=== PATIENT | female | born 1935 | race Caucasian/White ===

== ENCOUNTER 2024-03-18 11:34 | Inpatient (IN) | payer MEDICARE, BC, SELFPAY ==
[2024-03-18] VITALS (33 sets, daily range): BP systolic 125–196; BP diastolic 74–106; PULSE 95–124; TEMP 36.4–36.6; O2SAT 90–99; BMI 24.4; BMI 24.3
--- NOTE | 2024-03-18 11:52 | ECG_ITS ---
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
[2024-03-18] MEDS: IPRATROPIUM/ALBUTEROL SULFATE 3 ML AMPUL.NEB IH (12:12)
--- NOTE | 2024-03-18 12:12 | CT_ITS ---
[address] [address] Patient Name: DEEP MAYA MRN: [id number] date: 1935 Sex: F Assigned Patient Location: ER Current Patient Location: Accession/Order Number: [id number] Exam Date: 03/18/2024 12:42 Report Date: 03/18/2024 13:21 At the request of: JANET KIMBROUGH Procedure: CT angio chest EXAMINATION: CT angio chest HISTORY: Shortness of breath, recent flight COMPARISON: No relevant comparison available. TECHNIQUE: Multi-planar CT images were created with IV contrast. Axial, Coronal, and Sagittal images. Dose reduction techniques were achieved by using automated exposure control and/or adjustment of mA and/or kV according to patient size and/or use of iterative reconstruction technique. FINDINGS: LUNGS: Mild scattered groundglass attenuation throughout the lungs. Partial consolidation of the lower lobes right greater than left likely representing atelectasis PLEURA: Large right pleural effusion occupying approximately 80% of the right hemithorax. Small left pleural effusion measuring up to 2.7 cm VASCULATURE: Normal postcontrast opacification central pulmonary artery with no filling defect to suggest a pulmonary embolus AGUEDA: No mass or adenopathy. MEDIASTINUM: Soft tissue attenuation in the anterior mediastinum extending through the right-sided chest wall to a fungating right breast mass measuring 8.5 x 3.2 cm CARDIAC: No enlargement or pericardial effusion. Moderate coronary atherosclerosis AORTA: No aneurysm or dissection. CHEST WALL: Right breast mass. Additional areas of soft tissue attenuation in the right breast BONES: No bone lesion or fracture. LIMITED ABDOMEN: No suspicious findings. Limited images of the upper abdomen. OTHER: Findings discussed with Dr. Kimbrough by telephone at 1:[address]/CT angio chest IMPRESSION: No central pulmonary thromboembolic disease Large right and small left pleural effusions with associated atelectasis Groundglass attenuation of the lungs suggesting pulmonary edema Fungating 8.5 cm right breast mass extending through the chest wall into the anterior mediastinum Electronically authenticated by: TAMMY VALVERDE Date: 03/18/2024 13:21
[2024-03-18 12:14] LABS: ABG PCO2 48.5 mmHg (35.0-45.0); pH ABG 7.331 (7.350-7.450)
[2024-03-18 12:15] LABS: Allen Test POSITIVE (POSITIVE); Base Excess ABG -0.3 mmol/L (-2.0-2.0); HCO3 ABG 25.6 mmol/L (22.0-26.0); Liters per Minute 2; O2 Mode N/C; Oxygen Saturation ABG 94.1 %; PO2 ABG 72.8 mmHg (80.0-100.0); Puncture Site R RADIAL
[2024-03-18 12:16] LABS: Basophils Absolute Auto 0.1 10^3/uL (0.0-0.1); Basophils Percent Auto 0.4 % (0.2-2.0); Eosinophils Absolute Auto 0.1 10^3/uL (0.0-0.7); Hematocrit 35.2 % (36.0-48.0); Hemoglobin 11.6 g/dL (12.0-16.0); Immature Granulocytes Abs Auto 0.04 10^3/uL (0.00-0.03); Immature Granulocytes Pct Auto 0.3 % (0.0-0.5); Lymphocytes Absolute Auto 1.3 10^3/uL (1.2-3.8); Lymphocytes Percent Auto 10.5 % (20.5-60.0); Mean Platelet Volume 9.1 fL (9.5-13.5); Monocytes Absolute Auto 1.1 10^3/uL (0.3-0.8); Neutrophils Absolute Auto 9.9 10^3/uL (1.4-6.5); Neutrophils Percent Auto 78.8 % (43.0-75.0); Platelet Count 453 10^3/uL (150-450); Red Blood Count 3.52 10^6/uL (4.20-5.40); Red Cell Distribution Width 14.6 % (11.0-15.0); White Blood Count 12.6 10^3/uL (4.0-11.0)
[2024-03-18] MEDS: DEXAMETHASONE SOD PHOS 10 MG/ML VIAL IV (12:16)
[2024-03-18 12:20] LABS: Lactate/Lactic Acid 1.8 mmol/L (0.4-2.0)
[2024-03-18 12:21] LABS: Alanine Aminotransferase 16 U/L (14-59); Albumin Globulin Ratio 0.8; Albumin Level 3.2 g/dL (3.4-5.0); Alkaline Phosphatase 81 U/L (46-116); Anion Gap 14.4; Aspartate Amino Transferase 20 U/L (15-37); BUN Creatinine Ratio 22.7; Bilirubin Total 0.5 mg/dL (0.2-1.0); Calcium 9.7 mg/dL (8.5-10.1); Carbon Dioxide 25.1 mmol/L (21.0-32.0); Chloride 99 mmol/L (98-107); Estimated GFR (African America 57 (>=60); Estimated GFR (Non-African Ame 47 (>=60); Globulin 3.8 g/dL; Glucose 182 mg/dL (74-106); Potassium 3.5 mmol/L (3.5-5.1); Sodium 135 mmol/L (136-145); Troponin I High Sensitivity 11.2 pg/mL (4.0-51.3)
--- NOTE | 2024-03-18 12:46 | ED.SOB1 ---
HPI - SOB/Dyspnea General Chief Complaint: Shortness of Breath/Dyspnea Stated Complaint: SHORTNESS OF BREATH Time Seen by Provider: 03/18/24 12:02 Source: patient Mode of arrival: Wheelchair Limitations: no limitations History of Present Illness HPI Narrative: Patient presents ED complaint of shortness of breath. She just returned from [place] on Saturday. She has worsening shortness of breath that started last night. She is in severe respiratory distress. Speaking in very short sentences. Working hard to breathe and tachypneic. She was tachycardic on arrival had a heart rate of 100. She denies any chest pain. She does have lower extremity edema which is chronic for her when she has been sitting a lot. She denies any pain with breathing she just feels like she cannot catch her breath. She denies any history of COPD or emphysema or heart failure. Related Data Home Medications ?Medication ?Instructions ?Recorded ?Confirmed aspirin 81 mg tablet,delayed 81 mg PO DAILY 03/18/24 03/18/24 release (Adult Aspirin Regimen) letrozole 2.5 mg tablet 2.5 mg PO Q24H 03/18/24 03/18/24 losartan 100 1 tab PO DAILY 03/18/24 03/18/24 mg-hydrochlorothiazide 12.5 mg tablet metformin 1,000 mg tablet 1,000 mg PO BIDWM 03/18/24 03/18/24 omega 9-hld-uuz-fish oil 1,000 mg 1 cap PO DAILY 03/18/24 03/18/24 (120 mg-180 mg) capsule (Fish Oil) palbociclib 125 mg tablet (Ibrance) 125 mg PO DAILY 03/18/24 03/18/24 simvastatin 40 mg tablet 40 mg PO DAILY 03/18/24 03/18/24 Allergies Allergy/AdvReac Type Severity Reaction Status Date / Time No Known Drug Allergies Allergy Verified 03/18/24 11:49 Review of Systems ROS Status of ROS 10 or more systems reviewed and unremarkable except as noted in history and below Exam Narrative Exam Narrative: Time Seen: [] Vital Signs: [Per nurse's notes.] General: [Alert] Skin: [Warm, dry, no rash.] Head: [Normocephalic, atraumatic.] Neck: [Supple, trachea midline.] Eye: [Pupils are equal, round and reactive to light, extraocular movements are intact, normal conjunctiva.] Ears, nose, mouth and throat: oral mucosa moist. Cardiovascular: [Regular rate and rhythm, no murmur.] Respiratory: Severe respiratory distress, Inspiratory expiratory wheezing, moving very little air. Tachypneic. Chest wall: [No tenderness, Patient has a mass on the right chest wall Gastrointestinal: [Soft, nontender, non distended, normal bowel sounds.] MSK: 5 out of 5 muscle strength x 4 extremities no calf pain Mild bilateral lower extremity edema, 1+, patient reports this is typical for her Lymphatics: [No lymphadenopathy.] Psychiatric: [Cooperative, appropriate mood & affect.] Neurological: [Alert and oriented to person, place, time, and situation, no focal neurological deficit observed.] Constitutional Vital Signs, click to edit/add: Last Vital Signs Temp 97.6 F 03/18/24 11:45 Pulse 103 H 03/18/24 14:15 Resp 24 H 03/18/24 14:15 BP 156/76 H 03/18/24 14:00 Pulse Ox 93 L 03/18/24 14:15 O2 Del Method Nasal Cannula 03/18/24 13:03 O2 Flow Rate 3 03/18/24 13:03 FiO2 40 03/18/24 12:49 Course Vital Signs Vital signs: Vital Signs Temperature 97.6 F 03/18/24 11:45 Pulse Rate 98 H 03/18/24 11:45 Respiratory Rate 28 H 03/18/24 11:45 Pulse Oximetry 93 L 03/18/24 11:45 Oxygen Delivery Method Nasal Cannula 03/18/24 11:45 Oxygen Delivery Flow Rate 2 03/18/24 11:45 Temperature 97.6 F 03/18/24 11:45 Pulse Rate 103 H 03/18/24 14:15 Respiratory Rate 24 H 03/18/24 14:15 Blood Pressure 156/76 H 03/18/24 14:00 Pulse Oximetry 93 L 03/18/24 14:15 Oxygen Delivery Method Nasal Cannula 03/18/24 13:03 Oxygen Delivery Flow Rate 3 03/18/24 13:03 Fraction of Inspired Oxygen 40 03/18/24 12:49 MDM - SOB/Dyspnea MDM Narrative Medical decision making narrative: Patient came in with severe shortness of breath. CT chest shows fluid in the right lung and pulmonary edema. Patient is doing much better on high flow nasal cannula with supportive oxygen therapy. Labs are relatively nonacute. I ordered a CT angio chest due to the fact that she just flew back from [place] and she was having shortness of breath. She reported to me that if needed she would be intubated at this time However she improved greatly with high flow oxygen. CT scan was concerning for fluid in the right chest therefore I called Dr. Drummond and he reviewed the images with me. I talked to Dr. Christianson who will admit the patient to the hospital on high flow oxygen for further management. Dr. Drummond states that they will most likely do a thoracentesis at some point today to help with her breathing. Patient and family are comfortable care plan for admission. She is stable here in the ED. Dr. Christianson requested regular [facility] floor inpatient admit. Differential Diagnosis Differential diagnosis: Likely congestive heart failure, community acquired pneumonia, pulmonary embolism and other (Pleural effusion) Medical Records Attestation: I reviewed the patient's medical records. Lab Data Attestation: I reviewed the patient's lab results. Labs: Lab Results 03/18/24 03/18/24 Range/Units 10:25 11:55 WBC 12.6 H (4.0-11.0) 10^3/uL RBC 3.52 L (4.20-5.40) 10^6/uL Hgb 11.6 L (12.0-16.0) g/dL Hct 35.2 L (36.0-48.0) % MCV 100.0 H (81.0-99.0) fL MCH 33.0 (26.7-34.0) pg MCHC 33.0 (29.9-35.2) g/dL RDW 14.6 (11.0-15.0) % Plt Count 453 H (150-450) 10^3/uL MPV 9.1 L (9.5-13.5) fL Neut % (Auto) 78.8 H (43.0-75.0) % Lymph % (Auto) 10.5 L (20.5-60.0) % [place] % (Auto) 9.0 (1.7-12.0) % Eos % (Auto) 1.0 (0.9-7.0) % Baso % (Auto) 0.4 (0.2-2.0) % Neut # (Auto) 9.9 H (1.4-6.5) 10^3/uL Lymph # (Auto) 1.3 (1.2-3.8) 10^3/uL [place] # (Auto) 1.1 H (0.3-0.8) 10^3/uL Eos # (Auto) 0.1 (0.0-0.7) 10^3/uL Baso # (Auto) 0.1 (0.0-0.1) 10^3/uL Abs Immat Gran (auto) 0.04 H (0.00-0.03) 10^3/uL Imm/Tot Granulo (auto) 0.3 (0.0-0.5) % Puncture Site R radial ABG pH 7.331 L (7.350-7.450) ABG pCO2 48.5 H (35.0-45.0) mmHg ABG pO2 72.8 L (80.0-100.0) mmHg ABG HCO3 25.6 (22.0-26.0) mmol/L ABG O2 Saturation 94.1 % ABG Base Excess -0.3 (-2.0-2.0) mmol/L Vicente Test Positive (POSITIVE) O2 Liters/Min 2 Sodium 135 L (136-145) mmol/L Potassium 3.5 (3.5-5.1) mmol/L Chloride 99 (98-107) mmol/L Carbon Dioxide 25.1 (21.0-32.0) mmol/L Anion Gap 14.4 BUN 25.0 H (7.0-18.0) mg/dL Creatinine 1.10 H (0.55-1.02) mg/dL Est GFR ( Amer) 57 L (>=60) Est GFR (Non-Af Amer) 47 L (>=60) BUN/Creatinine Ratio 22.7 Glucose 182 H (74-106) mg/dL Lactate 1.8 (0.4-2.0) mmol/L Calcium 9.7 (8.5-10.1) mg/dL Total Bilirubin 0.5 (0.2-1.0) mg/dL AST 20 (15-37) U/L ALT 16 (14-59) U/L Alkaline Phosphatase 81 (46-116) U/L Lactate Dehydrogenase 192 (81-234) U/L Troponin I High Sens 11.2 (4.0-51.3) pg/mL NT-Pro-B Natriuret Pep 298.0 (<=1800.0) pg/mL Total Protein 7.0 (6.4-8.2) g/dL Albumin 3.2 L (3.4-5.0) g/dL Globulin 3.8 g/dL Albumin/Globulin Ratio 0.8 ABG Data Attestation: I have reviewed the pertinent ABG results. Imaging Data CT scan - chest: Radiologist's impression: ITS Impressions Chest CTA 03/18/24 12:12 IMPRESSION: No central pulmonary thromboembolic disease Large right and small left pleural effusions with associated atelectasis Groundglass attenuation of the lungs suggesting pulmonary edema Fungating 8.5 cm right breast mass extending through the chest wall into the anterior mediastinum Electronically authenticated by: TAMMY DRUMMOND Date: 03/18/2024 13:21 ECG Data Attestation: I personally reviewed and interpreted this ECG as follows: Interpretation: EKG INTERPRETATION Time: []1149 Rate: []100 Rhythm: _ []Sinus tachycardia ST segments: _ [] T waves: _ [] Ectopy: _ [] P wave/UT interval: _ [] QRS interval: _ [] QT interval: _ [] Comparison: _ [] Comparison EKG date: [] Performed by: [self] First-degree AV block No acute ST elevation or depression Discharge Plan Discharge Chief Complaint: Shortness of Breath/Dyspnea Time of Disposition Decision: 14:52 Prescriptions / Home Meds: No Action letrozole 2.5 mg tablet 2.5 mg PO Q24H losartan-hydrochlorothiazide 100-12.5 mg tablet 1 tab PO DAILY metformin 1,000 mg tablet 1,000 mg PO BIDWM Ibrance 125 mg tablet 125 mg PO DAILY simvastatin 40 mg tablet 40 mg PO DAILY aspirin [Adult Aspirin Regimen] 81 mg tablet,delayed release (DR/EC) 81 mg PO DAILY omega 8-nqa-fwv-fish oil [Fish Oil] 1,000 mg (120 mg-180 mg) capsule 1 cap PO DAILY Print Language: Uzbek
[2024-03-18] MEDS: FUROSEMIDE 40 MG/4 ML VIAL IVP (13:42)
--- NOTE | 2024-03-18 13:54 | US_ITS ---
[address] [address] Patient Name: DEEP MAYA MRN: [id number] date: 1935 Sex: F Assigned Patient Location: ICU Current Patient Location: ICU Accession/Order Number: [id number] Exam Date: 03/18/2024 13:56 Report Date: 03/19/2024 15:41 At the request of: SHAIKH ROSALES Procedure: US thoracentesis PROCEDURE: US thoracentesis COMPARISON: None. HISTORY: Pleural effusion , right greater than left DESCRIPTION: Informed consent was obtained. The patient was prepped and draped in the standard sterile fashion. An ultrasound-guided thoracentesis was performed in the usual sterile manner. FINDINGS: SITE: Right pleural space NEEDLE: Thoracentesis 8 Fr. catheter over an 18-gauge needle FLUID DESCRIPTION: Removed 1.4 L of thin, slightly dustin-colored fluid. MEDICATION: 1% buffered Xylocaine for local anesthesia COMPLICATIONS: None. LABORATORY: Pending OTHER: Negative. US/US thoracentesis IMPRESSION: 1. Successful right thoracentesis with removal of 1.4 L of fluid. 2. Pathology/cytology results are pending. Electronically authenticated by: SAIRA GUTIERREZ Date: 03/19/2024 15:41
[2024-03-18 14:33] LABS: Lactate Dehydrogenase 192 U/L (81-234)
--- NOTE | 2024-03-18 17:00 | P.HP_ITS ---
<Statement entered by Shaikh Camilla MD - 03/19/24 11:45> This documentation has been reviewed and approved.Case discussed with Erika. Appendectomy with treatment plan, patient. Patient presented with acute and worsening shortness of breath and was found to have acute respiratory failure with hypoxia likely secondary to large right pleural effusion that is associated with her breast cancer. Ordered therapeutic thoracentesis for patient for symptomatic relief. For now, IV Lasix forty twice a day to help improve/ respiratory status HPI H&P: HPI History of Present Illness Chief complaint: SHORTNESS OF BREATH Narrative: 03/18/24 1520 This is an 89-year-old female patient with a past medical history as outlined below including breast cancer status post right mastectomy with recurrent lesion on the right chest wall, DM2, HTN, and hyperlipidemia; who presented to the ED complaining of shortness of breath since yesterday afternoon. The patient reports mild shortness of breath in the evening but by nighttime was unable to lie flat and had difficulty sleeping. This morning she was severely short of breath and presented to the ED for further evaluation. Workup in the ED revealed mild leukocytosis (12.6), tachycardia (103), tachypnea (24), and hypoxia (89% on room air). An ABG revealed mild respiratory acidosis and hypoxia (pH 7.33, pCO2 48.5, pO2 72.8, HCO3 25.6, base excess -0.3). A CTA of the chest was negative for PE, but did note a large right and small left pleural effusions with associated atelectasis, groundglass attenuation of the lungs suggesting pulmonary edema, and a fungating 8.5 cm right breast mass extending through the chest wall into the anterior mediastinum. The patient is being admitted as an inpatient to the hospitalist service for acute respiratory failure, and pleural effusion requiring intervention. At the time of my exam the patient is just arrived to the medical floor. She was placed on high flow Vapotherm O2 delivery in the ED prior to transfer to the medical floor due to her persistent hypoxia. She is notably short of breath, able to speak in 3-4 word sentences only. She denies fevers/chills, chest pain, N/V/D. She reports following with oncology both in [place] and here in [place]. She was recently discontinued her Ibrance as it was not effective, and was placed on a new low-dose chemotherapy due to the mass recurrence on her right chest wall. Apparently this is not amenable to surgical intervention as both oncologists have stated they won't touch the mass. The patient has been against using chemotherapy and is hesitantly going to try her new medication that was just prescribed by her oncologist in [place]. She just returned from [place] 3 days ago. She has a large open mass on her right chest wall that is seeping serosanguineous fluid. Goals of care conversation was held with the patient and she confirms she wants to be a DNR CCA. Opioid HPI Opioid Management Most Recent Opioid Data: Last Pain Assessment 03/19/24 05:12 Last ORT Total Score 0 03/18/24 15:13 Last ORT Risk Category Low Risk 03/18/24 15:13 Review of Systems ROS Status of ROS 10 or more systems reviewed and unremark able except as noted in history and below [facility] Medical History (Updated 03/19/24 @ 06:42 by Erika Bedoya NP) DM2 (diabetes mellitus, type 2) ?E11.9 - Type 2 diabetes mellitus without complications (ICD-10) Breast cancer ?C50.919 - Malignant neoplasm of unspecified site of unspecified female breast (ICD-10) Surgical History (Updated 03/18/24 @ 15:07 by Yu Wetzel) History of mastectomy ?Z90.10 - Acquired absence of unspecified breast and nipple (ICD-10) Family History (Updated 03/18/24 @ 15:10 by Yu Wetzel) Mother Family history of cancer Social History (Updated 03/18/24 @ 15:13 by Yu Wetzel) Within the past year, how often did you have a drink containing alcohol: monthly or less Smoking status: Never smoker Non-prescribed substance use: denies use Highest level of school completed/degree received: 10th grade Are you now , , , , never or living with a partner: In a typical week, how many times do you talk on the telephone with family, friends, or neighbors: twice per week How often do you get together with friends or relatives: twice per week How often do you attend roman catholic or yazdanism services: never Do you belong to any clubs or organizations such as roman catholic groups unions, fraternal or athletic groups, or school groups: no Total score: 1 Score interpretation: A score of less than or equal to 1 indicates the most socially isolated. Little interest or pleasure in doing things: not at all Feeling down, depressed, or hopeless: not at all Feel stressed/tense/nervous/anxious/difficulty sleeping: not at all Meds Home Medications and Allergies Home Medications ?Medication ?Instructions ?Recorded ?Confirmed ?Type aspirin 81 mg tablet,delayed 81 mg PO DAILY 03/18/24 03/18/24 History release (Adult Aspirin Regimen) letrozole 2.5 mg tablet 2.5 mg PO Q24H 03/18/24 03/18/24 History losartan 100 1 tab PO DAILY 03/18/24 03/18/24 History mg-hydrochlorothiazide 12.5 mg tablet metformin 1,000 mg tablet 1,000 mg PO BIDWM 03/18/24 03/18/24 History omega 6-udz-zsd-fish oil 1,000 mg 1 cap PO DAILY 03/18/24 03/18/24 History (120 mg-180 mg) capsule (Fish Oil) palbociclib 125 mg tablet (Ibrance) 125 mg PO DAILY 03/18/24 03/18/24 History simvastatin 40 mg tablet 40 mg PO DAILY 03/18/24 03/18/24 History Allergies Allergy/AdvReac Type Severity Reaction Status Date / Time No Known Drug Allergies Allergy Verified 03/18/24 11:49 Exam Constitutional Vital Signs, click to edit/add: Last Vital Signs Temp 97.9 F 03/18/24 15:13 Pulse 124 H 03/18/24 16:10 Resp 18 03/18/24 15:13 BP 144/85 H 03/18/24 15:13 Pulse Ox 90 L 03/18/24 16:24 O2 Del Method Vapotherm 03/18/24 16:24 O2 Flow Rate 40 03/18/24 16:24 FiO2 40 03/18/24 16:24 Common normals: no apparent distress, oriented x3, alert and well nourished General appearance: cooperative Orientation/consciousness: Yes awake HENMA Common normals: normocephalic, head/scalp atraumatic, hearing grossly normal bilaterally, external nose normal and moist oral mucous membranes Eye Common normals: PERRL, EOMs intact bilaterally, conjunctivae normal and no scleral icterus Alignment: alignment normal Eyelid: eyelids normal Neck & C-Spine Common normals: full ROM, supple and no JVD Chest Common normals: inspection of chest normal Chest: symmetrical chest wall rise Respiratory Common normals: no retractions and no use of accessory muscles Effort & inspection: not able to speak in complete sentences (3-4 word sentences) Auscultation: diminished lung sounds (Very dim BLL, R much worse than L) Cardio Common normals: no JVD, regular rate, regular rhythm, S1 normal heart sound, S2 normal heart sound, no gallops, no clicks, no murmurs, no rub and peripheral pulses 2+ throughout GI Common normals: Normal to inspection, nondistended, normoactive bowel sounds present, soft to palpation, non-tender, no hepatosplenomegaly, no masses and no bruits Bladder/kidney exam: bladder normal to palpation Back & Pelvis Common normals: thoracic and lumbar spine normal to inspection Extremity Common normals: normal capillary refill General: normal exam except as noted and edema (Tr-1+ bilat insteps/ankles); no clubbing and no cyanosis Neuro Noel Coma Scale: GCS not evaluated Common normals: CN's II-XII intact bilaterally, moves all extremities, no focal motor deficits and no sensory deficits noted Speech: speech normal Motor exam: strength 5/5 throughout Psych Common normals: mental status grossly normal, thought process normal, affect normal and activity/motor behavior normal Results Labs Labs: Short CBC 03/18/24 Range/Units 11:55 WBC 12.6 H (4.0-11.0) 10^3/uL Hgb 11.6 L (12.0-16.0) g/dL Hct 35.2 L (36.0-48.0) % Plt Count 453 H (150-450) 10^3/uL BMP 03/18/24 11:55 Sodium 135 L Potassium 3.5 Chloride 99 Carbon Dioxide 25.1 BUN 25.0 H Creatinine 1.10 H Glucose 182 H Calcium 9.7 Liver Function 03/18/24 Range/Units 11:55 Total Bilirubin 0.5 (0.2-1.0) mg/dL AST 20 (15-37) U/L ALT 16 (14-59) U/L Alkaline Phosphatase 81 (46-116) U/L Albumin 3.2 L (3.4-5.0) g/dL ABG ABG results: 03/18/24 10:25 ABG pH 7.331 L ABG pCO2 48.5 H ABG pO2 72.8 L ABG HCO3 25.6 ABG O2 Saturation 94.1 ABG Base Excess -0.3 Pulse Oximetry Attestation: I have reviewed the pertinent pulse oximetry results. Imaging CTA chest: Attestation: I have reviewed the pertinent imaging results. Radiologist's impression: IMPRESSION: No central pulmonary thromboembolic disease Large right and small left pleural effusions with associated atelectasis Groundglass attenuation of the lungs suggesting pulmonary edema Fungating 8.5 cm right breast mass extending through the chest wall into the anterior mediastinum Assessment and Plan Assessment and Plan (1) Pleural effusion on right: Assessment and Plan: Acute * Adm inpatient * We expect greater than a 2 midnight stay for medically necessary hospital care including IV diuretics, diagnostic and therapeutic thoracentesis, and high flow O2 delivery * 2/2 adjacent large recurrent breast CA, almost certainly now invasive into the pleural cavity * Diagnostic and therapeutic thoracentesis in AM * High flow O2 delivery - see below (2) Acute respiratory failure: Assessment and Plan: Acute * Severe SOB/hypoxia in the ED * High flow Vapotherm O2 delivery required to maintain O2 sats and improve dyspnea - continue and titrate as needed to keep sats above 90% * Able to complete 3-4 word sentences only, even on high flow delivery * 2/2 large R pleural effusion (3) Breast cancer: Assessment and Plan: Chronic * s/p mastectomy ~ 10 yrs ago * Follows w/ oncology in both [place] and [place] * Has been on Ibrance therapy, but recently discontinued as ineffective * Prescribed new low dose chemotherapy just prior to departure from [place], but told to start taking after arrival in [place]. Not yet started. Pt is not sure of the name of the new chemotherapy. * Defer to outpatient oncology management (4) DM2 (diabetes mellitus, type 2): Assessment and Plan: Chronic * Hold home metformin during hospitalization * ACHS glucometer checks * SSI for glucose correction
[2024-03-18] MEDS: ENOXAPARIN SODIUM 40 MG/0.4 ML SYRINGE SUBQ (17:05)
--- NOTE | 2024-03-18 17:31 | PC.NURSE ---
Patient recieved per WC from Med Surg. O2 at 5 L NC for transport. Stands and pivots to bed without difficulty. Vapotherm reapplied at 40%.
[2024-03-18 20:52] LABS: Glucometer 387 mg/dL (74-106)
[2024-03-18] MEDS: ATORVASTATIN CALCIUM 20 MG TABLET PO (21:10)
[2024-03-18] MEDS: INSULIN ASPART 300 UNIT/3 ML PEN SUBQ (21:10)
[2024-03-19] VITALS (70 sets, daily range): BP systolic 55–168; BP diastolic 24–91; PULSE 82–115; TEMP 36.4–36.6; O2SAT 87–99
[2024-03-19] MEDS: FUROSEMIDE 40 MG/4 ML VIAL IVP ×2 (03:16→13:50)
[2024-03-19 05:41] LABS: Basophils Percent Auto 0.1 % (0.2-2.0); Hematocrit 35.1 % (36.0-48.0); Hemoglobin 11.7 g/dL (12.0-16.0); Immature Granulocytes Abs Auto 0.04 10^3/uL (0.00-0.03); Immature Granulocytes Pct Auto 0.4 % (0.0-0.5); Lymphocytes Percent Auto 9.1 % (20.5-60.0); Mean Corpuscular HGB Conc 33.3 g/dL (29.9-35.2); Mean Corpuscular Hemoglobin 32.5 pg (26.7-34.0); Mean Corpuscular Volume 97.5 fL (81.0-99.0); Mean Platelet Volume 9.4 fL (9.5-13.5); Monocytes Absolute Auto 0.7 10^3/uL (0.3-0.8); Monocytes Percent Auto 6.3 % (1.7-12.0); Neutrophils Absolute Auto 9.5 10^3/uL (1.4-6.5); Neutrophils Percent Auto 84.1 % (43.0-75.0); Platelet Count 501 10^3/uL (150-450); White Blood Count 11.2 10^3/uL (4.0-11.0)
[2024-03-19 06:07] LABS: Alanine Aminotransferase 18 U/L (14-59); Albumin Globulin Ratio 0.8; Albumin Level 3.1 g/dL (3.4-5.0); Alkaline Phosphatase 74 U/L (46-116); Anion Gap 13.5; Aspartate Amino Transferase 16 U/L (15-37); Bilirubin Total 0.4 mg/dL (0.2-1.0); Calcium 9.6 mg/dL (8.5-10.1); Carbon Dioxide 28.5 mmol/L (21.0-32.0); Chloride 97 mmol/L (98-107); Estimated GFR (African America >60 (>=60); Estimated GFR (Non-African Ame 52 (>=60); Globulin 3.8 g/dL; Glucose 188 mg/dL (74-106); Sodium 136 mmol/L (136-145); Total Protein 6.9 g/dL (6.4-8.2)
[2024-03-19 08:33] LABS: Glucometer 213 mg/dL (74-106)
[2024-03-19] MEDS: INSULIN ASPART 300 UNIT/3 ML PEN SUBQ ×4 (08:35→21:07)
[2024-03-19] MEDS: HYDROCHLOROTHIAZIDE 25 MG TABLET 12.5 MG PO (08:36)
[2024-03-19] MEDS: POTASSIUM CHLORIDE 10 MEQ ER TABLET 40 MEQ PO (08:37)
[2024-03-19] MEDS: LOSARTAN POTASSIUM 50 MG TABLET 100 MG PO (08:37)
--- NOTE | 2024-03-19 09:24 | SWNOTE1 ---
Case management met with pt yesterday. Pt lives in [place] for winter months and in an apt behind her daughter's home in summer. She is independent and does not use any devices. SW checked PT note and no needs identified at this time. SW to follow as needed.
--- NOTE | 2024-03-19 10:19 | SWNOTE1 ---
SW checked chart and IMM was completed yesterday, 03/18/24.
--- NOTE | 2024-03-19 11:54 | CM.NOTE ---
Rounds made with Dr. Sampson. Continues on Vapotherm. No plan for discharge today.
[2024-03-19] MEDS: LIDOCAINE HCL 10 ML, SODIUM BICARBONATE 1 MEQ INJ (12:10)
--- NOTE | 2024-03-19 12:32 | XR_ITS ---
[address] [address] Patient Name: DEEP MAYA MRN: [id number] date: 1935 Sex: F Assigned Patient Location: ICU Current Patient Location: ICU Accession/Order Number: [id number] Exam Date: 03/19/2024 12:42 Report Date: 03/19/2024 13:42 At the request of: SHAIKH ROSALES Procedure: XR chest 1V EXAMINATION: XR chest 1V HISTORY: s/p R thoracentesis, inspiration and expiration COMPARISON: CTA chest 03/30/2024 FINDINGS: LUNGS: Elevated left hemidiaphragm. Mild/moderate right basilar atelectasis and pleural effusion. VASCULATURE: No increased pulmonary vasculature. PLEURA: Bilateral pleural effusions. CARDIAC: Partially obscured. No convincing cardiomegaly. MEDIASTINUM: No visible mass or adenopathy. BONES: No fracture or visible bone lesion. OTHER: Negative. XR/XR chest 1V IMPRESSION: 1. No postprocedural pneumothorax. 2. Residual right pleural fluid, likely small-moderate amount, significantly improved. 3. Mild bibasilar atelectasis versus infiltrates; right greater than left. 4. Suspect persistent small left pleural effusion. Electronically authenticated by: SAIRA GUTIERREZ Date: 03/19/2024 13:42
--- NOTE | 2024-03-19 12:35 | PC.NURSE ---
radiology completed thoracentesis, 1.4L removed per nurse. pt awake, talkative. cxr ordered per request.
[2024-03-19 12:41] LABS: Glucometer 213 mg/dL (74-106)
--- NOTE | 2024-03-19 13:24 | SUR.PREOP ---
03/19/24 0745 Phoned Kimberly ROLDAN and made her aware will do thoracentesis around 1130 today and hold Lovenox until after the procedure. Dr Wang made aware that pt has 40mg of Lovenox at 1700 03/18 and pt has not had a dose of ASA since Friday 03/16.
[2024-03-19] MEDS: ACETAMINOPHEN 325 MG TABLET 650 MG PO (14:35)
--- NOTE | 2024-03-19 15:13 | PM.IMPN1 ---
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 Scheduled for thoracentesis. Ordered fluid studies. (2) Acute respiratory failure: Assessment and Plan: due to b/l pleural effusion. no resp distress. Wean off O2 as tolerated. Qualifiers: Respiratory failure complication: hypoxia Qualified Code(s): J96.01 - Acute respiratory failure with hypoxia (3) Breast cancer: Assessment and Plan: Established with oncology as outpatient. Defer Qualifiers: Breast location: unspecified site of breast Estrogen receptor status: unspecified Patient sex: female Laterality: right Qualified Code(s): C50.911 - Malignant neoplasm of unspecified site of right female breast (4) DM2 (diabetes mellitus, type 2): Assessment and Plan: c/w SSI Qualifiers: Diabetes mellitus fdc insulin use: without termite inspector use Diabetes mellitus complication status: without complication Qualified Code(s): E11.9 - Type 2 diabetes mellitus without complications (5) HLD (hyperlipidemia): Assessment and Plan: C/w statin Qualifiers: Hyperlipidemia type: unspecified Qualified Code(s): E78.5 - Hyperlipidemia, unspecified (6) HTN (hypertension): Assessment and Plan: BP borderline low. Hold for now. Qualifiers: Hypertension type: primary hypertension Qualified Code(s): I10 - Essential (primary) hypertension Internal Medicine - PN: Subj Subjective Interval history: Patient slightly confused in the morning. Esy to redirect. On High flow O2 but comfortable. Scheduled for thoracentesis later today in the afternoon Exam Constitutional Vital Signs, click to edit/add: Last Vital Signs Temp 98 F 03/19/24 03:00 Pulse 95 H 03/19/24 14:00 Resp 18 03/19/24 12:00 BP 104/70 03/19/24 12:40 Pulse Ox 97 03/19/24 12:51 O2 Del Method Nasal Cannula 03/19/24 14:00 O2 Flow Rate 3 03/19/24 14:00 FiO2 40 03/19/24 11:10 Documenting provider has reviewed patient's vital signs: yes Common normals: no apparent distress and oriented x3 General appearance: cooperative, comfortable and frail appearing Respiratory Common normals: normal respiratory effort Effort & inspection: able to speak in complete sentences Auscultation: diminished lung sounds Cardio Common normals: regular rate, regular rhythm, S1 normal heart sound and S2 normal heart sound Extremity Common normals: normal to inspection and full ROM Neuro Common normals: oriented x3, moves all extremities, no focal motor deficits and no sensory deficits noted Sensorium/orientation: fluctuating sensorium Psych Common normals: mental status grossly normal, denies hallucinations and denies homicidal ideation Internal Medicine - PN: Obj Da Labs Labs: Laboratory Results - last 24 hr 03/18/24 03/19/24 03/19/24 20:51 04:16 08:31 WBC 11.2 H RBC 3.60 L Hgb 11.7 L Hct 35.1 L MCV 97.5 MCH 32.5 MCHC 33.3 RDW 14.0 Plt Count 501 H MPV 9.4 L Neut % (Auto) 84.1 H Lymph % (Auto) 9.1 L [place] % (Auto) 6.3 Eos % (Auto) 0.0 L Baso % (Auto) 0.1 L Neut # (Auto) 9.5 H Lymph # (Auto) 1.0 L [place] # (Auto) 0.7 Eos # (Auto) 0.0 Baso # (Auto) 0.0 Abs Immat Gran (auto) 0.04 H Imm/Tot Granulo (auto) 0.4 Sodium 136 Potassium 3.0 L Chloride 97 L Carbon Dioxide 28.5 Anion Gap 13.5 BUN 24.0 H Creatinine 1.00 Est GFR ( Amer) >60 Est GFR (Non-Af Amer) 52 L BUN/Creatinine Ratio 24.0 Glucose 188 H Calcium 9.6 Total Bilirubin 0.4 AST 16 ALT 18 Alkaline Phosphatase 74 Total Protein 6.9 Albumin 3.1 L Globulin 3.8 Albumin/Globulin Ratio 0.8 POC Glucose 387 H 213 H 03/19/24 12:38 WBC RBC Hgb Hct MCV MCH MCHC RDW Plt Count MPV Neut % (Auto) Lymph % (Auto) [place] % (Auto) Eos % (Auto) Baso % (Auto) Neut # (Auto) Lymph # (Auto) [place] # (Auto) Eos # (Auto) Baso # (Auto) Abs Immat Gran (auto) Imm/Tot Granulo (auto) Sodium Potassium Chloride Carbon Dioxide Anion Gap BUN Creatinine Est GFR ( Amer) Est GFR (Non-Af Amer) BUN/Creatinine Ratio Glucose Calcium Total Bilirubin AST ALT Alkaline Phosphatase Total Protein Albumin Globulin Albumin/Globulin Ratio POC Glucose 213 H
[2024-03-19 15:34] LABS: Glucometer 268 mg/dL (74-106)
--- NOTE | 2024-03-19 15:59 | PC.NURSE ---
1220 Pt began coughing during procedure and having difficulty stopping. Pt started to c/o upper right chest pain and right neck pain. Removal of fluid stopped to allow pt to recover. 1224 Resumed removal of fluid until pt began coughing and c/o right chest pain again. Total of 1400 ml removed of clear dark dustin colored fluid. 1235 Pt states that pain is subsiding now that procedure is complete.
[2024-03-19] MEDS: MORPHINE SULFATE 2 MG/ML SYRINGE IV (16:05)
--- NOTE | 2024-03-19 16:44 | XR_ITS ---
The [address] [address] Patient Name: DEEP MAYA MRN: [id number] date: 1935 Sex: F Assigned Patient Location: ICU Current Patient Location: ICU Accession/Order Number: [id number] Exam Date: 03/19/2024 16:55 Report Date: 03/19/2024 18:20 At the request of: SHAIKH ROSALES Procedure: XR chest 1V EXAMINATION: XR chest 1V, , 03/19/2024 4:55 PM EDT INDICATION: SOB HISTORY: Ordering Provider Reason for Exam: SOB Technologist Note: Additional: COMPARISON: XR chest 1V Study Date: 03/19/2024 12:04:49 PM TECHNIQUE: Chest x-ray: One view. FINDINGS: Stable appearance mild prominent cardiomediastinal silhouette is seen. Moderate right, and small left pleural effusion is again seen. Airspace opacities are seen in the right lower lobe suggestive of infiltrate. No obvious pneumothorax is seen. Degenerative changes of the right glenohumeral joint is seen with joint space narrowing. Overall, no significant change is seen since prior examination. XR/XR chest 1V IMPRESSION: Moderate right, and small left pleural effusion is again seen. Airspace opacities are seen in the right lower lobe suggestive of infiltrate. Electronically authenticated by: VICENTA MONTANEZ Date: 03/19/2024 18:20
[2024-03-19] MEDS: 0.9 % SODIUM CHLORIDE 1,000 ML 1000 ML IV (16:50)
--- NOTE | 2024-03-19 16:54 | PC.NURSE ---
1640 pt lethargic, spo2 80's on 3lnc. applied vapotherm 40l 40%. spo2 maintains in 80's%, vapotherm increased to 40L 100%. pt laid flat, NS bolus initiated, RT called. Dr sosa notifed. pt opens eyes, is able to state name. 1650 pt alert, smiling and laughing. vaptherm weaned to 40L 80%. bp improved. pcxr completed.
--- NOTE | 2024-03-19 19:05 | PC.NURSE ---
report called to chris batista on [facility]. pt and daughter aware of transfer.
[2024-03-19] MEDS: OXYCODONE HCL 5 MG TABLET PO (19:59)
--- NOTE | 2024-03-19 20:55 | RESP.RT ---
Titrated to 2 lpm
[2024-03-19 21:00] LABS: Glucometer 215 mg/dL (74-106)
[2024-03-19] MEDS: ATORVASTATIN CALCIUM 20 MG TABLET PO (21:07)
[2024-03-20] VITALS (13 sets, daily range): BP systolic 158–172; BP diastolic 74–82; PULSE 90–108; TEMP 36.5–36.6; O2SAT 87–95
[2024-03-20 05:00] LABS: Hematocrit 33.4 % (36.0-48.0); Hemoglobin 11.2 g/dL (12.0-16.0); Mean Corpuscular HGB Conc 33.5 g/dL (29.9-35.2); Mean Corpuscular Hemoglobin 32.5 pg (26.7-34.0); Mean Corpuscular Volume 96.8 fL (81.0-99.0); Platelet Count 477 10^3/uL (150-450); Red Blood Count 3.45 10^6/uL (4.20-5.40); Red Cell Distribution Width 14.2 % (11.0-15.0); White Blood Count 22.5 10^3/uL (4.0-11.0)
[2024-03-20 05:30] LABS: Alanine Aminotransferase 19 U/L (14-59); Albumin Globulin Ratio 0.9; Alkaline Phosphatase 70 U/L (46-116); Anion Gap 12.3; Aspartate Amino Transferase 21 U/L (15-37); BUN Creatinine Ratio 22.7; Bilirubin Total 0.3 mg/dL (0.2-1.0); Calcium 9.3 mg/dL (8.5-10.1); Chloride 100 mmol/L (98-107); Estimated GFR (African America 48 (>=60); Estimated GFR (Non-African Ame 39 (>=60); Globulin 3.3 g/dL; Glucose 166 mg/dL (74-106); Potassium 3.3 mmol/L (3.5-5.1); Sodium 138 mmol/L (136-145); Total Protein 6.3 g/dL (6.4-8.2)
[2024-03-20 05:53] LABS: Hypersegmented Neutrophils 3+; Monocytes Absolute Manual 1.35 10^3/uL (0.30-0.80); Segmented Neut Absolute Manual 19.35 10^3/uL (1.4-6.5)
[2024-03-20 08:40] LABS: Glucometer 190 mg/dL (74-106)
[2024-03-20] MEDS: CEFTRIAXONE 1,000 MG in 0.9 % SODIUM CHLORIDE 50 ML 100 MG IV (08:42)
[2024-03-20 10:12] LABS: Glucose, Body Fluid 133 mg/dL (.); LD, Body Fluid 685 IU/L (.); Protein, Body Fluid 4.4 g/dL (.)
--- NOTE | 2024-03-20 12:08 | CM.NOTE ---
Rounds made with Dr. Sampson, discussed with pt about discharge to home today and need for home oxygen. Pt states I can breathe just fine. Explained to pt about oxygen levels and dropping in the 80's off oxygen and risk of going home without oxygen. Pt is in agreement to home oxygen if needed after walk test. Pt's daughter then came in to visit and Dr. Sampson updated her and pt on need to f/u with oncologist to establish plan of care. Daughter also verbalizes understanding of need for home oxygen. No preference on oxygen companies, pt's main concern is that oxygen is covered with her insurance. Explained to pt that we would set everything up from hospital to make sure oxygen would be covered.
--- NOTE | 2024-03-20 12:20 | P.DS_ITS ---
DS: Providers Provider Date of admission: 03/18/24 14:44 Primary care physician: Ethel Priest MD Admitting clinician: Shaikh Camilla Attending physician on admission: Shaikh Camilla Consults: 03/18/24 13:54 Occupational Therapy Eval and Treat Routine Reason for consultation: Ambulatory dysfunction/weakness Physical Therapy Eval and Treat Routine Reason for consultation: Ambulatory dysfunction/weakness Attending physician on discharge: Shaikh Camilla Discharging clinician: Shaikh Camilla Anticipated date of discharge: 03/20/24 DS: Diagnosis Discharge Diagnosis (1) Pleural effusion on right: Assessment and plan: Status post thoracentesis. Exudative pleural effusion according to lights criteria. Likely secondary to breast cancer. Outpatient follow-up (2) Acute respiratory failure: Assessment and plan: Hypoxia significantly improved but is still requiring oxygen. She is currently on 3 L of oxygen via nasal cannula. She will require oxygen as outpatient secondary to bilateral pleural effusion caused by breast cancer. Discussed with patient about home oxygen use. She will have a 6-minute walk test to determine her exact needs but anticipate her needing long-term oxygen as outpatient. Qualifiers: Respiratory failure complication: hypoxia Qualified Code(s): J96.01 - Acute respiratory failure with hypoxia (3) Breast cancer: Assessment and plan: Patient will call and make an appointment with oncology as outpatient. Qualifiers: Breast location: unspecified site of breast Estrogen receptor status: unspecified Patient sex: female Laterality: right Qualified Code(s): C50.911 - Malignant neoplasm of unspecified site of right female breast (4) DM2 (diabetes mellitus, type 2): Assessment and plan: Continue with home medications Qualifiers: Diabetes mellitus senior living insulin use: without supervisor intermediates use Diabetes mellitus complication status: without complication Qualified Code(s): E11.9 - Type 2 diabetes mellitus without complications (5) HLD (hyperlipidemia): Assessment and plan: Continue with home medication since Qualifiers: Hyperlipidemia type: unspecified Qualified Code(s): E78.5 - Hy perlipidemia, unspecified (6) HTN (hypertension): Assessment and plan: Continue with home medication Qualifiers: Hypertension type: primary hypertension Qualified Code(s): I10 - Essential (primary) hypertension DS: Summary Hospital Course Hospital Course: 89-year-old female presented with acute shortness of breath was found to have respiratory failure with hypoxia secondary to large left pleural effusion. Patient has breast cancer and was felt that her effusion was secondary to breast cancer. She was admitted for respiratory failure and underwent thoracentesis with about 1.5 L of fluid collected. Her pleural fluid is consistent with exudative effusion according to lights criteria. After thoracentesis, she was complaining of pain and was given IV morphine that caused acute respiratory distress with increased work of breathing and hypoxia but she recovered quickly and is now back to 3 L of oxygen via nasal cannula and comfortable on it. Repeat chest x-ray did not show evidence of pneumothorax. There are some infiltrates on chest x-ray but nothing was notable on a CTA. While I have low suspicion of pneumonia, I will empirically treat her for possible community-acquired pneumonia discharged on p.o. Levaquin [id number]. Status at Discharge Functional status at discharge: independent ambulation Overall status at discharge: patient is back to baseline Time Spent with Patient Time attestation: Total time spent providing and/or coordinating discharge services: Time spent: greater than 30 minutes Exam Constitutional Vital Signs, click to edit/add: Last Vital Signs Temp 97.9 F 03/20/24 08:30 Pulse 108 H 03/20/24 11:51 Resp 18 03/20/24 08:30 BP 158/74 H 03/20/24 08:30 Pulse Ox 92 L 03/20/24 11:44 O2 Del Method Nasal Cannula 03/20/24 11:44 O2 Flow Rate 2 03/20/24 11:44 FiO2 100 03/19/24 16:46 Documenting provider has reviewed patient's vital signs: yes Common normals: no apparent distress and oriented x3 General appearance: cooperative Respiratory Common normals: normal respiratory effort and clear to auscultation bilaterally Effort & inspection: able to speak in complete sentences Auscultation: clear to auscultation bilaterally Cardio Common normals: regular rate, S1 normal heart sound and S2 normal heart sound Rate: regular rate Heart sounds: S1 normal and S2 normal GI Common normals: Normal to inspection, nondistended, normoactive bowel sounds present, soft to palpation, non-tender and no hepatosplenomegaly Palpation: soft and no hepatosplenomegaly Extremity Common normals: no clubbing, cyanosis or edema Neuro Common normals: oriented x3, moves all extremities and no focal motor deficits Psych Common normals: mental status grossly normal, denies hallucinations, denies homicidal ideation and denies suicidal ideation DS: Data Data Completed and Pending Labs on day of discharge: Labs from last 24 hours 03/20/24 03/20/24 03/19/24 08:40 04:35 20:59 WBC 22.5 H RBC 3.45 L Hgb 11.2 L Hct 33.4 L MCV 96.8 MCH 32.5 MCHC 33.5 RDW 14.2 Plt Count 477 H MPV 9.0 L Seg Neuts % (Manual) 86.0 Lymphocytes % (Manual) 8.0 L Monocytes % (Manual) 6.0 Eosinophils % (Manual) 0.0 L Basophils % (Manual) 0.0 L Neutrophils # (Manual) 19.35 H Lymphocytes # (Manual) 1.80 Monocytes # (Manual) 1.35 H Eosinophils # (Manual) 0.00 Basophils # (Manual) 0.00 Hypersegmented Neuts 3+ Sodium 138 Potassium 3.3 L Chloride 100 Carbon Dioxide 29.0 Anion Gap 12.3 BUN 29.0 H Creatinine 1.28 H Est GFR ( Amer) 48 L Est GFR (Non-Af Amer) 39 L BUN/Creatinine Ratio 22.7 Glucose 166 H Calcium 9.3 Total Bilirubin 0.3 AST 21 ALT 19 Alkaline Phosphatase 70 Total Protein 6.3 L Albumin 3.0 L Globulin 3.3 Albumin/Globulin Ratio 0.9 Fluid Glucose Fluid Total Protein Fluid LDH POC Glucose 190 H 215 H 03/19/24 03/19/24 03/19/24 15:32 12:38 12:30 WBC RBC Hgb Hct MCV MCH MCHC RDW Plt Count MPV Seg Neuts % (Manual) Lymphocytes % (Manual) Monocytes % (Manual) Eosinophils % (Manual) Basophils % (Manual) Neutrophils # (Manual) Lymphocytes # (Manual) Monocytes # (Manual) Eosinophils # (Manual) Basophils # (Manual) Hypersegmented Neuts Sodium Potassium Chloride Carbon Dioxide Anion Gap BUN Creatinine Est GFR ( Amer) Est GFR (Non-Af Amer) BUN/Creatinine Ratio Glucose Calcium Total Bilirubin AST ALT Alkaline Phosphatase Total Protein Albumin Globulin Albumin/Globulin Ratio Fluid Glucose 133 Fluid Total Protein 4.4 Fluid LDH 685 POC Glucose 268 H 213 H Discharge Plan Discharge Disposition: Home, Self-Care Discharge Medications: New levofloxacin 750 mg tablet 750 mg PO DAILY 7 Days Qty: 7 0RF Continued letrozole 2.5 mg tablet 2.5 mg PO Q24H losartan-hydrochlorothiazide 100-12.5 mg tablet 1 tab PO DAILY metformin 1,000 mg tablet 1,000 mg PO BIDWM Ibrance 125 mg tablet 125 mg PO DAILY simvastatin 40 mg tablet 40 mg PO DAILY aspirin [Adult Aspirin Regimen] 81 mg tablet,delayed release (DR/EC) 81 mg PO DAILY omega 0-mhx-ptk-fish oil [Fish Oil] 1,000 mg (120 mg-180 mg) capsule 1 cap PO DAILY Activity: increase activity as tolerated Diet: advance to your usual diet Print Language: Chinese Forms: Portal Instructions Follow Up Appointments: March [address] Priest [phone] -Dr Smith - [facility]/Shaq
--- NOTE | 2024-03-20 12:49 | CM.NOTE ---
Faxed H&P, discharge summary, Physician order, face sheet to [facility] for new referral.
--- NOTE | 2024-03-20 13:22 | SWNOTE1 ---
Pt will need home oxygen. Case management spoke with pt and she does not have a preference. Referral sent to [facility], this included face sheet, script, face to face, and walk test.
[2024-03-20 15:08] LABS: Clarity, Serous Hazy (Clear); Color, Serous Straw (.); Eosinophils, Serous 0 % (Not Estab.); Lining Cells, Serous 67 % (Not Estab.); Lymphocytes, Serous 11 % (Not Estab.); Macrophages, Serous 16 % (Not Estab.); Neut, Serous 4 % (0-24); Nucleated Cells, Serous 7000 /mm3 (0-499); RBC, Serous 6000 /uL (Not Estab.)
--- NOTE | 2024-03-20 15:46 | SWNOTE1 ---
Pt's home oxygen is all set. LESLY notified nursing and took tank to room. LESLY advised pt to call number listed on dc paperwork to let them know they are on way home.
--- NOTE | 2024-03-23 12:11 | CM.NOTE ---
03/23/24 Received call from Patient's daughter, Jalyn Cespedes and she is requesting home health for her mother and would like [facility]. 12:10 Called [facility] & spoke to Vivian in intake and she said to fax over the referral and they would look at it. Faxed new referral with facesheet, provider notes, ER note, discharge summary, code status paperwork.
--- NOTE | 2024-03-23 13:07 | CM.NOTE ---
03/23/24 11:53 Spoke to daughter, Jalyn Li and explained that I had spoke to [facility] & they said they would review the referral. I explained to Jalyn that it could take 48-72 hrs before they would come out if they agree to accept her.
--- NOTE | 2024-03-24 10:16 | SWNOTE1 ---
Phone call was received on 03/23/24 from pt's daughter. Case management spoke with daughter, SW was not in. Daughter voiced she has had [facility] in past and pt is weaker at home and was wondering if we could set up. Referral was sent to [facility] to Vivian. SW called [facility] on 03/24/24 and they received referral and are able to accept. LESLY sent over dc med rec and CRF. CRf was sent down to HIM.
--- NOTE | 2024-03-24 13:39 | CM.DCFOLLOWU ---
Person spoke with: spoke with daughter Jalyn How are you feeling? well How is your pain? no pain Did you understand your discharge instructions? yes Do you have any questions about your discharge instructions? no Were you given any prescriptions at discharge? yes Were you able to get your prescriptions filled? yes Do you understand how to take your medications as ordered? yes Do you have any questions about your follow up appointment and do you plan to keep your follow up appointment? no questions, reviewed follow up Is there anything else that you would like to discuss? no Questions/Comments/Concerns/Other: N/A
== END 2024-03-20 16:16 | disposition home health service (06) | DRG 843 ==
LOC: ER 14:26 → MS 14:52 → ICU 17:21 → MS 03-19 19:23
PROVIDERS: Radiology Diagnostic Radiology; Admitting Provider Internal Medicine; Emergency Provider Emergency Medicine; PCP Family Medicine; Visit Provider Internal Medicine
DX: C79.89 Secondary malignant neoplasm of other specified sites (principal); J18.9 Pneumonia, unspecified organism; J96.01 Acute respiratory failure with hypoxia; J91.0 Malignant pleural effusion; Z66 Do not resuscitate; R60.0 Localized edema; R53.1 Weakness; E11.9 Type 2 diabetes mellitus without complications; I10 Essential (primary) hypertension; E78.5 Hyperlipidemia, unspecified; Z90.11 Acquired absence of right breast and nipple; Z85.3 Personal history of malignant neoplasm of breast; Z79.82 Long term (current) use of aspirin; Z79.84 Long term (current) use of oral hypoglycemic drugs; Z79.899 Other long term (current) drug therapy
CPT/HCPCS: 32555; 36415; 36600; 71045; 71275; 80053; 82805; 82945; 82948; 83605; 83615; 83880; 83986; 84157; 84484; 85007; 85025; 85027; 87040; 87070; 87205; 88112; 88305; 88313; 88341; 88342; 88360; 89050; 89051; 93005; 94640; 94761; 94799; 96365; 96372; 96375; 96376; 97161; 99285; J1100; Q9967

== ENCOUNTER 2024-03-25 11:15 | Outpatient (OUT) | payer MEDICARE, BC, SELFPAY ==
--- NOTE | 2024-03-25 11:21 | XR_ITS ---
The [address] [address] Patient Name: DEEP MAYA MRN: [id number] date: 1935 Sex: F Assigned Patient Location: RAD Current Patient Location: RAD Accession/Order Number: [id number] Exam Date: 03/25/2024 11:36 Report Date: 03/25/2024 12:49 At the request of: KIERSTEN WAKEFIELD Procedure: XR chest 2V EXAM: XR chest 2V HISTORY: Pleural Effusion On Right COMPARISON: 03/19/2024 TECHNIQUE: Upright PA and lateral chest x-ray FINDINGS: There is been some improvement of the infiltrate previously noted in the right lower lung, although a subtle infiltrate persist. This is accompanied by a small effusion. There is a small amount of atelectasis or infiltrate seen at the left lung base, also accompanied by small effusion. The heart is not grossly enlarged and the vasculature is not distended. Degenerative changes are seen in the spine. XR/XR chest 2V IMPRESSION: While there has been some improved aeration at the right lower lung, areas of atelectasis or infiltrate persist at the lung bases with small bilateral effusions. Electronically authenticated by: DANIEL BARRY Date: 03/25/2024 12:49
--- OUTSIDE RECORDS SUMMARY | 2024-03-25 11:29 | XMS_ITS | CCD ---
Author Organization [facility] Care Team Providers Care Installment Loan Collector Name Role Phone DR ETHEL WAKEFIELD Admitting Unavailable ASHU, DR ETHEL Quach Primary Care Unavailable ASHU, DR ETHEL Quach Consulting Unavailable ASHU, DR ETHEL Quach Attending Unavailable ASHU, DR ETHEL Quach Admitting Unavailable ASHU, DR ETHEL Quach Primary Care Unavailable ASHU, DR ETHEL Quach Consulting Unavailable ASHU, DR ETHEL Quach Attending Unavailable Ethel Wakefield Unavailable MD Brandi Lopez Attending Provider MD Ethel Wakefield Primary Care Provider MD Ethel Wakefield Referring Provider MD Ethel Wakefield Primary Care Provider MD Leonardo Herron II Attending Provider MD Brandi Lopez Other Provider MD Brandi Lopez Attending Provider MD Ethel Wakefield Referring Provider Leonardo Herron II Unavailable MD Brandi Lopez Attending Provider [phone] MD Ethel Wakefield Referring Provider MD Brandi Lopez Attending Provider MD Ethel Wakefield Referring Provider MD Brandi Lopez Attending Provider [phone] MD Ethel Wakefield Primary Care Provider MD Ethel Wakefield Referring Provider [phone] MD Ethel Wakefield Primary Care Provider MD Tab Wang Attending Provider [phone] Tab Wang Admitting Unavailable Tab Wang Attending Unavailable Ethel Wakefield Primary Care Unavailable Ethel Wakefield Primary Care Unavailable Leonardo Herron II Admitting UnavailLeonardo Raymond II Attending UnavailBrandi Garcia Consulting Unavailable Ethel Wakefield Primary Care Unavailable Ethel Wakefield Referring Unavailable Brandi Lopez Admitting Unavailable Brandi Lopez Attending Unavailable Allergies Allergy Classification Reported Allergen(s) Allergy Type Date of Onset Reaction(s) Facility (1 source) patient allergy list reviewed by nurse or physicia Propensity to adverse reactions 3 Comment:Done [facility] Other (1 source) Allergies Reconciled Propensity to adverse reactions Unknown [facility] Other Medications Current Medications Medication Drug Class(es) Dates Sig (Normalized) Sig (Original) aspirin 81 mg delayed release oral tablet (9 sources) Platelet Aggregation Inhibitor, Nonsteroidal Anti-inflammatory Drug Start: 04-11-2023 take 81 mg by mouth once daily Aspirin Active 81 MG PO Daily April 11, 2023 12:00am take 1 tablet by natacha th every twenty-four hours Aspirin 81 MG 1 tablet Orally Once a day Active calcium carbonate 1500 mg / cholecalciferol 800 unt chewable tablet (7 sources) Vitamin D Start: 04-11-2023 take 1 tablet by mouth twice daily Calcium Carbonate-Vitamin D3 (Caltrate 600 Plus D) 600 mg-20 mcg (800 unit) Tablet,Chewable Active 1 TAB PO Twice daily April 11, 2023 12:00am Caltrate 600+D 600-400 MG-UNIT (2 sources) take 1 tablet by mouth twice daily Caltrate 600+D 600-400 MG-UNIT 1 tablet Orally bid Active Cranberry (7 sources) Non-Standardized Food Allergenic Extract, Non-Standardized Plant Allergenic Extract Start: 04-11-2023 take 500 mg by mouth once daily Cranberry Active 500 MG PO Daily April 11, 2023 12:00am Fish Oils (2 sources) Fish Oil Active hydroCHLOROthiazide 12.5 mg / losartan potassium 100 mg oral tablet (10 sources) Thiazide Diuretic, Angiotensin 2 Receptor Jewell Start: 04-11-2023 take 1 tablet by mouth once daily Losartan-Hydrochlorot hiazide Active 1 TAB PO Daily April 11, 2023 12:00am ibuprofen 200 mg oral tablet (7 sources) Nonsteroidal Anti-inflammator y Drug Start: 04-11-2023 Ibuprofen (Advil) 200 mg Tablet Active 200 MG PO As Directed April 11, 2023 12:00am letrozole 2.5 mg oral tablet (16 sources) Aromatase Inhibitor Start: 05-15-2023 take 2.5 mg by mouth once daily Letrozole Active 2.5 MG PO Daily May 15, 2023 12:00am Start: 04-11-2023 End: 04-25-2023 take 2.5 mg by mouth once daily Letrozole Discontinued 2.5 MG PO Daily April 11, 2023 12:00am April 25, 2023 11:05am levoFLOXacin 750 mg oral tablet (1 source) Quinolone Antimicrobial Start: 03-23-2024 take 750 mg by mouth once daily Levofloxacin Active 750 MG PO Daily March 23, 2024 12:00am metFORMIN hydrochloride 1000 mg oral tablet (10 sources) Biguanide Start: 04-11-2023 take 1000 mg by mouth twice daily Metformin Active 1000 MG PO Twice daily April 11, 2023 12:00am take 1 tablet by natacha th every twenty-four hours metFORMIN HCl 1000 MG 1 tablet with a meal Orally Once a day Active Multivitamin preparation (2 sources) take 1 tablet by mouth once daily Multivitamin - 1 tablet Orally Once a day Active [place] 2-Kql-Aic-Fish Oil (Richmond 3 Fish Oil) 900-1,400 mg Capsule,Delayed Release(Dr/Ec) (7 sources) Start: [place] 4-Pik-Dev-Fish Oil (Richmond 3 Fish Oil) 900-1,400 mg Capsule,Delayed Release(Dr/Ec) Active 1 CAP PO Daily April 11, 2023 12:00am simvastatin 40 mg oral tablet (10 sources) HMG-CoA Reductase Inhibitor Start: take 40 mg by mouth once daily Simvastatin Active 40 MG PO Daily April 11, 2023 12:00am Vitamin D-3 (2 sources) Vitamin D-3 Acti ve Completed/Discontinued Medications Medication Drug Class(es) Dates Sig (Normalized) Sig (Original) anastrozole 1 mg oral tablet (7 sources) Aromatase Inhibitor Start: 04-25-2023 End: 05-15-2023 take 1 mg by mouth once daily Anastrozole Discontinued 1 MG PO Daily April 25, 2023 12:00am May 15, 2023 3:54pm cholecalciferol 0.025 mg chewable tablet (14 sources) Vitamin D Start: 04-25-2023 End: 04-25-2023 take 1 tablet by mouth once daily Cholecalciferol (Vitamin D3) (Vitamin D3) 25 mcg (1,000 unit) Tablet,Chewable Discontinued 25 MCG PO Daily April 25, 2023 12:00am April 25, 2023 11:08am Start: 04-11-2023 take 1 tablet by natacha th once daily Cholecalciferol (Vitamin D3) (Vitamin D3) 25 mcg (1,000 unit) Tablet Active 25 MCG PO Daily April 11, 2023 12:00am palbociclib 125 mg oral tablet (15 sources) Kinase Inhibitor Start: 04-25-2023 End: 03-23-2024 Palbociclib (Ibrance) 125 mg Tablet Discontinued 125 MG PO Daily October 01, 2023 10:48am December 27, 2023 12:47pm administer on days 1 through 21 of a 28-day treatment cycle Problems Active Problems Problem Classification Problem Date Documented Da te Episodic/Chronic Cancer of breast (20 sources) Malignant neoplasm of female breast; Translations: [Malignant neoplasm of unspecified site of right female breast] Onset: 09-05-2023 Chronic Diabetes mellitus without complication (4 sources) Type 2 diabetes mellitus without complications; Translations: [Type 2 diabetes mellitus without complication] Onset: 06-08-2022 Chronic Disorders of lipid metabolism (9 sources) Hyperlipidemia, unspecified; Translations: [Hyperlipidemia] Onset: 06-26-2021 Chronic Essential hypertension (5 sources) Essential (primary) hypertension; Translations: [Essential hypertension] Onset: 06-08-2022 Chronic Osteoarthritis (20 sources) Osteoarthritis of left knee joint; Translations: [Unilateral primary osteoarthritis, left knee] Onset: 05-16-2023 04-25-2023 Chronic Osteoporosis (10 sources) Primary osteoporosis; Translations: [Age-related osteoporosis without current pathological fracture] Onset: 05-16-2023 Chronic Other aftercare (6 sources) Drug therapy finding; Translations: [Encounter for therapeutic drug level monitoring] 04-25-2023 Episodic Other aftercare (6 sources) Patient encounter status; Translations: [Other intermediate card tender (current) drug therapy] 04-25-2023 Episodic Other aftercare (4 sources) Encounter for therapeutic drug level monitoring; Translations: [Encounter for therapeutic drug monitoring] 05-16-2023 Episodic Other bone disease and musculoskeletal deformities (3 sources) Osteopenia; Translations: [Other specified disorders of bone density and structure, unspecified site] Episodic Other bone disease and musculoskeletal deformities (1 source) Bone density finding; Translations: [Other specified disorders of bone density and structure, unspecified site] Episodic Other injuries and conditions due to external causes (1 source) Injury of ankle; Translations: [Unspecified injury of left ankle, initial encounter] Episodic Other non-traumatic joint disorders (1 source) Lower limb joint arthritis; Translations: [Osteoarthrosis, unspecified whether generalized or localized, lower leg] Onset: 08-27-2016 Chronic Other non-traumatic joint disorders (5 sources) Shoulder joint pain; Translations: [Pain in right shoulder] Onset: 06-06-2017 Episodic Other non-traumatic joint disorders (1 source) Pain in right knee Episodic Other non-traumatic joint disorders (1 source) Pain in left knee Episodic Other non-traumatic joint disorders (1 source) Arthralgia of the lower leg; Translations: [Pain in right knee] Episodic Other skin disorders (3 sources) Actinic keratosis; Translations: [Actinic keratosis] Episodic Other skin disorders (1 source) Actinic keratosis; Translations: [Actinic keratosis] Episodic Pleurisy; pneumothorax; pulmonary collapse (2 sources) Pleural effusion; Translations: [Pleural effusion, not elsewhere classified] 03-23-2024 Episodic Secondary malignancies (1 source) Secondary malignant neoplasm of breast; Translations: [Secondary malignant neoplasm of breast] Onset: 09-05-2023 Chronic Secondary malignancies (1 source) Secondary malignant neoplasm of other specified sites; Translations: [Secondary malignant neoplasm of other specified sites] Onset: 09-05-2023 Chronic Unclassified (1 source) Malignant neoplasm of central portion of right female breast; Translations: [Malignant neoplasm of central portion of right female breast] Onset: 09-05-2023 Unclassified (1 source) Pain in right knee; Translations: [Pain in right knee] Onset: 05-16-2023 Past or Other Problems Problem Classification Problem Date Documented Da te Episodic/Chronic Immunizations and screening for infectious disease (1 source) Vaccination given; Translations: [Encounter for immunization] Onset: 07-08-2017 Episodic Other aftercare (6 sources) Other skilled nursing (current) drug therapy; Translations: [Long-term (current) use of other medications] Onset: 05-16-2023 05-16-2023 Episodic Other skin disorders (1 source) Sebaceous cyst; Translations: [Sebaceous cyst] Onset: 08-24-2016 Episodic Results Test Name Value Interpretation Reference Range Facility Basophils/100 WBC Manual cnt (Bld)on 03-20-2024 Basophils/100 WBC (Bld) 0.0 % 0.2-2.[address] [facility] Eosinophils/100 WBC Manual c nt (Bld)on 03-20-2024 Eosinophils/100 WBC (Bld) 0.0 % 0.9-7.[address] [facility] Erythrocyte distribution wid th Auto (RBC) [Ratio]on 03-20-2024 Erythrocyte distribution width (RBC) [Ratio] 14.2 % 11.0-15.[address] [facility] Estimated glomerular filtrat ion rate (GFR) non- Americanon 03-20-2024 GFR/1.73 sq M.predicted among non-blacks MDRD (S/P/Bld) [Vol rate/Area] 39 mL/min/{1.73_m2} >=[address] [facility] Globulin Calc (S) [Mass/Vol] on 03-20-2024 Globulin (S) [Mass/Vol] 3.3 g/dL [facility] Hematocrit Auto (Bld) [Volum e fraction]on 03-20-2024 Hematocrit (Bld) [Volume fraction] 33.4 % 36.0-48.[address] [facility] Hemoglobin [Mass/volume] in Bloodon 03-20-2024 Hemoglobin (Bld) [Mass/Vol] 11.2 g/dL 12.0-16.[address] [facility] Laboratory - Chemistry and C hemistry - challengeon 03-20-2024 Albumin [Mass/Vol] 3.0 g/dL 3.4-5.0 [facility] ALP [Catalytic activity/Vol] 70 U/L 46-[address] [facility] ALT [Catalytic activity/Vol] 19 U/L 14-[address] [facility] AST [Catalytic activity/Vol] 21 U/L 15-[address] [facility] Bilirubin [Mass/Vol] 0.3 mg/dL 0.2-1.0 [facility] Calcium [Mass/Vol] 9.3 mg/dL 8.5-10.1 [facility] Chloride [Moles/Vol] 100 mmol/L 98-107 [facility] CO2 [Moles/Vol] 29.0 mmol/L 21.0-32.0 [facility] Creatinine [Mass/Vol] 1.28 mg/dL 0.55-1.02 [facility] GFR/1.73 sq M.predicted MDRD (S/P/Bld) [Vol rate/Area] 48 mL/min/{1.73_m2} >=[address] [facility] Glucose [Mass/Vol] 166 mg/dL 74-106 [facility] Potassium [Moles/Vol] 3.3 mmol/L 3.5-5.1 [facility] Protein [Mass/Vol] 6.3 g/dL 6.4-8.2 [facility] Sodium [Moles/Vol] 138 mmol/L 136-145 [facility] Urea nitrogen [Mass/Vol] 29.0 mg/dL 7.0-18.[address] [facility] Urea nitrogen/Creatinine [Mass ratio] 22.7 mg/mg [facility] Laboratory - Hematology and Cell countson 03-20-2024 Lymphocytes/100 WBC (Bld) 8.0 % 20.5-60.[address] [facility] Monocytes/100 WBC (Bld) 6.0 % 1.7-12.[address] [facility] Leukocytes [#/volume] correc medardo for nucleated erythrocytes in Blood by Automated counon 03-20-2024 WBC corrected for nucl RBC Auto (Bld) [#/Vol] 22.5 10 3/uL 4.0-11.[address] [facility] MCH Auto (RBC) [Entitic mass ]on 03-20-2024 MCH (RBC) [Entitic mass] 32.5 pg 26.7-34.[address] [facility] MCHC Auto (RBC) [Mass/Vol]on 03-20-2024 MCHC (RBC) [Mass/Vol] 33.5 g/dL 29.9-35.2 [facility] MCV Auto (RBC) [Entitic vol] on 03-20-2024 MCV (RBC) [Entitic vol] 96.8 fL 81.0-99.[address] [facility] No Panel Informationon 03-20 Absolute Basophils (Manual) 0.00 10 3/uL 0.00-0.[address] [facility] Eosinophils # (Manual) 0.00 10 3/uL 0.00-0.[address] [facility] Lymphocytes # (Manual) 1.80 10 3/uL 1.20-3.[address] [facility] Monocytes # (Manual) 1.35 10 3/uL 0.30-0.80 [facility] Segmented Neutrophils # (Manual) 19.35 10 3/uL 1.4-6.[address] [facility] Platelet mean volume Auto (B ld) [Entitic vol]on 03-20-2024 Platelet mean volume (Bld) [Entitic vol] 9.0 fL 9.5-13.[address] [facility] Platelets Auto (Bld) [#/Vol] on 03-20-2024 Platelets (Bld) [#/Vol] 477 10 3/uL 150-[address] [facility] RBC Auto (Bld) [#/Vol]on RBC (Bld) [#/Vol] 3.45 10 6/uL 4.20-5.40 [facility] Segmented neutrophils/100 WB C Manual cnt (Bld)on 03-20-2024 Segmented neutrophils/100 WBC (Bld) 86.0 % [facility] Serum or plasma albumin/glob ulin mass ratioon 03-20-2024 Albumin/Globulin [Mass ratio] 0.9 {ratio} [facility] Serum or plasma anion gap de terminationon 03-20-2024 Anion gap [Moles/Vol] 12.3 mmol/L [facility] Whole blood hypersegmented n eutrophils detection by light microscopyon 03-20-2024 Neutrophils.hypersegme nted LM Ql (Bld) 3+ [facility] Basophils Auto (Bld) [#/Vol] on 03-19-2024 Basophils (Bld) [#/Vol] 0.0 10 3/uL 0.0-0.[address] [facility] Basophils/100 WBC Auto (Bld) on 03-19-2024 Basophils/100 WBC (Bld) 0.1 % 0.2-2.[address] [facility] Determination of appearance of body fluidon 03-19-2024 Appearance (Body fld) Hazy Clear Fir [facility] Eosinophils/100 WBC Auto (Bl d)on 03-19-2024 Eosinophils/100 WBC (Bld) 0.0 % 0.9-7.[address] [facility] Erythrocyte distribution wid th Auto (RBC) [Ratio]on 03-19-2024 Erythrocyte distribution width (RBC) [Ratio] 14.0 % 11.0-15.[address] [facility] Estimated glomerular filtrat ion rate (GFR) non- Americanon 03-19-2024 GFR/1.73 sq M.predicted among non-blacks MDRD (S/P/Bld) [Vol rate/Area] 52 mL/min/{1.73_m2} >=[address] [facility] Evaluation of color of body fluidon 03-19-2024 Color (Body fld) Straw . [facility] Comment on above: Colorless to Pale Ye llow/StrawDifferential to be reviewed by pathologist; report tofollow. Globulin Calc (S) [Mass/Vol] on 03-19-2024 Globulin (S) [Mass/Vol] 3.8 g/dL [facility] Hematocrit Auto (Bld) [Volum e fraction]on 03-19-2024 Hematocrit (Bld) [Volume fraction] 35.1 % 36.0-48.[address] [facility] Hemoglobin [Mass/volume] in Bloodon 03-19-2024 Hemoglobin (Bld) [Mass/Vol] 11.7 g/dL 12.0-16.[address] [facility] Laboratory - Chemistry and C hemistry - challengeon 03-19-2024 Albumin [Mass/Vol] 3.1 g/dL 3.4-5.0 [facility] ALP [Catalytic activity/Vol] 74 U/L 46-[address] [facility] ALT [Catalytic activity/Vol] 18 U/L 14-[address] [facility] AST [Catalytic activity/Vol] 16 U/L 15-[address] [facility] Bilirubin [Mass/Vol] 0.4 mg/dL 0.2-1.0 [facility] Calcium [Mass/Vol] 9.6 mg/dL 8.5-10.1 [facility] Chloride [Moles/Vol] 97 mmol/L 98-107 [facility] CO2 [Moles/Vol] 28.5 mmol/L 21.0-32.0 [facility] Creatinine [Mass/Vol] 1.00 mg/dL 0.55-1.02 [facility] GFR/1.73 sq M.predicted MDRD (S/P/Bld) [Vol rate/Area] mL/min/{1.73_m2} >=[address] [facility] Glucose [Mass/Vol] 188 mg/dL 74-106 [facility] Potassium [Moles/Vol] 3.0 mmol/L 3.5-5.1 [facility] Protein [Mass/Vol] 6.9 g/dL 6.4-8.2 [facility] Sodium [Moles/Vol] 136 mmol/L 136-145 [facility] Urea nitrogen [Mass/Vol] 24.0 mg/dL 7.0-18.[address] [facility] Urea nitrogen/Creatinine [Mass ratio] 24.0 mg/mg [facility] Laboratory - Hematology and Cell countson 03-19-2024 Immature granulocytes/100 WBC (Bld) 0.4 % 0.0-0.[address] [facility] Laboratory - Microbiology an d Antimicrobial susceptibilityOrdered By: Shaikh Camilla on 03-19-2024 Microscopic observation Gram stain Nom (Unsp spec) [facility] Leukocytes [#/volume] correc medardo for nucleated erythrocytes in Blood by Automated counon 03-19-2024 WBC corrected for nucl RBC Auto (Bld) [#/Vol] 11.2 10 3/uL 4.0-11.[address] [facility] Lymphocytes Auto (Bld) [#/Vo l]on 03-19-2024 Lymphocytes (Bld) [#/Vol] 1.0 10 3/uL 1.2-3.[address] [facility] Lymphocytes/100 WBC Auto (Bl d)on 03-19-2024 Lymphocytes/100 WBC (Bld) 9.1 % 20.5-60.[address] [facility] MCH Auto (RBC) [Entitic mass ]on 03-19-2024 MCH (RBC) [Entitic mass] 32.5 pg 26.7-34.[address] [facility] MCHC Auto (RBC) [Mass/Vol]on 03-19-2024 MCHC (RBC) [Mass/Vol] 33.3 g/dL 29.9-35.2 [facility] MCV Auto (RBC) [Entitic vol] on 03-19-2024 MCV (RBC) [Entitic vol] 97.5 fL 81.0-99.[address] [facility] Manual body fluid eosinophil s/100 leukocyteson 03-19-2024 Eosinophils/100 WBC Manual cnt (Body fld) 0 % Not Estab. [facility] Manual body fluid lymphocyte s/100 leukocyteson 03-19-2024 Lymphocytes/100 WBC Manual cnt (Body fld) 11 % Not Estab. [facility] Monocytes Auto (Bld) [#/Vol] on 03-19-2024 Monocytes (Bld) [#/Vol] 0.7 10 3/uL 0.3-0.[address] [facility] Monocytes/100 WBC Auto (Bld) on 03-19-2024 Monocytes/100 WBC (Bld) 6.3 % 1.7-12.[address] [facility] Neutrophils Auto (Bld) [#/Vo l]on 03-19-2024 Neutrophils (Bld) [#/Vol] 9.5 10 3/uL 1.4-6.[address] [facility] Neutrophils/100 WBC Auto (Bl d)on 03-19-2024 Neutrophils/100 WBC (Bld) 84.1 % 43.0-75.[address] [facility] Neutrophils/100 WBC Manual c nt (Body fld)on 03-19-2024 Neutrophils/100 WBC (Body fld) 4 % 0-[address] [facility] No Panel Informationon 03-19 Body Fluid Comment TNP . [facility] Body Fluid Glucose 133 mg/dL . [facility] Comment on above: : BODY FLUID TYPE : GLUCOSE : : : : : Amniotic Fluid : 45 - 76 : : : : : Bile, Clear : < 5 : : : : : Bile, Yellow : < 8 : : : : : Lymph : 48 - 200 : : : : : Nasal Secretion : < 10 : : : : : Pleural Fluid : 65 - 99 : : : : : Saliva : < 2 : : (Mixed Glands) : : : : : : Sweat : < 7 : : : : : Synovial Fluid : 65 - 99 : : : : : Tears : 76 - 288 : : : : Apolinar Sifuentes V. Reference Intervals for Adults and Children 2007. Ninth edition (V9.1) [facility]; [place]: May 2009. Body Fluid Lactate Dehydrogenase 685 IU/L . [facility] Comment on above: : BODY FLUID TYPE : LDH : : : : : : Nonmalignant: < 60% : : : of the serum LDH : : Ascitic Fluid : Malignant: > 60% : : : of the serum LDH : : : : : Gastric Juice : < 35 : : : : : : Transudate: <200 : : Pleural Fluid : Exudate: >200 : : : : : Saliva : 113 - 609 : : (Mixed Glands) : : : : : : Synovial Fluid : <240 : : : : Apolinar Sifuentes V. Reference Intervals for Adults and Children 2007. Ninth Edition (V9.1) [employer], [facility]; [place]: May 2009.Performed at: CB - [facility] [address] [id number] Director: Oracio Ramirez PhD, Phone: [phone] Body Fluid Lining Cell 67 % Not Estab. [facility] Comment on above: Performed at: [facility] - [facility] [address] [id number] Director: Oracio Ramirez PhD, Phone: [phone] Body Fluid Macrophages (%) 16 % Not Estab. [facility] Body Fluid RBC 6000 /uL Not Estab. [facility] Body Fluid Total Nucleated Cells 7000 /mm3 0-[address] [facility] Comment on above: Pleural Fluid, with <1000 Nucleated cells/uL has beenassociated with transudates while >1000 uL may be seenin exudates. Body Fluid Total Protein 4.4 g/dL . [facility] Comment on above: : BODY FLUID TYPE : TOTAL PROTEIN : : : : : Amniotic Fluid : <0.4 : : : : : : Nonmalignant: <3.0 : : Ascitic Fluid : Malignant: >3.0 : : : : : Bile, Clear : <0.9 : : : : : Bile, Yellow : 0.2 - 0.6 : : : : : Lymph : 2.2 - 6.0 : : : : : Human Milk : 1.9 - 2.0 : : : : : Nasal Secretion : 0.1 - 3.5 : : : : : Pancreatic : 0.0 - 0.1 : : Juice : (post stimulation) : : : : : : Transudate: <0.3 : : Pleural Fluid : Exudate: >0.3 : : : : : Saliva : 0.1 - 0.2 : : (Mixed Glands) : : : : : : Synovial Fluid : <2.5 : : : : : Tears : 0.8 - 0.9 : : : : Apolinar Sifuentes V. Reference Intervals for Adults and Children 2008. Ninth Edition (V9.1) [employer], [facility]; [place]: May 2009. Eosinophils # (Auto) 0.0 10 3/uL 0.0-0.7 [facility] Immature Granulocyte # (Auto) 0.04 10 3/uL 0.00-0.[address] [facility] Platelet mean volume Auto (B ld) [Entitic vol]on 03-19-2024 Platelet mean volume (Bld) [Entitic vol] 9.4 fL 9.5-13.[address] [facility] Platelets Auto (Bld) [#/Vol] on 03-19-2024 Platelets (Bld) [#/Vol] 501 10 3/uL 150-[address] [facility] RBC Auto (Bld) [#/Vol]on RBC (Bld) [#/Vol] 3.60 10 6/uL 4.20-5.40 [facility] Serum or plasma albumin/glob ulin mass ratioon 03-19-2024 Albumin/Globulin [Mass ratio] 0.8 {ratio} [facility] Serum or plasma anion gap de terminationon 03-19-2024 Anion gap [Moles/Vol] 13.5 mmol/L [facility] Basophils Auto (Bld) [#/Vol] on 03-18-2024 Basophils (Bld) [#/Vol] 0.1 10 3/uL 0.0-0.[address] [facility] Basophils/100 WBC Auto (Bld) on 03-18-2024 Basophils/100 WBC (Bld) 0.4 % 0.2-2.[address] [facility] Eosinophils/100 WBC Auto (Bl d)on 03-18-2024 Eosinophils/100 WBC (Bld) 1.0 % 0.9-7.[address] [facility] Erythrocyte distribution wid th Auto (RBC) [Ratio]on 03-18-2024 Erythrocyte distribution width (RBC) [Ratio] 14.6 % 11.0-15.[address] [facility] Estimated glomerular filtrat ion rate (GFR) non- Americanon 03-18-2024 GFR/1.73 sq M.predicted among non-blacks MDRD (S/P/Bld) [Vol rate/Area] 47 mL/min/{1.73_m2} >=[address] [facility] Globulin Calc (S) [Mass/Vol] on 03-18-2024 Globulin (S) [Mass/Vol] 3.8 g/dL [facility] Hematocrit Auto (Bld) [Volum e fraction]on 03-18-2024 Hematocrit (Bld) [Volume fraction] 35.2 % 36.0-48.[address] [facility] Hemoglobin [Mass/volume] in Bloodon 03-18-2024 Hemoglobin (Bld) [Mass/Vol] 11.6 g/dL 12.0-16.[address] [facility] Laboratory - Chemistry and C hemistry - challengeon 03-18-2024 Albumin [Mass/Vol] 3.2 g/dL 3.4-5.0 [facility] ALP [Catalytic activity/Vol] 81 U/L 46-[address] [facility] ALT [Catalytic activity/Vol] 16 U/L 14-[address] [facility] AST [Catalytic activity/Vol] 20 U/L 15-[address] [facility] Bilirubin [Mass/Vol] 0.5 mg/dL 0.2-1.0 [facility] Calcium [Mass/Vol] 9.7 mg/dL 8.5-10.1 [facility] Chloride [Moles/Vol] 99 mmol/L 98-107 [facility] CO2 [Moles/Vol] 25.1 mmol/L 21.0-32.0 [facility] Creatinine [Mass/Vol] 1.10 mg/dL 0.55-1.02 [facility] GFR/1.73 sq M.predicted MDRD (S/P/Bld) [Vol rate/Area] 57 mL/min/{1.73_m2} >=[address] [facility] Glucose [Mass/Vol] 182 mg/dL 74-106 [facility] Lactate [Moles/Vol] 1.8 mmol/L 0.4-2.0 [facility] LDH [Catalytic activity/Vol] 192 U/L 81-[address] [facility] Natriuretic peptide B (Bld) [Mass/Vol] 298.0 pg/mL <=1800.[address] [facility] Potassium [Moles/Vol] 3.5 mmol/L 3.5-5.1 [facility] Protein [Mass/Vol] 7.0 g/dL 6.4-8.2 [facility] Sodium [Moles/Vol] 135 mmol/L 136-145 [facility] Urea nitrogen [Mass/Vol] 25.0 mg/dL 7.0-18.[address] [facility] Urea nitrogen/Creatinine [Mass ratio] 22.7 mg/mg [facility] HCO3 (Bld) [Moles/Vol] 25.6 mmol/L 22.0-26.0 [facility] Laboratory - Hematology and Cell countson 03-18-2024 Immature granulocytes/100 WBC (Bld) 0.3 % 0.0-0.[address] [facility] Leukocytes [#/volume] correc medardo for nucleated erythrocytes in Blood by Automated counon 03-18-2024 WBC corrected for nucl RBC Auto (Bld) [#/Vol] 12.6 10 3/uL 4.0-11.[address] [facility] Lymphocytes Auto (Bld) [#/Vo l]on 03-18-2024 Lymphocytes (Bld) [#/Vol] 1.3 10 3/uL 1.2-3.[address] [facility] Lymphocytes/100 WBC Auto (Bl d)on 03-18-2024 Lymphocytes/100 WBC (Bld) 10.5 % 20.5-60.[address] [facility] MCH Auto (RBC) [Entitic mass ]on 03-18-2024 MCH (RBC) [Entitic mass] 33.0 pg 26.7-34.[address] [facility] MCHC Auto (RBC) [Mass/Vol]on 03-18-2024 MCHC (RBC) [Mass/Vol] 33.0 g/dL 29.9-35.2 [facility] MCV Auto (RBC) [Entitic vol] on 03-18-2024 MCV (RBC) [Entitic vol] 100.0 fL 81.0-99.[address] [facility] Monocytes Auto (Bld) [#/Vol] on 03-18-2024 Monocytes (Bld) [#/Vol] 1.1 10 3/uL 0.3-0.[address] [facility] Monocytes/100 WBC Auto (Bld) on 03-18-2024 Monocytes/100 WBC (Bld) 9.0 % 1.7-12.[address] [facility] Neutrophils Auto (Bld) [#/Vo l]on 03-18-2024 Neutrophils (Bld) [#/Vol] 9.9 10 3/uL 1.4-6.[address] [facility] Neutrophils/100 WBC Auto (Bl d)on 03-18-2024 Neutrophils/100 WBC (Bld) 78.8 % 43.0-75.[address] [facility] No Panel Informationon 03-18 Eosinophils # (Auto) 0.1 10 3/uL 0.0-0.7 [facility] Immature Granulocyte # (Auto) 0.04 10 3/uL 0.00-0.[address] [facility] Troponin I High Sensitivity 11.2 pg/mL 4.0-51.[address] [facility] Comment on above: CUT-OFF POINTS HAVE BEEN ESTABLISHED BASED ON THE FOURTHUNIVERSAL DEFINITION OF MYOCARDIAL INFARCTION. THE UPPERREFERENCE LIMIT (URL) OF TROPONIN, DEFINED THE 99THPERCENTILE OF cTnI DISTRIBUTION IN A REFERENCE POPULATION,HAS BEEN CONFIRMED THE DECISION THRESHOLD FOR MIDIAGNOSIS.99TH PERCENTILE = 51.4 PG/MLNOTE: HIGH-SENSITIVITY TROPONIN ASSAY IS NOT INTENDED TO BEUSED IN ISOLATION BUT SHOULD BE INTERPRETED IN CONJUNCTIONWITH OTHER DIAGNOSTIC AND CLINICAL INFORMATION. Vicente Test Positive POSITIVE [facility] Arterial Blood Base Excess -0.3 mmol/L <2.0-2.[address] [facility] Arterial Blood Oxygen Saturation 94.1 % [facility] Arterial Blood Partial Pressure CO2 48.5 mm[Hg] 35.0-45.[address] [facility] Arterial Blood Partial Pressure O2 72.8 mm[Hg] 80.0-100.[address] [facility] Arterial Blood pH 7.331 7.350-7.[address] [facility] Blood Gas Liter Flow 2 [facility] Blood Gas Sample Site R RADIAL Fir [facility] Oxygen Delivery Device N/C [facility] Platelet mean volume Auto (B ld) [Entitic vol]on 03-18-2024 Platelet mean volume (Bld) [Entitic vol] 9.1 fL 9.5-13.[address] [facility] Platelets Auto (Bld) [#/Vol] on 03-18-2024 Platelets (Bld) [#/Vol] 453 10 3/uL 150-[address] [facility] RBC Auto (Bld) [#/Vol]on RBC (Bld) [#/Vol] 3.52 10 6/uL 4.20-5.40 [facility] Serum or plasma albumin/glob ulin mass ratioon 03-18-2024 Albumin/Globulin [Mass ratio] 0.8 {ratio} [facility] Serum or plasma anion gap de terminationon 03-18-2024 Anion gap [Moles/Vol] 14.4 mmol/L [facility] Alanine aminotransferase [En zymatic activity/volume] in Serum or PlasmaOrdered By: Brandi Lopez on 09-03-2023 ALT [Catalytic activity/Vol] 10 U/L 7-[address] [facility] Albumin [Mass/volume] in Ser um or Plasma by Bromocresol green (BCG) dye binding methoOrdered By: Brandi Lopez on 09-03-2023 Albumin BCG dye [Mass/Vol] 4.1 g/dL 3.5-5.[address] [facility] Alkaline phosphatase [Enzyma tic activity/volume] in Serum or PlasmaOrdered By: Brandi Lopez on 09-03-2023 ALP [Catalytic activity/Vol] 44 U/L 34-[address] [facility] Aspartate aminotransferase [ Enzymatic activity/volume] in Serum or PlasmaOrdered By: Brandi Lopez on 09-03-2023 AST [Catalytic activity/Vol] 10 U/L 13-[address] [facility] Basophils Auto (Bld) [#/Vol] Ordered By: Brandi Lopez on 09-03-2023 Basophils (Bld) [#/Vol] 0.0 10*3/uL 0.0-0.[address] [facility] Basophils/100 WBC Auto (Bld) Ordered By: Brandi Lopez on 09-03-2023 Basophils/100 WBC (Bld) 1.4 % . [facility] Bilirubin.total [Mass/volume ] in Serum or PlasmaOrdered By: Brandi Lopez on 09-03-2023 Bilirubin [Mass/Vol] 0.9 mg/dL 0.3-1.0 [facility] Calcium [Mass/volume] in Ser um or PlasmaOrdered By: Brandi Lopez on 09-03-2023 Calcium [Mass/Vol] 9.8 mg/dL 8.6-10.3 [facility] Carbon dioxide, total [Moles /volume] in Serum or PlasmaOrdered By: Brandi Lopez on 09-03-2023 CO2 [Moles/Vol] 32.2 mmol/L 21.0-31.0 [facility] Chloride [Moles/volume] in S rakan or PlasmaOrdered By: Brandi Lopez on 09-03-2023 Chloride [Moles/Vol] 103 mmol/L 98-107 [facility] Complete Blood Count Auto Di ffon 09-03-2023 Basophils (Bld) [#/Vol] 0.0 10*3/uL Normal 0.0-0.2 [facility] Comment on above: Result Comment: PERF ORMED BY: [place] [address] PATHOLOGIST CD TECHNICIAN JASEN DIAZ M.D. Performed By: #### C MP, CBC #### [facility] [address] [place] [address] [place] Basophils/100 WBC (Bld) 1.4 % Normal . [facility] Comment on above: Performed By: #### C MP, CBC #### [facility] [address] [place] [address] [place] Eosinophils (Bld) [#/Vol] 0.0 10*3/uL Normal 0.0-0.45 [facility] Comment on above: Performed By: #### C MP, CBC #### [address] Eosinophils/100 WBC (Bld) 0.6 % Normal . [facility] Comment on above: Performed By: #### C MP, CBC #### [address] Erythrocyte distribution width (RBC) [Ratio] 21.7 % High 11.9-15.3 [facility] Comment on above: Performed By: #### C MP, CBC #### [address] Hematocrit (Bld) [Volume fraction] 31.3 % Low 34.0-46.4 [facility] Comment on above: Performed By: #### C MP, CBC #### [address] Hemoglobin (Bld) [Mass/Vol] 10.8 g/dL Low 11.8-15.4 [facility] Comment on above: Performed By: #### C MP, CBC #### [address] Lymphocytes (Bld) [#/Vol] 1.3 10*3/uL Normal 1.00-4.8 [facility] Comment on above: Performed By: #### C MP, CBC #### [address] Lymphocytes/100 WBC (Bld) 46.5 % Normal . [facility] Comment on above: Performed By: #### C MP, CBC #### [address] MCH (RBC) [Entitic mass] 36.7 pg High 24.7-34.3 [facility] Comment on above: Performed By: #### C MP, CBC #### [address] MCV (RBC) [Entitic vol] 106.4 fL High 80-100 [facility] Comment on above: Performed By: #### C MP, CBC #### [address] Mean Corpuscular HGB Conc 34.5 g/dL Normal 32.0-35.0 [facility] Comment on above: Performed By: #### C MP, CBC #### [place] [address] [place] Monocytes (Bld) [#/Vol] 0.2 10*3/uL Normal 0.0-0.8 [facility] Comment on above: Performed By: #### C MP, CBC #### [place] [address] [place] Monocytes/100 WBC (Bld) 6.9 % Normal . [facility] Comment on above: Performed By: #### C MP, CBC #### [address] Neutrophils (Bld) [#/Vol] 1.2 10*3/uL Low 1.8-7.7 [facility] Comment on above: Performed By: #### C MP, CBC #### [place] [address] [place] Neutrophils/100 WBC (Bld) 44.6 % Normal . [facility] Comment on above: Performed By: #### C MP, CBC #### [address] NRBC% 0.1 /100{WBC} Normal 0-0.5 [facility] Comment on above: Performed By: #### C MP, CBC #### [place] [address] [place] Platelet mean volume (Bld) [Entitic vol] 7.4 fL Normal 6.3-10.7 [facility] Comment on above: Performed By: #### C MP, CBC #### [place] [address] [place] Platelets (Bld) [#/Vol] 155 10*3/uL Normal 150-450 [facility] Comment on above: Performed By: #### C MP, CBC #### [place] [id number] [place] RBC (Bld) [#/Vol] 2.94 10*6/uL Low 3.60-5.00 [facility] Comment on above: Performed By: #### C MP, CBC #### [address] WBC (Bld) [#/Vol] 2.8 10*3/uL Low 3.8-11.6 [facility] Comment on above: Performed By: #### C MP, CBC #### [address] Comprehensive Metabolic Pane camila 09-03-2023 Albumin [Mass/Vol] 4.1 g/dL Normal 3.5-5.7 [facility] Comment on above: Performed By: #### C MP, CBC #### [address] Albumin/Globulin [Mass ratio] 2.0 {ratio} Normal [facility] Comment on above: Performed By: #### C MP, CBC #### [address] ALP [Catalytic activity/Vol] 44 U/L Normal 34-104 [facility] Comment on above: Performed By: #### C MP, CBC #### [address] ALT [Catalytic activity/Vol] 10 U/L Normal 7-52 [facility] Comment on above: Performed By: #### C MP, CBC #### [address] Anion gap [Moles/Vol] 8.9 mmol/L Normal 6.0-15.0 [facility] Comment on above: Performed By: #### C MP, CBC #### [address] AST [Catalytic activity/Vol] 10 U/L Low 13-39 [facility] Comment on above: Performed By: #### C MP, CBC #### [address] Bilirubin [Mass/Vol] 0.9 mg/dL Normal 0.3-1.0 [facility] Comment on above: Performed By: #### C MP, CBC #### [address] Calcium [Mass/Vol] 9.8 mg/dL Normal 8.6-10.3 [facility] Comment on above: Performed By: #### C MP, CBC #### [address] Chloride [Moles/Vol] 103 mmol/L Normal 98-107 [facility] Comment on above: Performed By: #### C MP, CBC #### [address] CO2 [Moles/Vol] 32.2 mmol/L High 21.0-31.0 [facility] Comment on above: Performed By: #### C MP, CBC #### [address] Creatinine [Mass/Vol] 1.13 mg/dL Normal 0.60-1.20 [facility] Comment on above: Performed By: #### C MP, CBC #### [address] Creatinine Clr Calc Pharmacy 33.46 Normal [facility] Comment on above: Result Comment: PERF ORMED BY: [place] [address] PATHOLOGIST CD TECHNICIAN JASEN DIAZ M.D. Performed By: #### C MP, CBC #### [address] GFR/1.73 sq M.predicted MDRD (S/P/Bld) [Vol rate/Area] 47.381 mL/min/{1.73_m2} Normal [facility] Comment on above: Performed By: #### C MP, CBC #### [address] Globulin (S) [Mass/Vol] 2.1 g/dL Normal [facility] Comment on above: Performed By: #### C MP, CBC #### [facility] [address] [place] [address] [place] Glucose [Mass/Vol] 143 mg/dL High 70-100 [facility] Comment on above: Result Comment: [place] Glucose Reference Range is dependent on time and content of last meal. Glucose of more than 200 mg/dL in a nonstressed, ambulatory subject supports the diagnosis of Diabetes Mellitus. ADA recommended reference range Performed By: #### C MP, CBC #### [facility] [address] Potassium [Moles/Vol] 4.1 mmol/L Normal 3.5-5.1 [facility] Comment on above: Performed By: #### C MP, CBC #### [facility] [address] Protein [Mass/Vol] 6.2 g/dL Low 6.4-8.9 [facility] Comment on above: Performed By: #### C MP, CBC #### [facility] [address] Sodium [Moles/Vol] 140 mmol/L Normal 136-145 [facility] Comment on above: Performed By: #### C MP, CBC #### [address] Urea nitrogen [Mass/Vol] 19 mg/dL Normal 7-25 [facility] Comment on above: Performed By: #### C MP, CBC #### [place] [address] [place] Creatinine [Mass/volume] in Serum or PlasmaOrdered By: Brandi Lopez on 09-03-2023 Creatinine [Mass/Vol] 1.13 mg/dL 0.60-1.20 [facility] Eosinophils Auto (Bld) [#/Vo l]Ordered By: Brandi Lopez on 09-03-2023 Eosinophils (Bld) [#/Vol] 0.0 10*3/uL 0.0-0.[address] [facility] Eosinophils/100 WBC Auto (Bl d)Ordered By: Brandi Lopez on 09-03-2023 Eosinophils/100 WBC (Bld) 0.6 % . [facility] Erythrocyte distribution wid th Auto (RBC) [Ratio]Ordered By: Brandi Lopez on 09-03-2023 Erythrocyte distribution width (RBC) [Ratio] 21.7 % 11.9-15.[address] [facility] Globulin Calc (S) [Mass/Vol] Ordered By: Brandi Lopez on 09-03-2023 Globulin (S) [Mass/Vol] 2.1 g/dL [facility] Glucose [Mass/volume] in Ser um or PlasmaOrdered By: Brandi Lopez on 09-03-2023 Glucose [Mass/Vol] 143 mg/dL 70-100 [facility] Comment on above: ADA recommended refe rence rangeRandom Glucose Reference Range is dependent on time and content of last meal. Glucose of more than 200 mg/dL in a nonstressed, ambulatory subject supports the diagnosis of Diabetes Mellitus. Hematocrit Auto (Bld) [Volum e fraction]Ordered By: Brandi Lopez on 09-03-2023 Hematocrit (Bld) [Volume fraction] 31.3 % 34.0-46.[address] [facility] Hemoglobin [Mass/volume] in BloodOrdered By: Brandi Lopez on 09-03-2023 Hemoglobin (Bld) [Mass/Vol] 10.8 g/dL 11.8-15.[address] [facility] Leukocytes [#/volume] correc medardo for nucleated erythrocytes in Blood by Automated counOrdered By: Brandi Lopez on 09-03-2023 WBC corrected for nucl RBC Auto (Bld) [#/Vol] 2.8 10*3/uL 3.8-11.[address] [facility] Lymphocytes Auto (Bld) [#/Vo l]Ordered By: Brandi Lopez on 09-03-2023 Lymphocytes (Bld) [#/Vol] 1.3 10*3/uL 1.00-4.[address] [facility] Lymphocytes/100 WBC Auto (Bl d)Ordered By: Brandi Lopez on 09-03-2023 Lymphocytes/100 WBC (Bld) 46.5 % . [facility] MCH Auto (RBC) [Entitic mass ]Ordered By: Brandi Lopez on 09-03-2023 MCH (RBC) [Entitic mass] 36.7 pg 24.7-34.[address] [facility] MCHC Auto (RBC) [Mass/Vol]Or dered By: Brandi Lopez on 09-03-2023 MCHC (RBC) [Mass/Vol] 34.5 g/dL 32.0-35.0 [facility] MCV Auto (RBC) [Entitic vol] Ordered By: Brandi Lopez on 09-03-2023 MCV (RBC) [Entitic vol] 106.4 fL 80-[address] [facility] Monocytes Auto (Bld) [#/Vol] Ordered By: Brandi Lopez on 09-03-2023 Monocytes (Bld) [#/Vol] 0.2 10*3/uL 0.0-0.[address] [facility] Monocytes/100 WBC Auto (Bld) Ordered By: Brandi Lopez on 09-03-2023 Monocytes/100 WBC (Bld) 6.9 % . [facility] Neutrophils Auto (Bld) [#/Vo l]Ordered By: Brandi Lopez on 09-03-2023 Neutrophils (Bld) [#/Vol] 1.2 10*3/uL 1.8-7.[address] [facility] Neutrophils/100 WBC Auto (Bl d)Ordered By: Brandi Lopez on 09-03-2023 Neutrophils/100 WBC (Bld) 44.6 % . [facility] No Panel InformationOrdered By: Brandi Lopez on 09-03-2023 Estimated GFR (CKD-EPI) 47.381 mL/Min [facility] Creatinine Clearance (Chem 33.[address] [facility] Nucleated erythrocytes [Pres ence] in Blood by Automated countOrdered By: Brandi Lopez on 09-03-2023 Nucleated RBC Auto Ql (Bld) 0.1 /100{WBC} 0-0.[address] [facility] Platelet mean volume Auto (B ld) [Entitic vol]Ordered By: Brandi Lopez on 09-03-2023 Platelet mean volume (Bld) [Entitic vol] 7.4 fL 6.3-10.[address] [facility] Platelets Auto (Bld) [#/Vol] Ordered By: Brandi Lopez on 09-03-2023 Platelets (Bld) [#/Vol] 155 10*3/uL 150-[address] [facility] Potassium [Moles/volume] in Serum or PlasmaOrdered By: Brandi Lopez on 09-03-2023 Potassium [Moles/Vol] 4.1 mmol/L 3.5-5.1 [facility] Protein [Mass/volume] in Ser um or PlasmaOrdered By: Brandi Sawyerse on 09-03-2023 Protein [Mass/Vol] 6.2 g/dL 6.4-8.9 [facility] RBC Auto (Bld) [#/Vol]Ordere d By: Brandi Sawyerse on 09-03-2023 RBC (Bld) [#/Vol] 2.94 10*6/uL 3.60-5.00 [facility] Serum or plasma albumin/glob ulin mass ratioOrdered By: Brandi Lopez on 09-03-2023 Albumin/Globulin [Mass ratio] 2.0 {ratio} [facility] Serum or plasma anion gap de terminationOrdered By: Brandi Lopez on 09-03-2023 Anion gap [Moles/Vol] 8.9 mmol/L 6.0-15.0 [facility] Sodium [Moles/volume] in Ser um or PlasmaOrdered By: Brandi Lopez on 09-03-2023 Sodium [Moles/Vol] 140 mmol/L 136-145 [facility] Urea nitrogen [Mass/volume] in Serum or PlasmaOrdered By: Brandi Lopez on 09-03-2023 Urea nitrogen [Mass/Vol] 19 mg/dL 7-[address] [facility] WBC Auto (Bld) [#/Vol]Ordere d By: Brandi Sawyerse on 09-03-2023 WBC (Bld) [#/Vol] 2.8 10*3/uL 3.8-11.6 [facility] Alanine aminotransferase [En zymatic activity/volume] in Serum or PlasmaOrdered By: Brandi Lopez on 07-01-2023 ALT [Catalytic activity/Vol] 9 U/L 7-[address] [facility] Albumin [Mass/volume] in Ser um or Plasma by Bromocresol green (BCG) dye binding methoOrdered By: Brandi Lopez on 07-01-2023 Albumin BCG dye [Mass/Vol] 4.2 g/dL 3.5-5.[address] [facility] Alkaline phosphatase [Enzyma tic activity/volume] in Serum or PlasmaOrdered By: Brandi Lopez on 07-01-2023 ALP [Catalytic activity/Vol] 53 U/L 34-[address] [facility] Aspartate aminotransferase [ Enzymatic activity/volume] in Serum or PlasmaOrdered By: Brandi Lopez on 07-01-2023 AST [Catalytic activity/Vol] 11 U/L 13-[address] [facility] Basophils Auto (Bld) [#/Vol] Ordered By: Brandi Lopez on 07-01-2023 Basophils (Bld) [#/Vol] 0.1 10*3/uL 0.0-0.[address] [facility] Basophils/100 WBC Auto (Bld) Ordered By: Brandi Lopez on 07-01-2023 Basophils/100 WBC (Bld) 2.0 % . [facility] Bilirubin.total [Mass/volume ] in Serum or PlasmaOrdered By: Brandi Lopez on 07-01-2023 Bilirubin [Mass/Vol] 0.4 mg/dL 0.3-1.0 [facility] Calcium [Mass/volume] in Ser um or PlasmaOrdered By: Brandi Lopez on 07-01-2023 Calcium [Mass/Vol] 9.8 mg/dL 8.6-10.3 [facility] Carbon dioxide, total [Moles /volume] in Serum or PlasmaOrdered By: Brandi Lopez on 07-01-2023 CO2 [Moles/Vol] 29.1 mmol/L 21.0-31.0 [facility] Chloride [Moles/volume] in S rakan or PlasmaOrdered By: Brandi Lopez on 07-01-2023 Chloride [Moles/Vol] 101 mmol/L 98-107 [facility] Complete Blood Count Auto Di ffon 07-01-2023 Basophils (Bld) [#/Vol] 0.1 10*3/uL Normal 0.0-0.2 [facility] Comment on above: Result Comment: PERF ORMED BY: [facility] [address] [place] [address] PATHOLOGIST CD TECHNICIAN JASEN DIAZ M.D. Performed By: #### C MP, CBC #### [facility] [address] [place] [address] [place] Basophils/100 WBC (Bld) 2.0 % Normal . [facility] Comment on above: Performed By: #### C MP, CBC #### [facility] [address] Eosinophils (Bld) [#/Vol] 0.0 10*3/uL Normal 0.0-0.45 [facility] Comment on above: Performed By: #### C MP, CBC #### [address] Eosinophils/100 WBC (Bld) 0.9 % Normal . [facility] Comment on above: Performed By: #### C MP, CBC #### [address] Erythrocyte distribution width (RBC) [Ratio] 23.6 % High 11.9-15.3 [facility] Comment on above: Performed By: #### C MP, CBC #### [address] Hematocrit (Bld) [Volume fraction] 34.3 % Normal 34.0-46.4 [facility] Comment on above: Performed By: #### C MP, CBC #### [address] Hemoglobin (Bld) [Mass/Vol] 11.3 g/dL Low 11.8-15.4 [facility] Comment on above: Performed By: #### C MP, CBC #### [place] [address] [place] Lymphocytes (Bld) [#/Vol] 1.4 10*3/uL Normal 1.00-4.8 [facility] Comment on above: Performed By: #### C MP, CBC #### [place] [address] [place] Lymphocytes/100 WBC (Bld) 47.5 % Normal . [facility] Comment on above: Performed By: #### C MP, CBC #### [address] MCH (RBC) [Entitic mass] 30.2 pg Normal 24.7-34.3 [facility] Comment on above: Performed By: #### C MP, CBC #### [address] MCV (RBC) [Entitic vol] 91.4 fL Normal 80-100 [facility] Comment on above: Performed By: #### C MP, CBC #### [address] Mean Corpuscular HGB Conc 33.1 g/dL Normal 32.0-35.0 [facility] Comment on above: Performed By: #### C MP, CBC #### [address] Monocytes (Bld) [#/Vol] 0.2 10*3/uL Normal 0.0-0.8 [facility] Comment on above: Performed By: #### C MP, CBC #### [address] Monocytes/100 WBC (Bld) 6.4 % Normal . [facility] Comment on above: Performed By: #### C MP, CBC #### [address] Neutrophils (Bld) [#/Vol] 1.3 10*3/uL Low 1.8-7.7 [facility] Comment on above: Performed By: #### C MP, CBC #### [address] Neutrophils/100 WBC (Bld) 43.2 % Normal . [facility] Comment on above: Performed By: #### C MP, CBC #### [address] NRBC% 0.4 /100{WBC} Normal 0-0.5 [facility] Comment on above: Performed By: #### C MP, CBC #### [address] Platelet mean volume (Bld) [Entitic vol] 7.7 fL Normal 6.3-10.7 [facility] Comment on above: Performed By: #### C MP, CBC #### [address] Platelets (Bld) [#/Vol] 252 10*3/uL Normal 150-450 [facility] Comment on above: Performed By: #### C MP, CBC #### [address] RBC (Bld) [#/Vol] 3.75 10*6/uL Normal 3.60-5.00 [facility] [facility] Comment on above: Performed By: #### C MP, CBC #### [address] WBC (Bld) [#/Vol] 3.0 10*3/uL Low 3.8-11.6 [facility] Comment on above: Performed By: #### C MP, CBC #### [address] Comprehensive Metabolic Pane camila 07-01-2023 Albumin [Mass/Vol] 4.2 g/dL Normal 3.5-5.7 [facility] Comment on above: Performed By: #### C MP, CBC #### [address] Albumin/Globulin [Mass ratio] 1.9 {ratio} Normal [facility] Comment on above: Performed By: #### C MP, CBC #### [address] ALP [Catalytic activity/Vol] 53 U/L Normal 34-104 [facility] Comment on above: Performed By: #### C MP, CBC #### [address] ALT [Catalytic activity/Vol] 9 U/L Normal 7-52 [facility] Comment on above: Performed By: #### C MP, CBC #### [place] [address] Anion gap [Moles/Vol] 11.7 mmol/L Normal 6.0-15.0 [facility] Comment on above: Performed By: #### C MP, CBC #### [address] AST [Catalytic activity/Vol] 11 U/L Low 13-39 [facility] Comment on above: Performed By: #### C MP, CBC #### [address] Bilirubin [Mass/Vol] 0.4 mg/dL Normal 0.3-1.0 [facility] Comment on above: Performed By: #### C MP, CBC #### [address] Calcium [Mass/Vol] 9.8 mg/dL Normal 8.6-10.3 [facility] Comment on above: Performed By: #### C MP, CBC #### [address] Chloride [Moles/Vol] 101 mmol/L Normal 98-107 [facility] Comment on above: Performed By: #### C MP, CBC #### [address] CO2 [Moles/Vol] 29.1 mmol/L Normal 21.0-31.0 [facility] Comment on above: Performed By: #### C MP, CBC #### [address] Creatinine [Mass/Vol] 1.42 mg/dL High 0.60-1.20 [facility] Comment on above: Performed By: #### C MP, CBC #### [address] Creatinine Clr Calc Pharmacy 24.56 Normal [facility] Comment on above: Result Comment: PERF ORMED BY: [place] [address] PATHOLOGIST CD TECHNICIAN JASEN DIAZ M.D. Performed By: #### C MP, CBC #### [place] [address] [place] GFR/1.73 sq M.predicted MDRD (S/P/Bld) [Vol rate/Area] 36.021 mL/min/{1.73_m2} Normal [facility] Comment on above: Performed By: #### C MP, CBC #### [place] [address] [place] Globulin (S) [Mass/Vol] 2.2 g/dL Normal [facility] Comment on above: Performed By: #### C MP, CBC #### [address] Glucose [Mass/Vol] 144 mg/dL High 70-100 [facility] Comment on above: Result Comment: [facility] Glucose Reference Range is dependent on time and content of last meal. Glucose of more than 200 mg/dL in a nonstressed, ambulatory subject supports the diagnosis of Diabetes Mellitus. ADA recommended reference range Performed By: #### C MP, CBC #### [address] Potassium [Moles/Vol] 3.8 mmol/L Normal 3.5-5.1 [facility] Comment on above: Performed By: #### C MP, CBC #### [address] Protein [Mass/Vol] 6.4 g/dL Normal 6.4-8.9 [facility] Comment on above: Performed By: #### C MP, CBC #### [place] [address] [place] Sodium [Moles/Vol] 138 mmol/L Normal 136-145 [facility] Comment on above: Performed By: #### C MP, CBC #### [address] Urea nitrogen [Mass/Vol] 25 mg/dL Normal 7-25 [facility] Comment on above: Performed By: #### C MP, CBC #### [place] [address] [facility] Creatinine [Mass/volume] in Serum or PlasmaOrdered By: Brandi Lopez on 07-01-2023 Creatinine [Mass/Vol] 1.42 mg/dL 0.60-1.20 [facility] Eosinophils Auto (Bld) [#/Vo l]Ordered By: Brandi Lopez on 07-01-2023 Eosinophils (Bld) [#/Vol] 0.0 10*3/uL 0.0-0.[address] [facility] Eosinophils/100 WBC Auto (Bl d)Ordered By: Brandi Lpoez on 07-01-2023 Eosinophils/100 WBC (Bld) 0.9 % . [facility] Erythrocyte distribution wid th Auto (RBC) [Ratio]Ordered By: Brandi Lopez on 07-01-2023 Erythrocyte distribution width (RBC) [Ratio] 23.6 % 11.9-15.[address] [facility] Globulin Calc (S) [Mass/Vol] Ordered By: Brandi Lopez on 07-01-2023 Globulin (S) [Mass/Vol] 2.2 g/dL [facility] Glucose [Mass/volume] in Ser um or PlasmaOrdered By: Brandi Lopez on 07-01-2023 Glucose [Mass/Vol] 144 mg/dL 70-100 [facility] Comment on above: ADA recommended refe rence rangeRandom Glucose Reference Range is dependent on time and content of last meal. Glucose of more than 200 mg/dL in a nonstressed, ambulatory subject supports the diagnosis of Diabetes Mellitus. Hematocrit Auto (Bld) [Volum e fraction]Ordered By: Brandi Lopez on 07-01-2023 Hematocrit (Bld) [Volume fraction] 34.3 % 34.0-46.[address] [facility] Hemoglobin [Mass/volume] in BloodOrdered By: Brandi Lopez on 07-01-2023 Hemoglobin (Bld) [Mass/Vol] 11.3 g/dL 11.8-15.[address] [facility] Leukocytes [#/volume] correc medardo for nucleated erythrocytes in Blood by Automated counOrdered By: Brandi Lopez on 07-01-2023 WBC corrected for nucl RBC Auto (Bld) [#/Vol] 3.0 10*3/uL 3.8-11.[address] [facility] Lymphocytes Auto (Bld) [#/Vo l]Ordered By: Brandi Lopez on 07-01-2023 Lymphocytes (Bld) [#/Vol] 1.4 10*3/uL 1.00-4.[address] [facility] Lymphocytes/100 WBC Auto (Bl d)Ordered By: Brandi Lopez on 07-01-2023 Lymphocytes/100 WBC (Bld) 47.5 % . [facility] MCH Auto (RBC) [Entitic mass ]Ordered By: Brandi Lopez on 07-01-2023 MCH (RBC) [Entitic mass] 30.2 pg 24.7-34.[address] [facility] MCHC Auto (RBC) [Mass/Vol]Or dered By: Brandi Lopez on 07-01-2023 MCHC (RBC) [Mass/Vol] 33.1 g/dL 32.0-35.0 [facility] MCV Auto (RBC) [Entitic vol] Ordered By: Brandi Lopez on 07-01-2023 MCV (RBC) [Entitic vol] 91.4 fL 80-[address] [facility] Monocytes Auto (Bld) [#/Vol] Ordered By: Brandi Lopez on 07-01-2023 Monocytes (Bld) [#/Vol] 0.2 10*3/uL 0.0-0.[address] [facility] Monocytes/100 WBC Auto (Bld) Ordered By: Brandi Lpoez on 07-01-2023 Monocytes/100 WBC (Bld) 6.4 % . [facility] Neutrophils Auto (Bld) [#/Vo l]Ordered By: Brandi Lopez on 07-01-2023 Neutrophils (Bld) [#/Vol] 1.3 10*3/uL 1.8-7.[address] [facility] Neutrophils/100 WBC Auto (Bl d)Ordered By: Brandi Lopez on 07-01-2023 Neutrophils/100 WBC (Bld) 43.2 % . [facility] No Panel InformationOrdered By: Brandi Lopez on 07-01-2023 Estimated GFR (CKD-EPI) 36.021 mL/Min [facility] Creatinine Clearance (Chem 24.[address] [facility] Nucleated erythrocytes [Pres ence] in Blood by Automated countOrdered By: Brandi Lopez on 07-01-2023 Nucleated RBC Auto Ql (Bld) 0.4 /100{WBC} 0-0.[address] [facility] Platelet mean volume Auto (B ld) [Entitic vol]Ordered By: Brandi Lopez on 07-01-2023 Platelet mean volume (Bld) [Entitic vol] 7.7 fL 6.3-10.[address] [facility] Platelets Auto (Bld) [#/Vol] Ordered By: Brandi Lopez on 07-01-2023 Platelets (Bld) [#/Vol] 252 10*3/uL 150-[address] [facility] Potassium [Moles/volume] in Serum or PlasmaOrdered By: Brandi Lopez on 07-01-2023 Potassium [Moles/Vol] 3.8 mmol/L 3.5-5.1 [facility] Protein [Mass/volume] in Ser um or PlasmaOrdered By: Brandi Lopez on 07-01-2023 Protein [Mass/Vol] 6.4 g/dL 6.4-8.9 [facility] RBC Auto (Bld) [#/Vol]Ordere d By: Brandi Lopez on 07-01-2023 RBC (Bld) [#/Vol] 3.75 10*6/uL 3.60-5.00 [facility] Serum or plasma albumin/glob ulin mass ratioOrdered By: Brandi Lopez on 07-01-2023 Albumin/Globulin [Mass ratio] 1.9 {ratio} [facility] Serum or plasma anion gap de terminationOrdered By: Brandi Lopez on 07-01-2023 Anion gap [Moles/Vol] 11.7 mmol/L 6.0-15.0 [facility] Sodium [Moles/volume] in Ser um or PlasmaOrdered By: Brandi Lopez on 07-01-2023 Sodium [Moles/Vol] 138 mmol/L 136-145 [facility] Urea nitrogen [Mass/volume] in Serum or PlasmaOrdered By: Brandi Lopez on 07-01-2023 Urea nitrogen [Mass/Vol] 25 mg/dL 7-[address] [facility] WBC Auto (Bld) [#/Vol]Ordere d By: Brandi Lopez on 07-01-2023 WBC (Bld) [#/Vol] 3.0 10*3/uL 3.8-11.6 [facility] Alanine aminotransferase [En zymatic activity/volume] in Serum or PlasmaOrdered By: Brandi Lopez on 05-27-2023 ALT [Catalytic activity/Vol] 8 U/L 7-[address] [facility] Albumin [Mass/volume] in Ser um or Plasma by Bromocresol green (BCG) dye binding methoOrdered By: Brandi Lopez on 05-27-2023 Albumin BCG dye [Mass/Vol] 4.3 g/dL 3.5-5.[address] [facility] Alkaline phosphatase [Enzyma tic activity/volume] in Serum or PlasmaOrdered By: Brandi Lopez on 05-27-2023 ALP [Catalytic activity/Vol] 62 U/L 34-[address] [facility] Aspartate aminotransferase [ Enzymatic activity/volume] in Serum or PlasmaOrdered By: Brandi Lopez on 05-27-2023 AST [Catalytic activity/Vol] 11 U/L 13-[address] [facility] Basophils Auto (Bld) [#/Vol] Ordered By: Brandi Lopez on 05-27-2023 Basophils (Bld) [#/Vol] 0.0 10*3/uL 0.0-0.[address] [facility] Basophils/100 WBC Auto (Bld) Ordered By: Brandi Lopez on 05-27-2023 Basophils/100 WBC (Bld) 0.6 % . [facility] Bilirubin.total [Mass/volume ] in Serum or PlasmaOrdered By: Brandi Lopez on 05-27-2023 Bilirubin [Mass/Vol] 0.5 mg/dL 0.3-1.0 [facility] Calcium [Mass/volume] in Ser um or PlasmaOrdered By: Brandi Lopez on 05-27-2023 Calcium [Mass/Vol] 9.9 mg/dL 8.6-10.3 [facility] Carbon dioxide, total [Moles /volume] in Serum or PlasmaOrdered By: Brandi Lopez on 05-27-2023 CO2 [Moles/Vol] 31.2 mmol/L 21.0-31.0 [facility] Chloride [Moles/volume] in S rakan or PlasmaOrdered By: Brandi Lopez on 05-27-2023 Chloride [Moles/Vol] 102 mmol/L 98-107 [facility] Complete Blood Count Auto Di ffon 05-27-2023 Basophils (Bld) [#/Vol] 0.0 10*3/uL Normal 0.0-0.2 [facility] Comment on above: Result Comment: PERF ORMED BY: [place] [address] PATHOLOGIST CD TECHNICIAN JASEN DIAZ M.D. Performed By: #### C BC, CMP #### [address] Basophils/100 WBC (Bld) 0.6 % Normal . [facility] Comment on above: Performed By: #### C BC, CMP #### [address] Eosinophils (Bld) [#/Vol] 0.1 10*3/uL Normal 0.0-0.45 [facility] Comment on above: Performed By: #### C BC, CMP #### [place] [address] [place] Eosinophils/100 WBC (Bld) 1.2 % Normal . [facility] Comment on above: Performed By: #### C BC, CMP #### [address] Erythrocyte distribution width (RBC) [Ratio] 15.3 % Normal 11.9-15.3 [facility] Comment on above: Performed By: #### C BC, CMP #### [address] Hematocrit (Bld) [Volume fraction] 35.6 % Normal 34.0-46.4 [facility] Comment on above: Performed By: #### C BC, CMP #### [address] Hemoglobin (Bld) [Mass/Vol] 11.8 g/dL Normal 11.8-15.4 [facility] Comment on above: Performed By: #### C BC, CMP #### [address] Lymphocytes (Bld) [#/Vol] 1.3 10*3/uL Normal 1.00-4.8 [facility] Comment on above: Performed By: #### C BC, CMP #### [address] Lymphocytes/100 WBC (Bld) 29.3 % Normal . [facility] Comment on above: Performed By: #### C BC, CMP #### [address] MCH (RBC) [Entitic mass] 28.4 pg Normal 24.7-34.3 [facility] Comment on above: Performed By: #### C BC, CMP #### [address] MCV (RBC) [Entitic vol] 85.2 fL Normal 80-100 [facility] Comment on above: Performed By: #### C BC, CMP #### [address] Mean Corpuscular HGB Conc 33.3 g/dL Normal 32.0-35.0 [facility] Comment on above: Performed By: #### C BC, CMP #### [address] Monocytes (Bld) [#/Vol] 0.1 10*3/uL Normal 0.0-0.8 [facility] Comment on above: Performed By: #### C BC, CMP #### [place] [address] [place] Monocytes/100 WBC (Bld) 2.8 % Normal . [facility] Comment on above: Performed By: #### C BC, CMP #### [address] Neutrophils (Bld) [#/Vol] 2.8 10*3/uL Normal 1.8-7.7 [facility] Comment on above: Performed By: #### C BC, CMP #### [address] Neutrophils/100 WBC (Bld) 66.1 % Normal . [facility] Comment on above: Performed By: #### C BC, CMP #### [address] NRBC% 0.2 /100{WBC} Normal 0-0.5 [facility] Comment on above: Performed By: #### C BC, CMP #### [address] Platelet mean volume (Bld) [Entitic vol] 7.8 fL Normal 6.3-10.7 [facility] Comment on above: Performed By: #### C BC, CMP #### [address] Platelets (Bld) [#/Vol] 287 10*3/uL Normal 150-450 [facility] Comment on above: Performed By: #### C BC, CMP #### [address] RBC (Bld) [#/Vol] 4.18 10*6/uL Normal 3.60-5.00 [facility] Comment on above: Performed By: #### C BC, CMP #### [address] WBC (Bld) [#/Vol] 4.3 10*3/uL Normal 3.8-11.6 [facility] Comment on above: Performed By: #### C BC, CMP #### [address] Comprehensive Metabolic Pane camila 05-27-2023 Albumin [Mass/Vol] 4.3 g/dL Normal 3.5-5.7 [facility] Comment on above: Order Comment: IRVING ZAMANW Performed By: #### C MP, CBC #### [address] Albumin/Globulin [Mass ratio] 2.0 {ratio} Normal [facility] Comment on above: Order Comment: FASTI NG. JKW Performed By: #### C MP, CBC #### [address] ALP [Catalytic activity/Vol] 62 U/L Normal 34-104 [facility] Comment on above: Order Comment: FASTI NG. JKW Performed By: #### C MP, CBC #### [address] ALT [Catalytic activity/Vol] 8 U/L Normal 7-52 [facility] Comment on above: Order Comment: FASTI NG. JKW Performed By: #### C MP, CBC #### [address] Anion gap [Moles/Vol] 9.8 mmol/L Normal 6.0-15.0 [facility] Comment on above: Order Comment: FASTI NG. JKW Performed By: #### C MP, CBC #### [address] AST [Catalytic activity/Vol] 11 U/L Low 13-39 [facility] Comment on above: Order Comment: FASTI NG. JKW Performed By: #### C MP, CBC #### [address] Bilirubin [Mass/Vol] 0.5 mg/dL Normal 0.3-1.0 [facility] Comment on above: Order Comment: FASTI NG. JKW Performed By: #### C MP, CBC #### [address] Calcium [Mass/Vol] 9.9 mg/dL Normal 8.6-10.3 [facility] Comment on above: Order Comment: FASTI NG. JKW Performed By: #### C MP, CBC #### [address] Chloride [Moles/Vol] 102 mmol/L Normal 98-107 [facility] Comment on above: Order Comment: FASTI NG. JKW Performed By: #### C MP, CBC #### [address] CO2 [Moles/Vol] 31.2 mmol/L High 21.0-31.0 [facility] Comment on above: Order Comment: FASTI NG. JKW Performed By: #### C MP, CBC #### [facility] [address] Creatinine [Mass/Vol] 1.15 mg/dL Normal 0.60-1.20 [facility] Comment on above: Order Comment: FASTI NG. JKW Performed By: #### C MP, CBC #### [address] Creatinine Clr Calc Pharmacy 32.78 Normal [facility] Comment on above: Order Comment: FASTI NG. JKW Result Comment: PERF ORMED BY: [place] [address] PATHOLOGIST CD TECHNICIAN JASEN DIAZ M.D. Performed By: #### C MP, CBC #### [address] GFR/1.73 sq M.predicted MDRD (S/P/Bld) [Vol rate/Area] 46.394 mL/min/{1.73_m2} Normal [facility] Comment on above: Order Comment: FASTI NG. JKW Performed By: #### C MP, CBC #### [address] Globulin (S) [Mass/Vol] 2.2 g/dL Normal [facility] Comment on above: Order Comment: FASTI NG. JKW Performed By: #### C MP, CBC #### [address] Glucose [Mass/Vol] 136 mg/dL High 70-100 [facility] Comment on above: Order Comment: FASTI NG. JKW Result Comment: [place] Glucose Reference Range is dependent on time and content of last meal. Glucose of more than 200 mg/dL in a nonstressed, ambulatory subject supports the diagnosis of Diabetes Mellitus. ADA recommended reference range Performed By: #### C MP, CBC #### [address] Potassium [Moles/Vol] 4.0 mmol/L Normal 3.5-5.1 [facility] Comment on above: Order Comment: FASTI NG. JKW Performed By: #### C MP, CBC #### [address] Protein [Mass/Vol] 6.5 g/dL Normal 6.4-8.9 [facility] Comment on above: Order Comment: FASTI NG. JKW Performed By: #### C MP, CBC #### [address] Sodium [Moles/Vol] 139 mmol/L Normal 136-145 [facility] Comment on above: Order Comment: FASTI NG. JKW Performed By: #### C MP, CBC #### [address] Urea nitrogen [Mass/Vol] 23 mg/dL Normal 7-25 [facility] Comment on above: Order Comment: FASTI NG. JKW Performed By: #### C MP, CBC #### [address] Creatinine [Mass/volume] in Serum or PlasmaOrdered By: Brandi Lopez on 05-27-2023 Creatinine [Mass/Vol] 1.15 mg/dL 0.60-1.20 [facility] Eosinophils Auto (Bld) [#/Vo l]Ordered By: Brandi Lopez on 05-27-2023 Eosinophils (Bld) [#/Vol] 0.1 10*3/uL 0.0-0.[address] [facility] Eosinophils/100 WBC Auto (Bl d)Ordered By: Brandi Lopez on 05-27-2023 Eosinophils/100 WBC (Bld) 1.2 % . [facility] Erythrocyte distribution wid th Auto (RBC) [Ratio]Ordered By: Brandi Lopez on 05-27-2023 Erythrocyte distribution width (RBC) [Ratio] 15.3 % 11.9-15.[address] [facility] Globulin Calc (S) [Mass/Vol] Ordered By: Brandi Lopez on 05-27-2023 Globulin (S) [Mass/Vol] 2.2 g/dL [facility] Glucose [Mass/volume] in Ser um or PlasmaOrdered By: Brandi Lopez on 05-27-2023 Glucose [Mass/Vol] 136 mg/dL 70-100 [facility] Comment on above: ADA recommended refe rence rangeRandom Glucose Reference Range is dependent on time and content of last meal. Glucose of more than 200 mg/dL in a nonstressed, ambulatory subject supports the diagnosis of Diabetes Mellitus. Hematocrit Auto (Bld) [Volum e fraction]Ordered By: Brandi Lopez on 05-27-2023 Hematocrit (Bld) [Volume fraction] 35.6 % 34.0-46.[address] [facility] Hemoglobin [Mass/volume] in BloodOrdered By: Brandi Lopez on 05-27-2023 Hemoglobin (Bld) [Mass/Vol] 11.8 g/dL 11.8-15.[address] [facility] Leukocytes [#/volume] correc medardo for nucleated erythrocytes in Blood by Automated counOrdered By: Brandi Lopez on 05-27-2023 WBC corrected for nucl RBC Auto (Bld) [#/Vol] 4.3 10*3/uL 3.8-11.[address] [facility] Lymphocytes Auto (Bld) [#/Vo l]Ordered By: Brandi Lopez on 05-27-2023 Lymphocytes (Bld) [#/Vol] 1.3 10*3/uL 1.00-4.[address] [facility] Lymphocytes/100 WBC Auto (Bl d)Ordered By: Brandi Lopez on 05-27-2023 Lymphocytes/100 WBC (Bld) 29.3 % . [facility] MCH Auto (RBC) [Entitic mass ]Ordered By: Brandi Lopez on 05-27-2023 MCH (RBC) [Entitic mass] 28.4 pg 24.7-34.[address] [facility] MCHC Auto (RBC) [Mass/Vol]Or dered By: Brandi Lopez on 05-27-2023 MCHC (RBC) [Mass/Vol] 33.3 g/dL 32.0-35.0 [facility] MCV Auto (RBC) [Entitic vol] Ordered By: Brandi Lopez on 05-27-2023 MCV (RBC) [Entitic vol] 85.2 fL 80-[address] [facility] Monocytes Auto (Bld) [#/Vol] Ordered By: Brandi Lopez on 05-27-2023 Monocytes (Bld) [#/Vol] 0.1 10*3/uL 0.0-0.[address] [facility] Monocytes/100 WBC Auto (Bld) Ordered By: Brandi Lopez on 05-27-2023 Monocytes/100 WBC (Bld) 2.8 % . [facility] Neutrophils Auto (Bld) [#/Vo l]Ordered By: Brandi Lopez on 05-27-2023 Neutrophils (Bld) [#/Vol] 2.8 10*3/uL 1.8-7.[address] [facility] Neutrophils/100 WBC Auto (Bl d)Ordered By: Brandi Lopez on 05-27-2023 Neutrophils/100 WBC (Bld) 66.1 % . [facility] No Panel InformationOrdered By: Brandi Lopez on 05-27-2023 Estimated GFR (CKD-EPI) 46.394 mL/Min [facility] Creatinine Clearance (Chem 32.[address] [facility] Nucleated erythrocytes [Pres ence] in Blood by Automated countOrdered By: Brandi Lopez on 05-27-2023 Nucleated RBC Auto Ql (Bld) 0.2 /100{WBC} 0-0.[address] [facility] Platelet mean volume Auto (B ld) [Entitic vol]Ordered By: Brandi Lopez on 05-27-2023 Platelet mean volume (Bld) [Entitic vol] 7.8 fL 6.3-10.[address] [facility] Platelets Auto (Bld) [#/Vol] Ordered By: Brandi Lopez on 05-27-2023 Platelets (Bld) [#/Vol] 287 10*3/uL 150-[address] [facility] Potassium [Moles/volume] in Serum or PlasmaOrdered By: Brandi Lopez on 05-27-2023 Potassium [Moles/Vol] 4.0 mmol/L 3.5-5.1 [facility] Protein [Mass/volume] in Ser um or PlasmaOrdered By: Brandi Lopez on 05-27-2023 Protein [Mass/Vol] 6.5 g/dL 6.4-8.9 [facility] RBC Auto (Bld) [#/Vol]Ordere d By: Brandi Lopez on 05-27-2023 RBC (Bld) [#/Vol] 4.18 10*6/uL 3.60-5.00 [facility] Serum or plasma albumin/glob ulin mass ratioOrdered By: Brandi Lopez on 05-27-2023 Albumin/Globulin [Mass ratio] 2.0 {ratio} [facility] Serum or plasma anion gap de terminationOrdered By: Brandi Lopez on 05-27-2023 Anion gap [Moles/Vol] 9.8 mmol/L 6.0-15.0 [facility] Sodium [Moles/volume] in Ser um or PlasmaOrdered By: Brandi Lopez on 05-27-2023 Sodium [Moles/Vol] 139 mmol/L 136-145 [facility] Urea nitrogen [Mass/volume] in Serum or PlasmaOrdered By: Brandi Lopez on 05-27-2023 Urea nitrogen [Mass/Vol] 23 mg/dL 7-[address] [facility] WBC Auto (Bld) [#/Vol]Ordere d By: Brandi Lopez on 05-27-2023 WBC (Bld) [#/Vol] 4.3 10*3/uL 3.8-11.6 [facility] A1C with Estimated Average G luon 05-16-2023 Glucose [Mass/Vol] 154 mg/dL Normal [facility] Comment on above: Order Comment: Reaso n for Exam Bilateral primary osteoarthritis of knee;Age-related osteopo Result Comment: PERF ORMED BY: [facility] [address] [place] [address] PATHOLOGIST CD TECHNICIAN JASEN DIAZ M.D. Performed By: #### N ICOTINE #### [facility] , #### A1C WTH eA, ALB, CUMRSA, [id number], HGB #### [facility] [address] HbA1c (Bld) [Mass fraction] 7.0 % High 4.3-5.6 [facility] Comment on above: Order Comment: Reaso n for Exam Bilateral primary osteoarthritis of knee;Age-related osteopo Result Comment: Incr eased risk for diabetes: 5.7 - 6.4 diabetes: >6.4 glycemic control for adults with diabetes: <7.0 Performed By: #### N ICOTINE #### [facility] , #### A1C WTH eA, ALB, CUMRSA, [id number], HGB #### [facility] [address] Albumin Levelon 05-16-2023 Albumin [Mass/Vol] 4.2 g/dL Normal 3.5-5.7 [facility] Comment on above: Order Comment: Reaso n for Exam Bilateral primary osteoarthritis of knee;Age-related osteopo Performed By: #### N ICOTINE #### [facility] , #### A1C WTH eA, ALB, CUMRSA, [id number], HGB #### [facility] [address] Albumin [Mass/volume] in Ser um or Plasma by Bromocresol green (BCG) dye binding methoOrdered By: Leonardo Herron on 05-16-2023 Albumin BCG dye [Mass/Vol] 4.2 g/dL 3.5-5.[address] [facility] Cotinine [Mass/volume] in Se rum or PlasmaOrdered By: Leonardo Herron on 05-16-2023 Cotinine [Mass/Vol] <1.0 ng/mL . [facility] Comment on above: This test was develo ped and its performance characteristicsdetermined by [facility]. It has not been cleared orapproved by the Food and Drug Administration.Cotinine levels greater than 20.0 are consistent with theuse of tobacco or tobacco cessation products.Performed at: [address] [id number] Director: Milo Mcleod MD, Phone: [phone] Glucose mean value [Mass/vol ume] in Blood Estimated from glycated hemoglobinOrdered By: Leonardo Herron on 05-16-2023 Average glucose Estimated from glycated hemoglobin (Bld) [Mass/Vol] 154 mg/dL [facility] Hemoglobinon 05-16-2023 Hemoglobin (Bld) [Mass/Vol] 12.0 g/dL Normal 11.8-15.4 [facility] Comment on above: Order Comment: Reaso n for Exam Bilateral primary osteoarthritis of knee;Age-related osteopo Result Comment: PERF ORMED BY: [place] [address] PATHOLOGIST CD TECHNICIAN JASEN DIAZ M.D. Performed By: #### N ICOTINE #### [facility] , #### A1C WTH eA, ALB, CUMRSA, [id number], HGB #### [address] Hemoglobin A1c percentageOrd ered By: Leonardo Herron on 05-16-2023 HbA1c (Bld) [Mass fraction] 7.0 % 4.3-5.[address] [facility] Comment on above: Increased risk for d iabetes: 5.7 - 6.4diabetes: >6.4glycemic control for adults with diabetes: <7.0 Hemoglobin [Mass/volume] in BloodOrdered By: Leonardo Herron on 05-16-2023 Hemoglobin (Bld) [Mass/Vol] 12.0 g/dL 11.8-15.[address] [facility] MRSA Cultureon 05-16-2023 MRSA Culture Reason for Exam Bila teral primary osteoarthritis of knee;Age-related osteopo Nasal Reason for Exam: Bilateral primary osteoarthritis of knee;Age-related osteopo : Nasal MRSA Culture Results No MRSA Isolated 2 Days PERFORMED BY: [place] [address] PATHOLOGIST CD TECHNICIAN JASEN DIAZ M.D. Normal [facility] Comment on above: Performed By: #### N ICOTINE #### [facility] , #### A1C WTH eA, ALB, CUMRSA, [id number], HGB #### [facility] [address] [place] [address] Nicotine [Mass/volume] in Se rum or PlasmaOrdered By: Leonardo Herron on 05-16-2023 Nicotine [Mass/Vol] <1.0 ng/mL . [facility] Comment on above: This test was develo ped and its performance characteristicsdetermined by [facility]. It has not been cleared orapproved by the Food and Drug Administration.Nicotine levels greater than 2.0 are consistent with theuse of tobacco or tobacco cessation products. Nicotine/Cotinine Bloodon Cotinine, Blood <1.0 Normal . [facility] Comment on above: Order Comment: Reaso n for Exam Bilateral primary osteoarthritis of knee;Age-related osteopo Result Comment: This test was developed and its performance characteristics determined by [facility]. It has not been cleared or approved by the Food and Drug Administration. Cotinine levels greater than 20.0 are consistent with the use of tobacco or tobacco cessation products. Performed at: [facility] [id number] Swatcher: Milo Mcleod MD, Phone: [phone] PERFORMED BY: [place] [address] PATHOLOGIST CD TECHNICIAN JASEN DIAZ M.D. Performed By: #### N ICOTINE #### [facility] , #### A1C [facility] eA, ALB, CUMRSA, [id number], HGB #### [address] Nicotine, Blood <1.0 Normal . [facility] Comment on above: Order Comment: Reaso n for Exam Bilateral primary osteoarthritis of knee;Age-related osteopo Result Comment: This test was developed and its performance characteristics determined by [facility]. It has not been cleared or approved by the Food and Drug Administration. Nicotine levels greater than 2.0 are consistent with the use of tobacco or tobacco cessation products. Performed By: #### N ICOTINE #### [facility] , #### A1C WTH eA, ALB, CUMRSA, [id number], HGB #### [facility] [address] [place] [id number] [facility] Vitamin D 25 Hydroxy Totalon 05-16-2023 Vitamin D 25 Hydroxy Total 42.6 ng/mL Normal 30-100 [facility] Comment on above: Order Comment: Reaso n for Exam Bilateral primary osteoarthritis of knee;Age-related osteopo Result Comment: MERCEDES MIN D STATUS 25(OH)VITAMIN D RANGE (ng/mL) Deficient <20 Insufficient 20 to <30 Sufficient 30 to 100 Reference: Dieter Montilla, Isak MARTINEZ, et al. Evaluation,treatment, and prevention of vitamin D deficiency; an Endocrine Society clinical practice guideline. JCEM. 2010; 96(7):1911-30. PERFORMED BY: [place] [address] PATHOLOGIST CD TECHNICIAN JASEN DIAZ M.D. Performed By: #### N ICOTINE #### [facility] , #### A1C WTH eA, ALB, CUMRSA, [id number], HGB #### [facility] [address] [place] [id number] [facility] Vitamin D+Metabolites [Mass/ volume] in Serum or PlasmaOrdered By: Leonardo Herron on 05-16-2023 Vitamin D+Metabolites [Mass/Vol] 42.6 ng/mL 30-[address] [facility] Comment on above: VITAMIN D STATUS 25( [place])VITAMIN D RANGE (ng/mL) Deficient <20 Insufficient 20 to <30Sufficient 30 to 100Reference: Dieter Montilla, Isak MARTINEZ, et al. Evaluation,treatment, and prevention of vitamin D deficiency; an Endocrine Society clinical practice guideline. JCEM. 2010; 96(7):1911-30. Wound methicillin resistant Staphylococcus aureus (MRSA) cultureOrdered By: Leonardo Herron on 05-16-2023 MRSA isol Org specific cx Ql (Unsp spec) [facility] XR pelvis 1-2Von 05-16-2023 XR pelvis 1-2V [facility] [address] [place] [address] XRay Report Signed Patient: Yolanda Fairbanks MR#: [id number] 0 : 1935 Acct:[id number] Age/Sex: 88 / F ADM Date: 05/16/23 Loc: SOXD Room: Type: [facility] Attending Dr: Leonardo Herron II, MD Copies to: Leonardo Herron MD Ordering Provider: Leonardo Herron MD Date of Service: 05/16/23 XR/XR knee BI 4V: Acute pain of right knee ([id number]) XR/XR pelvis 1-2V: Acute pain of right knee 4 views both knee plain film COMPARISON: None HISTORY: Bilateral knee pain greater on the right ACUTE FINDINGS: None DEGENERATIVE CHANGE: Extensive [id number]-pm-[id number] contact the medial compartment degeneration seen bilaterally. Mild patellofemoral and lateral compartment degenerative changes. Bilateral mild degenerative subluxation. SOFT TISSUE FINDINGS: Unremarkable JOINT EFFUSION: None POSTOP CHANGES: None BONE MINERALIZATION: Adequate XR/XR knee BI 4V IMPRESSION: Extensive rjzz-ra-hxqy bilateral medial compartment degenerative changes. Single view pelvis Mild bilateral hip and SI joint degenerative changes. Moderate lower lumbar degenerative change. No fracture. Adequate bony alignment. Minimal atherosclerosis. IMPRESSION: Mild bilateral hip degeneration. Impression dictated by: Dane Tellez M.D.05/16/2023 4:32 PM Dictation Location: [place] [address] Transcribed By: [facility] 05/16/23 1632 Dictated By: Dane Tellez DO 05/16/23 1628 Signed By: 05/16/23 1632 Normal [facility] XR pelvis 1-2V [facility] [employer] Other XR pelvis 1-2V [facility] [employer] Other XR pelvis 1-2V [address] [facility] [employer] Other XR pelvis 1-2V [place] [address] [facility] [employer] Other XR pelvis 1-2V XRay Report [facility] [employer] Other XR pelvis 1-2V Signed [employer] Other XR pelvis 1-2V Patient: Yolanda Fairbanks MR#: [id number] [employer] Other XR pelvis 1-2V 0 [employer] Other XR pelvis 1-2V : 1935 Acct:[id number] [employer] Other XR pelvis 1-2V Age/Sex: 88 / F ADM Date: 05/16/23 [employer] Other XR pelvis 1-2V Loc: SOXD Room: Type : [facility] [employer] Other XR pelvis 1-2V Attending Dr: Leonardo Herron II, MD [employer] Other XR pelvis 1-2V Copies to: Leonardo Herron MD [employer] Other XR pelvis 1-2V Ordering Provider: Corona Herron MD [employer] Other XR pelvis 1-2V Date of Service: 05/16/23 [employer] Other XR pelvis 1-2V XR/XR knee BI 4V: Acute pain of right knee [employer] Other XR pelvis 1-2V ([id number]) XR/XR pelvis 1-2V: Acute pain of right knee [employer] Other XR pelvis 1-2V [address] ain film [employer] Other XR pelvis 1-2V COMPARISON: None [employer] Other XR pelvis 1-2V HISTORY: Bilateral k nee pain greater on the right [employer] Other XR pelvis 1-2V ACUTE FINDINGS: None [employer] Other XR pelvis 1-2V DEGENERATIVE CHANGE: Extensive [id number]-dm-[id number] contact the medial compartment degeneration seen [employer] Other XR pelvis 1-2V bilaterally. Mild patellofemoral and lateral compartment degenerative changes. Bilateral mild [employer] Other XR pelvis 1-2V degenerative subluxation. [employer] Other XR pelvis 1-2V SOFT TISSUE FINDINGS : Unremarkable [employer] Other XR pelvis 1-2V JOINT EFFUSION: None [employer] Other XR pelvis 1-2V POSTOP CHANGES: None [employer] Other XR pelvis 1-2V BONE MINERALIZATION: Adequate [employer] Other XR pelvis 1-2V X R/XR knee BI 4V [employer] Other XR pelvis 1-2V IMPRESSION: Extensiv e elcr-vj-krxw bilateral medial compartment degenerative changes. [employer] Other XR pelvis 1-2V Single view pelvis No rt [employer] Other XR pelvis 1-2V Mild bilateral hip a nd SI joint degenerative changes. Moderate lower lumbar degenerative change. No [employer] Other XR pelvis 1-2V fracture. Adequate b saritha alignment. Minimal atherosclerosis. [employer] Other XR pelvis 1-2V IMPRESSION: Mild bilateral hip degeneration. [employer] Other XR pelvis 1-2V Impression dictated by: Dane Tellez M.D.05/16/2023 4:32 PM [employer] Other XR pelvis 1-2V Dictation Location: [place] [address] [employer] Other XR pelvis 1-2V Transcribed By: [place]ER[place] 05/16/23 1632 [employer] Other XR pelvis 1-2V Dictated By: Deven Tellez DO 05/16/23 1628 [employer] Other XR pelvis 1-2V Signed By: [facility] Other XR pelvis 1-2V 05/16/[address] [facility] [employer] Other Alanine aminotransferase [En zymatic activity/volume] in Serum or PlasmaOrdered By: Brandi Lopez on 04-25-2023 ALT [Catalytic activity/Vol] 11 U/L 7-[address] [facility] Albumin [Mass/volume] in Ser um or Plasma by Bromocresol green (BCG) dye binding methoOrdered By: Brandi Lopez on 04-25-2023 Albumin BCG dye [Mass/Vol] 4.4 g/dL 3.5-5.[address] [facility] Alkaline phosphatase [Enzyma tic activity/volume] in Serum or PlasmaOrdered By: Brandi Lopez on 04-25-2023 ALP [Catalytic activity/Vol] 67 U/L 34-[address] [facility] Aspartate aminotransferase [ Enzymatic activity/volume] in Serum or PlasmaOrdered By: Brandi Lopez on 04-25-2023 AST [Catalytic activity/Vol] 14 U/L 13-[address] [facility] Basophils Auto (Bld) [#/Vol] Ordered By: Brandi Lopez on 04-25-2023 Basophils (Bld) [#/Vol] 0.1 10*3/uL 0.0-0.[address] [facility] Basophils/100 WBC Auto (Bld) Ordered By: Brandi Lopez on 04-25-2023 Basophils/100 WBC (Bld) 0.7 % . [facility] Bilirubin.total [Mass/volume ] in Serum or PlasmaOrdered By: Brandi Lopez on 04-25-2023 Bilirubin [Mass/Vol] 0.5 mg/dL 0.3-1.0 [facility] Calcium [Mass/volume] in Ser um or PlasmaOrdered By: Brandi Lopez on 04-25-2023 Calcium [Mass/Vol] 10.1 mg/dL 8.6-10.3 [facility] Carbon dioxide, total [Moles /volume] in Serum or PlasmaOrdered By: Brandi Lopez on 04-25-2023 CO2 [Moles/Vol] 29.1 mmol/L 21.0-31.0 [facility] Chloride [Moles/volume] in S rakan or PlasmaOrdered By: Brandi Lopez on 04-25-2023 Chloride [Moles/Vol] 102 mmol/L 98-107 [facility] Complete Blood Count Auto Di ffon 04-25-2023 Basophils (Bld) [#/Vol] 0.1 10*3/uL Normal 0.0-0.2 [facility] Comment on above: Result Comment: PERF ORMED BY: [place] [address] PATHOLOGIST CD TECHNICIAN JASEN DIAZ M.D. Performed By: #### C MP, CBC #### [address] Basophils/100 WBC (Bld) 0.7 % Normal . [facility] Comment on above: Performed By: #### C MP, CBC #### [address] Eosinophils (Bld) [#/Vol] 0.1 10*3/uL Normal 0.0-0.45 [facility] Comment on above: Performed By: #### C MP, CBC #### [address] Eosinophils/100 WBC (Bld) 1.0 % Normal . [facility] Comment on above: Performed By: #### C MP, CBC #### [address] Erythrocyte distribution width (RBC) [Ratio] 14.4 % Normal 11.9-15.3 [facility] Comment on above: Performed By: #### C MP, CBC #### [address] Hematocrit (Bld) [Volume fraction] 36.1 % Normal 34.0-46.4 [facility] Comment on above: Performed By: #### C MP, CBC #### [address] Hemoglobin (Bld) [Mass/Vol] 12.0 g/dL Normal 11.8-15.4 [facility] Comment on above: Performed By: #### C MP, CBC #### [address] Lymphocytes (Bld) [#/Vol] 2.1 10*3/uL Normal 1.00-4.8 [facility] Comment on above: Performed By: #### C MP, CBC #### [address] Lymphocytes/100 WBC (Bld) 23.7 % Normal . [facility] Comment on above: Performed By: #### C MP, CBC #### [address] MCH (RBC) [Entitic mass] 28.2 pg Normal 24.7-34.3 [facility] Comment on above: Performed By: #### C MP, CBC #### [address] MCV (RBC) [Entitic vol] 84.8 fL Normal 80-100 [facility] Comment on above: Performed By: #### C MP, CBC #### [address] Mean Corpuscular HGB Conc 33.3 g/dL Normal 32.0-35.0 [facility] Comment on above: Performed By: #### C MP, CBC #### [address] Monocytes (Bld) [#/Vol] 0.8 10*3/uL Normal 0.0-0.8 [facility] Comment on above: Performed By: #### C MP, CBC #### [address] Monocytes/100 WBC (Bld) 8.7 % Normal . [facility] Comment on above: Performed By: #### C MP, CBC #### [address] Neutrophils (Bld) [#/Vol] 5.9 10*3/uL Normal 1.8-7.7 [facility] Comment on above: Performed By: #### C MP, CBC #### [address] Neutrophils/100 WBC (Bld) 65.9 % Normal . [facility] Comment on above: Performed By: #### C MP, CBC #### [address] NRBC% 0.0 /100{WBC} Normal 0-0.5 [facility] Comment on above: Performed By: #### C MP, CBC #### [address] Platelet mean volume (Bld) [Entitic vol] 7.5 fL Normal 6.3-10.7 [facility] Comment on above: Performed By: #### C MP, CBC #### [address] Platelets (Bld) [#/Vol] 346 10*3/uL Normal 150-450 [facility] Comment on above: Performed By: #### C MP, CBC #### [address] RBC (Bld) [#/Vol] 4.25 10*6/uL Normal 3.60-5.00 [facility] Comment on above: Performed By: #### C MP, CBC #### [address] WBC (Bld) [#/Vol] 9.0 10*3/uL Normal 3.8-11.6 [facility] Comment on above: Performed By: #### C MP, CBC #### [address] Comprehensive Metabolic Pane camila 04-25-2023 Albumin [Mass/Vol] 4.4 g/dL Normal 3.5-5.7 [facility] Comment on above: Performed By: #### C MP, CBC #### [address] Albumin/Globulin [Mass ratio] 1.8 {ratio} Normal [facility] Comment on above: Performed By: #### C MP, CBC #### [address] ALP [Catalytic activity/Vol] 67 U/L Normal 34-104 [facility] Comment on above: Performed By: #### C MP, CBC #### [address] ALT [Catalytic activity/Vol] 11 U/L Normal 7-52 [facility] Comment on above: Performed By: #### C MP, CBC #### [address] Anion gap [Moles/Vol] 12.6 mmol/L Normal 6.0-15.0 [facility] Comment on above: Performed By: #### C MP, CBC #### [address] AST [Catalytic activity/Vol] 14 U/L Normal 13-39 [facility] Comment on above: Performed By: #### C MP, CBC #### [address] Bilirubin [Mass/Vol] 0.5 mg/dL Normal 0.3-1.0 [facility] Comment on above: Performed By: #### C MP, CBC #### [address] Calcium [Mass/Vol] 10.1 mg/dL Normal 8.6-10.3 [facility] Comment on above: Performed By: #### C MP, CBC #### [place] [address] [place] Chloride [Moles/Vol] 102 mmol/L Normal 98-107 [facility] Comment on above: Performed By: #### C MP, CBC #### [place] [address] [place] CO2 [Moles/Vol] 29.1 mmol/L Normal 21.0-31.0 [facility] Comment on above: Performed By: #### C MP, CBC #### [address] Creatinine [Mass/Vol] 0.89 mg/dL Normal 0.60-1.20 [facility] Comment on above: Performed By: #### C MP, CBC #### [place] [address] [place] Creatinine Clr Calc Pharmacy 42.35 Normal [facility] Comment on above: Result Comment: PERF ORMED BY: [place] [address] PATHOLOGIST CD TECHNICIAN JASEN DIAZ M.D. Performed By: #### C MP, CBC #### [place] [address] [place] GFR/1.73 sq M.predicted MDRD (S/P/Bld) [Vol rate/Area] mL/min/{1.73_m2} Normal [facility] Comment on above: Performed By: #### C MP, CBC #### [place] [address] [place] Globulin (S) [Mass/Vol] 2.4 g/dL Normal [facility] Comment on above: Performed By: #### C MP, CBC #### [address] Glucose [Mass/Vol] 103 mg/dL High 70-100 [facility] Comment on above: Result Comment: [facility] Glucose Reference Range is dependent on time and content of last meal. Glucose of more than 200 mg/dL in a nonstressed, ambulatory subject supports the diagnosis of Diabetes Mellitus. ADA recommended reference range Performed By: #### C MP, CBC #### [address] Potassium [Moles/Vol] 3.7 mmol/L Normal 3.5-5.1 [facility] Comment on above: Performed By: #### C MP, CBC #### [place] [address] [place] Protein [Mass/Vol] 6.8 g/dL Normal 6.4-8.9 [facility] Comment on above: Performed By: #### C MP, CBC #### [facility] [address] [place] [address] [place] Sodium [Moles/Vol] 140 mmol/L Normal 136-145 [facility] Comment on above: Performed By: #### C MP, CBC #### [facility] [address] [place] [address] [place] Urea nitrogen [Mass/Vol] 15 mg/dL Normal 7-25 [facility] Comment on above: Performed By: #### C MP, CBC #### [facility] [address] [place] [address] [place] Creatinine [Mass/volume] in Serum or PlasmaOrdered By: Brandi Lopez on 04-25-2023 Creatinine [Mass/Vol] 0.89 mg/dL 0.60-1.20 [facility] Eosinophils Auto (Bld) [#/Vo l]Ordered By: Brandi Lopez on 04-25-2023 Eosinophils (Bld) [#/Vol] 0.1 10*3/uL 0.0-0.[address] [facility] Eosinophils/100 WBC Auto (Bl d)Ordered By: Brandi Lopez on 04-25-2023 Eosinophils/100 WBC (Bld) 1.0 % . [facility] Erythrocyte distribution wid th Auto (RBC) [Ratio]Ordered By: Brandi Lopez on 04-25-2023 Erythrocyte distribution width (RBC) [Ratio] 14.4 % 11.9-15.[address] [facility] Globulin Calc (S) [Mass/Vol] Ordered By: Brandi Lopez on 04-25-2023 Globulin (S) [Mass/Vol] 2.4 g/dL [facility] Glucose [Mass/volume] in Ser um or PlasmaOrdered By: Brandi Lopez on 04-25-2023 Glucose [Mass/Vol] 103 mg/dL 70-100 [facility] Comment on above: ADA recommended refe rence rangeRandom Glucose Reference Range is dependent on time and content of last meal. Glucose of more than 200 mg/dL in a nonstressed, ambulatory subject supports the diagnosis of Diabetes Mellitus. Hematocrit Auto (Bld) [Volum e fraction]Ordered By: Brandi Lopez on 04-25-2023 Hematocrit (Bld) [Volume fraction] 36.1 % 34.0-46.[address] [facility] Hemoglobin [Mass/volume] in BloodOrdered By: Brandi Lopez on 04-25-2023 Hemoglobin (Bld) [Mass/Vol] 12.0 g/dL 11.8-15.[address] [facility] Leukocytes [#/volume] correc medardo for nucleated erythrocytes in Blood by Automated counOrdered By: Brandi Lopez on 04-25-2023 WBC corrected for nucl RBC Auto (Bld) [#/Vol] 9.0 10*3/uL 3.8-11.[address] [facility] Lymphocytes Auto (Bld) [#/Vo l]Ordered By: Brandi Lopez on 04-25-2023 Lymphocytes (Bld) [#/Vol] 2.1 10*3/uL 1.00-4.[address] [facility] Lymphocytes/100 WBC Auto (Bl d)Ordered By: Brandi Lopez on 04-25-2023 Lymphocytes/100 WBC (Bld) 23.7 % . [facility] MCH Auto (RBC) [Entitic mass ]Ordered By: Brandi Lopez on 04-25-2023 MCH (RBC) [Entitic mass] 28.2 pg 24.7-34.[address] [facility] MCHC Auto (RBC) [Mass/Vol]Or dered By: Brandi Lopez on 04-25-2023 MCHC (RBC) [Mass/Vol] 33.3 g/dL 32.0-35.0 [facility] MCV Auto (RBC) [Entitic vol] Ordered By: Brandi Lopez on 04-25-2023 MCV (RBC) [Entitic vol] 84.8 fL 80-[address] [facility] Monocytes Auto (Bld) [#/Vol] Ordered By: Brandi Lopez on 04-25-2023 Monocytes (Bld) [#/Vol] 0.8 10*3/uL 0.0-0.[address] [facility] Monocytes/100 WBC Auto (Bld) Ordered By: Brandi Lopez on 04-25-2023 Monocytes/100 WBC (Bld) 8.7 % . [facility] Neutrophils Auto (Bld) [#/Vo l]Ordered By: Brandi Lopez on 04-25-2023 Neutrophils (Bld) [#/Vol] 5.9 10*3/uL 1.8-7.[address] [facility] Neutrophils/100 WBC Auto (Bl d)Ordered By: Brandi Lopez on 04-25-2023 Neutrophils/100 WBC (Bld) 65.9 % . [facility] No Panel InformationOrdered By: Brandi Lopez on 04-25-2023 Estimated GFR (CKD-EPI) > 60.0 mL/Min [facility] Creatinine Clearance (Chem 42.[address] [facility] Nucleated erythrocytes [Pres ence] in Blood by Automated countOrdered By: Brandi Lopez on 04-25-2023 Nucleated RBC Auto Ql (Bld) 0.0 /100{WBC} 0-0.[address] [facility] Platelet mean volume Auto (B ld) [Entitic vol]Ordered By: Brandi Lopez on 04-25-2023 Platelet mean volume (Bld) [Entitic vol] 7.5 fL 6.3-10.[address] [facility] Platelets Auto (Bld) [#/Vol] Ordered By: Brandi Lopez on 04-25-2023 Platelets (Bld) [#/Vol] 346 10*3/uL 150-[address] [facility] Potassium [Moles/volume] in Serum or PlasmaOrdered By: Brandi Lopez on 04-25-2023 Potassium [Moles/Vol] 3.7 mmol/L 3.5-5.1 [facility] Protein [Mass/volume] in Ser um or PlasmaOrdered By: Brandi Lopez on 04-25-2023 Protein [Mass/Vol] 6.8 g/dL 6.4-8.9 [facility] RBC Auto (Bld) [#/Vol]Ordere d By: Brandi Lopez on 04-25-2023 RBC (Bld) [#/Vol] 4.25 10*6/uL 3.60-5.00 [facility] Serum or plasma albumin/glob ulin mass ratioOrdered By: Brandi Lopez on 04-25-2023 Albumin/Globulin [Mass ratio] 1.8 {ratio} [facility] [facility] Serum or plasma anion gap de terminationOrdered By: Brandi Lopez on 04-25-2023 Anion gap [Moles/Vol] 12.6 mmol/L 6.0-15.0 [facility] Sodium [Moles/volume] in Ser um or PlasmaOrdered By: Brandi Lopez on 04-25-2023 Sodium [Moles/Vol] 140 mmol/L 136-145 [facility] Urea nitrogen [Mass/volume] in Serum or PlasmaOrdered By: Brandi Lopez on 04-25-2023 Urea nitrogen [Mass/Vol] 15 mg/dL 7-[address] [facility] WBC Auto (Bld) [#/Vol]Ordere d By: Brandi Lopez on 04-25-2023 WBC (Bld) [#/Vol] 9.0 10*3/uL 3.8-11.6 [facility] CBC AUTO DIFFon 06-05-2022 BASO # 0.0 103/ul Normal 0.0-0.1 [facility] Comment on above: Performed By: #### C BC #### [facility] [address] [place] [address] Dr. Radha Valentine Basophils/100 WBC (Bld) 0.3 % Normal 0.2-2.0 [facility] Comment on above: Performed By: #### C BC #### [facility] [address] [place] [address] Dr. Radha Valentine EO # 0.2 103/ul Normal 0.0-0.7 [facility] Comment on above: Performed By: #### C BC #### [facility] [address] [place] [address] Dr. Radha Valentine Eosinophils/100 WBC (Bld) 1.9 % Normal 0.9-7.0 [facility] Comment on above: Performed By: #### C BC #### [facility] [address] [place] [address] Dr. Radha Valentine Erythrocyte distribution width (RBC) [Ratio] 15.3 % Critically high 11.0-15.0 [facility] Comment on above: Performed By: #### C BC #### [facility] [address] [place] [address] Dr. Radha Valentine Hematocrit (Bld) [Volume fraction] 40.5 % Normal 36.0-48.0 [facility] Comment on above: Performed By: #### C BC #### [facility] [address] [place] [address] Dr. Radha Valentine Hemoglobin (Bld) [Mass/Vol] 13.3 g/dL Normal 12.0-16.0 [facility] Comment on above: Performed By: #### C BC #### [facility] [address] [place] [address] Dr. Radha Valentine IG # 0.06 10e3/ul Critically high 0.00-0.03 [facility] Comment on above: Performed By: #### C BC #### [facility] [address] [place] [address] Dr. Radha Valentine IG % 0.7 % Critically high 0.0-0.5 [facility] Comment on above: Performed By: #### C BC #### [facility] [address] [place] [address] Dr. Radha Valentine LYMPH # 2.3 103/ul Normal 1.2-3.8 [facility] Comment on above: Performed By: #### C BC #### [facility] [address] [place] [address] Dr. Radha Valentine Lymphocytes/100 WBC (Bld) 24.9 % Normal 20.5-60.0 [facility] Comment on above: Performed By: #### C BC #### [facility] [address] [place] [address] Dr. Radha Valentine MANUAL DIFF REQ NO Normal [facility] Comment on above: Performed By: #### C BC #### [facility] [address] [place] [address] Dr. Radha Valentine MCH (RBC) [Entitic mass] 29.8 pg Normal 26.7-34.0 [facility] Comment on above: Performed By: #### C BC #### [facility] [address] [place], [place] [id number] Dr. Radha Valentine MCHC (RBC) [Mass/Vol] 32.8 g/dL Normal 29.9-35.2 [facility] Comment on above: Performed By: #### C BC #### [facility] [address] [place] [address] Dr. Radha Valentine MCV (RBC) [Entitic vol] 90.8 fL Normal 81.0-99.0 [facility] Comment on above: Performed By: #### C BC #### [facility] [address] [place] [address] Dr. Radha Valentine MONO # 0.8 103/ul Normal 0.3-0.8 [facility] Comment on above: Performed By: #### C BC #### [facility] [address] [place] [address] Dr. Radha Valentine Monocytes/100 WBC (Bld) 9.0 % Normal 1.7-12.0 [facility] Comment on above: Performed By: #### C BC #### [facility] [address] [place] [address] Dr. Radha Valentine NEUT # 5.8 103/ul Normal 1.4-6.5 [facility] Comment on above: Performed By: #### C BC #### [facility] [address] [place] [address] Dr. Radha Valentine Neutrophils/100 WBC (Bld) 63.2 % Normal 43.0-75.0 [facility] Comment on above: Performed By: #### C BC #### [facility] [address] [place] [address] Dr. Radha Valentine Platelet mean volume (Bld) [Entitic vol] 8.7 fL Critically low 9.5-13.5 [facility] Comment on above: Performed By: #### C BC #### [facility] [address] [place] [address] Dr. Radha Valentine PLT 336 103/ul Normal 150-450 [facility] Comment on above: Performed By: #### C BC #### [facility] [address] [place] [address] Dr. Radha Valentine RBC 4.46 106/ul Normal 4.20-5.40 [facility] Comment on above: Performed By: #### C BC #### [facility] [address] [place] [address] Dr. Radha Valentine WBC 9.1 103/ul Normal 4.0-11.0 [facility] Comment on above: Performed By: #### C BC #### [facility] [address] [place] [address] Dr. Radha Valentine GLYCOHEMOGLOBIN A1Con 2021 ADA RECOMMENDATION SEE BELOW Normal [facility] Comment on above: Result Comment: ADA RECOMMENDED LIMIT 4.0 - 6.0 ADA THERAPEUTIC TARGET < 7.0 ACTION SUGGESTED > 7.0 Performed By: #### A 1C #### [facility] [address] [place] [address] Dr. Radha Valentine Glucose [Mass/Vol] 171 mg/dL Normal [facility] Comment on above: Performed By: #### A 1C #### [facility] [address] [place] [address] Dr. Radha Valentine HbA1c (Bld) [Mass fraction] 7.6 % Critically high 4.5-6.2 [facility] Comment on above: Performed By: #### A 1C #### [facility] [address] [place] [address] Dr. Radha Valentine LIPID PROFILEon 06-05-2022 CHOL-HDL RATIO NORM SEE BELOW Normal [facility] Comment on above: Result Comment: 3.3 - 4.4 LOW RISK 4.4 - 7.1 AVERAGE RISK 7.1 - 11.0 MODERATE RISK >11.0 HIGH RISK Performed By: #### L IPID, CMP #### [facility] [address] [place] [address] Dr. Radha Valentine Cholesterol [Mass/Vol] 156 mg/dL Normal <=200 [facility] Comment on above: Performed By: #### L IPID, CMP #### [facility] [address] [place] [address] Dr. Radha Valentine Cholesterol in HDL [Mass/Vol] 54 mg/dL Normal 40-60 [facility] Comment on above: Performed By: #### L IPID, CMP #### [facility] [address] [address] [address] Radha Valentine Cholesterol in LDL [Mass/Vol] 77.0 mg/dL Normal [facility] Comment on above: Performed By: #### L IPID, CMP #### [facility] [address] [address] [address] Radha Valentine Cholesterol.total/Chol esterol in HDL [Mass ratio] 2.9 {ratio} Normal [facility] Comment on above: Performed By: #### L IPID, CMP #### [facility] [address] [place] [address] Dr. Radha Valentine HDL NORMAL > or = 60 mg/dl - LO W CARDIOVASCULAR RISK <40 mg/dl - HIGH CARDIOVASCULAR RISK Normal [facility] Comment on above: Performed By: #### L IPID, CMP #### [facility] [address] [place] [address] Dr. Radha Valentine LDL CALC NORMAL SEE BELOW Normal [facility] Comment on above: Result Comment: <100 mg/dl OPTIMAL 100 - 129 mg/dl NEAR OR ABOVE OPTIMAL 130 - 159 mg/dl BORDERLINE HIGH 160 - 189 mg/dl HIGH >190 mg/dl VERY HIGH Performed By: #### L IPID, CMP #### [facility] [address] [place] [address] Dr. Radha Valentine Triglyceride [Mass/Vol] 125 mg/dL Normal <=150 [facility] Comment on above: Performed By: #### L IPID, CMP #### [facility] [address] [place] [address] Dr. Radha Valentine VLDL CALC 25.0 mg/dL Normal [facility] Comment on above: Performed By: #### L IPID, CMP #### [facility] [address] [place] [address] Dr. Radha Valentine PROF 14(COMP METB)on 022 Albumin [Mass/Vol] 3.3 g/dL Critically low 3.4-5.0 [facility] Comment on above: Performed By: #### L IPID, CMP #### [facility] [address] [address] [address] Radha Valentine Albumin/Globulin [Mass ratio] 1.0 {ratio} Normal [facility] Comment on above: Performed By: #### L IPID, CMP #### [facility] [address] [address] [address] Radha Valentine ALP [Catalytic activity/Vol] 59 U/L Normal 46-116 [facility] Comment on above: Performed By: #### L IPID, CMP #### [facility] [address] [address] [address] Radha Valentine ALT [Catalytic activity/Vol] 21 U/L Normal 14-59 [facility] Comment on above: Performed By: #### L IPID, CMP #### [facility] [address] [address] [address] Radha Valentine Anion gap [Moles/Vol] 11.0 mmol/L Normal [facility] Comment on above: Performed By: #### L IPID, CMP #### [facility] [address] [address] [address] Radha Valentine AST [Catalytic activity/Vol] 9 U/L Critically low 15-37 [facility] Comment on above: Performed By: #### L IPID, CMP #### [facility] [address] [address] [address] Radha Valentine Bilirubin [Mass/Vol] 0.4 mg/dL Normal 0.2-1.0 [facility] Comment on above: Performed By: #### L IPID, CMP #### [facility] [address] [address] [address] Radha Valentine Calcium [Mass/Vol] 9.5 mg/dL Normal 8.5-10.1 [facility] Comment on above: Performed By: #### L IPID, CMP #### [facility] [address] [address] [address] Radha Valentine Chloride [Moles/Vol] 104 mmol/L Normal 98-107 [facility] Comment on above: Performed By: #### L IPID, CMP #### [facility] [address] [address] [address] Radha Valentine CO2 [Moles/Vol] 29.8 mmol/L Normal 21.0-32.0 [facility] Comment on above: Performed By: #### L IPID, CMP #### [facility] [address] [address] [address] Radha Valentine Creatinine [Mass/Vol] 0.94 mg/dL Normal 0.55-1.02 [facility] Comment on above: Performed By: #### L IPID, CMP #### [facility] [address] [address] [address] Radha Valentine EGFR-AF ZIMBABWEAN >60 Normal >=60 [facility] Comment on above: Performed By: #### L IPID, CMP #### [facility] [address] [address] [address] Radha Valentine EGFR-NON AF ZIMBABWEAN 57 mL/min/1.73m2 Critically low >=60 [facility] Comment on above: Performed By: #### L IPID, CMP #### [facility] [address] [address] [address] Radha Valentine Globulin (S) [Mass/Vol] 3.2 g/dL Normal [facility] Comment on above: Performed By: #### L IPID, CMP #### [facility] [address] [address] [address] Radha Valentine Glucose [Mass/Vol] 162 mg/dL Critically high 74-106 [facility] [place] [facility] Comment on above: Performed By: #### L IPID, CMP #### [facility] [address] [address] [address] Radha Valentine Potassium [Moles/Vol] 3.8 mmol/L Normal 3.5-5.1 [facility] Comment on above: Performed By: #### L IPID, CMP #### [facility] [address] [address] [address] Radha Valentine Protein [Mass/Vol] 6.5 g/dL Normal 6.4-8.2 [facility] Comment on above: Performed By: #### L IPID, CMP #### [facility] [address] [place] [address] Dr. Radha Valentine Sodium [Moles/Vol] 141 mmol/L Normal 136-145 [facility] Comment on above: Performed By: #### L IPID, CMP #### [facility] [address] [place] [address] Dr. Radha Valentine Urea nitrogen [Mass/Vol] 16.0 mg/dL Normal 7.0-18.0 [facility] Comment on above: Performed By: #### L IPID, CMP #### [facility] [address] [place] [address] Dr. Radha Valentine Urea nitrogen/Creatinine [Mass ratio] 17.0 mg/mg Normal [facility] Comment on above: Performed By: #### L IPID, CMP #### [facility] [address] [place] [address] Dr. Radha Valentine GLYCOHEMOGLOBIN A1Con 2020 ADA RECOMMENDATION ADA THERAPEUTIC TARG ET 6.0 - 7.0 ACTION SUGGESTED > 7.0 Normal [facility] Comment on above: Performed By: #### A 1C #### [facility] [address] [place] [address] Maira Brandt Glucose [Mass/Vol] 154 mg/dL Normal [facility] Comment on above: Performed By: #### A 1C #### [facility] [address] [place] [address] Maira Brandt HbA1c (Bld) [Mass fraction] 7.0 % Critically high <=6.0 [facility] Comment on above: Performed By: #### A 1C #### [facility] [address] [place] [address] Maira Brandt LIPID PROFILEon 06-26-2021 CHOL-HDL RATIO NORM SEE BELOW Normal [facility] Comment on above: Result Comment: 3.3 - 4.4 LOW RISK 4.4 - 7.1 AVERAGE RISK 7.1 - 11.0 MODERATE RISK >11.0 HIGH RISK Performed By: #### L IPID, CMP #### [facility] [address] [place], [place] [address] Maira Karly Cholesterol [Mass/Vol] 141 mg/dL Normal <=200 Th [facility] Comment on above: Performed By: #### L IPID, CMP #### [facility] [address] [place], [place] [address] Maira Karly Cholesterol in HDL [Mass/Vol] 64 mg/dL Normal [facility] Comment on above: Performed By: #### L IPID, CMP #### [facility] [address] [place], [place] [address] Maira Karly Cholesterol in LDL [Mass/Vol] 68.8 mg/dL Normal [facility] Comment on above: Performed By: #### L IPID, CMP #### [facility] [address] [place], [place] [address] Maira Karly Cholesterol.total/Chol esterol in HDL [Mass ratio] 2.2 {ratio} Normal [facility] Comment on above: Performed By: #### L IPID, CMP #### [facility] [address] [place], [place] [address] Maira Karly HDL NORMAL > or = 60 mg/dl - LO W CARDIOVASCULAR RISK <40 mg/dl - HIGH CARDIOVASCULAR RISK Normal [facility] Comment on above: Performed By: #### L IPID, CMP #### [facility] [address] [place], [place] [address] Maira Karly LDL CALC NORMAL SEE BELOW Normal [facility] Comment on above: Result Comment: <100 mg/dl OPTIMAL 100 - 129 mg/dl NEAR OR ABOVE OPTIMAL 130 - 159 mg/dl BORDERLINE HIGH 160 - 189 mg/dl HIGH >190 mg/dl VERY HIGH Performed By: #### L IPID, CMP #### [facility] [address] [place], [place] [address] Maira Karly Triglyceride [Mass/Vol] 41 mg/dL Normal <=150 [facility] Comment on above: Performed By: #### L IPID, CMP #### [facility] [address] [place], [place] [address] Maira Karly VLDL CALC 8.2 mg/dL Normal [facility] Comment on above: Performed By: #### L IPID, CMP #### [facility] [address] [place], [place] [id number] Mairamitch Márquezen PROF 14(COMP METB)on 021 Albumin [Mass/Vol] 3.4 g/dL Critically low 3.5-5.0 Th [facility] Comment on above: Performed By: #### L IPID, CMP #### [facility] [address] [place] [address] Maira Karly Albumin/Globulin [Mass ratio] 1.1 {ratio} Normal [facility] Comment on above: Performed By: #### L IPID, CMP #### [facility] [address] [place] [address] Maira Karly ALP [Catalytic activity/Vol] 60 U/L Normal 38-126 [facility] Comment on above: Performed By: #### L IPID, CMP #### [facility] [address] [place] [address] Maira Karly ALT [Catalytic activity/Vol] 15 U/L Normal 9-52 [facility] Comment on above: Performed By: #### L IPID, CMP #### [facility] [address] [place], [place] [id number] Maira Akrly Anion gap [Moles/Vol] 10.8 mmol/L Normal [facility] Comment on above: Performed By: #### L IPID, CMP #### [facility] [address] [place] [address] Maira Karly AST [Catalytic activity/Vol] 11 U/L Critically low 14-36 [facility] Comment on above: Performed By: #### L IPID, CMP #### [facility] [address] [place], [place] [id number] Maira Karly Bilirubin [Mass/Vol] 0.4 mg/dL Normal 0.2-1.3 [facility] Comment on above: Performed By: #### L IPID, CMP #### [facility] [address] [place], [place] [id number] Maira Karly Calcium [Mass/Vol] 9.2 mg/dL Normal 8.4-10.2 [facility] Comment on above: Performed By: #### L IPID, CMP #### [facility] [address] [place] [address] Maira Karly Chloride [Moles/Vol] 105 mmol/L Normal 98-107 [facility] Comment on above: Performed By: #### L IPID, CMP #### [facility] [address] [place] [address] Maira Karly CO2 [Moles/Vol] 30.9 mmol/L Critically high 22.0-30.0 [facility] Comment on above: Performed By: #### L IPID, CMP #### [facility] [address] [place] [address] Maira Karly Creatinine [Mass/Vol] 0.88 mg/dL Normal 0.52-1.04 [facility] Comment on above: Performed By: #### L IPID, CMP #### [facility] [address] [place] [address] Maira Karly EGFR-AF ZIMBABWEAN >60 Normal >=60 [facility] Comment on above: Performed By: #### L IPID, CMP #### [facility] [address] [place] [address] Maira Karly EGFR-NON AF ZIMBABWEAN >60 Normal >=60 [facility] Comment on above: Performed By: #### L IPID, CMP #### [facility] [address] [place] [address] Maira Karly Globulin (S) [Mass/Vol] 3.0 g/dL Normal [facility] Comment on above: Performed By: #### L IPID, CMP #### [facility] [address] [place] [address] Maira Karly Glucose [Mass/Vol] 129 mg/dL Critically high 74-106 [facility] Comment on above: Performed By: #### L IPID, CMP #### [facility] [address] [place] [address] Maira Karly Potassium [Moles/Vol] 3.7 mmol/L Normal 3.4-5.0 [facility] Comment on above: Performed By: #### L IPID, CMP #### [facility] [address] [place] [address] Maira Karly Protein [Mass/Vol] 6.4 g/dL Normal 6.1-8.2 [facility] Comment on above: Performed By: #### L IPID, CMP #### [facility] [address] [place], [place] [id number] Maira Karly Sodium [Moles/Vol] 143 mmol/L Normal 137-145 [facility] Comment on above: Performed By: #### L IPID, CMP #### [facility] [facility] [address] [place] [address] Maira Karly Urea nitrogen [Mass/Vol] 14.0 mg/dL Normal 7.0-17.0 [facility] Comment on above: Performed By: #### L IPID, CMP #### [facility] [address] [place] [address] Maira Karly Urea nitrogen/Creatinine [Mass ratio] 15.9 mg/mg Normal [facility] Comment on above: Performed By: #### L IPID, CMP #### [facility] [address] [place], [place] [id number] Maira Karly CBC AUTO DIFFon 06-25-2021 BASO # 0.1 103/ul Normal 0.0-0.1 [facility] Comment on above: Performed By: #### C BC #### [facility] [address] [place], [place] [id number] Maira Karly Basophils/100 WBC (Bld) 0.6 % Normal 0.2-2.0 [facility] [place] Comment on above: Performed By: #### C BC #### [facility] [address] [place], [place] [id number] Maira Karly EO # 0.1 103/ul Normal 0.0-0.7 [facility] [place] Comment on above: Performed By: #### C BC #### [facility] [address] [place], [place] [id number] Maira Karly Eosinophils/100 WBC (Bld) 1.6 % Normal 0.9-7.0 [facility] Comment on above: Performed By: #### C BC #### [facility] [address] [place] [address] Maira Brandt Erythrocyte distribution width (RBC) [Ratio] 14.4 % Normal 11.0-15.0 [facility] Comment on above: Performed By: #### C BC #### [facility] [address] [place] [address] Maira Brandt Hematocrit (Bld) [Volume fraction] 38.7 % Normal 36.0-48.0 [facility] Comment on above: Performed By: #### C BC #### [facility] [address] [place] [address] Maira Brandt Hemoglobin (Bld) [Mass/Vol] 12.3 g/dL Normal 12.0-16.0 [facility] Comment on above: Performed By: #### C BC #### [facility] [address] [place] [address] Mairamitch Brandt IG # 0.02 10e3/ul Normal 0.00-0.03 [facility] Comment on above: Performed By: #### C BC #### [facility] [address] [place] [address] Maira Brandt IG % 0.2 % Normal 0.0-0.5 [facility] Comment on above: Performed By: #### C BC #### [facility] [address] [place] [address] Maira Brandt LYMPH # 2.0 103/ul Normal 1.2-3.8 [facility] Comment on above: Performed By: #### C BC #### [facility] [address] [place] [address] Maira Brandt Lymphocytes/100 WBC (Bld) 24.4 % Normal 20.5-60.0 [facility] Comment on above: Performed By: #### C BC #### [facility] [address] [place] [address] Maira Brandt MANUAL DIFF REQ NO Normal [facility] Comment on above: Performed By: #### C BC #### [facility] [address] [place], [place] [address] Maira Brandt MCH (RBC) [Entitic mass] 28.9 pg Normal 26.7-34.0 [facility] Comment on above: Performed By: #### C BC #### [facility] [address] [place], [place] [address] Maira Brandt MCHC (RBC) [Mass/Vol] 31.8 g/dL Normal 29.9-35.2 [facility] Comment on above: Performed By: #### C BC #### [facility] [address] [place] [id number] Maira Brantd MCV (RBC) [Entitic vol] 91.1 fL Normal 81.0-99.0 [facility] Comment on above: Performed By: #### C BC #### [facility] [address] [place], [place] [id number] Maira Brandt MONO # 0.6 103/ul Normal 0.3-0.8 [facility] Comment on above: Performed By: #### C BC #### [facility] [address] [place], [place] [phone] Maira Brandt Monocytes/100 WBC (Bld) 7.7 % Normal 1.7-12.0 [facility] Comment on above: Performed By: #### C BC #### [facility] [address] [place], [place] [phone] Mairamitch Brandt NEUT # 5.3 103/ul Normal 1.4-6.5 [facility] Comment on above: Performed By: #### C BC #### [facility] [address] [place], [place] [id number] Maira Karly Neutrophils/100 WBC (Bld) 65.5 % Normal 43.0-75.0 [facility] Comment on above: Performed By: #### C BC #### [facility] [address] [place], [place] [address] Mairamitch Brnadt Platelet mean volume (Bld) [Entitic vol] 8.5 fL Critically low 9.5-13.5 [facility] [place] Comment on above: Performed By: #### C BC #### [facility] [address] [place], [place] [address] Maira Karly PLT 318 103/ul Normal 150-450 [facility] Comment on above: Performed By: #### C BC #### [facility] [address] [place], [place] [address] Maira Karly RBC 4.25 106/ul Normal 4.20-5.40 [facility] [place] Comment on above: Performed By: #### C BC #### [facility] [address] [place], [place] [address] Maira Karly WBC 8.2 103/ul Normal 4.0-11.0 [facility] Comment on above: Performed By: #### C BC #### [facility] [address] [place], [place] [address] Maira Karly Vital Signs Date Time Vital Sign Value Performing Clinician Facility 03-23-2024 14:08-0400 Body height 162.56 cm MD Ethel Wakefield Work Phone: [facility] 03-23-2024 14:08-0400 Body mass index (BMI) [Ratio] 23.8 kg/m2 MD Ethel Wakefield Work Phone: [facility] 03-23-2024 14:08-0400 Body weight 63.04 kg MD Ethel Wakefield Work Phone: [facility] 03-23-2024 14:08-0400 Diastolic blood pressure 73 mm[Hg] MD Ethel Wakefield Work Phone: [facility] 03-23-2024 14:08-0400 Heart rate 101 /min MD Ethel Wakefield Work Phone: [facility] 03-23-2024 14:08-0400 SaO2% (BldA) [Mass fraction] 94 % MD Ethel Wakefield Work Phone: [facility] 03-23-2024 14:08-0400 Systolic blood pressure 119 mm[Hg] MD Ethel Wakefield Work Phone: [facility] 09-05-2023 13:59-0400 Body temperature 97.8 [degF] MD Ethel Wakefield Work Phone: [facility] 09-05-2023 13:59-0400 Body weight 66.67 kg MD Ethel Wakefield Work Phone: [facility] 09-05-2023 13:59-0400 Diastolic blood pressure 69 mm[Hg] MD Ethel Wakefield Work Phone: [facility] 09-05-2023 13:59-0400 Heart rate 87 /min MD Ethel Wakefield Work Phone: [facility] 09-05-2023 13:59-0400 Respiratory rate 16 /min MD Ethel Wakefield Work Phone: [facility] 09-05-2023 13:59-0400 SaO2% (BldA) [Mass fraction] 98 % MD Ethel Wakefield Work Phone: [facility] 09-05-2023 13:59-0400 Systolic blood pressure 124 mm[Hg] MD Ethel Wakefield Work Phone: [facility] 07-03-2023 13:32-0400 Body temperature 97.9 [degF] MD Ethel Wakefield Work Phone: [facility] 07-03-2023 13:32-0400 Body weight 66.22 kg MD Ethel Wakefield Work Phone: [facility] 07-03-2023 13:32-0400 Diastolic blood pressure 82 mm[Hg] MD Ethel Wakefield Work Phone: [facility] 07-03-2023 13:32-0400 Heart rate 83 /min MD Ethel Wakefield Work Phone: [facility] 07-03-2023 13:32-0400 Respiratory rate 16 /min MD Ethel Wakefield Work Phone: [facility] 07-03-2023 13:32-0400 SaO2% (BldA) [Mass fraction] 99 % MD Ethel Wakefield Work Phone: [facility] 07-03-2023 13:32-0400 Systolic blood pressure 146 mm[Hg] MD Ethel Wakefield Work Phone: [facility] 05-29-2023 14:16-0400 Body temperature 97.8 [degF] MD Ethel Wakefield Work Phone: [facility] 05-29-2023 14:16-0400 Body weight 65.31 kg MD Ethel Wakefield Work Phone: [facility] 05-29-2023 14:16-0400 Diastolic blood pressure 71 mm[Hg] MD Ethel Wakefield Work Phone: [facility] 05-29-2023 14:16-0400 Heart rate 78 /min MD Ethel Wakefield Work Phone: [facility] 05-29-2023 14:16-0400 Respiratory rate 16 /min MD Ethel Wakefield Work Phone: [facility] 05-29-2023 14:16-0400 SaO2% (BldA) [Mass fraction] 98 % MD Ethel Wakefield Work Phone: [facility] 05-29-2023 14:16-0400 Systolic blood pressure 125 mm[Hg] MD Ethel Wakefield Work Phone: [facility] 05-16-2023 14:00-0400 Body height 162.56 cm Leonardo Herron II Other [email or web address] [facility] [employer] Other 05-16-2023 14:00-0400 Body mass index (BMI) [Ratio] 24.71 kg/m2 Leonardo Ekalaka II Other [employer] Other 05-16-2023 14:00-0400 Body weight 65.32 kg Leonardo Herron II Other [employer] Other 04-25-2023 11:18-0400 Body temperature 97.8 [degF] MD Ethel Wakefield Work Phone: [facility] 04-25-2023 11:18-0400 Body weight 65.77 kg MD Ethel Wakefield Work Phone: [facility] 04-25-2023 11:18-0400 Diastolic blood pressure 85 mm[Hg] MD Ethel Wakefield Work Phone: [facility] 04-25-2023 11:18-0400 Heart rate 86 /min MD Ethel Wakefield Work Phone: [facility] 04-25-2023 11:18-0400 Respiratory rate 16 /min MD Ethel Wakefield Work Phone: [facility] 04-25-2023 11:18-0400 SaO2% (BldA) [Mass fraction] 98 % MD Ethel Wakefield Work Phone: [facility] 04-25-2023 11:18-0400 Systolic blood pressure 139 mm[Hg] MD Ethel Wakefield Work Phone: [facility] 04-25-2023 10:57-0400 Body height 162.56 cm MD Ethel Wakefield Work Phone: [facility] Encounters Encounter Date Encounter Type Care Provider Facility Start: 03-23-2024 End: 03-23-2024 ambulatory MD Ethel Wakefield Work Phone: [facility] Work Phone: Start: 03-23-2024 End: 03-23-2024 Patient encounter procedure MD Ethel Wakefield Work Phone: [facility] Work Phone: Start: 03-20-2024 Non-patient / Non-visit MD Andree Wakefield [facility] Phone[facility] Work Phone: Start: 03-19-2024 End: 03-19-2024 ambulatory Tab Wang Facility:[facility] Start: 03-19-2024 End: 03-19-2024 ambulatory MD Ethel Wakefield Work Phone: [facility] Work Phone: Start: 03-19-2024 End: 03-19-2024 Departed Referred MD Ethel Wakefield Work Phone: [facility] Start: 03-19-2024 Non-patient / Non-visit MD Andree Wakefield Work Phone: [facility] Work Phone: Start: 03-18-2024 Non-patient / Non-visit MD Andree Wakefield Work Phone: [facility] Work Phone: Start: 09-05-2023 End: 09-05-2023 ambulatory MD Ethel Wakefield Work Phone: [facility] Work Phone: Start: 09-05-2023 End: 09-05-2023 Registered Recurring MD Ethel Wakefield Work Phone: [facility] Work Phone: Start: 07-03-2023 End: 07-03-2023 ambulatory MD Ethel Wakefield Work Phone: [facility] Work Phone: Start: 07-03-2023 End: 07-03-2023 Registered Recurring MD Ethel Wakefield Work Phone: [facility] Work Phone: Start: 06-03-2023 End: 06-03-2023 ambulatory Leonardo Herron II Other [facility] [employer] Other Start: 06-03-2023 Telephone encounter Leonardo Herron II [facility] Start: 05-29-2023 End: 05-29-2023 ambulatory MD Ethel Wakefield Work Phone: [facility] Work Phone: Start: 05-29-2023 End: 05-29-2023 Registered Recurring MD Ethel Wakefield Work Phone: [facility] Work Phone: Start: 05-16-2023 Registered Recurring MD Ethel Wakefield Work Phone: [facility] Work Phone: Start: 05-16-2023 End: 05-16-2023 ambulatory Ethel Wakefield Facility:[facility] Start: 05-16-2023 Office outpatient ne w 45 minutes Leonardo Herron II [facility] Start: 05-16-2023 End: 05-16-2023 ambulatory MD Ethel Wakefield Work Phone: [facility] Work Phone: Start: 05-16-2023 End: 05-16-2023 Patient encounter procedure MD Ethel Wakefield Work Phone: [facility] Start: 04-26-2023 ambulatory Facility:U Start: 04-25-2023 End: 04-25-2023 ambulatory MD Ethel Wakefield Work Phone: [facility] Work Phone: Start: 04-25-2023 End: 04-25-2023 Registered Recurring MD Ethel Wakefield Work Phone: [facility] Work Phone: Start: 04-16-2023 End: 04-16-2023 ambulatory Ethel Wakefield Other [employer] Other Start: 04-16-2023 Telephone encounter Ethel Wakefield [facility] Start: 06-08-2022 Encounter for genera l adult medical examination without abnormal findings DR ETHEL WAKEFIELD [facility] Start: 06-05-2022 End: 06-06-[address] ETHEL WAKEFIELD Facility: Start: 06-05-2022 End: 06-06-2022 Encounter for general adult medical examination without abnormal findings DR ETHEL WAKEFIELD Facility:[facility] Start: 06-26-2021 End: 06-27-[address] ETHEL WAKEFIELD Facility:[facility] Procedures Date Procedure Procedure Detail Performing Clinician Start: 03-19-2024 Microscopic observat ion [Identifier] in Unspecified specimen by Gram stain MD Ethel Wakefield Work Phone: Start: 05-16-2023 X-ray of both knees MD Ethel Wakefield Work Phone: Start: 05-16-2023 Pelvis X-ray MD Ethel Wakefield Work Phone: Start: 05-16-2023 Methicillin resistan t Staphylococcus aureus culture MD Ethel Wakefield Work Phone: Start: 05-08-2023 Dual energy X-ray absorptiometry MD Ethel Wakefield Work Phone: Start: 07-03-2016 General examination of patient Leonardo Herron II Other Plan of Treatment Date Care Activity Detail Author Start: 03-18-2024 Blood Culture 1 Blood Culture 1 [facility] Start: 03-18-2024 Blood Culture 2 Blood Culture 2 [facility] Start: 05-16-2023 X-ray of both knees XR knee BI 4V [facility] Start: 05-16-2023 Pelvis X-ray XR pelvis 1-2V [facility] Start: 05-16-2023 MRSA Culture MRSA Culture [facility] Albumin/Globulin ratio [facility] Anion gap measurement [facility] Basophils [#/volume] in Blood by Automated count [facility] Basophils/100 leukoc ytes in Blood by Automated count [facility] Comprehensive metabo lic 1999 panel - Serum or Plasma [facility] Comprehensive metabo lic 1999 panel - Serum or Plasma [facility] Comprehensive metabo lic 1999 panel - Serum or Plasma [facility] Comprehensive metabo lic 1999 panel - Serum or Plasma [facility] Cotinine [Mass/volum e] in Serum or Plasma [facility] Eosinophils [#/volum e] in Blood [facility] Eosinophils/100 leuk ocytes in Blood by Automated count [facility] Erythrocyte distribu tion width [Ratio] by Automated count [facility] Erythrocytes [#/volu me] in Blood [facility] Globulin [Mass/volum e] in Serum [facility] Glucose measurement estimated from glycated hemoglobin [facility] Hematocrit [Volume F raction] of Blood [facility] Hemoglobin [Mass/vol ume] in Blood [facility] Leukocytes [#/volume ] corrected for nucleated erythrocytes in Blood by Automated coun [facility] Leukocytes [#/volume ] in Blood [facility] Lymphocytes [#/volum e] in Blood by Automated count [facility] Lymphocytes/100 leuk ocytes in Blood by Automated count [facility] MCH [Entitic mass] b y Automated count [facility] MCHC [Mass/volume] b y Automated count [facility] MCV [Entitic volume] by Automated count [facility] Methicillin resistan t Staphylococcus aureus [Presence] in Unspecified specimen by Organism specific culture [facility] Monocytes [#/volume] in Blood by Automated count [facility] Monocytes/100 leukoc ytes in Blood by Automated count [facility] Neutrophils [#/volum e] in Blood by Automated count [facility] Neutrophils/100 leuk ocytes in Blood by Automated count [facility] Nicotine [Mass/volum e] in Serum or Plasma [facility] Nucleated erythrocyt es [Presence] in Blood by Automated count [facility] Platelet mean volume [Entitic volume] in Blood by Automated count [facility] Platelets [#/volume] in Blood [facility] XR Chest 2 Views [facility] Immunizations Immunization Date Immunization Notes Care Provider Fa cility 07-20-2021 influenza virus vaccine, split virus (incl. purified surface antigen) Leonardo Herron II Other [employer] Other 07-20-2021 influenza virus vaccine, unspecified formulation MD Ethel Wakefield Work Phone: [facility] 07-08-2017 influenza virus vaccine, split virus (incl. purified surface antigen) Leonardo Herron II Other [facility] [employer] Other 07-08-2017 influenza virus vaccine, unspecified formulation MD Ethel Wakefield Work Phone: [facility] Payers Date Payer Category Payer Self-pay 1957 Medicare [id number] 1957 Unknown [id number] 1935 Unknown [id number] 1935 Unknown [id number] [id number] Unknown [id number] Unknown [id number] [id number] Unknown [id number] [id number] Social History Date Type Detail Facility Unknown if ever smoked [employer] Other Sex Assigned At Sex Assigned At Bir th [facility] [employer] Other Start: 04-25-2023 End: 09-05-2023 Tobacco smoking status NHIS Never smoked tobacco (finding) [facility] Start: 1935 Sex Assigned At Female F [facility] Clinical Notes 04-16-2023 to 07-03-2023 Note Date & Type Note Facility 07-03-2023 Progress note Note Date/Time July 03, 2023 1:38pm [facility] at [address] [address] Hem/Onc Follow Up Note - OP Signed Patient: Yolanda Fairbanks MR#: [id number] : 1935 Acct:[id number] Age/Sex: 88 / F Type: REG RCR Copies to: Ethel Wakefield MD~ Subjective Date/Time of Service: Date of Service: 07/03/2023 Time of Service: 13:36 Chief Complaint: Patient is here today for a 1 month follow up visit for chest wall recurrance of right breast cancer HPI: 07/03/2023: Yolanda is here for followup after evaluation by Dr. Salvador--he contacted me noting that since she still has a larger pedunculated area about 2cm with a surrounding erythematous shiny area over prior irradiated skin. He informed her that there is no residual healthy skin to allow for proper wound healing. She has further regression of the nodule from prior exam and it no longer has oozing or bleeding from the site. She held her Ibrance last Saturdayfor evaluation by Dr. Salvador, but since she is not having surgery, I advised herto take her last 3 days of Letrozole starting today (Sat-Saturday). She will haveone week off, then resume next cycle of Ibrance on SaturdayJuly 14 for 3 weeks on, 1 week off cycles at same dose. No toxicities of therapy, mild leukopenia without neutropenia or infections. I will f/u with her in 2 months (late Aug 2023) prior to transfer of care back to her [place] physician Dr. Lozano. Moderate complexity 35 minute followup visit. 05/29/2023: Yolanda is here for one month followup. She started Ibrance 125mg daily with Letrozole 1mg daily on 05/15/2023. She denies any toxicities since starting therapy--no mouth ulcers, no diarrhea, and no signs or symptoms of infection. Her right chest wall mass is now about 2.5 cm in diameter with less oozing. She is scheduled for resection of this metastatic lesion by Dr. Salvador on 06/25/2023. Labs are stable without leukopenia. I advised her to finish her third week of Ibrance/Letrozole then scheduled week off. She will resume next cycle of Ibrance/Letrozole on 06/12/2023 for one week only, then will hold on 06/19 for scheduled surgery on 06/25/2023. She will continue to hold for one week post-op, then I will followup with her 07/03 to review pathology and determine response to therapy. Moderate complexity 35 minute followup visit. ORIGINAL CONSULT 04/25/2023: This is an 88-year-old lady who lives independently and resides in [facility] about half of the year returning to [place] in the summer and fall. Her primary oncology care is by Dr. Jacquelin Lozano who has graciously provided notes for my evaluation of her recent recurrent right breast cancer. The patient is asomewhat challenging historian and I will summarize her recent issues and history from notes from her primary oncologist visit 01/17/2023. Mrs. Fairbanks is an 88-year-old lady with further progression to stage IV breast cancer in 2022. 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 Shehas a history of stage II right breast cancer in 2012 and is here for follow-up. --Review of systems by Dr. 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 - The patient is offered a surgical consultation but stated she is not interested in surgical interventions -The patient is scheduled for staging PET now and will be advised per results -The patient has been on hormone manipulation therapy with Femara since December2020 and is instructed to discontinue it -We will request estrogen, progesterone, and HER2/dallin evaluation if the skin biopsy is positive and will implement targeted therapy. -Patient is planning to go back to [place] in February and is undergoing knee replacement surgery in summer 2022. The patient will make arrangements to seek surgical consultation in [place] and will decide if she wants to consider CK4/6 inhibitor therapy. -The patient has not had a surveillance follow-up mammogram since 2020 1. 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 There were 2 out of 2 sentinel lymph nodes negative for metastasis, ER 98%, WA 90%, HER2/dallin 1+, p53 8%, Ki-67 10%. She is postmenopausal and declinedchemotherapy. She completed radiation therapy 06/22/2013. She was on hormone manipulation therapy with aromatase inhibitor Arimidex from June 2013 through June 2018. 2. 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 Estrogen receptor 70%, progesterone receptor 0%, HER2/dallin -0% on IHC and not amplified on FISH and Ki-67 37%. --She had clinical findings of right breast lesion in October 2020 with pathology showing intermediate grade invasive carcinoma of no special type measuring 3 mm in maximal linear length and no DCIS identified. --Pathology of right mastectomy 10/28/2020 showed multifocal invasive carcinoma of no special type, high histologic grade 3, 9.2 cm in greatest dimension ulcerating the supra areolar skin with adjacent dermal lymphatic invasion, DCIS and additional microscopic tumor deposits in the subareolar breast, 2 additionaltumor deposits 1.8 and 1.7 cm in greatest dimension and inferior lateral and lateral aspect. 2 out of 2 lymph nodes were benign. --The patient vehemently declined chemotherapy despite being educated about the benefits --She was placed on hormonal manipulation therapy with Femara since December 2020 and was instructed to discontinue this by her physician. --The bone mineral density on 12/16/2020 was read as osteopenia and was advised totake calcium and vitamin D supplementation. 04/25/2023: Patient presents today with large mass encompassing right chest wall with ulceration and bleeding superior to her prior mastectomy scar. She denies any pain in that area and notes she is treating it with topical hydrogen peroxide only. She has not had any purulence or fluctuance suggestive of infection. There were no abnormalities of the left breast, skin changes, or nipple discharge or deviation. [employer] testing of breast biopsy from 01/04/2022 shows ER +65%, WA -0%, HER2/dallin -0%. --PET/CT performed at [facility] 02/04/2023 with interpretation as follows: Impression: 1. Patient is status post right mastectomy with multiple FDG avid infiltrative masses involving the right anterior chest wall including skin, subcutaneous tissue, and deeper layers down to the fascial planes. These may represent metastases, locally recurrent neoplasm, or combination. 2. Small soft tissue nodule adjacent to the lateral aspect of the right eighth rib within the subcutaneous tissues, mildly FDG avid, possibly a small metastasis in this context. 3. Intense focus of increased activity right axilla without an enlarged lymph node and corresponding to the axillary vein, probably pulled injected activity 4. Small focus of increased FDG activity involving the left posterior distal rectal wall which is also somewhat thickened. Small neoplasm in this area cannot be excluded. 5. Various incidental findings including diverticulosis coli, aortic and coronary atherosclerosis, small hiatal hernia, and other findings 6. Subcentimeter slightly FDG avid left internal jugular lymph node in the leftlower neck, nonspecific. This could be reactive versus a small lisandra metastasis. I discussed the patient's findings in detail although I do not have images for her PET/CT for review. We discussed that she continues to have estrogen receptor positive, now progesterone receptor negative, HER2/dallin negative breast cancer. She was changed from letrozole to anastrozole 1 mg daily by her primaryoncologist. We had discussed addition of CDK 4/6 inhibition with 3 available FDA approved therapies including ribociclib, abemaciclib, or palbociclib. We discussed various side effects including hypersensitive pneumonitis, diarrhea, and myelosuppression with each of the 3 medications in combination with AI therapy. The patient chose palbociclib due to toxicity profile over the other 2choices and will continue aromatase inhibitor therapy with letrozole. She is overdue for 2-year DEXA scan and we will order this due to resuming AI therapy. The patient plans to seek orthopedic surgery referral and we can hold her palbociclib therapy for any upcoming surgery. She will be followed here on systemic therapy until she returns to [place] in August and we will forward allof her records to Dr. Lozano at that time. Today we reviewed chemotherapy counseling for palbociclib 125 mg p.o. daily for 21 out of every 28-day cycle in combination with letrozole 2.5mg daily. Goal oftherapy is palliation of symptoms and extension of life but not curative. Common toxicities were reviewed to include allergic reactions, rashes, myelosuppression, fatigue, nausea, vomiting, dyspepsia, constipation, diarrhea, mouth sores, and a mild lopecia. Other toxicities may include uncommon pneumonitis, hepatic and renal toxicities. The patient signed informed consent and will follow-up as directed. She will have an oral chemotherapy visit upon arrival of the medication and see me in follow-up for toxicity visit cycle 1 week 2 with CBC and CMP at that time. This is a high complexity visit over 60 minutes [id number] for review of history and symptoms as well as chemotherapy counseling with an additional 30 minutes for review of extensive outside records. - Summary of Therapies Summary of Therapies: 1. 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 There were 2 out of 2 sentinel lymph nodes negative for metastasis, ER 98%, WA 90%, HER2/dallin 1+, p53 8%, Ki-67 10%. She is postmenopausal and declinedchemotherapy. She completed radiation therapy 06/22/2013. She was on hormone manipulation therapy with aromatase inhibitor Arimidex from June 2013 through June 2018. 2. 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 Estrogen receptor 70%, progesterone receptor 0%, HER2/dallin -0% on IHC and not amplified on FISH and Ki-67 37%. --She had clinical findings of right breast lesion in October 2020 with pathology showing intermediate grade invasive carcinoma of no special type measuring 3 mm in maximal linear length and no DCIS identified. --Pathology of right mastectomy 10/28/2020 showed multifocal invasive carcinoma of no special type, high histologic grade 3, 9.2 cm in greatest dimension ulcerating the supra areolar skin with adjacent dermal lymphatic invasion, DCIS and additional microscopic tumor deposits in the subareolar breast, 2 additionaltumor deposits 1.8 and 1.7 cm in greatest dimension and inferior lateral and lateral aspect. 2 out of 2 lymph nodes were benign. --The patient vehemently declined chemotherapy despite being educated about the benefits --She was placed on hormonal manipulation therapy with Femara since December 2020 and was instructed to discontinue this by her physician. --The bone mineral density on 12/16/2020 was read as osteopenia and was advised totake calcium and vitamin D supplementation. 3. Progression to stage IV right breast cancer with multiple skin metastases inFebruary 2022. - The patient is offered a surgical consultation but stated she is not interested in surgical interventions -The patient is scheduled for staging PET now and will be advised per results -The patient has been on hormone manipulation therapy with Femara since December2020 and is instructed to discontinue it -We will request estrogen, progesterone, and HER2/dallin evaluation if the skin biopsy is positive and will implement targeted therapy. 4. 04/25/2023: Reviewed informed consent for palbociclib 125 mg p.o. daily for 21 out of every 28-day cycle in combination with letrozole 2.5 mg daily. Cycle 1, day 1 05/15/2023. Plan to hold on 06/19/2023 for planned excision of chest wall mass -- Dr. Salvador advised patient against excision, but patient has partial responseby palbociclib/letrozole 2.5 mg daily. Will resume 3 further days of current cycle on hold then resume next cycle 07/14/2023. ROS Details: All systems reviewed & no additional complaints except as documented Subjective/ROS - Narrative: CONSTITUTIONAL: Negative for fatigue, negative for fever or night sweats. HEAD AND NECK: Negative for changes in hearing and vision. Negative for mouth ulcers, nasal congestion and nasal drainage. CHEST WALL: Right chest wall with raised nodular masses, largest superior to mastectomy scar with oozing after removing bandage--after 2 weeks on anastrozole--regression to 2.5mg single mass--current mass 2cm. Less firm and nontender. No fluctuance or purulence. Left breast without masses or skin changes. PULMONARY: Negative for chest pain, cough and dyspnea. CARDIOVASCULAR: Negative for claudication and irregular heartbeat/palpitations. GASTROINTESTINAL: Negative for abdominal pain, constipation, decreased appetite,diarrhea, nausea or vomiting. No weight loss. GENITOURINARY: Negative for dysuria and hematuria. ENDOCRINE: Negative for cold intolerance and heat intolerance--Ibrance/letrozolewell tolerated. CENTRAL NERVOUS SYSTEM: Negative for gait disturbance and headache. Ambulates independently, no focal deficits. PSYCHIATRIC: Negative for anxiety or depression. DERMATOLOGICAL: Negative for pruritus or pain. Positive for metastatic skin lesions over right chest wall with oozing as per HPI--now only 2cm pedunculated nodule, no longer oozing with minimal ulceration. MUSCULOSKELETAL: Negative for back pain and bone/joint symptoms other than bilateral knee pain from osteoarthritis (picking up a cane for ambulation--orthohas deferred knee replacement until assessment of treatment response). No myalgia/arthralgia on letrozole therapy. HEMATOLOGICAL: Negative for bleeding and easy bruising. Negative for history of transfusion or thromboembolic disease ALLERGY: Negative for environmental allergies and food allergies. PMFSH - History Attestation statement: The following information was validated with the patient. Source: Old Records Reviewed - Medical History Medical History: Medical History (Last Reviewed 07/03/23 @ 18:53 by Brandi Lopez MD) Diabetes Essential hypertension Hyperlipidemia Malignant neoplasm of breast Osteoarthritis Osteopenia Peripheral arterial disease - Surgical History Surgical History: Surgical History (Last Reviewed 07/03/23 @ 18:53 by Brandi Lopez MD) History of breast biopsy left-benign 1999 History of lumpectomy of right breast 2012 History of mastectomy October 2020 right breast - Family History Family History: Family History (Last Reviewed 07/03/23 @ 18:53 by Brandi Lopez MD) Other No significant family history - Social History Smoking Status: Never smoker Home Medications & Allergies Allergies No Known Allergies Allergy (Verified 07/03/23 13:28) Home Medications aspirin 81 mg tablet,delayed release 81 mg PO DAILY 04/11/23 [History Confirmed 07/03/23] calcium carbonate 600 mg-vitamin D3 20 mcg (800 unit) chewable tablet (Caltrate 600 plus D) 1 tab PO BID 04/11/23 [History Confirmed 07/03/23] cholecalciferol (vitamin D3) 25 mcg (1,000 unit) tablet (Vitamin D3) 25 mcg PO DAILY 04/11/23 [History Confirmed 07/03/23] cranberry 500 mg capsule 500 mg PO DAILY 04/11/23 [History Confirmed 07/03/23] ibuprofen 200 mg tablet (Advil) 200 mg PO DIRECTED 04/11/23 [History Confirmed 07/03/23] losartan 100 mg-hydrochlorothiazide 12.5 mg tablet 1 tab PO DAILY 04/11/23 [History Confirmed 07/03/23] metformin 1,000 mg tablet 1,000 mg PO BID 04/11/23 [History Confirmed 07/03/23] omega 3-zog-iuc-fish oil 900 mg-1,400 mg capsule,delayed release 1 cap PO DAILY 04/11/23 [History Confirmed 07/03/23] simvastatin 40 mg tablet 40 mg PO DAILY 04/11/23 [History Confirmed 07/03/23] palbociclib 125 mg tablet (Ibrance) 125 mg PO DAILY 28 days #21 tabs 04/25/23 [Rx Confirmed 07/03/23] letrozole 2.5 mg tablet 2.5 mg PO DAILY 05/15/23 [History Confirmed 07/03/23] Objective - Height/Weight Height/Weight: Height 5 ft 4 in Weight 66.224 kg - Vital Signs Vital Signs: 07/03/23 13:32 Temperature 97.9 F Pulse Rate [Left Brachial] 83 Respiratory Rate 16 Blood Pressure [Left Arm] 146/82 H 02 Sat by Pulse Oximetry 99 Oxygen Delivery Method Room Air Physical Exam Narrative: CONSTITUTIONAL: The patient is in no acute distress. HEAD / FACE: Normocephalic. EYES: Pupils are equal and reactive to light. Conjunctivae and lids are benign in appearance. Ocular movement intact. EARS: Hearing grossly intact. NOSE / MOUTH / THROAT: Nose, mouth, tongue and oropharynx are benign in appearance. No signs of inflammation. NECK / THYROID: Neck is supple. Thyroid is symmetrical, without thyromegaly, masses or palpable nodules. LYMPHATIC: No palpable cervical, supraclavicular, axillary, or inguinal adenopathy. CHEST WALL: Right chest wall with now one raised nodular mass, superior to mastectomy scar about 2cm with resolved oozing. Less firm and nontender. No fluctuance or purulence. Flat firm shiny skin over right chest wall. Left breast without masses or skin changes. RESPIRATORY: Normal to inspection. Lungs clear to auscultation and percussion. No wheezing, rales, rhonchi or rubs. Normal effort. CARDIOVASCULAR: Regular rate and rhythm. No murmurs, gallops, or rubs. VASCULAR: Carotid, radial, femoral and pedal pulses present bilaterally. No bruits. ABDOMEN: Bowel sounds normoactive. Soft, nontender and non-distended. No hepatosplenomegaly. No masses. GENITOURINARY: No CVA tenderness. No suprapubic fullness or tenderness. No groinadenopathy. No evidence of hernias. INTEGUMENTARY: Positive for metastatic skin lesions over right chest wall with oozing as per HPI. BACK / SPINE: The back is nontender. No step off deformity. MUSCULOSKELETAL: Normal musculature, no joint deformities or abnormalities, limited range of motion bilateral knees. EXTREMITIES: No edema, cyanosis or clubbing. No Guicho sign. NEUROLOGICAL: Alert and oriented. Cranial nerves intact. No gross motor or sensory deficits. PSYCHIATRIC: No anxiety or evidence of depression. - ECOG Performance Status ECOG Score: 1 - limited ambulation due to osteoarthritis Results - Labs Labs: Diagram of Most Recent CBC and CMP 07/01/23 10:49 07/01/23 10:49 Labs - Last 7 Days 07/01/23 10:49: PHA Creatinine Clear 24.56, Sodium 138, Potassium 3.8, Chloride 101, Carbon Dioxide 29.1, Anion Gap 11.7, BUN 25, Creatinine 1.42 H, Est GFR (CKD-EPI) 36.021, Glucose 144 H, Calcium 9.8, Total Bilirubin 0.4, AST 11 L, ALT9, Alkaline Phosphatase 53, Total Protein 6.4, Albumin 4.2, Globulin 2.2, Albumin/Globulin Ratio 1.9 07/01/23 10:49: Corrected WBC 3.0 L, Uncorrected WBC Count 3.0 L, RBC 3.75, Hgb 11.3 L, Hct 34.3, MCV 91.4, MCH 30.2, MCHC 33.1, RDW 23.6 H, Plt Count 252, MPV 7.7, Neut % (Auto) 43.2, Lymph % (Auto) 47.5, Jenkins % (Auto) 6.4, Eos % (Auto) 0.9, Baso % (Auto) 2.0, Nucleat RBC Rel Count 0.4, Neut # (Auto) 1.3 L, Lymph # (Auto) 1.4, Jenkins # (Auto) 0.2, Eos # (Auto) 0.0, Baso # (Auto) 0.1 - Impressions Date of Service: 05/16/23 XR/XR knee BI 4V: Acute pain of right knee ([id number]) XR/XR pelvis 1-2V: Acute pain of right knee 4 views both knee plain film COMPARISON: None HISTORY: Bilateral knee pain greater on the right ACUTE FINDINGS: None DEGENERATIVE CHANGE: Extensive [id number] contact the medial compartment degeneration seen bilaterally. Mild patellofemoral and lateral compartment degenerative changes. Bilateral mild degenerative subluxation. SOFT TISSUE FINDINGS: Unremarkable JOINT EFFUSION: None POSTOP CHANGES: None BONE MINERALIZATION: Adequate XR/XR knee BI 4V IMPRESSION: Extensive [id number] bilateral medial compartment degenerative changes. Single view pelvis Mild bilateral hip and SI joint degenerative changes. Moderate lower lumbar degenerative change. No fracture. Adequate bony alignment. Minimal atherosclerosis. IMPRESSION: Mild bilateral hip degeneration. Impression dictated by: Dane Tellez M.D.05/16/2023 4:32 PM DEXA scan baseline 05/08/2023: AP Spine T-score + 1.7, normal Left Femoral Neck -2.1, osteopenia Right Femoral Neck -2.5, osteoporosis Assessment and Plan - TNM Staging Stagin. 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 There were 2 out of 2 sentinel lymph nodes negative for metastasis, ER 98%, WA 90%, HER2/dallin 1+, p53 8%, Ki-67 10%. 2. Stage II right breast invasive ductal carcinoma status post right mastectomyDece2019. Estrogen receptor 70%, progesterone receptor 0%, HER2/dallin -0% onIHC and not amplified on FISH and Ki-67 37%. 3. 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 She has ER+, WA neg, Her2 neg disease from recent biopsy. She was changed from Letrozole to Anastrozole and her primary oncologist discussed addition of CDK 4/6 inhibitor to AI therapy. I reviewed all FDA approved options for CDK 4/6 inhibitors and the patient chose palbociclib due to favorable side effect profile. Baseline labs unremarkable. Signed informed consent for palbociclib 125 mg p.o. daily for 21 out of every 28-day cycle in combination with letrozole 2.5 mg daily (initial plan was to change to anastrozole, but she is taking letrozole). She is overdue for 2-year DEXA scan and we will order this due to resuming AI therapy. The patient plans to seek orthopedic surgery referral and we can hold her palbociclib therapy for any upcoming surgery. She will be followed here on systemic therapy until she returns to [place] in August and we will forward allof her records to Dr. Lozano at that time. High complexity 60 min face to face history/exam/review of palbociclib and anastrozole; 30 min review of outside pathology, imaging and notes. 05/29/2023: Started Ibrance 125mg po daily x 21 of every 28 days with daily Letrozole. As per HPI, she had no toxicities or cytopenias. I recommend holding next cycle on 06/19 for planned excision of right chest wall lesion on 06/25/2023. Continue to hold until 07/03 when she will followup with me for results. DEXA scan shows baseline osteoporosis--may consider starting Prolia with calcium/vitamin D at followup after surgery. Moderate complexity 35 minutefollowup visit. 07/03/2023: Yolanda has completed nearly 2 cycles of Ibrance/Letrozole and is not acandidate for surgical excision of her chest wall recurrence after evaluation byDr. Salvador. WBC is now 3000 with ANC 1300 and no infections or nonhematologic toxicities. I advised her to complete the last 3 days of her current cycle, then next cycle of Ibrance 125mg D1-21 will start (with 28 day letrozole) 07/14/2023. Next f/u with me in 2 months (after 2 more cycles of Ibrance) with CBC, CMP andto coordinate transfer of care back to Dr. Lozano in [place]. Moderate complexityvisit 35 minutes. (2) Osteoarthritis of knees, bilateral Patient wants to be referred to orthopedic surgery by primary care. OK to hold palbociclib and anastrozole for surgery in the future. Currently ambulating with a cane and deferring surgery until stable response of disease. 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 We may add Prolia 60mg sq every 6 months (will discuss at her followup visit in August prior to transfer of care to [place]). (4) Encounter for long-term current use of high risk medication 05/15/2023: cycle 1, day 1 palbociclib 125mg daily D1-21 every 28 day cycle with anastrozole 1mg daily. Resumed after surgery evaluation, not a candidate for excision. (5) Encounter for monitoring aromatase inhibitor therapy Started Anastrozole 1mg daily on 05/15/2023: We reviewed 2-year DEXA scan on AI therapy--consistent with osteoporosis. Will plan Prolia 60mg sq every 6 months (may start at next followup in August) - Chemo Plan Chemo Plan (Dose, Rate, Freq): 05/15/2023: C1D1 palbociclib 125 mg p.o. daily for 21 out of every 28-day cycle incombination with letrozole 2.5 mg daily. Goal of Treatment: Palliative - Time with Patient Time Spent with Patient (Follow Up Visit): 35 minutes - Moderate complexity 35 minute history/exam/review of toxicities of palbociclib and letrozole Coordination of Care & Counseling Time: Greater than 50% of time spent with patient was for coordination of care (as documented) and [id number] counseling of patient and/or family. Dictated By: Brandi Lopez MD DD/ Signed By: <Electronically signed by MD Brandi Lopez> 07/03/231916 [facility] Work Phone: [phone] Progress note Author Brandi Lopez [facility] May 29, 2023 9:36pm Note Date/Time May 29, 2023 2:27 pm [facility] [place] [address] Hem/Onc Follow Up Note - OP Signed Patient: Yolanda Fairbanks MR#: [id number] : 1935 Acct:[id number] Age/Sex: 88 / F Type: REG RCR Copies to: MD Magno Hinson,DO~ Subjective Date/Time of Service: Date of Service: 05/29/2023 Time of Service: 14:26 Chief Complaint: Patient is here today for a one month follow up visit and to goover labs and Dexa bone densitometry. She started Ibrance and having no problemstaking it HPI: 05/29/2023: Yolanda is here for one month followup. She started Ibrance 125mg daily with Anastrozole 1mg daily on 05/15/2023. She denies any toxicities since starting therapy--no mouth ulcers, no diarrhea, and no signs or symptoms of infection. Her right chest wall mass is now about 2.5 cm in diameter with less oozing. She is scheduled for resection of this metastatic lesion by Dr. Salvador on 06/25/2023. Labs are stable without leukopenia. I advised her to finish her third week of Ibrance/Anastrozole then scheduled week off. She will resume nextcycle of Ibrance/Letrozole on 06/12/2023 for one week only, then will hold on 06/19 for scheduled surgery on 06/25/2023. She will continue to hold for one week post-op, then I will followup with her 07/03 to review pathology and determine response to therapy. Moderate complexity 35 minute followup visit. ORIGINAL CONSULT 04/25/2023: This is an 88-year-old lady who lives independently and resides in [facility] about half of the year returning to [place] in the summer and fall. Her primary oncology care is by Dr. Jacquelin Lozano who has graciously provided notes for my evaluation of her recent recurrent right breast cancer. The patient is asomewhat challenging historian and I will summarize her recent issues and history from notes from her primary oncologist visit 01/17/2023. Mrs. Fairbanks is an 88-year-old lady with further progression to stage IV breast cancer in 2022. 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 Shehas a history of stage II right breast cancer in 2012 and is here for follow-up. --Review of systems by Dr. 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 - The patient is offered a surgical consultation but stated she is not interested in surgical interventions -The patient is scheduled for staging PET now and will be advised per results -The patient has been on hormone manipulation therapy with Femara since December2020 and is instructed to discontinue it -We will request estrogen, progesterone, and HER2/dallin evaluation if the skin biopsy is positive and will implement targeted therapy. -Patient is planning to go back to [place] in February and is undergoing knee replacement surgery in summer 2022. The patient will make arrangements to seek surgical consultation in [place] and will decide if she wants to consider CK4/6 inhibitor therapy. -The patient has not had a surveillance follow-up mammogram since 2020 1. 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 There were 2 out of 2 sentinel lymph nodes negative for metastasis, ER 98%, WA 90%, HER2/dallin 1+, p53 8%, Ki-67 10%. She is postmenopausal and declinedchemotherapy. She completed radiation therapy 06/22/2013. She was on hormone manipulation therapy with aromatase inhibitor Arimidex from June 2013 through June 2018. 2. 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 Estrogen receptor 70%, progesterone receptor 0%, HER2/dallin -0% on IHC and not amplified on FISH and Ki-67 37%. --She had clinical findings of right breast lesion in October 2020 with pathology showing intermediate grade invasive carcinoma of no special type measuring 3 mm in maximal linear length and no DCIS identified. --Pathology of right mastectomy 10/28/2020 showed multifocal invasive carcinoma of no special type, high histologic grade 3, 9.2 cm in greatest dimension ulcerating the supra areolar skin with adjacent dermal lymphatic invasion, DCIS and additional microscopic tumor deposits in the subareolar breast, 2 additionaltumor deposits 1.8 and 1.7 cm in greatest dimension and inferior lateral and lateral aspect. 2 out of 2 lymph nodes were benign. --The patient vehemently declined chemotherapy despite being educated about the benefits --She was placed on hormonal manipulation therapy with Femara since December 2020 and was instructed to discontinue this by her physician. --The bone mineral density on 12/16/2020 was read as osteopenia and was advised totake calcium and vitamin D supplementation. 04/25/2023: Patient presents today with large mass encompassing right chest wall with ulceration and bleeding superior to her prior mastectomy scar. She denies any pain in that area and notes she is treating it with topical hydrogen peroxide only. She has not had any purulence or fluctuance suggestive of infection. There were no abnormalities of the left breast, skin changes, or nipple discharge or deviation. [employer] testing of breast biopsy from 01/04/2022 shows ER +65%, WA -0%, HER2/dallin -0%. --PET/CT performed at [facility] 02/04/2022 with interpretation as follows: Impression: 1. Patient is status post right mastectomy with multiple FDG avid infiltrative masses involving the right anterior chest wall including skin, subcutaneous tissue, and deeper layers down to the fascial planes. These may represent metastases, locally recurrent neoplasm, or combination. 2. Small soft tissue nodule adjacent to the lateral aspect of the right eighth rib within the subcutaneous tissues, mildly FDG avid, possibly a small metastasis in this context. 3. Intense focus of increased activity right axilla without an enlarged lymph node and corresponding to the axillary vein, probably pulled injected activity 4. Small focus of increased FDG activity involving the left posterior distal rectal wall which is also somewhat thickened. Small neoplasm in this area cannot be excluded. 5. Various incidental findings including diverticulosis coli, aortic and coronary atherosclerosis, small hiatal hernia, and other findings 6. Subcentimeter slightly FDG avid left internal jugular lymph node in the leftlower neck, nonspecific. This could be reactive versus a small lisandra metastasis. I discussed the patient's findings in detail although I do not have images for her PET/CT for review. We discussed that she continues to have estrogen receptor positive, now progesterone receptor negative, HER2/dallin negative breast cancer. She was changed from letrozole to anastrozole 1 mg daily by her primaryoncologist. We had discussed addition of CDK 4/6 inhibition with 3 available FDA approved therapies including ribociclib, abemaciclib, or palbociclib. We discussed various side effects including hypersensitive pneumonitis, diarrhea, and myelosuppression with each of the 3 medications in combination with AI therapy. The patient chose palbociclib due to toxicity profile over the other 2choices and will continue aromatase inhibitor therapy with anastrozole. She is overdue for 2-year DEXA scan and we will order this due to resuming AI therapy. The patient plans to seek orthopedic surgery referral and we can hold her palbociclib therapy for any upcoming surgery. She will be followed here on systemic therapy until she returns to [place] in August and we will forward allof her records to Dr. Lozano at that time. Today we reviewed chemotherapy counseling for palbociclib 125 mg p.o. daily for 21 out of every 28-day cycle in combination with anastrozole 1 mg daily. Goal of therapy is palliation of symptoms and extension of life but not curative. Common toxicities were reviewed to include allergic reactions, rashes, myelosuppression, fatigue, nausea, vomiting, dyspepsia, constipation, diarrhea, mouth sores, and a mild lopecia. Other toxicities may include uncommon pneumonitis, hepatic and renal toxicities. The patient signed informed consent and will follow-up as directed. She will have an oral chemotherapy visit upon arrival of the medication and see me in follow-up for toxicity visit cycle 1 week 2 with CBC and CMP at that time. This is a high complexity visit over 60 minutes [id number] for review of history and symptoms as well as chemotherapy counseling with an additional 30 minutes for review of extensive outside records. - Summary of Therapies Summary of Therapies: 1. 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 There were 2 out of 2 sentinel lymph nodes negative for metastasis, ER 98%, WA 90%, HER2/dallin 1+, p53 8%, Ki-67 10%. She is postmenopausal and declinedchemotherapy. She completed radiation therapy 06/22/2013. She was on hormone manipulation therapy with aromatase inhibitor Arimidex from June 2013 through June 2018. 2. 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 Estrogen receptor 70%, progesterone receptor 0%, HER2/dallin -0% on IHC and not amplified on FISH and Ki-67 37%. --She had clinical findings of right breast lesion in October 2020 with pathology showing intermediate grade invasive carcinoma of no special type measuring 3 mm in maximal linear length and no DCIS identified. --Pathology of right mastectomy 10/28/2020 showed multifocal invasive carcinoma of no special type, high histologic grade 3, 9.2 cm in greatest dimension ulcerating the supra areolar skin with adjacent dermal lymphatic invasion, DCIS and additional microscopic tumor deposits in the subareolar breast, 2 additionaltumor deposits 1.8 and 1.7 cm in greatest dimension and inferior lateral and lateral aspect. 2 out of 2 lymph nodes were benign. --The patient vehemently declined chemotherapy despite being educated about the benefits --She was placed on hormonal manipulation therapy with Femara since December 2020 and was instructed to discontinue this by her physician. --The bone mineral density on 12/16/2020 was read as osteopenia and was advised totake calcium and vitamin D supplementation. 3. Progression to stage IV right breast cancer with multiple skin metastases inFebruary 2022. - The patient is offered a surgical consultation but stated she is not interested in surgical interventions -The patient is scheduled for staging PET now and will be advised per results -The patient has been on hormone manipulation therapy with Femara since December2020 and is instructed to discontinue it -We will request estrogen, progesterone, and HER2/dallin evaluation if the skin biopsy is positive and will implement targeted therapy. 4. 04/25/2023: Reviewed informed consent for palbociclib 125 mg p.o. daily for 21 out of every 28-day cycle in combination with anastrozole 1 mg daily. Cycle 1, day 1 05/15/2023. Plan to hold on 06/19/2023 for planned excision of chest wall mass -- We may consider repeat palliative radiation course right chest wall based on pathology of excision 06/25/2023. Will plan to resume one week postop. ROS Details: All systems reviewed & no additional complaints except as documented Subjective/ROS - Narrative: CONSTITUTIONAL: Negative for fatigue, negative for fever or night sweats. HEAD AND NECK: Negative for changes in hearing and vision. Negative for mouth ulcers, nasal congestion and nasal drainage. CHEST WALL: Right chest wall with raised nodular masses, largest superior to mastectomy scar with oozing after removing bandage--after 2 weeks on anastrozole--regression to 2.25mg single mass. Firm but nontender. No fluctuance or purulence. Left breast without masses or skin changes. PULMONARY: Negative for chest pain, cough and dyspnea. CARDIOVASCULAR: Negative for claudication and irregular heartbeat/palpitations. GASTROINTESTINAL: Negative for abdominal pain, constipation, decreased appetite,diarrhea, nausea or vomiting. No weight loss. GENITOURINARY: Negative for dysuria and hematuria. ENDOCRINE: Negative for cold intolerance and heat intolerance--Ibrance/anastrozole well tolerated. CENTRAL NERVOUS SYSTEM: Negative for gait disturbance and headache. Ambulates independently, no focal deficits. PSYCHIATRIC: Negative for anxiety or depression. DERMATOLOGICAL: Negative for pruritus or pain. Positive for metastatic skin lesions over right chest wall with oozing as per HPI. MUSCULOSKELETAL: Negative for back pain and bone/joint symptoms other than bilateral knee pain from osteoarthritis (wants to have knee replacement surgery this summer). No myalgia/arthralgia on anastrozole therapy. HEMATOLOGICAL: Negative for bleeding and easy bruising. Negative for history of transfusion or thromboembolic disease ALLERGY: Negative for environmental allergies and food allergies. PMFSH - History Attestation statement: The following information was validated with the patient. Source: Old Records Reviewed - Medical History Medical History: Medical History (Last Reviewed 05/29/23 @ 21:19 by Brandi Lopez MD) Diabetes Essential hypertension Hyperlipidemia Malignant neoplasm of breast Osteoarthritis Osteopenia Peripheral arterial disease - Surgical History Surgical History: Surgical History (Last Reviewed 05/29/23 @ 21:19 by Brandi Lopez MD) History of breast biopsy left-benign 1999 History of lumpectomy of right breast 2012 History of mastectomy October 2020 right breast - Family History Family History: Family History (Last Reviewed 05/29/23 @ 21:19 by Brandi Lopez MD) Other No significant family history - Social History Smoking Status: Never smoker Home Medications & Allergies Allergies No Known Allergies Allergy (Verified 05/29/23 14:16) Home Medications aspirin 81 mg tablet,delayed release 81 mg PO DAILY 04/11/23 [History Confirmed 05/29/23] calcium carbonate 600 mg-vitamin D3 20 mcg (800 unit) chewable tablet (Caltrate 600 plus D) 1 tab PO BID 04/11/23 [History Confirmed 05/29/23] cholecalciferol (vitamin D3) 25 mcg (1,000 unit) tablet (Vitamin D3) 25 mcg PO DAILY 04/11/23 [History Confirmed 05/29/23] cranberry 500 mg capsule 500 mg PO DAILY 04/11/23 [History Confirmed 05/29/23] ibuprofen 200 mg tablet (Advil) 200 mg PO DIRECTED 04/11/23 [History Confirmed 05/29/23] losartan 100 mg-hydrochlorothiazide 12.5 mg tablet 1 tab PO DAILY 04/11/23 [History Confirmed 05/29/23] metformin 1,000 mg tablet 1,000 mg PO BID 04/11/23 [History Confirmed 05/29/23] omega 7-qhs-tqt-fish oil 900 mg-1,400 mg capsule,delayed release 1 cap PO DAILY 04/11/23 [History Confirmed 05/29/23] simvastatin 40 mg tablet 40 mg PO DAILY 04/11/23 [History Confirmed 05/29/23] palbociclib 125 mg tablet (Ibrance) 125 mg PO DAILY 28 days #21 tabs 04/25/23 [Rx Confirmed 05/29/23] letrozole 2.5 mg tablet 2.5 mg PO DAILY 05/15/23 [History Confirmed 05/29/23] Objective - Height/Weight Height/Weight: Height 5 ft 4 in Weight 65.317 kg - Vital Signs Vital Signs: 05/29/23 14:16 Temperature 97.8 F Pulse Rate [Left Brachial] 78 Respiratory Rate 16 Blood Pressure [Left Arm] 125/71 02 Sat by Pulse Oximetry 98 Oxygen Delivery Method Room Air Physical Exam Narrative: CONSTITUTIONAL: The patient is in no acute distress. HEAD / FACE: Normocephalic. EYES: Pupils are equal and reactive to light. Conjunctivae and lids are benign in appearance. Ocular movement intact. EARS: Hearing grossly intact. NOSE / MOUTH / THROAT: Nose, mouth, tongue and oropharynx are benign in appearance. No signs of inflammation. NECK / THYROID: Neck is supple. Thyroid is symmetrical, without thyromegaly, masses or palpable nodules. LYMPHATIC: No palpable cervical, supraclavicular, axillary, or inguinal adenopathy. CHEST WALL: Right chest wall with now one raised nodular mass, superior to mastectomy scar about 2.5cm with less oozing. Firm but nontender. No fluctuance or purulence. Flat firm skin over right chest wall. Left breast without masses or skin changes. RESPIRATORY: Normal to inspection. Lungs clear to auscultation and percussion. No wheezing, rales, rhonchi or rubs. Normal effort. CARDIOVASCULAR: Regular rate and rhythm. No murmurs, gallops, or rubs. VASCULAR: Carotid, radial, femoral and pedal pulses present bilaterally. No bruits. ABDOMEN: Bowel sounds normoactive. Soft, nontender and non-distended. No hepatosplenomegaly. No masses. GENITOURINARY: No CVA tenderness. No suprapubic fullness or tenderness. No groinadenopathy. No evidence of hernias. INTEGUMENTARY: Positive for metastatic skin lesions over right chest wall with oozing as per HPI. BACK / SPINE: The back is nontender. No step off deformity. MUSCULOSKELETAL: Normal musculature, no joint deformities or abnormalities, normal range of motion for all four extremities. EXTREMITIES: No edema, cyanosis or clubbing. No Guicho sign. NEUROLOGICAL: Alert and oriented. Cranial nerves intact. No gross motor or sensory deficits. PSYCHIATRIC: No anxiety or evidence of depression. - ECOG Performance Status ECOG Score: 1 Results - Labs Labs: Diagram of Most Recent CBC and CMP 05/27/23 11:06 05/27/23 11:06 Labs - Last 7 Days 05/27/23 11:06: PHA Creatinine Clear 32.78, Sodium 139, Potassium 4.0, Chloride 102, Carbon Dioxide 31.2 H, Anion Gap 9.8, BUN 23, Creatinine 1.15, Est GFR (CKD-EPI) 46.394, Glucose 136 H, Calcium 9.9, Total Bilirubin 0.5, AST 11 L, ALT8, Alkaline Phosphatase 62, Total Protein 6.5, Albumin 4.3, Globulin 2.2, Albumin/Globulin Ratio 2.0 05/27/23 11:06: Corrected WBC 4.3, Uncorrected WBC Count 4.3, RBC 4.18, Hgb 11.8, Hct 35.6, MCV 85.2, MCH 28.4, MCHC 33.3, RDW 15.3, Plt Count 287, MPV 7.8,Neut % (Auto) 66.1, Lymph % (Auto) 29.3, Jenkins % (Auto) 2.8, Eos % (Auto) 1.2, Baso % (Auto) 0.6, Nucleat RBC Rel Count 0.2, Neut # (Auto) 2.8, Lymph # (Auto) 1.3, Jenkins # (Auto) 0.1, Eos # (Auto) 0.1, Baso # (Auto) 0.0 - Impressions DEXA scan baseline 05/08/2023: AP Spine T-score + 1.7, normal Left Femoral Neck -2.1, osteopenia Right Femoral Neck -2.5, osteoporosis Assessment and Plan - TNM Staging Stagin. 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 There were 2 out of 2 sentinel lymph nodes negative for metastasis, ER 98%, WA 90%, HER2/dallin 1+, p53 8%, Ki-67 10%. 2. Stage II right breast invasive ductal carcinoma status post right [id number]. Estrogen receptor 70%, progesterone receptor 0%, [facility] and not amplified on FISH and Ki-67 37%. 3. 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 She has ER+, WA neg, Her2 neg disease from recent biopsy. She was changed from Letrozole to Anastrozole and her primary oncologist discussed addition of CDK 4/6 inhibitor to AI therapy. I reviewed all FDA approved options for CDK 4/6 inhibitors and the patient chose palbociclib due tofavorable side effect profile. Baseline labs unremarkable. Signed informed consent for palbociclib 125 mg p.o. daily for 21 out of every 28-day cycle in combination with anastrozole 1 mg daily. She is overdue for 2-year DEXA scan and we will order this due to resuming AI therapy. The patient plans to seek orthopedic surgery referral and we can hold her palbociclib therapy for any upcoming surgery. She will be followed here on systemic therapy until she returns to [place] in August and we will forward allof her records to Dr. Lozano at that time. High complexity 60 min face to face history/exam/review of palbociclib and anastrozole; 30 min review of outside pathology, imaging and notes. 05/29/2023: Started Ibrance 125mg po daily x 21 of every 28 days with daily Anastrozole. As per HPI, she had no toxicities or cytopenias. I recommend holding next cycle on 06/19 for planned excision of right chest wall lesion on 06/25/2023. Continue to hold until 07/03 when she will followup with me for results. DEXA scan shows baseline osteoporosis--may consider starting Prolia with calcium/vitamin D at followup after surgery. Moderate complexity 35 minutefollowup visit. (2) Osteoarthritis of knees, bilateral Patient wants to be referred to orthopedic surgery by primary care. OK to hold palbociclib and anastrozole for surgery in the future. 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 Will plan Prolia 60mg sq every 6 months after her surgery f/u on 06/25/2023. (4) Encounter for long-term current use of high risk medication 05/15/2023: cycle 1, day 1 palbociclib 125mg daily D1-21 every 28 day cycle with anastrozole 1mg daily. Will hold for upcoming surgery 06/25 for excision of recurrence. (5) Encounter for monitoring aromatase inhibitor therapy Started Anastrozole 1mg daily on 05/15/2023: We reviewed 2-year DEXA scan on AI therapy--consistent with osteoporosis. Will plan Prolia 60mg sq every 6 months after her surgery f/u on 06/25/2023. - Chemo Plan Chemo Plan (Dose, Rate, Freq): 05/15/2023: C1D1 palbociclib 125 mg p.o. daily for 21 out of every 28-day cycle incombination with anastrozole 1 mg daily. Goal of Treatment: Palliative - Time with Patient Time Spent with Patient (Follow Up Visit): 35 minutes - Moderate complexity 35 minute history/exam/review of toxicities of palbociclib and anastrozole Coordination of Care & Counseling Time: Greater than 50% of time spent with patient was for coordination of care (as documented) and [id number] counseling of patient and/or family. Dictated By: Brandi Lopez MD DD/ [id number] Signed By: <Electronically signed by MD Brandi Lopez> 05/29/23 [address] [facility] Work Phone: [phone]) 969-691407-06-2023 Evaluation note* Encounter Date Diagnosis Assessment Notes Treatment Notes Treatment Clinical Notes May, Pain in right knee (ICD-10 - M25.561) May, Bilateral primary osteoarthritis of knee (ICD-10 - M17.0) May, Pain in left knee (ICD-10 - M25.562) May, Age-related osteoporosis without current pathological fracture (ICD-10 - M81.0) May, Other skilled nursing (current) drug therapy (ICD-10 - Z79.899) May, Other 1. We had a camila g discussion with the patient today concerning their right and left knee osteoarthritis. The radiographs do show osteoarthritis of the knees. At this time, the patient has exhausted conservative treatment for both of her knees and I think she would be a good radiographic candidate for a knee replacement. From a clinical standpoint, I like to get to the bottom of some of her breast cancer history and speak with her oncologist, Dr. Lopez regarding medications and timing of surgery prior to considering her good clinical candidate. 2. Tylenol: Discussed taking Tylenol (acetaminophen). Recommended adjusting their dosing to 1000mg by mouth up to 3 times a day. 3. NSAIDs: Recommended continuing her Advil at this time 4. Physical therapy: Discussed formal physical therapy and home regimen. Patient preferred no further PT at this time. 5. Injections: Discussed injections as a treatment option. We will forego injections at this time as we are likely setting up surgery 6. We did discuss proceeding with a right total knee arthroplasty. I did make sure that she understands that if we proceed with a knee replacement surgery she needs to stay in [place] for at least 3 months postoperatively and not go to [place] because I want to make sure that she does well and recovers from her surgery. Patient voiced understanding and is in agreement. 7. We started her surgical process with ordering the following preoperative screening labs: Albumin Vitamin D Hemoglobin Hemoglobin A1c Cotinine MRSA Once I obtain these results and everything is okay we will ask for clearance from her primary care provider and once that is obtained we can then schedule surgery. In the meantime, I will reach out to Dr. Lopez for further clarification of the patient's breast cancer history and treatment goals as well as management of medications moving forward if we do perform surgery. Leonardo Herron II 05/16/2023 03:46:04 PM > I spoke with Dr. Lopez regarding the patient's surgical timing as well as holding the Ibrance. We mutually agreed that the patient should be off of that medication for about 1 week prior to surgery. In regards to the actual surgical timing we both agree that the patient needs to focus on her breast cancer treatment likely for a couple months which would equate to a couple rounds of Ibrance treatment prior to surgery. At this point, I will review the patient's preoperative labs and once she is as medically optimized from her PCP I will reach back out to Dr. Lopez and get a better idea on the patient's progression with her breast cancer therapy so we can get a more definitive surgical date. [employer] Other 06-15-2023 Progress note Author Brandi Lopez [facility] April 25, 2023 5:46pm Note Date/Time April 25, 2023 11:[facility] [address] [address] Hem/Onc Follow Up Note - OP Signed Patient: Yolanda Fairbanks MR#: [id number] : 1935 Acct:[id number] Age/Sex: 88 / F Type: REG RCR Copies to: Ethel Wakefield MD~ Subjective Date/Time of Service: Date of Service: 04/25/2023 Time of Service: 11:23 Chief Complaint: Patient is here today to est. Care for breast cancer. [place] and has a place here in [place] HPI: Dear Dr. Wakefield, I had the great pleasure of seeing your patient in consultation. Thank you verymuch for your referral. As you know this is an 88-year-old lady who lives independently and resides in [facility]. Her primary oncology care is by Dr. Jacquelin Lozano who has graciously provided notes for my evaluation of her recent recurrent right breast cancer. The patient is a somewhat challenging historian and I willsummarize her recent issues and history from notes from her primary oncologist visit 01/17/2023. Mrs. Fairbanks is an 88-year-old lady with further progression to stage IV breast cancer in 2022. 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 Shehas a history of stage II right breast cancer in 2012 and is here for follow-up. --Review of systems by Dr. 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 - The patient is offered a surgical consultation but stated she is not interested in surgical interventions -The patient is scheduled for staging PET now and will be advised per results -The patient has been on hormone manipulation therapy with Femara since December2020 and is instructed to discontinue it -We will request estrogen, progesterone, and HER2/dallin evaluation if the skin biopsy is positive and will implement targeted therapy. -Patient is planning to go back to [place] in February and is undergoing knee replacement surgery in summer 2022. The patient will make arrangements to seek surgical consultation in [place] and will decide if she wants to consider CK4/6 inhibitor therapy. -The patient has not had a surveillance follow-up mammogram since 2020 1. 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 There were 2 out of 2 sentinel lymph nodes negative for metastasis, ER 98%, WA 90%, HER2/dallin 1+, p53 8%, Ki-67 10%. She is postmenopausal and declinedchemotherapy. She completed radiation therapy 06/22/2013. She was on hormone manipulation therapy with aromatase inhibitor Arimidex from June 2013 through June 2018. 2. 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 Estrogen receptor 70%, progesterone receptor 0%, HER2/dallin -0% on IHC and not amplified on FISH and Ki-67 37%. --She had clinical findings of right breast lesion in October 2020 with pathology showing intermediate grade invasive carcinoma of no special type measuring 3 mm in maximal linear length and no DCIS identified. --Pathology of right mastectomy 10/28/2020 showed multifocal invasive carcinoma of no special type, high histologic grade 3, 9.2 cm in greatest dimension ulcerating the supra areolar skin with adjacent dermal lymphatic invasion, DCIS and additional microscopic tumor deposits in the subareolar breast, 2 additionaltumor deposits 1.8 and 1.7 cm in greatest dimension and inferior lateral and lateral aspect. 2 out of 2 lymph nodes were benign. --The patient vehemently declined chemotherapy despite being educated about the benefits --She was placed on hormonal manipulation therapy with Femara since December 2020 and was instructed to discontinue this by her physician. --The bone mineral density on 12/16/2020 was read as osteopenia and was advised totake calcium and vitamin D supplementation. 04/25/2023: Patient presents today with large mass encompassing right chest wall with ulceration and bleeding superior to her prior mastectomy scar. She denies any pain in that area and notes she is treating it with topical hydrogen peroxide only. She has not had any purulence or fluctuance suggestive of infection. There were no abnormalities of the left breast, skin changes, or nipple discharge or deviation. [employer] testing of breast biopsy from 01/04/2022 shows ER +65%, WA -0%, HER2/dallin -0%. --PET/CT performed at [facility] 02/04/2022 with interpretation as follows: Impression: 1. Patient is status post right mastectomy with multiple FDG avid infiltrative masses involving the right anterior chest wall including skin, subcutaneous tissue, and deeper layers down to the fascial planes. These may represent metastases, locally recurrent neoplasm, or combination. 2. Small soft tissue nodule adjacent to the lateral aspect of the right eighth rib within the subcutaneous tissues, mildly FDG avid, possibly a small metastasis in this context. 3. Intense focus of increased activity right axilla without an enlarged lymph node and corresponding to the axillary vein, probably pulled injected activity 4. Small focus of increased FDG activity involving the left posterior distal rectal wall which is also somewhat thickened. Small neoplasm in this area cannot be excluded. 5. Various incidental findings including diverticulosis coli, aortic and coronary atherosclerosis, small hiatal hernia, and other findings 6. Subcentimeter slightly FDG avid left internal jugular lymph node in the leftlower neck, nonspecific. This could be reactive versus a small lisandra metastasis. I discussed the patient's findings in detail although I do not have images for her PET/CT for review. We discussed that she continues to have estrogen receptor positive, now progesterone receptor negative, HER2/dallin negative breast cancer. She was changed from letrozole to anastrozole 1 mg daily by her primaryoncologist. We had discussed addition of CDK 4/6 inhibition with 3 available FDA approved therapies including ribociclib, abemaciclib, or palbociclib. We discussed various side effects including hypersensitive pneumonitis, diarrhea, and myelosuppression with each of the 3 medications in combination with AI therapy. The patient chose palbociclib due to toxicity profile over the other 2choices and will continue aromatase inhibitor therapy with anastrozole. She is overdue for 2-year DEXA scan and we will order this due to resuming AI therapy. The patient plans to seek orthopedic surgery referral and we can hold her palbociclib therapy for any upcoming surgery. She will be followed here on systemic therapy until she returns to [place] in August and we will forward allof her records to Dr. Lozano at that time. Today we reviewed chemotherapy counseling for palbociclib 125 mg p.o. daily for 21 out of every 28-day cycle in combination with anastrozole 1 mg daily. Goal of therapy is palliation of symptoms and extension of life but not curative. Common toxicities were reviewed to include allergic reactions, rashes, myelosuppression, fatigue, nausea, vomiting, dyspepsia, constipation, diarrhea, mouth sores, and a mild lopecia. Other toxicities may include uncommon pneumonitis, hepatic and renal toxicities. The patient signed informed consent and will follow-up as directed. She will have an oral chemotherapy visit upon arrival of the medication and see me in follow-up for toxicity visit cycle 1 week 2 with CBC and CMP at that time. This is a high complexity visit over 60 minutes [id number] for review of history and symptoms as well as chemotherapy counseling with an additional 30 minutes for review of extensive outside records. - Summary of Therapies Summary of Therapies: 1. 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 There were 2 out of 2 sentinel lymph nodes negative for metastasis, ER 98%, WA 90%, HER2/dallin 1+, p53 8%, Ki-67 10%. She is postmenopausal and declinedchemotherapy. She completed radiation therapy 06/22/2013. She was on hormone manipulation therapy with aromatase inhibitor Arimidex from June 2013 through June 2018. 2. 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 Estrogen receptor 70%, progesterone receptor 0%, HER2/dallin -0% on IHC and not amplified on FISH and Ki-67 37%. --She had clinical findings of right breast lesion in October 2020 with pathology showing intermediate grade invasive carcinoma of no special type measuring 3 mm in maximal linear length and no DCIS identified. --Pathology of right mastectomy 10/28/2020 showed multifocal invasive carcinoma of no special type, high histologic grade 3, 9.2 cm in greatest dimension ulcerating the supra areolar skin with adjacent dermal lymphatic invasion, DCIS and additional microscopic tumor deposits in the subareolar breast, 2 additionaltumor deposits 1.8 and 1.7 cm in greatest dimension and inferior lateral and lateral aspect. 2 out of 2 lymph nodes were benign. --The patient vehemently declined chemotherapy despite being educated about the benefits --She was placed on hormonal manipulation therapy with Femara since December 2020 and was instructed to discontinue this by her physician. --The bone mineral density on 12/16/2020 was read as osteopenia and was advised totake calcium and vitamin D supplementation. 3. Progression to stage IV right breast cancer with multiple skin metastases inFebruary 2022. - The patient is offered a surgical consultation but stated she is not interested in surgical interventions -The patient is scheduled for staging PET now and will be advised per results -The patient has been on hormone manipulation therapy with Femara since December2020 and is instructed to discontinue it -We will request estrogen, progesterone, and HER2/dallin evaluation if the skin biopsy is positive and will implement targeted therapy. 4. 04/25/2023: Reviewed informed consent for palbociclib 125 mg p.o. daily for 21 out of every 28-day cycle in combination with anastrozole 1 mg daily. -- We may consider repeat palliative radiation course right chest wall if she develops refractory pain, bleeding, or lack of response to palbociclib with anastrozole. ROS Details: All systems reviewed & no additional complaints except as documented Subjective/ROS - Narrative: CONSTITUTIONAL: Negative for fatigue, negative for fever or night sweats. HEAD AND NECK: Negative for changes in hearing and vision. Negative for mouth ulcers, nasal congestion and nasal drainage. CHEST WALL: Right chest wall with raised nodular masses, largest superior to mastectomy scar with oozing after removing bandage. Firm but nontender. No fluctuance or purulence. Left breast without masses or skin changes. PULMONARY: Negative for chest pain, cough and dyspnea. CARDIOVASCULAR: Negative for claudication and irregular heartbeat/palpitations. GASTROINTESTINAL: Negative for abdominal pain, constipation, decreased appetite,diarrhea, nausea or vomiting. No weight loss. GENITOURINARY: Negative for dysuria and hematuria. ENDOCRINE: Negative for cold intolerance and heat intolerance--anastrozole well tolerated. CENTRAL NERVOUS SYSTEM: Negative for gait disturbance and headache. Ambulates independently, no focal deficits. PSYCHIATRIC: Negative for anxiety or depression. DERMATOLOGICAL: Negative for pruritus or pain. Positive for metastatic skin lesions over right chest wall with oozing as per HPI. MUSCULOSKELETAL: Negative for back pain and bone/joint symptoms other than bilateral knee pain from osteoarthritis (wants to have knee replacement surgery this summer). No myalgia/arthralgia on anastrozole therapy. HEMATOLOGICAL: Negative for bleeding and easy bruising. Negative for history of transfusion or thromboembolic disease ALLERGY: Negative for environmental allergies and food allergies. PMF - History Attestation statement: The following information was validated with the patient. Source: Old Records Reviewed - Medical History Medical History: Medical History (Last Reviewed 04/25/23 @ 17:18 by Brandi Lopez MD) Diabetes Essential hypertension Hyperlipidemia Malignant neoplasm of breast Osteoarthritis Osteopenia Peripheral arterial disease - Surgical History Surgical History: Surgical History (Last Reviewed 04/25/23 @ 17:18 by Brandi Lopez MD) History of breast biopsy left-benign 1999 History of lumpectomy of right breast 2012 History of mastectomy October 2020 right breast - Family History Family History: Family History (Last Reviewed 04/25/23 @ 17:18 by Brandi Lopez MD) Other No significant family history - Social History Smoking Status: Never smoker Home Medications & Allergies Allergies No Known Allergies Allergy (Verified 04/25/23 11:05) Home Medications aspirin 81 mg tablet,delayed release 81 mg PO DAILY 04/11/23 [History Confirmed 04/25/23] calcium carbonate 600 mg-vitamin D3 20 mcg (800 unit) chewable tablet (Caltrate 600 plus D) 1 tab PO BID 04/11/23 [History Confirmed 04/25/23] cholecalciferol (vitamin D3) 25 mcg (1,000 unit) tablet (Vitamin D3) 25 mcg PO DAILY 04/11/23 [History Confirmed 04/25/23] cranberry 500 mg capsule 500 mg PO DAILY 04/11/23 [History Confirmed 04/25/23] ibuprofen 200 mg tablet (Advil) 200 mg PO DIRECTED 04/11/23 [History Confirmed 04/25/23] losartan 100 mg-hydrochlorothiazide 12.5 mg tablet 1 tab PO DAILY 04/11/23 [History Confirmed 04/25/23] metformin 1,000 mg tablet 1,000 mg PO BID 04/11/23 [History Confirmed 04/25/23] omega 5-xrg-nem-fish oil 900 mg-1,400 mg capsule,delayed release 1 cap PO DAILY 04/11/23 [History Confirmed 04/25/23] simvastatin 40 mg tablet 40 mg PO DAILY 04/11/23 [History Confirmed 04/25/23] anastrozole 1 mg tablet 1 mg PO DAILY 04/25/23 [History Confirmed 04/25/23] palbociclib 125 mg tablet (Ibrance) 125 mg PO DAILY 28 days #21 tabs 04/25/23 [Rx] Objective - Height/Weight Height/Weight: Height 5 ft 4 in Weight 65.771 kg - Vital Signs Vital Signs: 04/25/23 11:18 Temperature 97.8 F Pulse Rate [Left Brachial] 86 Respiratory Rate 16 Blood Pressure [Left Arm] 139/85 02 Sat by Pulse Oximetry 98 Oxygen Delivery Method Room Air Physical Exam Narrative: CONSTITUTIONAL: The patient is in no acute distress. HEAD / FACE: Normocephalic. EYES: Pupils are equal and reactive to light. Conjunctivae and lids are benign in appearance. Ocular movement intact. EARS: Hearing grossly intact. NOSE / MOUTH / THROAT: Nose, mouth, tongue and oropharynx are benign in appearance. No signs of inflammation. NECK / THYROID: Neck is supple. Thyroid is symmetrical, without thyromegaly, masses or palpable nodules. LYMPHATIC: No palpable cervical, supraclavicular, axillary, or inguinal adenopathy. CHEST WALL: Right chest wall with raised nodular masses, largest superior to mastectomy scar with oozing after removing bandage. Firm but nontender. No fluctuance or purulence. Left breast without masses or skin changes. RESPIRATORY: Normal to inspection. Lungs clear to auscultation and percussion. No wheezing, rales, rhonchi or rubs. Normal effort. CARDIOVASCULAR: Regular rate and rhythm. No murmurs, gallops, or rubs. VASCULAR: Carotid, radial, femoral and pedal pulses present bilaterally. No bruits. ABDOMEN: Bowel sounds normoactive. Soft, nontender and non-distended. No hepatosplenomegaly. No masses. GENITOURINARY: No CVA tenderness. No suprapubic fullness or tenderness. No groinadenopathy. No evidence of hernias. INTEGUMENTARY: Positive for metastatic skin lesions over right chest wall with oozing as per HPI. BACK / SPINE: The back is nontender. No step off deformity. MUSCULOSKELETAL: Normal musculature, no joint deformities or abnormalities, normal range of motion for all four extremities. EXTREMITIES: No edema, cyanosis or clubbing. No Guicho sign. NEUROLOGICAL: Alert and oriented. Cranial nerves intact. No gross motor or sensory deficits. PSYCHIATRIC: No anxiety or evidence of depression. - ECOG Performance Status ECOG Score: 0 Results - Labs Labs: 04/25/2023: Baseline labs WBC 9,000; ANC 5900; Hg 12, Hct 36.1; Platelets 346,000 Na 140, Na 3.7, BUN 15, Creat 0.89, Glu 103, Ca 10.1, TB 0.5, AST 14, ALT 11, AP67, TP 6.8, Alb 4.4 - Impressions PET/CT performed at [facility] 02/04/2022 with interpretation as follows: Impression: 1. Patient is status post right mastectomy with multiple FDG avid infiltrative masses involving the right anterior chest wall including skin, subcutaneous tissue, and deeper layers down to the fascial planes. These may represent metastases, locally recurrent neoplasm, or combination. 2. Small soft tissue nodule adjacent to the lateral aspect of the right eighth rib within the subcutaneous tissues, mildly FDG avid, possibly a small metastasis in this context. 3. Intense focus of increased activity right axilla without an enlarged lymph node and corresponding to the axillary vein, probably pulled injected activity 4. Small focus of increased FDG activity involving the left posterior distal rectal wall which is also somewhat thickened. Small neoplasm in this area cannot be excluded. 5. Various incidental findings including diverticulosis coli, aortic and coronary atherosclerosis, small hiatal hernia, and other findings 6. Subcentimeter slightly FDG avid left internal jugular lymph node in the leftlower neck, nonspecific. This could be reactive versus a small lisandra metastasis. Assessment and Plan - TNM Staging Stagin. 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 There were 2 out of 2 sentinel lymph nodes negative for metastasis, ER 98%, WA 90%, HER2/dallin 1+, p53 8%, Ki-67 10%. 2. Stage II right breast invasive ductal carcinoma status post right mastectomyDece2019. Estrogen receptor 70%, progesterone receptor 0%, [facility] and not amplified on FISH and Ki-67 37%. 3. 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 She has ER+, WA neg, Her2 neg disease from recent biopsy. She was changed from Letrozole to Anastrozole and her primary oncologist discussed addition of CDK 4/6 inhibitor to AI therapy. I reviewed all FDA approved options for CDK 4/6 inhibitors and the patient chose palbociclib due to favorable side effect profile. Baseline labs unremarkable. Signed informed consent for palbociclib 125 mg p.o. daily for 21 out of every 28-day cycle in combination with anastrozole 1 mg daily. She is overdue for 2-year DEXA scan and we will order this due to resuming AI therapy. The patient plans to seek orthopedic surgery referral and we can hold her palbociclib therapy for any upcoming surgery. She will be followed here on systemic therapy until she returns to [place] in August and we will forward allof her records to Dr. Lozano at that time. High complexity 60 min face to face history/exam/review of palbociclib and anastrozole; 30 min review of outside pathology, imaging and notes. (2) Osteoarthritis of knees, bilateral Patient wants to be referred to orthopedic surgery by primary care. OK to hold palbociclib and anastrozole for surgery in the future. (3) Encounter for long-term current use of high risk medication Will have oral chemotherapy visit with chemo pharmacist prior to initiation of palbociclib. (4) Encounter for monitoring aromatase inhibitor therapy She is overdue for 2-year DEXA scan and we will order this due to resuming AI therapy. - Chemo Plan Chemo Plan (Dose, Rate, Freq): 04/25/2023: Reviewed informed consent for palbociclib 125 mg p.o. daily for 21 out of every 28-day cycle in combination with anastrozole 1 mg daily. Goal of Treatment: Palliative - Time with Patient Time Spent with Patient (Follow Up Visit): 45 minutes or more - High complexity 60 min face to face history/exam/review of palbociclib and anastrozole; 30 min review of outside pathology, imaging and notes Coordination of Care & Counseling Time: Greater than 50% of time spent with patient was for coordination of care (as documented) and [id number] counseling of patient and/or family. 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 acute Encounter for long-term curr ent use of high risk medication acute Encounter for monitoring aromatase inhibitor therapy chronic Osteoarthritis of knees, bilateral chronic [facility] Work Phone: Evaluation noteNo InformationN[employer] Other Evaluation note* Diagnosis Onset Date Resolution Status 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 Encounter for long-term curr ent use of high risk medication chronic Encounter for monitoring aromatase inhibitor therapy chronic Osteoarthritis of knees, bilateral chronic [facility] Work Phone: Evaluation note* Diagnosis Onset Date Resolution Status 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 Encounter for long-term curr ent use of high risk medication chronic Encounter for monitoring aromatase inhibitor therapy chronic Osteoarthritis of knees, 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 [facility] Work Phone: Evaluation note* Diagnosis Onset Date Resolution Status Pleural effusion, right acut e [facility] Work Phone: History general Narrative - Reported* Type Description Date Medical History Breast cancer, right Medical History Osteopenia Medical History Adenocarcinoma of left breast Medical History Hyperlipemia Medical History Essential hypertension Medical History Type 2 diabetes mellitus without complications Medical History Solar keratosis, lip Medical History Osteoarthritis of ri ght knee, unspecified osteoarthritis type Medical History Osteoarthritis of le ft knee, unspecified osteoarthritis type Medical History Acute pain of right shoulder Surgical History RIGHT BREAST LUMPECTOMY Surgical History LYMPH NODE BIOPSY Surgical History ARTHROSCOPIC KNEE SURGERY Surgical History Right Mastectomy 10/2021 Hospitalization History SEE SURGICAL HX [employer] Other Hospital Discharge instructionsAmbulatory Orders* Toxicity Check Time Frame: 4 Weeks, Location: Determined By Patient [facility] Work Phone: Progress note Author Brandi Lopez [facility] May 29, 2023 9:36pm Note Date/Time May 29, 2023 2:27 pm [facility] at [address] [address] Hem/Onc Follow Up Note - OP Signed Patient: Yolanda Fairbanks MR#: [id number] : 1935 Acct:[id number] Age/Sex: 88 / F Type: REG RCR Copies to: MD Magno Hinson,DO~ Subjective Date/Time of Service: Date of Service: 05/29/2023 Time of Service: 14:26 Chief Complaint: Patient is here today for a one month follow up visit and to goover labs and Dexa bone densitometry. She started Ibrance and having no problemstaking it HPI: 05/29/2023: Yolanda is here for one month followup. She started Ibrance 125mg daily with Anastrozole 1mg daily on 05/15/2023. She denies any toxicities since starting therapy--no mouth ulcers, no diarrhea, and no signs or symptoms of infection. Her right chest wall mass is now about 2.5 cm in diameter with less oozing. She is scheduled for resection of this metastatic lesion by Dr. Salvador on 06/25/2023. Labs are stable without leukopenia. I advised her to finish her third week of Ibrance/Anastrozole then scheduled week off. She will resume nextcycle of Ibrance/Letrozole on 06/12/2023 for one week only, then will hold on 06/19 for scheduled surgery on 06/25/2023. She will continue to hold for one week post-op, then I will followup with her 07/03 to review pathology and determine response to therapy. Moderate complexity 35 minute followup visit. ORIGINAL CONSULT 04/25/2023: This is an 88-year-old lady who lives independently and resides in [facility] about half of the year returning to [place] in the summer and fall. Her primary oncology care is by Dr. Jacquelin Lozano who has graciously provided notes for my evaluation of her recent recurrent right breast cancer. The patient is asomewhat challenging historian and I will summarize her recent issues and history from notes from her primary oncologist visit 01/17/2023. Mrs. Fairbanks is an 88-year-old lady with further progression to stage IV breast cancer in 2022. 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 Shehas a history of stage II right breast cancer in 2012 and is here for follow-up. --Review of systems by Dr. 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 - The patient is offered a surgical consultation but stated she is not interested in surgical interventions -The patient is scheduled for staging PET now and will be advised per results -The patient has been on hormone manipulation therapy with Femara since December2020 and is instructed to discontinue it -We will request estrogen, progesterone, and HER2/dallin evaluation if the skin biopsy is positive and will implement targeted therapy. -Patient is planning to go back to [place] in February and is undergoing knee replacement surgery in summer 2022. The patient will make arrangements to seek surgical consultation in [place] and will decide if she wants to consider CK4/6 inhibitor therapy. -The patient has not had a surveillance follow-up mammogram since 2020 1. 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 There were 2 out of 2 sentinel lymph nodes negative for metastasis, ER 98%, WA 90%, HER2/dallin 1+, p53 8%, Ki-67 10%. She is postmenopausal and declinedchemotherapy. She completed radiation therapy 06/22/2013. She was on hormone manipulation therapy with aromatase inhibitor Arimidex from June 2013 through June 2018. 2. 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 Estrogen receptor 70%, progesterone receptor 0%, HER2/dallin -0% on IHC and not amplified on FISH and Ki-67 37%. --She had clinical findings of right breast lesion in October 2020 with pathology showing intermediate grade invasive carcinoma of no special type measuring 3 mm in maximal linear length and no DCIS identified. --Pathology of right mastectomy 10/28/2020 showed multifocal invasive carcinoma of no special type, high histologic grade 3, 9.2 cm in greatest dimension ulcerating the supra areolar skin with adjacent dermal lymphatic invasion, DCIS and additional microscopic tumor deposits in the subareolar breast, 2 additionaltumor deposits 1.8 and 1.7 cm in greatest dimension and inferior lateral and lateral aspect. 2 out of 2 lymph nodes were benign. --The patient vehemently declined chemotherapy despite being educated about the benefits --She was placed on hormonal manipulation therapy with Femara since December 2020 and was instructed to discontinue this by her physician. --The bone mineral density on 12/16/2020 was read as osteopenia and was advised totake calcium and vitamin D supplementation. 04/25/2023: Patient presents today with large mass encompassing right chest wall with ulceration and bleeding superior to her prior mastectomy scar. She denies any pain in that area and notes she is treating it with topical hydrogen peroxide only. She has not had any purulence or fluctuance suggestive of infection. There were no abnormalities of the left breast, skin changes, or nipple discharge or deviation. [employer] testing of breast biopsy from 01/04/2022 shows ER +65%, WA -0%, HER2/dallin -0%. --PET/CT performed at [facility] 02/04/2022 with interpretation as follows: Impression: 1. Patient is status post right mastectomy with multiple FDG avid infiltrative masses involving the right anterior chest wall including skin, subcutaneous tissue, and deeper layers down to the fascial planes. These may represent metastases, locally recurrent neoplasm, or combination. 2. Small soft tissue nodule adjacent to the lateral aspect of the right eighth rib within the subcutaneous tissues, mildly FDG avid, possibly a small metastasis in this context. 3. Intense focus of increased activity right axilla without an enlarged lymph node and corresponding to the axillary vein, probably pulled injected activity 4. Small focus of increased FDG activity involving the left posterior distal rectal wall which is also somewhat thickened. Small neoplasm in this area cannot be excluded. 5. Various incidental findings including diverticulosis coli, aortic and coronary atherosclerosis, small hiatal hernia, and other findings 6. Subcentimeter slightly FDG avid left internal jugular lymph node in the leftlower neck, nonspecific. This could be reactive versus a small lisandra metastasis. I discussed the patient's findings in detail although I do not have images for her PET/CT for review. We discussed that she continues to have estrogen receptor positive, now progesterone receptor negative, HER2/dallin negative breast cancer. She was changed from letrozole to anastrozole 1 mg daily by her primaryoncologist. We had discussed addition of CDK 4/6 inhibition with 3 available FDA approved therapies including ribociclib, abemaciclib, or palbociclib. We discussed various side effects including hypersensitive pneumonitis, diarrhea, and myelosuppression with each of the 3 medications in combination with AI therapy. The patient chose palbociclib due to toxicity profile over the other 2choices and will continue aromatase inhibitor therapy with anastrozole. She is overdue for 2-year DEXA scan and we will order this due to resuming AI therapy. The patient plans to seek orthopedic surgery referral and we can hold her palbociclib therapy for any upcoming surgery. She will be followed here on systemic therapy until she returns to [place] in August and we will forward allof her records to Dr. Lozano at that time. Today we reviewed chemotherapy counseling for palbociclib 125 mg p.o. daily for 21 out of every 28-day cycle in combination with anastrozole 1 mg daily. Goal of therapy is palliation of symptoms and extension of life but not curative. Common toxicities were reviewed to include allergic reactions, rashes, myelosuppression, fatigue, nausea, vomiting, dyspepsia, constipation, diarrhea, mouth sores, and a mild lopecia. Other toxicities may include uncommon pneumonitis, hepatic and renal toxicities. The patient signed informed consent and will follow-up as directed. She will have an oral chemotherapy visit upon arrival of the medication and see me in follow-up for toxicity visit cycle 1 week 2 with CBC and CMP at that time. This is a high complexity visit over 60 minutes [id number] for review of history and symptoms as well as chemotherapy counseling with an additional 30 minutes for review of extensive outside records. - Summary of Therapies Summary of Therapies: 1. 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 There were 2 out of 2 sentinel lymph nodes negative for metastasis, ER 98%, WA 90%, HER2/dallin 1+, p53 8%, Ki-67 10%. She is postmenopausal and declinedchemotherapy. She completed radiation therapy 06/22/2013. She was on hormone manipulation therapy with aromatase inhibitor Arimidex from June 2013 through June 2018. 2. 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 Estrogen receptor 70%, progesterone receptor 0%, HER2/dallin -0% on IHC and not amplified on FISH and Ki-67 37%. --She had clinical findings of right breast lesion in October 2020 with pathology showing intermediate grade invasive carcinoma of no special type measuring 3 mm in maximal linear length and no DCIS identified. --Pathology of right mastectomy 10/28/2020 showed multifocal invasive carcinoma of no special type, high histologic grade 3, 9.2 cm in greatest dimension ulcerating the supra areolar skin with adjacent dermal lymphatic invasion, DCIS and additional microscopic tumor deposits in the subareolar breast, 2 additionaltumor deposits 1.8 and 1.7 cm in greatest dimension and inferior lateral and lateral aspect. 2 out of 2 lymph nodes were benign. --The patient vehemently declined chemotherapy despite being educated about the benefits --She was placed on hormonal manipulation therapy with Femara since December 2020 and was instructed to discontinue this by her physician. --The bone mineral density on 12/16/2020 was read as osteopenia and was advised totake calcium and vitamin D supplementation. 3. Progression to stage IV right breast cancer with multiple skin metastases inFebruary 2022. - The patient is offered a surgical consultation but stated she is not interested in surgical interventions -The patient is scheduled for staging PET now and will be advised per results -The patient has been on hormone manipulation therapy with Femara since December2020 and is instructed to discontinue it -We will request estrogen, progesterone, and HER2/dallin evaluation if the skin biopsy is positive and will implement targeted therapy. 4. 04/25/2023: Reviewed informed consent for palbociclib 125 mg p.o. daily for 21 out of every 28-day cycle in combination with anastrozole 1 mg daily. Cycle 1, day 1 05/15/2023. Plan to hold on 06/19/2023 for planned excision of chest wall mass -- We may consider repeat palliative radiation course right chest wall based on pathology of excision 06/25/2023. Will plan to resume one week postop. ROS Details: All systems reviewed & no additional complaints except as documented Subjective/ROS - Narrative: CONSTITUTIONAL: Negative for fatigue, negative for fever or night sweats. HEAD AND NECK: Negative for changes in hearing and vision. Negative for mouth ulcers, nasal congestion and nasal drainage. CHEST WALL: Right chest wall with raised nodular masses, largest superior to mastectomy scar with oozing after removing bandage--after 2 weeks on anastrozole--regression to 2.25mg single mass. Firm but nontender. No fluctuance or purulence. Left breast without masses or skin changes. PULMONARY: Negative for chest pain, cough and dyspnea. CARDIOVASCULAR: Negative for claudication and irregular heartbeat/palpitations. GASTROINTESTINAL: Negative for abdominal pain, constipation, decreased appetite,diarrhea, nausea or vomiting. No weight loss. GENITOURINARY: Negative for dysuria and hematuria. ENDOCRINE: Negative for cold intolerance and heat intolerance--Ibrance/anastrozole well tolerated. CENTRAL NERVOUS SYSTEM: Negative for gait disturbance and headache. Ambulates independently, no focal deficits. PSYCHIATRIC: Negative for anxiety or depression. DERMATOLOGICAL: Negative for pruritus or pain. Positive for metastatic skin lesions over right chest wall with oozing as per HPI. MUSCULOSKELETAL: Negative for back pain and bone/joint symptoms other than bilateral knee pain from osteoarthritis (wants to have knee replacement surgery this summer). No myalgia/arthralgia on anastrozole therapy. HEMATOLOGICAL: Negative for bleeding and easy bruising. Negative for history of transfusion or thromboembolic disease ALLERGY: Negative for environmental allergies and food allergies. PMF - History Attestation statement: The following information was validated with the patient. Source: Old Records Reviewed - Medical History Medical History: Medical History (Last Reviewed 05/29/23 @ 21:19 by Brandi Lopez MD) Diabetes Essential hypertension Hyperlipidemia Malignant neoplasm of breast Osteoarthritis Osteopenia Peripheral arterial disease - Surgical History Surgical History: Surgical History (Last Reviewed 05/29/23 @ 21:19 by Brandi Lopez MD) History of breast biopsy left-benign 1999 History of lumpectomy of right breast 2012 History of mastectomy October 2020 right breast - Family History Family History: Family History (Last Reviewed 05/29/23 @ 21:19 by Brandi Lopez MD) Other No significant family history - Social History Smoking Status: Never smoker Home Medications & Allergies Allergies No Known Allergies Allergy (Verified 05/29/23 14:16) Home Medications aspirin 81 mg tablet,delayed release 81 mg PO DAILY 04/11/23 [History Confirmed 05/29/23] calcium carbonate 600 mg-vitamin D3 20 mcg (800 unit) chewable tablet (Caltrate 600 plus D) 1 tab PO BID 04/11/23 [History Confirmed 05/29/23] cholecalciferol (vitamin D3) 25 mcg (1,000 unit) tablet (Vitamin D3) 25 mcg PO DAILY 04/11/23 [History Confirmed 05/29/23] cranberry 500 mg capsule 500 mg PO DAILY 04/11/23 [History Confirmed 05/29/23] ibuprofen 200 mg tablet (Advil) 200 mg PO DIRECTED 04/11/23 [History Confirmed 05/29/23] losartan 100 mg-hydrochlorothiazide 12.5 mg tablet 1 tab PO DAILY 04/11/23 [History Confirmed 05/29/23] metformin 1,000 mg tablet 1,000 mg PO BID 04/11/23 [History Confirmed 05/29/23] omega 9-cil-omp-fish oil 900 mg-1,400 mg capsule,delayed release 1 cap PO DAILY 04/11/23 [History Confirmed 05/29/23] simvastatin 40 mg tablet 40 mg PO DAILY 04/11/23 [History Confirmed 05/29/23] palbociclib 125 mg tablet (Ibrance) 125 mg PO DAILY 28 days #21 tabs 04/25/23 [Rx Confirmed 05/29/23] letrozole 2.5 mg tablet 2.5 mg PO DAILY 05/15/23 [History Confirmed 05/29/23] Objective - Height/Weight Height/Weight: Height 5 ft 4 in Weight 65.317 kg - Vital Signs Vital Signs: 05/29/23 14:16 Temperature 97.8 F Pulse Rate [Left Brachial] 78 Respiratory Rate 16 Blood Pressure [Left Arm] 125/71 02 Sat by Pulse Oximetry 98 Oxygen Delivery Method Room Air Physical Exam Narrative: CONSTITUTIONAL: The patient is in no acute distress. HEAD / FACE: Normocephalic. EYES: Pupils are equal and reactive to light. Conjunctivae and lids are benign in appearance. Ocular movement intact. EARS: Hearing grossly intact. NOSE / MOUTH / THROAT: Nose, mouth, tongue and oropharynx are benign in appearance. No signs of inflammation. NECK / THYROID: Neck is supple. Thyroid is symmetrical, without thyromegaly, masses or palpable nodules. LYMPHATIC: No palpable cervical, supraclavicular, axillary, or inguinal adenopathy. CHEST WALL: Right chest wall with now one raised nodular mass, superior to mastectomy scar about 2.5cm with less oozing. Firm but nontender. No fluctuance or purulence. Flat firm skin over right chest wall. Left breast without masses or skin changes. RESPIRATORY: Normal to inspection. Lungs clear to auscultation and percussion. No wheezing, rales, rhonchi or rubs. Normal effort. CARDIOVASCULAR: Regular rate and rhythm. No murmurs, gallops, or rubs. VASCULAR: Carotid, radial, femoral and pedal pulses present bilaterally. No bruits. ABDOMEN: Bowel sounds normoactive. Soft, nontender and non-distended. No hepatosplenomegaly. No masses. GENITOURINARY: No CVA tenderness. No suprapubic fullness or tenderness. No groinadenopathy. No evidence of hernias. INTEGUMENTARY: Positive for metastatic skin lesions over right chest wall with oozing as per HPI. BACK / SPINE: The back is nontender. No step off deformity. MUSCULOSKELETAL: Normal musculature, no joint deformities or abnormalities, normal range of motion for all four extremities. EXTREMITIES: No edema, cyanosis or clubbing. No Guicho sign. NEUROLOGICAL: Alert and oriented. Cranial nerves intact. No gross motor or sensory deficits. PSYCHIATRIC: No anxiety or evidence of depression. - ECOG Performance Status ECOG Score: 1 Results - Labs Labs: Diagram of Most Recent CBC and CMP 05/27/23 11:06 05/27/23 11:06 Labs - Last 7 Days 05/27/23 11:06: PHA Creatinine Clear 32.78, Sodium 139, Potassium 4.0, Chloride 102, Carbon Dioxide 31.2 H, Anion Gap 9.8, BUN 23, Creatinine 1.15, Est GFR (CKD-EPI) 46.394, Glucose 136 H, Calcium 9.9, Total Bilirubin 0.5, AST 11 L, ALT8, Alkaline Phosphatase 62, Total Protein 6.5, Albumin 4.3, Globulin 2.2, Albumin/Globulin Ratio 2.0 05/27/23 11:06: Corrected WBC 4.3, Uncorrected WBC Count 4.3, RBC 4.18, Hgb 11.8, Hct 35.6, MCV 85.2, MCH 28.4, MCHC 33.3, RDW 15.3, Plt Count 287, MPV 7.8,Neut % (Auto) 66.1, Lymph % (Auto) 29.3, Jenkins % (Auto) 2.8, Eos % (Auto) 1.2, Baso % (Auto) 0.6, Nucleat RBC Rel Count 0.2, Neut # (Auto) 2.8, Lymph # (Auto) 1.3, Jenkins # (Auto) 0.1, Eos # (Auto) 0.1, Baso # (Auto) 0.0 - Impressions DEXA scan baseline 05/08/2023: AP Spine T-score + 1.7, normal Left Femoral Neck -2.1, osteopenia Right Femoral Neck -2.5, osteoporosis Assessment and Plan - TNM Staging Stagin. 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 There were 2 out of 2 sentinel lymph nodes negative for metastasis, ER 98%, WA 90%, HER2/dallin 1+, p53 8%, Ki-67 10%. 2. Stage II right breast invasive ductal carcinoma status post right mastectomyDece2019. Estrogen receptor 70%, progesterone receptor 0%, HER2/dallin -0% onIHC and not amplified on FISH and Ki-67 37%. 3. 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 She has ER+, WA neg, Her2 neg disease from recent biopsy. She was changed from Letrozole to Anastrozole and her primary oncologist discussed addition of CDK 4/6 inhibitor to AI therapy. I reviewed all FDA approved options for CDK 4/6 inhibitors and the patient chose palbociclib due tofavorable side effect profile. Baseline labs unremarkable. Signed informed consent for palbociclib 125 mg p.o. daily for 21 out of every 28-day cycle in combination with anastrozole 1 mg daily. She is overdue for 2-year DEXA scan and we will order this due to resuming AI therapy. The patient plans to seek orthopedic surgery referral and we can hold her palbociclib therapy for any upcoming surgery. She will be followed here on systemic therapy until she returns to [place] in August and we will forward allof her records to Dr. Lozano at that time. High complexity 60 min face to face history/exam/review of palbociclib and anastrozole; 30 min review of outside pathology, imaging and notes. 05/29/2023: Started Ibrance 125mg po daily x 21 of every 28 days with daily Anastrozole. As per HPI, she had no toxicities or cytopenias. I recommend holding next cycle on 06/19 for planned excision of right chest wall lesion on 06/25/2023. Continue to hold until 07/03 when she will followup with me for results. DEXA scan shows baseline osteoporosis--may consider starting Prolia with calcium/vitamin D at followup after surgery. Moderate complexity 35 minutefollowup visit. (2) Osteoarthritis of knees, bilateral Patient wants to be referred to orthopedic surgery by primary care. OK to hold palbociclib and anastrozole for surgery in the future. 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 Will plan Prolia 60mg sq every 6 months after her surgery f/u on 06/25/2023. (4) Encounter for long-term current use of high risk medication 05/15/2023: cycle 1, day 1 palbociclib 125mg daily D1-21 every 28 day cycle with anastrozole 1mg daily. Will hold for upcoming surgery 06/25 for excision of recurrence. (5) Encounter for monitoring aromatase inhibitor therapy Started Anastrozole 1mg daily on 05/15/2023: We reviewed 2-year DEXA scan on AI therapy--consistent with osteoporosis. Will plan Prolia 60mg sq every 6 months after her surgery f/u on 06/25/2023. - Chemo Plan Chemo Plan (Dose, Rate, Freq): 05/15/2023: C1D1 palbociclib 125 mg p.o. daily for 21 out of every 28-day cycle incombination with anastrozole 1 mg daily. Goal of Treatment: Palliative - Time with Patient Time Spent with Patient (Follow Up Visit): 35 minutes - Moderate complexity 35 minute history/exam/review of toxicities of palbociclib and anastrozole Coordination of Care & Counseling Time: Greater than 50% of time spent with patient was for coordination of care (as documented) and [id number] counseling of patient and/or family. Dictated By: Brandi Lopez MD DD/ [id number] Signed By: <Electronically signed by MD Brandi Lopez> 05/29/23 [address] [facility] Work Phone: Progress note Author Brandi Lopez [facility] July 03, 2023 7:17pm Note Date/Time July 03, 2023 1: 38pm [facility] [place] [address] Hem/Onc Follow Up Note - OP Signed Patient: Yolanda Fairbanks MR#: [id number] : 1935 Acct:[id number] Age/Sex: 88 / F Type: REG RCR Copies to: Ethel Wakefield MD~ Subjective Date/Time of Service: Date of Service: 07/03/2023 Time of Service: 13:36 Chief Complaint: Patient is here today for a 1 month follow up visit for chest wall recurrance of right breast cancer HPI: 07/03/2023: Yolanda is here for followup after evaluation by Dr. Salvador--he contacted me noting that since she still has a larger pedunculated area about 2cm with a surrounding erythematous shiny area over prior irradiated skin. He informed her that there is no residual healthy skin to allow for proper wound healing. She has further regression of the nodule from prior exam and it no longer has oozing or bleeding from the site. She held her Ibrance last Saturdayfor evaluation by Dr. Salvador, but since she is not having surgery, I advised herto take her last 3 days of Letrozole starting today (Sat-Saturday). She will haveone week off, then resume next cycle of Ibrance on SaturdayJuly 14 for 3 weeks on, 1 week off cycles at same dose. No toxicities of therapy, mild leukopenia without neutropenia or infections. I will f/u with her in 2 months (late Aug 2023) prior to transfer of care back to her [place] physician Dr. Lozano. Moderate complexity 35 minute followup visit. 05/29/2023: Yolanda is here for one month followup. She started Ibrance 125mg daily with Letrozole 1mg daily on 05/15/2023. She denies any toxicities since starting therapy--no mouth ulcers, no diarrhea, and no signs or symptoms of infection. Her right chest wall mass is now about 2.5 cm in diameter with less oozing. She is scheduled for resection of this metastatic lesion by Dr. Salvador on 06/25/2023. Labs are stable without leukopenia. I advised her to finish her third week of Ibrance/Letrozole then scheduled week off. She will resume next cycle of Ibrance/Letrozole on 06/12/2023 for one week only, then will hold on 06/19 for scheduled surgery on 06/25/2023. She will continue to hold for one week post-op, then I will followup with her 07/03 to review pathology and determine response to therapy. Moderate complexity 35 minute followup visit. ORIGINAL CONSULT 04/25/2023: This is an 88-year-old lady who lives independently and resides in [facility] about half of the year returning to [place] in the summer and fall. Her primary oncology care is by Dr. Jacquelin Lozano who has graciously provided notes for my evaluation of her recent recurrent right breast cancer. The patient is asomewhat challenging historian and I will summarize her recent issues and history from notes from her primary oncologist visit 01/17/2023. Mrs. Fairbanks is an 88-year-old lady with further progression to stage IV breast cancer in 2022. 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 Shehas a history of stage II right breast cancer in 2012 and is here for follow-up. --Review of systems by Dr. 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 - The patient is offered a surgical consultation but stated she is not interested in surgical interventions -The patient is scheduled for staging PET now and will be advised per results -The patient has been on hormone manipulation therapy with Femara since December2020 and is instructed to discontinue it -We will request estrogen, progesterone, and HER2/dallin evaluation if the skin biopsy is positive and will implement targeted therapy. -Patient is planning to go back to [place] in February and is undergoing knee replacement surgery in summer 2022. The patient will make arrangements to seek surgical consultation in [place] and will decide if she wants to consider CK4/6 inhibitor therapy. -The patient has not had a surveillance follow-up mammogram since 2020 1. 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 There were 2 out of 2 sentinel lymph nodes negative for metastasis, ER 98%, WA 90%, HER2/dallin 1+, p53 8%, Ki-67 10%. She is postmenopausal and declinedchemotherapy. She completed radiation therapy 06/22/2013. She was on hormone manipulation therapy with aromatase inhibitor Arimidex from June 2013 through June 2018. 2. 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 Estrogen receptor 70%, progesterone receptor 0%, HER2/dallin -0% on IHC and not amplified on FISH and Ki-67 37%. --She had clinical findings of right breast lesion in October 2020 with pathology showing intermediate grade invasive carcinoma of no special type measuring 3 mm in maximal linear length and no DCIS identified. --Pathology of right mastectomy 10/28/2020 showed multifocal invasive carcinoma of no special type, high histologic grade 3, 9.2 cm in greatest dimension ulcerating the supra areolar skin with adjacent dermal lymphatic invasion, DCIS and additional microscopic tumor deposits in the subareolar breast, 2 additionaltumor deposits 1.8 and 1.7 cm in greatest dimension and inferior lateral and lateral aspect. 2 out of 2 lymph nodes were benign. --The patient vehemently declined chemotherapy despite being educated about the benefits --She was placed on hormonal manipulation therapy with Femara since December 2020 and was instructed to discontinue this by her physician. --The bone mineral density on 12/16/2020 was read as osteopenia and was advised totake calcium and vitamin D supplementation. 04/25/2023: Patient presents today with large mass encompassing right chest wall with ulceration and bleeding superior to her prior mastectomy scar. She denies any pain in that area and notes she is treating it with topical hydrogen peroxide only. She has not had any purulence or fluctuance suggestive of infection. There were no abnormalities of the left breast, skin changes, or nipple discharge or deviation. [facility] testing of breast biopsy from 01/04/2022 shows ER +65%, WA -0%, HER2/dallin -0%. --PET/CT performed at [facility] 02/04/2023 with interpretation as follows: Impression: 1. Patient is status post right mastectomy with multiple FDG avid infiltrative masses involving the right anterior chest wall including skin, subcutaneous tissue, and deeper layers down to the fascial planes. These may represent metastases, locally recurrent neoplasm, or combination. 2. Small soft tissue nodule adjacent to the lateral aspect of the right eighth rib within the subcutaneous tissues, mildly FDG avid, possibly a small metastasis in this context. 3. Intense focus of increased activity right axilla without an enlarged lymph node and corresponding to the axillary vein, probably pulled injected activity 4. Small focus of increased FDG activity involving the left posterior distal rectal wall which is also somewhat thickened. Small neoplasm in this area cannot be excluded. 5. Various incidental findings including diverticulosis coli, aortic and coronary atherosclerosis, small hiatal hernia, and other findings 6. Subcentimeter slightly FDG avid left internal jugular lymph node in the leftlower neck, nonspecific. This could be reactive versus a small lisandra metastasis. I discussed the patient's findings in detail although I do not have images for her PET/CT for review. We discussed that she continues to have estrogen receptor positive, now progesterone receptor negative, HER2/dallin negative breast cancer. She was changed from letrozole to anastrozole 1 mg daily by her primaryoncologist. We had discussed addition of CDK 4/6 inhibition with 3 available FDA approved therapies including ribociclib, abemaciclib, or palbociclib. We discussed various side effects including hypersensitive pneumonitis, diarrhea, and myelosuppression with each of the 3 medications in combination with AI therapy. The patient chose palbociclib due to toxicity profile over the other 2choices and will continue aromatase inhibitor therapy with letrozole. She is overdue for 2-year DEXA scan and we will order this due to resuming AI therapy. The patient plans to seek orthopedic surgery referral and we can hold her palbociclib therapy for any upcoming surgery. She will be followed here on systemic therapy until she returns to [place] in August and we will forward allof her records to Dr. Lozano at that time. Today we reviewed chemotherapy counseling for palbociclib 125 mg p.o. daily for 21 out of every 28-day cycle in combination with letrozole 2.5mg daily. Goal oftherapy is palliation of symptoms and extension of life but not curative. Common toxicities were reviewed to include allergic reactions, rashes, myelosuppression, fatigue, nausea, vomiting, dyspepsia, constipation, diarrhea, mouth sores, and a mild lopecia. Other toxicities may include uncommon pneumonitis, hepatic and renal toxicities. The patient signed informed consent and will follow-up as directed. She will have an oral chemotherapy visit upon arrival of the medication and see me in follow-up for toxicity visit cycle 1 week 2 with CBC and CMP at that time. This is a high complexity visit over 60 minutes [id number] for review of history and symptoms as well as chemotherapy counseling with an additional 30 minutes for review of extensive outside records. - Summary of Therapies Summary of Therapies: 1. 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 There were 2 out of 2 sentinel lymph nodes negative for metastasis, ER 98%, WA 90%, HER2/dallin 1+, p53 8%, Ki-67 10%. She is postmenopausal and declinedchemotherapy. She completed radiation therapy 06/22/2013. She was on hormone manipulation therapy with aromatase inhibitor Arimidex from June 2013 through June 2018. 2. 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 Estrogen receptor 70%, progesterone receptor 0%, HER2/dallin -0% on IHC and not amplified on FISH and Ki-67 37%. --She had clinical findings of right breast lesion in October 2020 with pathology showing intermediate grade invasive carcinoma of no special type measuring 3 mm in maximal linear length and no DCIS identified. --Pathology of right mastectomy 10/28/2020 showed multifocal invasive carcinoma of no special type, high histologic grade 3, 9.2 cm in greatest dimension ulcerating the supra areolar skin with adjacent dermal lymphatic invasion, DCIS and additional microscopic tumor deposits in the subareolar breast, 2 additionaltumor deposits 1.8 and 1.7 cm in greatest dimension and inferior lateral and lateral aspect. 2 out of 2 lymph nodes were benign. --The patient vehemently declined chemotherapy despite being educated about the benefits --She was placed on hormonal manipulation therapy with Femara since December 2020 and was instructed to discontinue this by her physician. --The bone mineral density on 12/16/2020 was read as osteopenia and was advised totake calcium and vitamin D supplementation. 3. Progression to stage IV right breast cancer with multiple skin metastases inFebruary 2022. - The patient is offered a surgical consultation but stated she is not interested in surgical interventions -The patient is scheduled for staging PET now and will be advised per results -The patient has been on hormone manipulation therapy with Femara since December2020 and is instructed to discontinue it -We will request estrogen, progesterone, and HER2/dallin evaluation if the skin biopsy is positive and will implement targeted therapy. 4. 04/25/2023: Reviewed informed consent for palbociclib 125 mg p.o. daily for 21 out of every 28-day cycle in combination with letrozole 2.5 mg daily. Cycle 1, day 1 05/15/2023. Plan to hold on 06/19/2023 for planned excision of chest wall mass -- Dr. Salvador advised patient against excision, but patient has partial responseby palbociclib/letrozole 2.5 mg daily. Will resume 3 further days of current cycle on hold then resume next cycle 07/14/2023. ROS Details: All systems reviewed & no additional complaints except as documented Subjective/ROS - Narrative: CONSTITUTIONAL: Negative for fatigue, negative for fever or night sweats. HEAD AND NECK: Negative for changes in hearing and vision. Negative for mouth ulcers, nasal congestion and nasal drainage. CHEST WALL: Right chest wall with raised nodular masses, largest superior to mastectomy scar with oozing after removing bandage--after 2 weeks on anastrozole--regression to 2.5mg single mass--current mass 2cm. Less firm and nontender. No fluctuance or purulence. Left breast without masses or skin changes. PULMONARY: Negative for chest pain, cough and dyspnea. CARDIOVASCULAR: Negative for claudication and irregular heartbeat/palpitations. GASTROINTESTINAL: Negative for abdominal pain, constipation, decreased appetite,diarrhea, nausea or vomiting. No weight loss. GENITOURINARY: Negative for dysuria and hematuria. ENDOCRINE: Negative for cold intolerance and heat intolerance--Ibrance/letrozolewell tolerated. CENTRAL NERVOUS SYSTEM: Negative for gait disturbance and headache. Ambulates independently, no focal deficits. PSYCHIATRIC: Negative for anxiety or depression. DERMATOLOGICAL: Negative for pruritus or pain. Positive for metastatic skin lesions over right chest wall with oozing as per HPI--now only 2cm pedunculated nodule, no longer oozing with minimal ulceration. MUSCULOSKELETAL: Negative for back pain and bone/joint symptoms other than bilateral knee pain from osteoarthritis (picking up a cane for ambulation--orthohas deferred knee replacement until assessment of treatment response). No myalgia/arthralgia on letrozole therapy. HEMATOLOGICAL: Negative for bleeding and easy bruising. Negative for history of transfusion or thromboembolic disease ALLERGY: Negative for environmental allergies and food allergies. PMFSH - History Attestation statement: The following information was validated with the patient. Source: Old Records Reviewed - Medical History Medical History: Medical History (Last Reviewed 07/03/23 @ 18:53 by Brandi Lopez MD) Diabetes Essential hypertension Hyperlipidemia Malignant neoplasm of breast Osteoarthritis Osteopenia Peripheral arterial disease - Surgical History Surgical History: Surgical History (Last Reviewed 07/03/23 @ 18:53 by Brandi Lopez MD) History of breast biopsy left-benign 1999 History of lumpectomy of right breast 2012 History of mastectomy October 2020 right breast - Family History Family History: Family History (Last Reviewed 07/03/23 @ 18:53 by Brandi Lopez MD) Other No significant family history - Social History Smoking Status: Never smoker Home Medications & Allergies Allergies No Known Allergies Allergy (Verified 07/03/23 13:28) Home Medications aspirin 81 mg tablet,delayed release 81 mg PO DAILY 04/11/23 [History Confirmed 07/03/23] calcium carbonate 600 mg-vitamin D3 20 mcg (800 unit) chewable tablet (Caltrate 600 plus D) 1 tab PO BID 04/11/23 [History Confirmed 07/03/23] cholecalciferol (vitamin D3) 25 mcg (1,000 unit) tablet (Vitamin D3) 25 mcg PO DAILY 04/11/23 [History Confirmed 07/03/23] cranberry 500 mg capsule 500 mg PO DAILY 04/11/23 [History Confirmed 07/03/23] ibuprofen 200 mg tablet (Advil) 200 mg PO DIRECTED 04/11/23 [History Confirmed 07/03/23] losartan 100 mg-hydrochlorothiazide 12.5 mg tablet 1 tab PO DAILY 04/11/23 [History Confirmed 07/03/23] metformin 1,000 mg tablet 1,000 mg PO BID 04/11/23 [History Confirmed 07/03/23] omega 5-wqa-hsh-fish oil 900 mg-1,400 mg capsule,delayed release 1 cap PO DAILY 04/11/23 [History Confirmed 07/03/23] simvastatin 40 mg tablet 40 mg PO DAILY 04/11/23 [History Confirmed 07/03/23] palbociclib 125 mg tablet (Ibrance) 125 mg PO DAILY 28 days #21 tabs 04/25/23 [Rx Confirmed 07/03/23] letrozole 2.5 mg tablet 2.5 mg PO DAILY 05/15/23 [History Confirmed 07/03/23] Objective - Height/Weight Height/Weight: Height 5 ft 4 in Weight 66.224 kg - Vital Signs Vital Signs: 07/03/23 13:32 Temperature 97.9 F Pulse Rate [Left Brachial] 83 Respiratory Rate 16 Blood Pressure [Left Arm] 146/82 H 02 Sat by Pulse Oximetry 99 Oxygen Delivery Method Room Air Physical Exam Narrative: CONSTITUTIONAL: The patient is in no acute distress. HEAD / FACE: Normocephalic. EYES: Pupils are equal and reactive to light. Conjunctivae and lids are benign in appearance. Ocular movement intact. EARS: Hearing grossly intact. NOSE / MOUTH / THROAT: Nose, mouth, tongue and oropharynx are benign in appearance. No signs of inflammation. NECK / THYROID: Neck is supple. Thyroid is symmetrical, without thyromegaly, masses or palpable nodules. LYMPHATIC: No palpable cervical, supraclavicular, axillary, or inguinal adenopathy. CHEST WALL: Right chest wall with now one raised nodular mass, superior to mastectomy scar about 2cm with resolved oozing. Less firm and nontender. No fluctuance or purulence. Flat firm shiny skin over right chest wall. Left breast without masses or skin changes. RESPIRATORY: Normal to inspection. Lungs clear to auscultation and percussion. No wheezing, rales, rhonchi or rubs. Normal effort. CARDIOVASCULAR: Regular rate and rhythm. No murmurs, gallops, or rubs. VASCULAR: Carotid, radial, femoral and pedal pulses present bilaterally. No bruits. ABDOMEN: Bowel sounds normoactive. Soft, nontender and non-distended. No hepatosplenomegaly. No masses. GENITOURINARY: No CVA tenderness. No suprapubic fullness or tenderness. No groinadenopathy. No evidence of hernias. INTEGUMENTARY: Positive for metastatic skin lesions over right chest wall with oozing as per HPI. BACK / SPINE: The back is nontender. No step off deformity. MUSCULOSKELETAL: Normal musculature, no joint deformities or abnormalities, limited range of motion bilateral knees. EXTREMITIES: No edema, cyanosis or clubbing. No Guicho sign. NEUROLOGICAL: Alert and oriented. Cranial nerves intact. No gross motor or sensory deficits. PSYCHIATRIC: No anxiety or evidence of depression. - ECOG Performance Status ECOG Score: 1 - limited ambulation due to osteoarthritis Results - Labs Labs: Diagram of Most Recent CBC and CMP 07/01/23 10:49 07/01/23 10:49 Labs - Last 7 Days 07/01/23 10:49: PHA Creatinine Clear 24.56, Sodium 138, Potassium 3.8, Chloride 101, Carbon Dioxide 29.1, Anion Gap 11.7, BUN 25, Creatinine 1.42 H, Est GFR (CKD- EPI) 36.021, Glucose 144 H, Calcium 9.8, Total Bilirubin 0.4, AST 11 L, ALT9, Alkaline Phosphatase 53, Total Protein 6.4, Albumin 4.2, Globulin 2.2, Albumin/Globulin Ratio 1.9 07/01/23 10:49: Corrected WBC 3.0 L, Uncorrected WBC Count 3.0 L, RBC 3.75, Hgb 11.3 L, Hct 34.3, MCV 91.4, MCH 30.2, MCHC 33.1, RDW 23.6 H, Plt Count 252, MPV 7.7, Neut % (Auto) 43.2, Lymph % (Auto) 47.5, Jenkins % (Auto) 6.4, Eos % (Auto) 0.9, Baso % (Auto) 2.0, Nucleat RBC Rel Count 0.4, Neut # (Auto) 1.3 L, Lymph # (Auto) 1.4, Jenkins # (Auto) 0.2, Eos # (Auto) 0.0, Baso # (Auto) 0.1 - Impressions Date of Service: 05/16/23 XR/XR knee BI 4V: Acute pain of right knee ([id number]) XR/XR pelvis 1-2V: Acute pain of right knee 4 views both knee plain film COMPARISON: None HISTORY: Bilateral knee pain greater on the right ACUTE FINDINGS: None DEGENERATIVE CHANGE: Extensive [id number] contact the medial compartment degeneration seen bilaterally. Mild patellofemoral and lateral compartment degenerative changes. Bilateral mild degenerative subluxation. SOFT TISSUE FINDINGS: Unremarkable JOINT EFFUSION: None POSTOP CHANGES: None BONE MINERALIZATION: Adequate XR/XR knee BI 4V IMPRESSION: Extensive [id number] bilateral medial compartment degenerative changes. Single view pelvis Mild bilateral hip and SI joint degenerative changes. Moderate lower lumbar degenerative change. No fracture. Adequate bony alignment. Minimal atherosclerosis. IMPRESSION: Mild bilateral hip degeneration. Impression dictated by: Dane Tellez M.D.05/16/2023 4:32 PM DEXA scan baseline 05/08/2023: AP Spine T-score + 1.7, normal Left Femoral Neck -2.1, osteopenia Right Femoral Neck -2.5, osteoporosis Assessment and Plan - TNM Staging Stagin. 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 There were 2 out of 2 sentinel lymph nodes negative for metastasis, ER 98%, WA 90%, HER2/dallin 1+, p53 8%, Ki-67 10%. 2. Stage II right breast invasive ductal carcinoma status post right mastectomyDece2019. Estrogen receptor 70%, progesterone receptor 0%, [facility] and not amplified on FISH and Ki-67 37%. 3. 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 She has ER+, WA neg, Her2 neg disease from recent biopsy. She was changed from Letrozole to Anastrozole and her primary oncologist discussed addition of CDK 4/6 inhibitor to AI therapy. I reviewed all FDA approved options for CDK 4/6 inhibitors and the patient chose palbociclib due to favorable side effect profile. Baseline labs unremarkable. Signed informed consent for palbociclib 125 mg p.o. daily for 21 out of every 28-day cycle in combination with letrozole 2.5 mg daily (initial plan was to change to anastrozole, but she is taking letrozole). She is overdue for 2-year DEXA scan and we will order this due to resuming AI therapy. The patient plans to seek orthopedic surgery referral and we can hold her palbociclib therapy for any upcoming surgery. She will be followed here on systemic therapy until she returns to [place] in August and we will forward allof her records to Dr. Lozano at that time. High complexity 60 min face to face history/exam/review of palbociclib and anastrozole; 30 min review of outside pathology, imaging and notes. 05/29/2023: Started Ibrance 125mg po daily x 21 of every 28 days with daily Letrozole. As per HPI, she had no toxicities or cytopenias. I recommend holding next cycle on 06/19 for planned excision of right chest wall lesion on 06/25/2023. Continue to hold until 07/03 when she will followup with me for results. DEXA scan shows baseline osteoporosis--may consider starting Prolia with calcium/vitamin D at followup after surgery. Moderate complexity 35 minutefollowup visit. 07/03/2023: Yolanda has completed nearly 2 cycles of Ibrance/Letrozole and is not acandidate for surgical excision of her chest wall recurrence after evaluation byDr. Salvador. WBC is now 3000 with ANC 1300 and no infections or nonhematologic toxicities. I advised her to complete the last 3 days of her current cycle, then next cycle of Ibrance 125mg D1-21 will start (with 28 day letrozole) 07/14/2023. Next f/u with me in 2 months (after 2 more cycles of Ibrance) with CBC, CMP andto coordinate transfer of care back to Dr. Lozano in [place]. Moderate complexityvisit 35 minutes. (2) Osteoarthritis of knees, bilateral Patient wants to be referred to orthopedic surgery by primary care. OK to hold palbociclib and anastrozole for surgery in the future. Currently ambulating with a cane and deferring surgery until stable response of disease. 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 We may add Prolia 60mg sq every 6 months (will discuss at her followup visit in August prior to transfer of care to [place]). (4) Encounter for long-term current use of high risk medication 05/15/2023: cycle 1, day 1 palbociclib 125mg daily D1-21 every 28 day cycle with anastrozole 1mg daily. Resumed after surgery evaluation, not a candidate for excision. (5) Encounter for monitoring aromatase inhibitor therapy Started Anastrozole 1mg daily on 05/15/2023: We reviewed 2-year DEXA scan on AI therapy--consistent with osteoporosis. Will plan Prolia 60mg sq every 6 months (may start at next followup in August) - Chemo Plan Chemo Plan (Dose, Rate, Freq): 05/15/2023: C1D1 palbociclib 125 mg p.o. daily for 21 out of every 28-day cycle incombination with letrozole 2.5 mg daily. Goal of Treatment: Palliative - Time with Patient Time Spent with Patient (Follow Up Visit): 35 minutes - Moderate complexity 35 minute history/exam/review of toxicities of palbociclib and letrozole Coordination of Care & Counseling Time: Greater than 50% of time spent with patient was for coordination of care (as documented) and [id number] counseling of patient and/or family. Dictated By: Brandi Lopez MD DD/ [id number] Signed By: <Electronically signed by MD Brandi Lopez> 07/03/23 1917 [facility] Work Phone: Reason for referral (narrative)* Reason Prentiss surgeon ref erral placed - per note from Dr. Lopez's office. Diagnosis 1 Breast carcinoma, fe male, right (C50.911) Referral Organization [facility] [place] Referring Provider First Name Ethel Referring Provider Last Name Ashu Referring Provider Specialty Family [facility] Referred Organization Unknown Facility Referred Provider Blaine Burkett V Referred Provider Specialty Surgery Referral Priority Routine [employer] Other Summary Purpose Family History Relationship Condition Age at Onset Recorded Date/T sandor Not Specified No pertinent family history Unknown Relationship Condition Age at Onset Recorded Date/T sandor Not Specified No pertinent family history Unknown Not Specified Malignant neoplasm of breast Unknown Malignant neoplasm Unknown Advance Directives Advance Directive Response Recorded Date/ Time Advance Directives No April 25 1:05pm Chief Complaint and Reason for Visit Chief Complaint breast cancer open a shyam mastectomy site Chief Complaint m17.0 m81.0 z79.899 c50.919 breast cancer open area mastectomy site Reason for Visit Chest wall recurrenc e of right breast cancer Encounter for long-term current use of high risk medication Encounter for monitoring aromatase inhibitor therapy Osteoarthritis of knees, bilateral Chief Complaint m17.0 m81.0 [id number] c50.919 breast cancer open area mastectomy site Reason for Visit 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 Encounter for long-term current use of high risk medication Encounter for monitoring aromatase inhibitor therapy Osteoarthritis of knees, bilateral Chief Complaint breast cancer open a shyam mastectomy site Reason for Visit Chest wall recurrenc e of right breast cancer Encounter for long-term current use of high risk medication Encounter for monitoring aromatase inhibitor therapy Osteoarthritis of knees, 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 Chief Complaint Unknown Chief Complaint Unknown Check up Reason for Visit Pleural effusion, ri ght Additional Source Comments INFORMATION SOURCE (unrecogn ized section and content) DATE CREATED AUTHOR 06/09/2022 [facility] DATE CREATED AUTHOR AUTHOR'S ORGANIZ ATION 04/27/2023 [facility] DATE CREATED AUTHOR AUTHOR'S ORGANIZ ATION 03/22/2024 [facility] REASON FOR VISIT (unrecogniz ed section and content) referralCONSULT DR LUCY Fish RT KNEE PAIN NXNo Information Care Teams (unrecognized sec tion and content) Team Status: Active Member Role Status Dates Ethel Wakefield MD Primary Care Provider Active Team Status: Active Member Role Status Dates Brandi Lopez MD Attending Provider Active Ethel Wakefield MD Primary Care Provider, Referring Mari parrish Active Team Status: Inactive Member Role Status Dates Ethel Wakefield MD Primary Care Provider Active Leonardo Herron II, MD Attending Provider Active Brandi Lopez MD Other Provider Active Team Status: Active Member Role Status Dates Ethel Wakefield MD Primary Care Provider Active Start: March 18, 2024 Hanh Kuhn DO Attending Provider Active Sta rt: March 18, 2024 Team Status: Active Member Role Status Dates Ethel Wakefield MD Primary Care Provider Active Start: March 19, 2024 Shaikh Camilla MD Attending Provider Active Sta rt: March 19, 2024 Team Status: Inactive Member Role Status Dates Ethel Wakefield MD Primary Care Provider Active Start: March 19, 2024 End: March 19, 2024 Tab Wang MD Attending Provider Active Start: March 19, 2024 End: March 19, 2024 Team Status: Active Member Role Status Dates Ethel Wakefield MD Primary Care Provider Active Start: March 20, 2024 Shaikh Camilla MD Attending Provider Active Sta rt: March 20, 2024 Team Status: Inactive Member Role Status Dates Ethel Wakefield MD Primary Care Provide r, Attending Provider Active Start: March 23, 2024 End: March 23, 2024 Goals (unrecognized section and content) Goals may be documented in a n alternate section FOR RECORDS PERTAINING TO PATIENTS WHO ARE OR HAVE BEEN ENROLLED IN A CHEMICAL DEPENDENCY/SUBSTANCEABUSE PROGRAM, SOME INFORMATION MAY BE OMITTED. This clinical summary was aggregated from multiple sources. Caution should be exercised in using it in the provision of clinical care. This summary normalizes information from multiple sources, and as a consequence, information in this document may materially change the coding, format and clinical context of patient data. In addition, data may be omitted in some cases. CLINICAL DECISIONS SHOULD BE BASED ON THE PRIMARY CLINICAL RECORDS. [employer] provides no warranty or guarantee of the accuracy or completeness of information in this document.
== END 2024-03-25 11:16 | disposition home or self-care (01) ==
LOC: RAD 11:17
PROVIDERS: PCP Family Medicine; Visit Provider Family Medicine
DX: J90 Pleural effusion, not elsewhere classified (principal)
CPT/HCPCS: 71046

== ENCOUNTER 2024-04-08 12:51 | Outpatient (REF) | payer MEDICARE, BC, SELFPAY ==
[2024-04-08 13:16] LABS: Basophils Absolute Auto 0.1 10^3/uL (0.0-0.1); Basophils Percent Auto 0.6 % (0.2-2.0); Eosinophils Absolute Auto 0.2 10^3/uL (0.0-0.7); Hematocrit 33.8 % (36.0-48.0); Hemoglobin 11.1 g/dL (12.0-16.0); Immature Granulocytes Abs Auto 0.04 10^3/uL (0.00-0.03); Immature Granulocytes Pct Auto 0.4 % (0.0-0.5); Lymphocytes Absolute Auto 1.7 10^3/uL (1.2-3.8); Mean Corpuscular HGB Conc 32.8 g/dL (29.9-35.2); Mean Corpuscular Hemoglobin 31.5 pg (26.7-34.0); Monocytes Absolute Auto 0.6 10^3/uL (0.3-0.8); Monocytes Percent Auto 6.7 % (1.7-12.0); Neutrophils Absolute Auto 6.7 10^3/uL (1.4-6.5); Neutrophils Percent Auto 72.3 % (43.0-75.0); Platelet Count 457 10^3/uL (150-450); Red Blood Count 3.52 10^6/uL (4.20-5.40); Red Cell Distribution Width 14.9 % (11.0-15.0); White Blood Count 9.3 10^3/uL (4.0-11.0)
[2024-04-08 15:11] LABS: Alanine Aminotransferase 17 U/L (14-59); Albumin Globulin Ratio 0.9; Albumin Level 3.1 g/dL (3.4-5.0); Alkaline Phosphatase 96 U/L (46-116); Aspartate Amino Transferase 17 U/L (15-37); BUN Creatinine Ratio 14.4; Bilirubin Total 0.5 mg/dL (0.2-1.0); Calcium 9.5 mg/dL (8.5-10.1); Carbon Dioxide 33.7 mmol/L (21.0-32.0); Chloride 100 mmol/L (98-107); Estimated GFR (African America >60 (>=60); Estimated GFR (Non-African Ame 54 (>=60); Globulin 3.3 g/dL; Glucose 156 mg/dL (74-106); Potassium 3.7 mmol/L (3.5-5.1); Sodium 138 mmol/L (136-145); Total Protein 6.4 g/dL (6.4-8.2)
== END 2024-04-08 12:52 | disposition home or self-care (01) ==
LOC: LAB 12:51
PROVIDERS: PCP Family Medicine
DX: Z85.3 Personal history of malignant neoplasm of breast (principal)
CPT/HCPCS: 36415; 80053; 85025

== ENCOUNTER 2024-04-20 12:11 | Outpatient (REF) | payer MEDICARE, BC, SELFPAY ==
[2024-04-20 12:35] LABS: Basophils Absolute Auto 0.1 10^3/uL (0.0-0.1); Basophils Percent Auto 0.9 % (0.2-2.0); Eosinophils Absolute Auto 0.3 10^3/uL (0.0-0.7); Hematocrit 31.1 % (36.0-48.0); Immature Granulocytes Abs Auto 0.01 10^3/uL (0.00-0.03); Immature Granulocytes Pct Auto 0.2 % (0.0-0.5); Lymphocytes Absolute Auto 1.1 10^3/uL (1.2-3.8); Lymphocytes Percent Auto 17.5 % (20.5-60.0); Mean Corpuscular HGB Conc 32.2 g/dL (29.9-35.2); Mean Corpuscular Volume 96.3 fL (81.0-99.0); Monocytes Absolute Auto 0.4 10^3/uL (0.3-0.8); Monocytes Percent Auto 6.9 % (1.7-12.0); Neutrophils Absolute Auto 4.4 10^3/uL (1.4-6.5); Neutrophils Percent Auto 69.5 % (43.0-75.0); Platelet Count 307 10^3/uL (150-450); Red Blood Count 3.23 10^6/uL (4.20-5.40); Red Cell Distribution Width 15.8 % (11.0-15.0); White Blood Count 6.3 10^3/uL (4.0-11.0)
[2024-04-20 13:23] LABS: Anion Gap 8.9; BUN Creatinine Ratio 14.5; Carbon Dioxide 32.9 mmol/L (21.0-32.0); Chloride 102 mmol/L (98-107); Estimated GFR (African America >60 (>=60); Estimated GFR (Non-African Ame >60 (>=60); Glucose 204 mg/dL (74-106); Potassium 3.8 mmol/L (3.5-5.1); Sodium 140 mmol/L (136-145)
== END 2024-04-20 12:12 | disposition home or self-care (01) ==
LOC: LAB 12:11
PROVIDERS: PCP Family Medicine
DX: C50.111 Malignant neoplasm of central portion of right female breast (principal)
CPT/HCPCS: 36415; 80048; 85025

== ENCOUNTER 2024-05-11 13:16 | Outpatient (OUT) | payer MEDICARE, BC, SELFPAY ==
[2024-05-11 13:45] LABS: Basophils Absolute Auto 0.1 10^3/uL (0.0-0.1); Basophils Percent Auto 0.7 % (0.2-2.0); Eosinophils Absolute Auto 0.4 10^3/uL (0.0-0.7); Eosinophils Percent Auto 5.4 % (0.9-7.0); Hematocrit 33.4 % (36.0-48.0); Hemoglobin 10.7 g/dL (12.0-16.0); Immature Granulocytes Abs Auto 0.02 10^3/uL (0.00-0.03); Immature Granulocytes Pct Auto 0.3 % (0.0-0.5); Lymphocytes Absolute Auto 1.1 10^3/uL (1.2-3.8); Lymphocytes Percent Auto 14.8 % (20.5-60.0); Mean Corpuscular Hemoglobin 31.2 pg (26.7-34.0); Mean Corpuscular Volume 97.4 fL (81.0-99.0); Mean Platelet Volume 8.9 fL (9.5-13.5); Monocytes Absolute Auto 0.8 10^3/uL (0.3-0.8); Monocytes Percent Auto 10.6 % (1.7-12.0); Neutrophils Absolute Auto 4.8 10^3/uL (1.4-6.5); Neutrophils Percent Auto 68.2 % (43.0-75.0); Platelet Count 305 10^3/uL (150-450); Red Blood Count 3.43 10^6/uL (4.20-5.40); Red Cell Distribution Width 17.4 % (11.0-15.0); White Blood Count 7.1 10^3/uL (4.0-11.0)
[2024-05-11 14:17] LABS: Alanine Aminotransferase 19 U/L (14-59); Albumin Globulin Ratio 1.1; Albumin Level 3.3 g/dL (3.4-5.0); Alkaline Phosphatase 96 U/L (46-116); Anion Gap 9.7; Aspartate Amino Transferase 14 U/L (15-37); BUN Creatinine Ratio 16.8; Bilirubin Total 0.8 mg/dL (0.2-1.0); Calcium 9.5 mg/dL (8.5-10.1); Chloride 100 mmol/L (98-107); Estimated GFR (African America >60 (>=60); Estimated GFR (Non-African Ame 56 (>=60); Globulin 3.1 g/dL; Glucose 162 mg/dL (74-106); Potassium 3.7 mmol/L (3.5-5.1); Sodium 139 mmol/L (136-145); Thyroid Stimulating Hormone 0.834 uIU/mL (0.358-3.740); Total Protein 6.4 g/dL (6.4-8.2)
== END 2024-05-11 13:17 | disposition home or self-care (01) ==
LOC: LAB 13:17
PROVIDERS: PCP Family Medicine
DX: R53.83 Other fatigue (principal); C79.89 Secondary malignant neoplasm of other specified sites; C50.911 Malignant neoplasm of unspecified site of right female breast; J90 Pleural effusion, not elsewhere classified
CPT/HCPCS: 36415; 80053; 84443; 85025

== ENCOUNTER 2024-09-18 12:38 | Emergency (ER) | payer MEDICARE, BC, SELFPAY ==
[2024-09-18] VITALS (30 sets, daily range): BP systolic 93–119; BP diastolic 61–80; PULSE 61–124; TEMP 36.7; O2SAT 67–98; BMI 25.2
--- NOTE | 2024-09-18 12:58 | XR_ITS ---
The [address] [address] Patient Name: DEEP MAYA MRN: [id number] date: 1935 Sex: F Assigned Patient Location: ED.MAIN Current Patient Location: ER Accession/Order Number: [id number] Exam Date: 09/18/2024 13:10 Report Date: 09/18/2024 13:31 At the request of: MADELIN SAXENA Procedure: XR chest 1V EXAMINATION: XR chest 1V HISTORY: Cough COMPARISON: XR chest 03/25/2024 FINDINGS: LUNGS: Opacification of the lower half the right hemithorax and mild opacities extending into the upper lung regions. Underexpanded left lung with mild haziness and stranding within lung bases. VASCULATURE: No increased pulmonary vasculature. PLEURA: Large right pleural effusion and suspected small to moderate left pleural effusion. CARDIAC: Mostly obscured but suspect cardiomegaly. MEDIASTINUM: No visible mass or adenopathy. BONES: No fracture or visible bone lesion. OTHER: Negative. XR/XR chest 1V IMPRESSION: 1. Bilateral pleural effusions; largest on right, small to moderate on left. 2. Marked right basilar infiltrates versus atelectasis. Trace amount within left lung base. Electronically authenticated by: SAIRA GUTIERREZ Date: 09/18/2024 13:31
--- NOTE | 2024-09-18 12:58 | ECG_ITS ---
The [facility] Test Date: 2024-09-18 Pat Name: DEEP MAYA Department: Room: - Gender: Female [employer]inter: : 1935 Requested By: [id number] Order Number: [id number] Reading MD: Measurements Intervals [place] Rate: -93061 P: -67095 HI: -57039 QRS: -90711 QRSD: -32673 T: -55480 QT: -35178 QTc: -32566 Interpretive Statements 0103 CANNOT ANALYZE ECG No previous ECG available for comparison
--- NOTE | 2024-09-18 12:59 | ED_ITS ---
HPI HPI - General Adult General Chief complaint: Altered Mental Status Stated complaint: ALTERED MENTAL STATUS Time Seen by Provider: 09/18/24 12:41 Source: patient Mode of arrival: ambulance Limitations: altered mental status History of Present Illness HPI narrative: 89-year-old female presents from her home for generalized weakness. She has also had a slight cough for a few days. No known fever or complaints of chest pain or abdominal pain. She has had no dysuria or hematuria or unusual back pain. She has not had vomiting or diarrhea. Related Data Home Medications ?Medication ?Instructions ?Recorded ?Confirmed aspirin 81 mg tablet,delayed 81 mg PO DAILY 03/18/24 09/18/24 release (Adult Aspirin Regimen) letrozole 2.5 mg tablet 2.5 mg PO Q24H 03/18/24 03/18/24 losartan 100 1 tab PO DAILY 03/18/24 09/18/24 mg-hydrochlorothiazide 12.5 mg tablet metformin 1,000 mg tablet 1,000 mg PO BIDWM 03/18/24 09/18/24 simvastatin 40 mg tablet 40 mg PO DAILY 03/18/24 09/18/24 Xeloda cancer 09/18/24 furosemide 20 mg tablet (Lasix) 20 mg PO DAILY 09/18/24 09/18/24 Allergies Allergy/AdvReac Type Severity Reaction Status Date / Time No Known Drug Allergies Allergy Verified 03/19/24 13:17 Opioid HPI Opioid Management Most Recent Opioid Data: Last Pain Scale 6 03/19/24 21:07 03/19/24 Last ORT Total Score 0 03/18/24 15:13 03/18/24 Last ORT Risk Category Low Risk 03/18/24 15:13 03/18/24 Review of Systems ROS Narrative A ten point review of systems is negative except as noted above. [facility] Medical History (Updated 09/18/24 @ 14:18 by Hemant Padilla MD) HTN (hypertension) ?I10 - Essential (primary) hypertension (ICD-10) HLD (hyperlipidemia) ?E78.5 - Hyperlipidemia, unspecified (ICD-10) DM2 (diabetes mellitus, type 2) ?E11.9 - Type 2 diabetes mellitus without complications (ICD-10) Breast cancer ?C50.919 - Malignant neoplasm of unspecified site of unspecified female breast (ICD-10) Surgical History (Updated 03/18/24 @ 15:07 by Yu Wetzel) History of mastectomy ?Z90.10 - Acquired absence of unspecified breast and nipple (ICD-10) Family History (Updated 03/18/24 @ 15:10 by uY Wetzel) Mother Family history of cancer Social History (Updated 03/18/24 @ 15:13 by Yu Wetzel) Within the past year, how often did you have a drink containing alcohol: monthly or less Smoking status: Never smoker Non-prescribed substance use: denies use Highest level of school completed/degree received: 10th grade Are you now , , , , never or living with a partner: In a typical week, how many times do you talk on the telephone with family, friends, or neighbors: twice per week How often do you get together with friends or relatives: twice per week How often do you attend congregation or protestant services: never Do you belong to any clubs or organizations such as congregation groups unions, fraternal or athletic groups, or school groups: no Total score: 1 Score interpretation: A score of less than or equal to 1 indicates the most socially isolated. Little interest or pleasure in doing things: not at all Feeling down, depressed, or hopeless: not at all Feel stressed/tense/nervous/anxious/difficulty sleeping: not at all Exam Narrative Exam Narrative: Nurses note and vital signs reviewed and patient is not hypoxic. General: The patient appears well and in no apparent distress. Patient is resting comfortably on cart. Skin: Warm, dry, no pallor noted. There is no rash noted. Head: Normocephalic, atraumatic Eye: Normal conjunctiva, no drainage Ears, Nose, Mouth, and Throat: oral mucosa is moist. Nares patent. Cardiovascular: Regular Rate and Rhythm, minimally tachycardic Respiratory: Patient is in no distress, no accessory muscle use, lungs are clear to auscultation, no wheezing, rales or rhonchi Back: non-tender GI: Soft and nontender Musculoskeletal: The patient has no evidence of calf tenderness, no pitting edema, symmetrical pulses noted bilaterally Neurological: A&O x4, normal speech Psychiatric: Cooperative Constitutional Vital Signs, click to edit/add: Last Vital Signs Temp 98.1 F 09/18/24 12:45 Pulse 94 H 09/18/24 12:45 Resp 20 09/18/24 12:45 BP 109/61 09/18/24 12:45 Pulse Ox 96 09/18/24 12:45 O2 Del Method Room Air 09/18/24 12:45 Course Vital Signs Vital signs: Vital Signs Temperature 98.1 F 09/18/24 12:45 Pulse Rate 94 H 09/18/24 12:45 Respiratory Rate 20 09/18/24 12:45 Blood Pressure 109/61 09/18/24 12:45 Pulse Oximetry 96 09/18/24 12:45 Oxygen Delivery Method Room Air 09/18/24 12:45 Temperature 98.1 F 09/18/24 12:45 Pulse Rate 94 H 09/18/24 12:45 Respiratory Rate 20 09/18/24 12:45 Blood Pressure 109/61 09/18/24 12:45 Pulse Oximetry 96 09/18/24 12:45 Oxygen Delivery Method Room Air 09/18/24 12:45 Medical Decision Making MDM Narrative Medical decision making narrative: Acute kidney injury is identified, likely from the Lasix that she is prescribed. She also has bilateral pleural effusions, greater on the right than the left and she had previous thoracentesis, patient reports in March of this year. Findings are discussed with the patient and she will be admitted. Differential Diagnosis Differential Diagnosis: Pleural effusion, pneumonia, COVID, influenza, acute kidney injury Lab Data Lab results reviewed: Yes I reviewed the patient's lab results Labs: Lab Results 09/18/24 09/18/24 Range/Units 13:00 13:20 WBC 9.7 (4.0-11.0) 10^3/uL RBC 2.81 L (4.20-5.40) 10^6/uL Hgb 9.5 L (12.0-16.0) g/dL Hct 28.8 L (36.0-48.0) % MCV 102.5 H (81.0-99.0) fL MCH 33.8 (26.7-34.0) pg MCHC 33.0 (29.9-35.2) g/dL RDW 20.1 H (11.0-15.0) % Plt Count 268 (150-450) 10^3/uL MPV 8.9 L (9.5-13.5) fL Neut % (Auto) 78.8 H (43.0-75.0) % Lymph % (Auto) 8.9 L (20.5-60.0) % [place] % (Auto) 11.4 (1.7-12.0) % Eos % (Auto) 0.5 L (0.9-7.0) % Baso % (Auto) 0.2 (0.2-2.0) % Neut # (Auto) 7.6 H (1.4-6.5) 10^3/uL Lymph # (Auto) 0.9 L (1.2-3.8) 10^3/uL [place] # (Auto) 1.1 H (0.3-0.8) 10^3/uL Eos # (Auto) 0.1 (0.0-0.7) 10^3/uL Baso # (Auto) 0.0 (0.0-0.1) 10^3/uL Abs Immat Gran (auto) 0.02 (0.00-0.03) 10^3/uL Imm/Tot Granulo (auto) 0.2 (0.0-0.5) % Sodium 135 L (136-145) mmol/L Potassium 3.8 (3.5-5.1) mmol/L Chloride 100 (98-107) mmol/L Carbon Dioxide 21.8 (21.0-32.0) mmol/L Anion Gap 17.0 BUN 68.0 H (7.0-18.0) mg/dL Creatinine 2.82 H (0.55-1.02) mg/dL Est GFR ( Amer) 19 L (>=60 mL/min/1.73m^2) Est GFR (Non-Af Amer) 16 L (>=60 mL/min/1.73m^2) BUN/Creatinine Ratio 24.1 Glucose 219 H (74-106) mg/dL Calcium 9.2 (8.5-10.1) mg/dL NT-Pro-B Natriuret Pep 506.0 (<=1800.0) pg/mL Influenza Type A Ag Negative Influenza Type B Ag Negative SARS-CoV-2 Ag (CV2AG) Negative (NEGATIVE) Imaging Data Chest x-ray: Radiologist's impression: ITS Impressions Chest X-Ray 11/08/24 12:58 IMPRESSION: 1. Bilateral pleural effusions; largest on right, small to moderate on left. 2. Marked right basilar infiltrates versus atelectasis. Trace amount within left lung base. Electronically authenticated by: SAIRA GUTIERREZ Date: 09/18/2024 13:31 ECG Data Attestation: I personally reviewed and interpreted this ECG as follows: (EKG on my interpretation shows sinus rhythm with a rate of 74 and some artifact.) Discharge Plan Discharge Chief Complaint: Altered Mental Status Clinical Impression: Acute kidney injury, Pleural effusion Patient Disposition: Admitted As Inpatient Time of Disposition Decision: 14:18 Condition: Good
--- OUTSIDE RECORDS SUMMARY | 2024-09-18 13:04 | XMS_ITS | CCD ---
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 (Ca) 15-3on 0 07-10-2024 Cancer Antigen (Ca) 15-3 21.6 Normal 0.0-25.0 [facility] Comment on above: Result Comment: [employer] Electrochemiluminescence Immunoassay (ECLIA) Values obtained with different assay methods or kits cannot be used interchangeably. Results cannot be interpreted as absolute evidence of the presence or absence of malignant disease. Performed at: [address] [id number] Dental Sales Representative: Oracio Ramirez PhD, Phone: [phone] PERFORMED BY: [place] [address] PATHOLOGIST MANAGER OF FINANCIAL JASEN DIAZ M.D. Performed By: #### C BC, CMP #### [address] #### [id number], CA15-3 #### [facility] , Carbon dioxide, total [Moles /volume] in Serum or PlasmaOrdered By: Brandi Lopez on 07-10-2024 CO2 [Moles/Vol] 29.0 mmol/L Normal 21.0-31.0 [facility] Comment on above: Performed By: #### C BC, CMP #### [address] #### [id number], CA15-3 #### [facility] , Chloride [Moles/volume] in S rakan or PlasmaOrdered By: Brandi Lopez on 07-10-2024 Chloride [Moles/Vol] 102 mmol/L Normal 98-107 [facility] Comment on above: Performed By: #### C BC, CMP #### [facility] [address] [place] [address] [place] #### [id number], CA15-3 #### [facility] , Complete Blood Count Auto Di ffon 07-10-2024 Mean Corpuscular HGB Conc 34.1 g/dL Normal 32.0-35.0 [facility] Comment on above: Performed By: #### C BC, CMP #### [place] [address] [place] #### [id number], CA15-3 #### [facility] , NRBC% 0.1 /100{WBC} Normal 0-0.5 [facility] Comment on above: Performed By: #### C BC, CMP #### [place] [address] [place] #### [id number], CA15-3 #### [facility] , Comprehensive Metabolic Pane jr 07-10-2024 Albumin [Mass/Vol] 3.7 g/dL Normal 3.5-5.7 [facility] Comment on above: Performed By: #### C BC, CMP #### [address] #### [id number], CA15-3 #### [facility] , Creatinine Clr Calc Pharmacy 31.54 Normal [facility] Comment on above: Result Comment: PERF ORMED BY: [place] [address] PATHOLOGIST MANAGER OF FINANCIAL JASEN DIAZ M.D. Performed By: #### C BC, CMP #### [place] [address] [place] #### [id number], CA15-3 #### [facility] , GFR/1.73 sq M.predicted MDRD (S/P/Bld) [Vol rate/Area] 50.843 mL/min/{1.73_m2} Normal [facility] Comment on above: Performed By: #### C BC, CMP #### [place] [address] [place] #### [id number], CA15-3 #### [facility] , Creatinine [Mass/volume] in Serum or PlasmaOrdered By: Brandi Lopez on 07-10-2024 Creatinine [Mass/Vol] 1.06 mg/dL Normal 0.60-1.20 [facility] Comment on above: Performed By: #### C BC, CMP #### [facility] [address] [place] [address] [place] #### [id number], CA15-3 #### [facility] , Erythrocyte distribution wid th [Ratio] by Automated countOrdered By: Brandi Lopez on 07-10-2024 Erythrocyte distribution width (RBC) [Ratio] 23.6 % High 11.9-15.3 [facility] Comment on above: Performed By: #### C BC, CMP #### [place] [address] [place] #### [id number], CA15-3 #### [facility] , Erythrocytes [#/volume] in B lood by Automated countOrdered By: Brandi Lopez on 07-10-2024 RBC (Bld) [#/Vol] 2.80 10*6/uL Low 3.60-5.00 [facility] Comment on above: Performed By: #### C BC, CMP #### [place] [address] [place] #### [id number], CA15-3 #### [facility] , Glucose [Mass/volume] in Ser um or PlasmaOrdered By: Brandi Lopez on 07-10-2024 Glucose [Mass/Vol] 139 mg/dL High 70-100 [facility] Comment on above: ADA recommended refe rence rangeRandom Glucose Reference Range is dependent on time and content of last meal. Glucose of more than 200 mg/dL in a nonstressed, ambulatory subject supports the diagnosis of Diabetes Mellitus. Result Comment: [place] om Glucose Reference Range is dependent on time and content of last meal. Glucose of more than 200 mg/dL in a nonstressed, ambulatory subject supports the diagnosis of Diabetes Mellitus. ADA recommended reference range Performed By: #### C BC, CMP #### [facility] [address] [place] [address] [place] #### [id number], CA15-3 #### [facility] , Hematocrit [Volume Fraction] of Blood by Automated countOrdered By: Brandi Lopez on 07-10-2024 Hematocrit (Bld) [Volume fraction] 27.9 % Low 34.0-46.4 [facility] Comment on above: Performed By: #### C BC, CMP #### [place] [address] [place] #### [id number], CA15-3 #### [facility] , Hemoglobin [Mass/volume] in BloodOrdered By: Brandi Lopez on 07-10-2024 Hemoglobin (Bld) [Mass/Vol] 9.5 g/dL Low 11.8-15.4 [facility] Comment on above: Performed By: #### C BC, CMP #### [address] #### [id number], CA15-3 #### [facility] , Leukocytes [#/volume] correc medardo for nucleated erythrocytes in Blood by Automated counOrdered By: Brandi Lopez on 07-10-2024 WBC corrected for nucl RBC Auto (Bld) [#/Vol] 6.4 10*3/uL 3.8-11.6 [facility] Leukocytes [#/volume] in Blo od by Automated countOrdered By: Brandi Lopez on 07-10-2024 WBC (Bld) [#/Vol] 6.4 10*3/uL Normal 3.8-11.6 [facility] Comment on above: Performed By: #### C BC, CMP #### [place] [address] [place] #### [id number], CA15-3 #### [facility] , Lymphocytes [#/volume] in Bl ood by Automated countOrdered By: Brandi Lopez on 07-10-2024 Lymphocytes (Bld) [#/Vol] 1.2 10*3/uL Normal 1.00-4.8 [facility] Comment on above: Performed By: #### C BC, CMP #### [place] [address] [place] #### [id number], CA15-3 #### [facility] , Lymphocytes/100 leukocytes i n Blood by Automated countOrdered By: Brandi Sawyerse on 07-10-2024 Lymphocytes/100 WBC (Bld) 18.3 % Normal . [facility] Comment on above: Performed By: #### C BC, CMP #### [place] [address] [place] #### [id number], CA15-3 #### [facility] , MCH [Entitic mass] by Automa medardo countOrdered By: Brandi John on 07-10-2024 MCH (RBC) [Entitic mass] 33.9 pg Normal 24.7-34.3 [facility] Comment on above: Performed By: #### C BC, CMP #### [place] [address] [place] #### [id number], CA15-3 #### [facility] , MCHC Auto (RBC) [Mass/Vol]Or dered By: Brandi Lopez on 07-10-2024 MCHC (RBC) [Mass/Vol] 34.1 g/dL 32.0-35.0 [facility] MCV [Entitic volume] by Auto mated countOrdered By: Brandi Lopez on 07-10-2024 MCV (RBC) [Entitic vol] 99.6 fL Normal 80-100 [facility] Comment on above: Performed By: #### C BC, CMP #### [place] [address] [place] #### [id number], CA15-3 #### [facility] , Neutrophils [#/volume] in Bl ood by Automated countOrdered By: Brandi Lopez on 07-10-2024 Neutrophils (Bld) [#/Vol] 4.0 10*3/uL Normal 1.8-7.7 [facility] Comment on above: Performed By: #### C BC, CMP #### [facility] [address] [place] [address] [place] #### [id number], CA15-3 #### [facility] , No Panel InformationOrdered By: Brandi Lopez on 07-10-2024 CA 27.29 19.4 U/mL 0.0-38.6 [facility] Comment on above: [employer] Immu nochemiluminometric Methodology (ICMA)Values obtained with different assay methods or kits cannotbe used interchangeably. Results cannot be interpreted asabsolute evidence of the presence or absence of malignantdisease.Performed at: [facility] [place] [id number] Director: Oracio Ramirez PhD, Phone: [phone] Estimated GFR (CKD-EPI) 50.843 mL/Min [facility] Creatinine Clearance (Chem 31.54 [facility] Nucleated erythrocytes [Pres ence] in Blood by Automated countOrdered By: Brandi Lopez on 07-10-2024 Nucleated RBC Auto Ql (Bld) 0.1 /100{WBC} 0-0.5 [facility] Platelet mean volume [Entiti c volume] in Blood by Automated countOrdered By: Brandi Lopez on 07-10-2024 Platelet mean volume (Bld) [Entitic vol] 6.7 fL Normal 6.3-10.7 [facility] Comment on above: Performed By: #### C BC, CMP #### [facility] [address] [place] [address] [place] #### [id number], CA15-3 #### [facility] , Platelets [#/volume] in Bloo d by Automated countOrdered By: Brandi Lopez on 07-10-2024 Platelets (Bld) [#/Vol] 315 10*3/uL Normal 150-450 [facility] Comment on above: Performed By: #### C BC, CMP #### [facility] [address] [place] [address] [place] #### [id number], CA15-3 #### [facility] , Potassium [Moles/volume] in Serum or PlasmaOrdered By: Brandi John on 07-10-2024 Potassium [Moles/Vol] 3.5 mmol/L Normal 3.5-5.1 [facility] Comment on above: Performed By: #### C BC, CMP #### [address] #### [id number], CA15-3 #### [facility] , Protein [Mass/volume] in Ser um or PlasmaOrdered By: Brandi John on 07-10-2024 Protein [Mass/Vol] 5.6 g/dL Low 6.4-8.9 [facility] Comment on above: Performed By: #### C BC, CMP #### [address] #### [id number], CA15-3 #### [facility] , Serum globulin measurement b y calculation (mass/volume)Ordered By: Brandi Lopez on 07-10-2024 Globulin (S) [Mass/Vol] 1.9 g/dL [facility] Comment on above: Performed By: #### C BC, CMP #### [facility] [address] [place] [address] #### [id number], CA15-3 #### [facility] , Serum or plasma albumin/glob ulin mass ratioOrdered By: Brandi Lopez on 07-10-2024 Albumin/Globulin [Mass ratio] 1.9 {ratio} [facility] Comment on above: Performed By: #### C BC, CMP #### [facility] [address] [place] [address] [place] #### [id number], CA15-3 #### [facility] , Serum or plasma anion gap de terminationOrdered By: Brandi John on 07-10-2024 Anion gap [Moles/Vol] 10.5 mmol/L Normal 6.0-15.0 [facility] Comment on above: Performed By: #### C BC, CMP #### [facility] [address] [place] [address] [place] #### [id number], CA15-3 #### [facility] , Serum or plasma cancer antig en 15-3 measurement (units/volume)Ordered By: Brandi Lopez on 07-10-2024 Cancer Ag 15-3 Qn 21.6 U/mL 0.0-25.0 [facility] Comment on above: [employer] El ectrochemiluminescence Immunoassay(ECLIA)Values obtained with different assay methods or kits cannotbe used interchangeably. Results cannot be interpreted asabsolute evidence of the presence or absence of malignantdisease.Performed at: [facility] [id number] Director: Oracio Ramirez PhD, Phone: [phone] Sodium [Moles/volume] in Ser um or PlasmaOrdered By: Brandi Lopez on 07-10-2024 Sodium [Moles/Vol] 138 mmol/L Normal 136-145 [facility] Comment on above: Performed By: #### C BC, CMP #### [facility] [address] [place] [address] [place] #### [id number], CA15-3 #### [facility] , Urea nitrogen [Mass/volume] in Serum or PlasmaOrdered By: Brandi Lopez on 07-10-2024 Urea nitrogen [Mass/Vol] 16 mg/dL Normal 7-25 [facility] Comment on above: Performed By: #### C BC, CMP #### [facility] [address] [place] [address] [place] #### [id number], CA15-3 #### [facility] , Basophils Auto (Bld) [#/Vol] on 05-11-2024 Basophils (Bld) [#/Vol] 0.1 10 3/uL 0.0-0.1 [facility] Basophils/100 WBC Auto (Bld) on 05-11-2024 Basophils/100 WBC (Bld) 0.7 % 0.2-2.0 [facility] Eosinophils/100 WBC Auto (Bl d)on 05-11-2024 Eosinophils/100 WBC (Bld) 5.4 % 0.9-7.0 [facility] Erythrocyte distribution wid th Auto (RBC) [Ratio]on 05-11-2024 Erythrocyte distribution width (RBC) [Ratio] 17.4 % High 11.0-15.0 [facility] Estimated glomerular filtrat ion rate (GFR) non- Americanon 05-11-2024 GFR/1.73 sq M.predicted among non-blacks MDRD (S/P/Bld) [Vol rate/Area] 56 mL/min/{1.73_m2} Low >=60 [facility] Globulin Calc (S) [Mass/Vol] on 05-11-2024 Globulin (S) [Mass/Vol] 3.1 g/dL [facility] Hematocrit Auto (Bld) [Volum e fraction]on 05-11-2024 Hematocrit (Bld) [Volume fraction] 33.4 % Low 36.0-48.0 [facility] Hemoglobin [Mass/volume] in Bloodon 05-11-2024 Hemoglobin (Bld) [Mass/Vol] 10.7 g/dL Low 12.0-16.0 [facility] Laboratory - Chemistry and C hemistry - challengeon 05-11-2024 Albumin [Mass/Vol] 3.3 g/dL Low 3.4-5.0 [facility] ALP [Catalytic activity/Vol] 96 U/L 46-116 [facility] ALT [Catalytic activity/Vol] 19 U/L 14-59 [facility] AST [Catalytic activity/Vol] 14 U/L Low 15-37 [facility] Bilirubin [Mass/Vol] 0.8 mg/dL 0.2-1.0 [facility] Calcium [Mass/Vol] 9.5 mg/dL 8.5-10.1 [facility] Chloride [Moles/Vol] 100 mmol/L 98-107 [facility] CO2 [Moles/Vol] 33.0 mmol/L High 21.0-32.0 [facility] Creatinine [Mass/Vol] 0.95 mg/dL 0.55-1.02 [facility] GFR/1.73 sq M.predicted MDRD (S/P/Bld) [Vol rate/Area] mL/min/{1.73_m2} >=60 [facility] Glucose [Mass/Vol] 162 mg/dL High 74-106 [facility] Potassium [Moles/Vol] 3.7 mmol/L 3.5-5.1 [facility] Protein [Mass/Vol] 6.4 g/dL 6.4-8.2 [facility] Sodium [Moles/Vol] 139 mmol/L 136-145 [facility] TSH Qn 0.834 m[IU]/L 0.358-3.74 0 [facility] Urea nitrogen [Mass/Vol] 16.0 mg/dL 7.0-18.0 [facility] Urea nitrogen/Creatinine [Mass ratio] 16.8 mg/mg [facility] Laboratory - Hematology and Cell countson 05-11-2024 Immature granulocytes/100 WBC (Bld) 0.3 % 0.0-0.5 [facility] Leukocytes [#/volume] correc medardo for nucleated erythrocytes in Blood by Automated counon 05-11-2024 WBC corrected for nucl RBC Auto (Bld) [#/Vol] 7.1 10 3/uL 4.0-11.0 [facility] Lymphocytes Auto (Bld) [#/Vo l]on 05-11-2024 Lymphocytes (Bld) [#/Vol] 1.1 10 3/uL Low 1.2-3.8 [facility] Lymphocytes/100 WBC Auto (Bl d)on 05-11-2024 Lymphocytes/100 WBC (Bld) 14.8 % Low 20.5-60.0 [facility] MCH Auto (RBC) [Entitic mass ]on 05-11-2024 MCH (RBC) [Entitic mass] 31.2 pg 26.7-34.0 [facility] MCHC Auto (RBC) [Mass/Vol]on 05-11-2024 MCHC (RBC) [Mass/Vol] 32.0 g/dL 29.9-35.2 [facility] MCV Auto (RBC) [Entitic vol] on 05-11-2024 MCV (RBC) [Entitic vol] 97.4 fL 81.0-99.0 [facility] Monocytes Auto (Bld) [#/Vol] on 05-11-2024 Monocytes (Bld) [#/Vol] 0.8 10 3/uL 0.3-0.8 [facility] Monocytes/100 WBC Auto (Bld) on 05-11-2024 Monocytes/100 WBC (Bld) 10.6 % 1.7-12.0 [facility] Neutrophils Auto (Bld) [#/Vo l]on 05-11-2024 Neutrophils (Bld) [#/Vol] 4.8 10 3/uL 1.4-6.5 [facility] Neutrophils/100 WBC Auto (Bl d)on 05-11-2024 Neutrophils/100 WBC (Bld) 68.2 % 43.0-75.0 [facility] No Panel Informationon 05-11 Eosinophils # (Auto) 0.4 10 3/uL 0.0-0.7 [facility] Immature Granulocyte # (Auto) 0.02 10 3/uL 0.00-0.03 [facility] Miscellaneous Test COMMENT . [facility] Comment on above: Test Ordered: [id number] CA 27.29CA 27.29 53.7 [H ] U/mL CB Reference Range: 0.0-38.6[facility] Immunochemiluminometric Methodology (ICMA)Values obtained with different assay methods or kits cannotbe used interchangeably. Results cannot be interpreted asabsolute evidence of the presence or absence of malignantdisease.Performed at: - [address] [id number] Director: Oracio Ramirez PhD, Phone: [phone] Platelet mean volume Auto (B ld) [Entitic vol]on 05-11-2024 Platelet mean volume (Bld) [Entitic vol] 8.9 fL Low 9.5-13.5 [facility] Platelets Auto (Bld) [#/Vol] on 05-11-2024 Platelets (Bld) [#/Vol] 305 10 3/uL 150-450 [facility] RBC Auto (Bld) [#/Vol]on RBC (Bld) [#/Vol] 3.43 10 6/uL Low 4.20-5.40 [facility] Serum or plasma albumin/glob ulin mass ratioon 05-11-2024 Albumin/Globulin [Mass ratio] 1.1 {ratio} [facility] Serum or plasma anion gap de terminationon 05-11-2024 Anion gap [Moles/Vol] 9.7 mmol/L [facility] US thoracentesison 4 US thoracentesis [facility] [place] [address] [place] [address] Ultrasound Report Signed Patient: Yolanda Fairbanks MR#: [id number] 0 : 1935 Acct:[id number] Age/Sex: 89 / F ADM Date: 04/29/24 Loc: Room: Type: [facility] Attending Dr: Brandi Lopez MD Ordering Provider: Brandi Lopez MD Date of Service: 04/29/24 US/US thoracentesis: therapuetic Copies to: Brandi Lopez MD ULTRASOUND-GUIDED RIGHT THORACENTESIS CLINICAL DATA: Recurrent right pleural effusion. History of breast cancer. COMPARISON: CT 04/09/2024 The procedure was discussed with the patient and consent was obtained. Patient's right hemithorax was scanned posteriorly in upright position and a pleural effusion is seen. Following sterile preparation and local anesthesia with lidocaine, a 4 Kinyarwanda Yueh sheath catheter was advanced into the pleural space with return of the tea colored fluid. Approximately 750 mL was aspirated. The catheter was removed. There were no immediate complications. No postprocedure pneumothorax was identified on chest x-ray. US/US thoracentesis IMPRESSION: STATUS POST RIGHT ULTRASOUND-GUIDED THORACENTESIS. Impression dictated by: Karly Subramanian M.D.04/29/2024 2:43 PM Dictation Location: [place] [address] Tech: Chiquinan Flynn Transcribed By: STERLING 04/29/24 1443 Dictated By: Karly Subramanian MD 04/29/24 1441 Signed By: 04/29/24 144 Normal [facility] XR chest 1Von 04-29-2024 XR chest 1V [facility] [place] [address] [place] [address] XRay Report Signed Patient: Yolanda Fairbanks MR#: [id number] 0 : 1935 Acct:[id number] Age/Sex: 89 / F ADM Date: 04/29/24 Loc: Room: Type: [facility] Attending Dr: Brandi Lopez MD Copies to: MD Karly Bartholomew MD Ordering Provider: Karly Subramanian MD Date of Service: 04/29/24 XR/XR chest 1V: post thoracentesis PA CHEST: CLINICAL HISTORY: Follow-up after right thoracentesis. COMPARISON: CT 04/09/2024 There is elevation of the left hemidiaphragm where there is minor adjacent pleural and/or parenchymal change. There is a small residual right pleural effusion with blunting at the lateral costophrenic angle. No postprocedure pneumothorax is identified. The heart is not significantly enlarged. The bony structures are osteopenic. There is endplate spurring at the spine. Hemostasis clips project at the right chest wall where mastectomy is noted. XR/XR chest 1V IMPRESSION: MILD RESIDUAL PLEURAL AND PARENCHYMAL CHANGES, DESCRIBED. NO POSTPROCEDURE PNEUMOTHORAX. Impression dictated by: Karly Subramanian M.D.04/29/2024 2:40 PM Dictation Location: [place] [address] Transcribed By: [facility] 04/29/24 1440 Dictated By: Karly Subramanian MD 04/29/24 1436 Signed By: 04/29/24 1440 Normal [facility] Activated partial thrombopla stin time (aPTT) in platelet poor plasma by coagulation aOrdered By: Brandi Lopez on 04-24-2024 aPTT Coag (PPP) [Time] 26.1 s 25.1-36.5 [facility] Comment on above: A hematocrit value g reater than 55% may lead to inaccurate results in coagulation testing. Patients having hematocrit values >55% require a special collection tube for coagulation studies. Please contact the laboratory at [phone] for redraw instructions. Alanine aminotransferase [En zymatic activity/volume] in Serum or PlasmaOrdered By: Brandi Lopez on 04-24-2024 ALT [Catalytic activity/Vol] 8 U/L Normal 7-52 [facility] Comment on above: Performed By: #### P T, CMP, PTT, CBC ####[facility] [address] Albumin [Mass/volume] in Ser um or Plasma by Bromocresol green (BCG) dye binding methoOrdered By: Brandi Lopez on 04-24-2024 Albumin BCG dye [Mass/Vol] 3.6 g/dL 3.5-5.7 [facility] Alkaline phosphatase [Enzyma tic activity/volume] in Serum or PlasmaOrdered By: Brandi Lopez on 04-24-2024 ALP [Catalytic activity/Vol] 65 U/L Normal 34-104 [facility] Comment on above: Performed By: #### P T, CMP, PTT, CBC ####[facility] Aspartate aminotransferase [ Enzymatic activity/volume] in Serum or PlasmaOrdered By: Brandi Lopez on 04-24-2024 AST [Catalytic activity/Vol] 10 U/L Low 13-39 [facility] Comment on above: Performed By: #### P T, CMP, PTT, CBC ####[facility] Wmt[address] Automated basophil %Ordered By: Brandi Lopez on 04-24-2024 Basophils/100 WBC (Bld) 0.8 % Normal . [facility] Comment on above: Performed By: #### P T, CMP, PTT, CBC #### [facility] [address] Automated basophil countOrde red By: Brandi Lopez on 04-24-2024 Basophils (Bld) [#/Vol] 0.0 10*3/uL Normal 0.0-0.2 [facility] Comment on above: Result Comment: PERF ORMED BY: [address] [place] [address] PATHOLOGIST MANAGER OF FINANCIAL JASEN DIAZ M.D. Performed By: #### P T, CMP, PTT, CBC #### [address] Automated blood monocyte cou ntOrdered By: Brandi Lopez on 04-24-2024 Monocytes (Bld) [#/Vol] 0.7 10*3/uL Normal 0.0-0.8 [facility] Comment on above: Performed By: #### P T, CMP, PTT, CBC #### [address] Automated eosinophil %Ordere d By: Brandi Lopez on 04-24-2024 Eosinophils/100 WBC (Bld) 4.1 % Normal . [facility] Comment on above: Performed By: #### P T, CMP, PTT, CBC #### [address] Automated eosinophil countOr dered By: Brandi Lopez on 04-24-2024 Eosinophils (Bld) [#/Vol] 0.2 10*3/uL Normal 0.0-0.45 [facility] Comment on above: Performed By: #### P T, CMP, PTT, CBC #### [address] Automated monocyte %Ordered By: Brandi Lopez on 04-24-2024 Monocytes/100 WBC (Bld) 12.2 % Normal . [facility] Comment on above: Performed By: #### P T, CMP, PTT, CBC #### [address] Automated neutrophil %Ordere d By: Brandi Lopez on 04-24-2024 Neutrophils/100 WBC (Bld) 62.9 % Normal . [facility] Comment on above: Performed By: #### P T, CMP, PTT, CBC #### [address] Bilirubin.total [Mass/volume ] in Serum or PlasmaOrdered By: Brandi Lopez on 04-24-2024 Bilirubin [Mass/Vol] 0.4 mg/dL Normal 0.3-1.0 [facility] Comment on above: Performed By: #### P T, CMP, PTT, CBC ####[address] Calcium [Mass/volume] in Ser um or PlasmaOrdered By: Brandi Lopez on 04-24-2024 Calcium [Mass/Vol] 9.4 mg/dL Normal 8.6-10.3 [facility] Comment on above: Performed By: #### P T, CMP, PTT, CBC ####[address] Carbon dioxide, total [Moles /volume] in Serum or PlasmaOrdered By: Brandi Lopez on 04-24-2024 CO2 [Moles/Vol] 33.5 mmol/L High 21.0-31.0 [facility] Comment on above: Performed By: #### P T, CMP, PTT, CBC ####[address] Chloride [Moles/volume] in S rakan or PlasmaOrdered By: Brandi Lopez on 04-24-2024 Chloride [Moles/Vol] 99 mmol/L Normal 98-107 [facility] Comment on above: Performed By: #### P T, CMP, PTT, CBC ####[address] Complete Blood Count Auto Di ffon 04-24-2024 Mean Corpuscular HGB Conc 34.2 g/dL Normal 32.0-35.0 [facility] Comment on above: Performed By: #### P T, CMP, PTT, CBC #### [facility] [address] NRBC% 0.2 /100{WBC} Normal 0-0.5 [facility] Comment on above: Performed By: #### P T, CMP, PTT, CBC #### [facility] [address] Comprehensive Metabolic Pane jr 04-24-2024 Albumin [Mass/Vol] 3.6 g/dL Normal 3.5-5.7 [facility] Comment on above: Performed By: #### P T, CMP, PTT, CBC ####[address] Creatinine Clr Calc Pharmacy 41.74 Normal [facility] Comment on above: Result Comment: PERF ORMED BY: [place] [address] PATHOLOGIST MANAGER OF FINANCIAL JASEN DIAZ M.D. Performed By: #### P T, CMP, PTT, CBC ####[address] GFR/1.73 sq M.predicted MDRD (S/P/Bld) [Vol rate/Area] mL/min/{1.73_m2} Normal [facility] Comment on above: Performed By: #### P T, CMP, PTT, CBC ####[address] Creatinine [Mass/volume] in Serum or PlasmaOrdered By: Brandi Lopez on 04-24-2024 Creatinine [Mass/Vol] 0.82 mg/dL Normal 0.60-1.20 [facility] Comment on above: Performed By: #### P T, CMP, PTT, CBC ####[address] Erythrocyte distribution wid th [Ratio] by Automated countOrdered By: Brandi Lopez on 04-24-2024 Erythrocyte distribution width (RBC) [Ratio] 17.3 % High 11.9-15.3 [facility] Comment on above: Performed By: #### P T, CMP, PTT, CBC #### [address] Erythrocytes [#/volume] in B lood by Automated countOrdered By: Brandi Lopez on 04-24-2024 RBC (Bld) [#/Vol] 2.98 10*6/uL Low 3.60-5.00 [facility] Comment on above: Performed By: #### P T, CMP, PTT, CBC #### [address] Glucose [Mass/volume] in Ser um or PlasmaOrdered By: Brandi Lopez on 04-24-2024 Glucose [Mass/Vol] 147 mg/dL High 70-100 [facility] Comment on above: ADA recommended refe rence rangeRandom Glucose Reference Range is dependent on time and content of last meal. Glucose of more than 200 mg/dL in a nonstressed, ambulatory subject supports the diagnosis of Diabetes Mellitus. Result Comment: [place] om Glucose Reference Range is dependent on time and content of last meal. Glucose of more than 200 mg/dL in a nonstressed, ambulatory subject supports the diagnosis of Diabetes Mellitus. ADA recommended reference range Performed By: #### P T, CMP, PTT, CBC ####[facility] Hematocrit [Volume Fraction] of Blood by Automated countOrdered By: Brandi Lopez on 04-24-2024 Hematocrit (Bld) [Volume fraction] 28.1 % Low 34.0-46.4 [facility] Comment on above: Performed By: #### P T, CMP, PTT, CBC #### [facility] [address] Hemoglobin [Mass/volume] in BloodOrdered By: Brandi Lopez on 04-24-2024 Hemoglobin (Bld) [Mass/Vol] 9.6 g/dL Low 11.8-15.4 [facility] Comment on above: Performed By: #### P T, CMP, PTT, CBC #### [facility] [address] INR in Platelet poor plasma by Coagulation assayOrdered By: Brandi Lopez on 04-24-2024 INR Coag (PPP) [Relative time] 1.0 {INR} Normal [facility] Comment on above: INR Therapeutic Rang e A) Pre- and Peroperative OAT started two weeks before surgery. NOT HIP SURGERY: 1.5 - 2.5 HIP SURGERY: 2 - 3B) Primary and secondary prevention of venous THROMBOSIS: 2 - 3C) Active venous thrombosis, pulmonary embolismand prevention of recurrent venous thrombosis: 2 - 3D) Prevention of arterial thromboembolismincluding patients with mechanical heart valves: 3 - 4.5 Result Comment: INR Therapeutic Range A) Pre- and Peroperative OAT started two weeks before surgery. NOT HIP SURGERY: 1.5 - 2.5 HIP SURGERY: 2 - 3 B) Primary and secondary prevention of venous THROMBOSIS: 2 - 3 C) Active venous thrombosis, pulmonary embolism and prevention of recurrent venous thrombosis: 2 - 3 D) Prevention of arterial thromboembolism including patients with mechanical heart valves: 3 - 4.5 Performed By: #### P T, CMP, PTT, CBC #### [address] Leukocytes [#/volume] correc medardo for nucleated erythrocytes in Blood by Automated counOrdered By: Brandi Lopez on 04-24-2024 WBC corrected for nucl RBC Auto (Bld) [#/Vol] 5.8 10*3/uL 3.8-11.6 [facility] Leukocytes [#/volume] in Blo od by Automated countOrdered By: Brandi Lopez on 04-24-2024 WBC (Bld) [#/Vol] 5.8 10*3/uL Normal 3.8-11.6 [facility] Comment on above: Performed By: #### P T, CMP, PTT, CBC #### [place] [address] [place] Lymphocytes [#/volume] in Bl ood by Automated countOrdered By: Brandi Lopez on 04-24-2024 Lymphocytes (Bld) [#/Vol] 1.2 10*3/uL Normal 1.00-4.8 [facility] Comment on above: Performed By: #### P T, CMP, PTT, CBC #### [place] [address] [place] Lymphocytes/100 leukocytes i n Blood by Automated countOrdered By: Brandi Lopez on 04-24-2024 Lymphocytes/100 WBC (Bld) 20.0 % Normal . [facility] Comment on above: Performed By: #### P T, CMP, PTT, CBC #### [place] [address] [place] MCH [Entitic mass] by Automa medardo countOrdered By: Brandi Lopez on 04-24-2024 MCH (RBC) [Entitic mass] 32.2 pg Normal 24.7-34.3 [facility] Comment on above: Performed By: #### P T, CMP, PTT, CBC #### [facility] [address] [place] [address] MCHC Auto (RBC) [Mass/Vol]Or dered By: Brandi Lopez on 04-24-2024 MCHC (RBC) [Mass/Vol] 34.2 g/dL 32.0-35.0 [facility] MCV [Entitic volume] by Auto mated countOrdered By: Brandi Lopez on 04-24-2024 MCV (RBC) [Entitic vol] 94.2 fL Normal 80-100 [facility] Comment on above: Performed By: #### P T, CMP, PTT, CBC #### [facility] [address] [place] [address] Neutrophils [#/volume] in Bl ood by Automated countOrdered By: Brandi Lopez on 04-24-2024 Neutrophils (Bld) [#/Vol] 3.7 10*3/uL Normal 1.8-7.7 [facility] Comment on above: Performed By: #### P T, CMP, PTT, CBC #### [facility] [address] [place] [address] No Panel InformationOrdered By: Brandi Lopez on 04-24-2024 Estimated GFR (CKD-EPI) > 60.0 mL/Min [facility] Creatinine Clearance (Chem 41.74 [facility] Nucleated erythrocytes [Pres ence] in Blood by Automated countOrdered By: Brandi Lopez on 04-24-2024 Nucleated RBC Auto Ql (Bld) 0.2 /100{WBC} 0-0.5 [facility] Partial Thromboplastin Timeo n 04-24-2024 aPTT Coag (Bld) [Time] 26.1 s Normal 25.1-36.5 [facility] Comment on above: Result Comment: A he matocrit value greater than 55% may lead to inaccurate results in coagulation testing. Patients having hematocrit values >55% require a special collection tube for coagulation studies. Please contact the laboratory at [phone] for redraw instructions. PERFORMED BY: [address] [place] [address] PATHOLOGIST MANAGER OF FINANCIAL JASEN DIAZ M.D. Performed By: #### P T, CMP, PTT, CBC ####[place] [address] Platelet mean volume [Entiti c volume] in Blood by Automated countOrdered By: Brandi Lopez on 04-24-2024 Platelet mean volume (Bld) [Entitic vol] 6.2 fL Low 6.3-10.7 [facility] Comment on above: Performed By: #### P T, CMP, PTT, CBC #### [facility] [address] [place] [address] Platelets [#/volume] in Bloo d by Automated countOrdered By: Brandi Lopez on 04-24-2024 Platelets (Bld) [#/Vol] 333 10*3/uL Normal 150-450 [facility] Comment on above: Performed By: #### P T, CMP, PTT, CBC #### [facility] [address] [place] [address] Potassium [Moles/volume] in Serum or PlasmaOrdered By: Brandi Lopez on 04-24-2024 Potassium [Moles/Vol] 3.5 mmol/L Normal 3.5-5.1 [facility] Comment on above: Performed By: #### P T, CMP, PTT, CBC ####[address] Protein [Mass/volume] in Ser um or PlasmaOrdered By: Brandi Lopez on 04-24-2024 Protein [Mass/Vol] 5.6 g/dL Low 6.4-8.9 [facility] Comment on above: Performed By: #### P T, CMP, PTT, CBC ####[place] [address] [address] Prothrombin time (PT)Ordered By: Brandi Lopez on 04-24-2024 PT Coag (PPP) [Time] 11.8 s Normal 9.0-12.9 [facility] Comment on above: A hematocrit value g reater than 55% may lead to inaccurate results in coagulation testing. Patients having hematocrit values >55% require a special collection tube for coagulation studies. Please contact the laboratory at [phone] for redraw instructions. Result Comment: A he matocrit value greater than 55% may lead to inaccurate results in coagulation testing. Patients having hematocrit values >55% require a special collection tube for coagulation studies. Please contact the laboratory at [phone] for redraw instructions. Performed By: #### P T, CMP, PTT, CBC #### [facility] [address] Serum globulin measurement b y calculation (mass/volume)Ordered By: Brandi Lopez on 04-24-2024 Globulin (S) [Mass/Vol] 2.0 g/dL [facility] Comment on above: Performed By: #### P T, CMP, PTT, CBC ####[address] Serum or plasma albumin/glob ulin mass ratioOrdered By: Brandi Lopez on 04-24-2024 Albumin/Globulin [Mass ratio] 1.8 {ratio} [facility] Comment on above: Performed By: #### P T, CMP, PTT, CBC ####[address] Serum or plasma anion gap de terminationOrdered By: Brandi Lopez on 04-24-2024 Anion gap [Moles/Vol] 9.0 mmol/L Normal 6.0-15.0 [facility] Comment on above: Performed By: #### P T, CMP, PTT, CBC ####[address] Sodium [Moles/volume] in Ser um or PlasmaOrdered By: Brandi Lopez on 04-24-2024 Sodium [Moles/Vol] 138 mmol/L Normal 136-145 [facility] Comment on above: Performed By: #### P T, CMP, PTT, CBC ####[address] Urea nitrogen [Mass/volume] in Serum or PlasmaOrdered By: Brandi Lopez on 04-24-2024 Urea nitrogen [Mass/Vol] 15 mg/dL Normal 7-25 [facility] Comment on above: Performed By: #### P T, CMP, PTT, CBC ####[facility] [id number] [place] [address] [facility] Basophils Auto (Bld) [#/Vol] on 04-20-2024 Basophils (Bld) [#/Vol] 0.1 10 3/uL 0.0-0.1 [facility] Basophils/100 WBC Auto (Bld) on 04-20-2024 Basophils/100 WBC (Bld) 0.9 % 0.2-2.0 [facility] Eosinophils/100 WBC Auto (Bl d)on 04-20-2024 Eosinophils/100 WBC (Bld) 5.0 % 0.9-7.0 [facility] Erythrocyte distribution wid th Auto (RBC) [Ratio]on 04-20-2024 Erythrocyte distribution width (RBC) [Ratio] 15.8 % High 11.0-15.0 [facility] Estimated glomerular filtrat ion rate (GFR) non- Americanon 04-20-2024 GFR/1.73 sq M.predicted among non-blacks MDRD (S/P/Bld) [Vol rate/Area] mL/min/{1.73_m2} >=60 [facility] Hematocrit Auto (Bld) [Volum e fraction]on 04-20-2024 Hematocrit (Bld) [Volume fraction] 31.1 % Low 36.0-48.0 [facility] Hemoglobin [Mass/volume] in Bloodon 04-20-2024 Hemoglobin (Bld) [Mass/Vol] 10.0 g/dL Low 12.0-16.0 [facility] Laboratory - Chemistry and C hemistry - challengeon 04-20-2024 Calcium [Mass/Vol] 9.0 mg/dL 8.5-10.1 [facility] Chloride [Moles/Vol] 102 mmol/L 98-107 [facility] CO2 [Moles/Vol] 32.9 mmol/L High 21.0-32.0 [facility] Creatinine [Mass/Vol] 0.83 mg/dL 0.55-1.02 [facility] GFR/1.73 sq M.predicted MDRD (S/P/Bld) [Vol rate/Area] mL/min/{1.73_m2} >=60 [facility] Glucose [Mass/Vol] 204 mg/dL High 74-106 [facility] Potassium [Moles/Vol] 3.8 mmol/L 3.5-5.1 [facility] Sodium [Moles/Vol] 140 mmol/L 136-145 [facility] Urea nitrogen [Mass/Vol] 12.0 mg/dL 7.0-18.0 [facility] Urea nitrogen/Creatinine [Mass ratio] 14.5 mg/mg [facility] Laboratory - Hematology and Cell countson 04-20-2024 Immature granulocytes/100 WBC (Bld) 0.2 % 0.0-0.5 [facility] Leukocytes [#/volume] correc medardo for nucleated erythrocytes in Blood by Automated counon 04-20-2024 WBC corrected for nucl RBC Auto (Bld) [#/Vol] 6.3 10 3/uL 4.0-11.0 [facility] Lymphocytes Auto (Bld) [#/Vo l]on 04-20-2024 Lymphocytes (Bld) [#/Vol] 1.1 10 3/uL Low 1.2-3.8 [facility] Lymphocytes/100 WBC Auto (Bl d)on 04-20-2024 Lymphocytes/100 WBC (Bld) 17.5 % Low 20.5-60.0 [facility] MCH Auto (RBC) [Entitic mass ]on 04-20-2024 MCH (RBC) [Entitic mass] 31.0 pg 26.7-34.0 [facility] MCHC Auto (RBC) [Mass/Vol]on 04-20-2024 MCHC (RBC) [Mass/Vol] 32.2 g/dL 29.9-35.2 [facility] MCV Auto (RBC) [Entitic vol] on 04-20-2024 MCV (RBC) [Entitic vol] 96.3 fL 81.0-99.0 [facility] Monocytes Auto (Bld) [#/Vol] on 04-20-2024 Monocytes (Bld) [#/Vol] 0.4 10 3/uL 0.3-0.8 [facility] Monocytes/100 WBC Auto (Bld) on 04-20-2024 Monocytes/100 WBC (Bld) 6.9 % 1.7-12.0 [facility] Neutrophils Auto (Bld) [#/Vo l]on 04-20-2024 Neutrophils (Bld) [#/Vol] 4.4 10 3/uL 1.4-6.5 [facility] Neutrophils/100 WBC Auto (Bl d)on 04-20-2024 Neutrophils/100 WBC (Bld) 69.5 % 43.0-75.0 [facility] No Panel Informationon 04-20 Eosinophils # (Auto) 0.3 10 3/uL 0.0-0.7 [facility] Immature Granulocyte # (Auto) 0.01 10 3/uL 0.00-0.03 [facility] Platelet mean volume Auto (B ld) [Entitic vol]on 04-20-2024 Platelet mean volume (Bld) [Entitic vol] 9.0 fL Low 9.5-13.5 [facility] Platelets Auto (Bld) [#/Vol] on 04-20-2024 Platelets (Bld) [#/Vol] 307 10 3/uL 150-450 [facility] RBC Auto (Bld) [#/Vol]on RBC (Bld) [#/Vol] 3.23 10 6/uL Low 4.20-5.40 [facility] Serum or plasma anion gap de terminationon 04-20-2024 Anion gap [Moles/Vol] 8.9 mmol/L [facility] Basophils Auto (Bld) [#/Vol] on 04-08-2024 Basophils (Bld) [#/Vol] 0.1 10 3/uL 0.0-0.1 [facility] Basophils/100 WBC Auto (Bld) on 04-08-2024 Basophils/100 WBC (Bld) 0.6 % 0.2-2.0 [facility] Eosinophils/100 WBC Auto (Bl d)on 04-08-2024 Eosinophils/100 WBC (Bld) 2.0 % 0.9-7.0 [facility] Erythrocyte distribution wid th Auto (RBC) [Ratio]on 04-08-2024 Erythrocyte distribution width (RBC) [Ratio] 14.9 % 11.0-15.0 [facility] Estimated glomerular filtrat ion rate (GFR) non- Americanon 04-08-2024 GFR/1.73 sq M.predicted among non-blacks MDRD (S/P/Bld) [Vol rate/Area] 54 mL/min/{1.73_m2} Low >=60 [facility] Globulin Calc (S) [Mass/Vol] on 04-08-2024 Globulin (S) [Mass/Vol] 3.3 g/dL [facility] Hematocrit Auto (Bld) [Volum e fraction]on 04-08-2024 Hematocrit (Bld) [Volume fraction] 33.8 % Low 36.0-48.0 [facility] Hemoglobin [Mass/volume] in Bloodon 04-08-2024 Hemoglobin (Bld) [Mass/Vol] 11.1 g/dL Low 12.0-16.0 [facility] Laboratory - Chemistry and C hemistry - challengeon 04-08-2024 Albumin [Mass/Vol] 3.1 g/dL Low 3.4-5.0 [facility] ALP [Catalytic activity/Vol] 96 U/L 46-116 [facility] ALT [Catalytic activity/Vol] 17 U/L 14-59 [facility] AST [Catalytic activity/Vol] 17 U/L 15-37 [facility] Bilirubin [Mass/Vol] 0.5 mg/dL 0.2-1.0 [facility] Calcium [Mass/Vol] 9.5 mg/dL 8.5-10.1 [facility] Chloride [Moles/Vol] 100 mmol/L 98-107 [facility] CO2 [Moles/Vol] 33.7 mmol/L High 21.0-32.0 [facility] Creatinine [Mass/Vol] 0.97 mg/dL 0.55-1.02 [facility] GFR/1.73 sq M.predicted MDRD (S/P/Bld) [Vol rate/Area] mL/min/{1.73_m2} >=60 [facility] Glucose [Mass/Vol] 156 mg/dL High 74-106 [facility] Potassium [Moles/Vol] 3.7 mmol/L 3.5-5.1 [facility] Protein [Mass/Vol] 6.4 g/dL 6.4-8.2 [facility] Sodium [Moles/Vol] 138 mmol/L 136-145 [facility] Urea nitrogen [Mass/Vol] 14.0 mg/dL 7.0-18.0 [facility] Urea nitrogen/Creatinine [Mass ratio] 14.4 mg/mg [facility] Laboratory - Hematology and Cell countson 04-08-2024 Immature granulocytes/100 WBC (Bld) 0.4 % 0.0-0.5 [facility] Leukocytes [#/volume] correc medardo for nucleated erythrocytes in Blood by Automated counon 04-08-2024 WBC corrected for nucl RBC Auto (Bld) [#/Vol] 9.3 10 3/uL 4.0-11.0 [facility] Lymphocytes Auto (Bld) [#/Vo l]on 04-08-2024 Lymphocytes (Bld) [#/Vol] 1.7 10 3/uL 1.2-3.8 [facility] Lymphocytes/100 WBC Auto (Bl d)on 04-08-2024 Lymphocytes/100 WBC (Bld) 18.0 % Low 20.5-60.0 [facility] MCH Auto (RBC) [Entitic mass ]on 04-08-2024 MCH (RBC) [Entitic mass] 31.5 pg 26.7-34.0 [facility] MCHC Auto (RBC) [Mass/Vol]on 04-08-2024 MCHC (RBC) [Mass/Vol] 32.8 g/dL 29.9-35.2 [facility] MCV Auto (RBC) [Entitic vol] on 04-08-2024 MCV (RBC) [Entitic vol] 96.0 fL 81.0-99.0 [facility] Monocytes Auto (Bld) [#/Vol] on 04-08-2024 Monocytes (Bld) [#/Vol] 0.6 10 3/uL 0.3-0.8 [facility] Monocytes/100 WBC Auto (Bld) on 04-08-2024 Monocytes/100 WBC (Bld) 6.7 % 1.7-12.0 [facility] Neutrophils Auto (Bld) [#/Vo l]on 04-08-2024 Neutrophils (Bld) [#/Vol] 6.7 10 3/uL High 1.4-6.5 [facility] Neutrophils/100 WBC Auto (Bl d)on 04-08-2024 Neutrophils/100 WBC (Bld) 72.3 % 43.0-75.0 [facility] No Panel Informationon 04-08 Eosinophils # (Auto) 0.2 10 3/uL 0.0-0.7 [facility] Immature Granulocyte # (Auto) 0.04 10 3/uL High 0.00-0.03 [facility] Platelet mean volume Auto (B ld) [Entitic vol]on 04-08-2024 Platelet mean volume (Bld) [Entitic vol] 9.0 fL Low 9.5-13.5 [facility] Platelets Auto (Bld) [#/Vol] on 04-08-2024 Platelets (Bld) [#/Vol] 457 10 3/uL High 150-450 [facility] RBC Auto (Bld) [#/Vol]on RBC (Bld) [#/Vol] 3.52 10 6/uL Low 4.20-5.40 [facility] Serum or plasma albumin/glob ulin mass ratioon 04-08-2024 Albumin/Globulin [Mass ratio] 0.9 {ratio} [facility] Serum or plasma anion gap de terminationon 04-08-2024 Anion gap [Moles/Vol] 8.0 mmol/L [facility] Basophils/100 WBC Manual cnt (Bld)on 03-20-2024 Basophils/100 WBC (Bld) 0.0 % Low 0.2-2.0 [facility] Eosinophils/100 WBC Manual c nt (Bld)on 03-20-2024 Eosinophils/100 WBC (Bld) 0.0 % Low 0.9-7.0 [facility] Erythrocyte distribution wid th Auto (RBC) [Ratio]on 03-20-2024 Erythrocyte distribution width (RBC) [Ratio] 14.2 % 11.0-15.0 [facility] Estimated glomerular filtrat ion rate (GFR) non- Americanon 03-20-2024 GFR/1.73 sq M.predicted among non-blacks MDRD (S/P/Bld) [Vol rate/Area] 39 mL/min/{1.73_m2} Low >=60 [facility] Globulin Calc (S) [Mass/Vol] on 03-20-2024 Globulin (S) [Mass/Vol] 3.3 g/dL [facility] Hematocrit Auto (Bld) [Volum e fraction]on 03-20-2024 Hematocrit (Bld) [Volume fraction] 33.4 % Low 36.0-48.0 [facility] Hemoglobin [Mass/volume] in Bloodon 03-20-2024 Hemoglobin (Bld) [Mass/Vol] 11.2 g/dL Low 12.0-16.0 [facility] Laboratory - Chemistry and C hemistry - challengeon 03-20-2024 Albumin [Mass/Vol] 3.0 g/dL Low 3.4-5.0 [facility] ALP [Catalytic activity/Vol] 70 U/L 46-116 [facility] ALT [Catalytic activity/Vol] 19 U/L 14-59 [facility] AST [Catalytic activity/Vol] 21 U/L 15-37 [facility] Bilirubin [Mass/Vol] 0.3 mg/dL 0.2-1.0 [facility] Calcium [Mass/Vol] 9.3 mg/dL 8.5-10.1 [facility] Chloride [Moles/Vol] 100 mmol/L 98-107 [facility] CO2 [Moles/Vol] 29.0 mmol/L 21.0-32.0 [facility] Creatinine [Mass/Vol] 1.28 mg/dL High 0.55-1.02 [facility] GFR/1.73 sq M.predicted MDRD (S/P/Bld) [Vol rate/Area] 48 mL/min/{1.73_m2} Low >=60 [facility] Glucose [Mass/Vol] 166 mg/dL High 74-106 [facility] Potassium [Moles/Vol] 3.3 mmol/L Low 3.5-5.1 [facility] Protein [Mass/Vol] 6.3 g/dL Low 6.4-8.2 [facility] Sodium [Moles/Vol] 138 mmol/L 136-145 [facility] Urea nitrogen [Mass/Vol] 29.0 mg/dL High 7.0-18.0 [facility] Urea nitrogen/Creatinine [Mass ratio] 22.7 mg/mg [facility] Laboratory - Hematology and Cell countson 03-20-2024 Lymphocytes/100 WBC (Bld) 8.0 % Low 20.5-60.0 [facility] Monocytes/100 WBC (Bld) 6.0 % 1.7-12.0 [facility] Leukocytes [#/volume] correc medardo for nucleated erythrocytes in Blood by Automated counon 03-20-2024 WBC corrected for nucl RBC Auto (Bld) [#/Vol] 22.5 10 3/uL High 4.0-11.0 [facility] MCH Auto (RBC) [Entitic mass ]on 03-20-2024 MCH (RBC) [Entitic mass] 32.5 pg 26.7-34.0 [facility] MCHC Auto (RBC) [Mass/Vol]on 03-20-2024 MCHC (RBC) [Mass/Vol] 33.5 g/dL 29.9-35.2 [facility] MCV Auto (RBC) [Entitic vol] on 03-20-2024 MCV (RBC) [Entitic vol] 96.8 fL 81.0-99.0 [facility] No Panel Informationon 03-20 Absolute Basophils (Manual) 0.00 10 3/uL 0.00-0.10 [facility] Eosinophils # (Manual) 0.00 10 3/uL 0.00-0.70 [facility] Lymphocytes # (Manual) 1.80 10 3/uL 1.20-3.80 [facility] Monocytes # (Manual) 1.35 10 3/uL High 0.30-0.80 [facility] Segmented Neutrophils # (Manual) 19.35 10 3/uL High 1.4-6.5 [facility] Platelet mean volume Auto (B ld) [Entitic vol]on 03-20-2024 Platelet mean volume (Bld) [Entitic vol] 9.0 fL Low 9.5-13.5 [facility] Platelets Auto (Bld) [#/Vol] on 03-20-2024 Platelets (Bld) [#/Vol] 477 10 3/uL High 150-450 [facility] RBC Auto (Bld) [#/Vol]on RBC (Bld) [#/Vol] 3.45 10 6/uL Low 4.20-5.40 [facility] Segmented neutrophils/100 WB C Manual cnt (Bld)on 03-20-2024 Segmented neutrophils/100 WBC (Bld) 86.0 % [facility] Serum or plasma albumin/glob ulin mass ratioon 03-20-2024 Albumin/Globulin [Mass ratio] 0.9 {ratio} [facility] Serum or plasma anion gap de terminationon 03-20-2024 Anion gap [Moles/Vol] 12.3 mmol/L [facility] Whole blood hypersegmented n eutrophils detection by light microscopyon 03-20-2024 Neutrophils.hypersegme nted LM Ql (Bld) 3+ [facility] Basophils Auto (Bld) [#/Vol] on 03-19-2024 Basophils (Bld) [#/Vol] 0.0 10 3/uL 0.0-0.1 [facility] Basophils/100 WBC Auto (Bld) on 03-19-2024 Basophils/100 WBC (Bld) 0.1 % Low 0.2-2.0 [facility] Determination of appearance of body fluidon 03-19-2024 Appearance (Body fld) Hazy Abnormal Clear Fir [facility] Eosinophils/100 WBC Auto (Bl d)on 03-19-2024 Eosinophils/100 WBC (Bld) 0.0 % Low 0.9-7.0 [facility] Erythrocyte distribution wid th Auto (RBC) [Ratio]on 03-19-2024 Erythrocyte distribution width (RBC) [Ratio] 14.0 % 11.0-15.0 [facility] Estimated glomerular filtrat ion rate (GFR) non- Americanon 03-19-2024 GFR/1.73 sq M.predicted among non-blacks MDRD (S/P/Bld) [Vol rate/Area] 52 mL/min/{1.73_m2} Low >=60 [facility] Evaluation of color of body fluidon 03-19-2024 Color (Body fld) Straw . [facility] Comment on above: Colorless to Pale Ye llow/StrawDifferential to be reviewed by pathologist; report tofollow. Globulin Calc (S) [Mass/Vol] on 03-19-2024 Globulin (S) [Mass/Vol] 3.8 g/dL [facility] Hematocrit Auto (Bld) [Volum e fraction]on 03-19-2024 Hematocrit (Bld) [Volume fraction] 35.1 % Low 36.0-48.0 [facility] Hemoglobin [Mass/volume] in Bloodon 03-19-2024 Hemoglobin (Bld) [Mass/Vol] 11.7 g/dL Low 12.0-16.0 [facility] Jr 03-19-2024 L Specimen: BC Received: 03/23/24 Status: SOUT Req Num: [id number] Spec Type: Cytology Subm Dr: Tab Wang MD Tissues: A PLEURAL FLUID (RT PLEURAL EFF) Procedures: Mucicarmine, CD45, HE/2, Gross/Micro L4, CALRETININ, CAM5.2, CK20, CK 7, ER, ND, Cyto Prepstain, GATA3, PAPSTN Age/ Patient Sex Location Account Attending Physician Yolanda Fairbanks/F LABELL [id number] Tab Wang MD SPEC NUM: [id number] RECD: 03/23/24 STATUS: SOUT REQ NUM: [id number] JOSE DAVID: 03/19/24 DR: Tab Wang MD ENTERED: 03/23/24 [facility] DR: Da,Lab SPEC TYPE: Cytology DEPT: [facility] ENTERED BY: [id number] RECV BY: [id number] ORDERED: Mucicarmine, CD45, HE/2, Gross/Micro L4, CALRETININ, CAM5.2, CK20, CK 7, ER, ND, Cyto Prepstain, GATA3, PAPSTN ORDERED: Mucicarmine, CD45, HE/2, Gross/Micro L4, CALRETININ, CAM5.2, CK20, CK 7, ER, ND, Cyto Prepstain, GATA3, PAPSTN Pathological Diagnosis Right thoracocentesis fluid, cytology: -Positive for metastatic carcinoma of the breast -The tumor cells positive for CAM 5.2, CK7, and GATA3; and are negative for calretinin, CK20, and CD45, supporting the above interpretation -The tumor cells are possibly positive for ER at 1-2% -The tumor cells are negative for ND -Immuno controls are appropriate -The mucicarmine stain showing at least rare faintly positive tumor cells -The tumor cells in ThinPrep and cell block section are mostly individual tumor cells -The tumor cells in the tissue fluid can lose antigenicity of the tumor markers including minimal ER positivity in this material -The HER2 and E-cadherin also will not be performed Clinical Information Right pleural effusion History of right breast cancer Specimen: [id number] Received: 03/23/24 Status: JASON Neely Num: [id number] Spec Type: Cytology Subm Dr: Tab Wang MD Tissues: A PLEURAL FLUID (RT PLEURAL EFF) Procedures: Mucicarmine, CD45, HE/2, Gross/Micro L4, CALRETININ, CAM5.2, CK20, CK 7, ER, ND, Cyto Prepstain, GATA3, PAPSTN Patient: Yolanda Fairbanks [id number] (Continued) Specimen: [id number] Received: 03/23/24 (Continued) Signed (signature on file) Michelle Valentine MD 03/25/24 1648 Specimen: [id number] Received: 03/23/245594 Status: JASON Neely Num: [id number] Spec Type: Cytology Subm Dr: Tab Wang MD Tissues: A PLEURAL FLUID (RT PLEURAL EFF) Procedures: Mucicarmine, CD45, HE/2, Gross/Micro L4, CALRETININ, CAM5.2, CK20, CK 7, ER, ND, Cyto Prepstain, GATA3, PAPSTN Patient: Yolanda Fairbanks [id number] (Continued) Specimen: [id number] Received: 03/23/24 (Continued) Gross Description Received fresh labeled with the patient's name, date of and Rt pleural fluid per requisition is 1000 ml red/orange cloudy mucinous unfixed fluid 1 Thin Prep slides are prepared. 1 cell blocks are prepared. (CC/al) CPT Codes 95540 [id number] x 5 22011 x 2 18759 Specimen: [id number] Received: 03/23/24 Status: JASON Neely Num: [id number] Spec Type: Cytology Subm Dr: Tab Wang MD Tissues: A PLEURAL FLUID (RT PLEURAL EFF) Procedures: Mucicarmine, CD45, HE/2, Gross/Micro L4, CALRETININ, CAM5.2, CK20, CK 7, ER, ND, Cyto Prepstain, GATA3, PAPSTN Patient: Yolanda Fairbanks [id number] (Continued) Signed (signature on file) Chin-Andres Valentine MD 03/25/24 5008 Normal [facility] Laboratory - Chemistry and C hemistry - challengeon 03-19-2024 Albumin [Mass/Vol] 3.1 g/dL Low 3.4-5.0 [facility] ALP [Catalytic activity/Vol] 74 U/L 46-116 [facility] ALT [Catalytic activity/Vol] 18 U/L 14-59 [facility] AST [Catalytic activity/Vol] 16 U/L 15-37 [facility] Bilirubin [Mass/Vol] 0.4 mg/dL 0.2-1.0 [facility] Calcium [Mass/Vol] 9.6 mg/dL 8.5-10.1 [facility] Chloride [Moles/Vol] 97 mmol/L Low 98-107 [facility] CO2 [Moles/Vol] 28.5 mmol/L 21.0-32.0 [facility] Creatinine [Mass/Vol] 1.00 mg/dL 0.55-1.02 [facility] GFR/1.73 sq M.predicted MDRD (S/P/Bld) [Vol rate/Area] mL/min/{1.73_m2} >=60 [facility] Glucose [Mass/Vol] 188 mg/dL High 74-106 [facility] Potassium [Moles/Vol] 3.0 mmol/L Low 3.5-5.1 [facility] Protein [Mass/Vol] 6.9 g/dL 6.4-8.2 [facility] Sodium [Moles/Vol] 136 mmol/L 136-145 [facility] Urea nitrogen [Mass/Vol] 24.0 mg/dL High 7.0-18.0 [facility] Urea nitrogen/Creatinine [Mass ratio] 24.0 mg/mg [facility] Laboratory - Hematology and Cell countson 03-19-2024 Immature granulocytes/100 WBC (Bld) 0.4 % 0.0-0.5 [facility] Laboratory - Microbiology an d Antimicrobial susceptibilityOrdered By: Shaikh Camilla on 03-19-2024 Microscopic observation Gram stain Nom (Unsp spec) [facility] Leukocytes [#/volume] correc medardo for nucleated erythrocytes in Blood by Automated counon 03-19-2024 WBC corrected for nucl RBC Auto (Bld) [#/Vol] 11.2 10 3/uL High 4.0-11.0 [facility] Lymphocytes Auto (Bld) [#/Vo l]on 03-19-2024 Lymphocytes (Bld) [#/Vol] 1.0 10 3/uL Low 1.2-3.8 [facility] Lymphocytes/100 WBC Auto (Bl d)on 03-19-2024 Lymphocytes/100 WBC (Bld) 9.1 % Low 20.5-60.0 [facility] MCH Auto (RBC) [Entitic mass ]on 03-19-2024 MCH (RBC) [Entitic mass] 32.5 pg 26.7-34.0 [facility] MCHC Auto (RBC) [Mass/Vol]on 03-19-2024 MCHC (RBC) [Mass/Vol] 33.3 g/dL 29.9-35.2 [facility] MCV Auto (RBC) [Entitic vol] on 03-19-2024 MCV (RBC) [Entitic vol] 97.5 fL 81.0-99.0 [facility] Manual body fluid eosinophil s/100 leukocyteson 03-19-2024 Eosinophils/100 WBC Manual cnt (Body fld) 0 % Not Estab. [facility] Manual body fluid lymphocyte s/100 leukocyteson 03-19-2024 Lymphocytes/100 WBC Manual cnt (Body fld) 11 % Not Estab. [facility] Monocytes Auto (Bld) [#/Vol] on 03-19-2024 Monocytes (Bld) [#/Vol] 0.7 10 3/uL 0.3-0.8 [facility] Monocytes/100 WBC Auto (Bld) on 03-19-2024 Monocytes/100 WBC (Bld) 6.3 % 1.7-12.0 [facility] Neutrophils Auto (Bld) [#/Vo l]on 03-19-2024 Neutrophils (Bld) [#/Vol] 9.5 10 3/uL High 1.4-6.5 [facility] Neutrophils/100 WBC Auto (Bl d)on 03-19-2024 Neutrophils/100 WBC (Bld) 84.1 % High 43.0-75.0 [facility] Neutrophils/100 WBC Manual c nt (Body fld)on 03-19-2024 Neutrophils/100 WBC (Body fld) 4 % 0-24 [facility] No Panel Informationon 03-19 Body Fluid Comment TNP . [facility] Body Fluid Glucose 133 mg/dL . [facility] Comment on above: : [...] Children 2007. Ninth edition (V9.1) [employer], [facility]; [place]: May 2009. Body Fluid Lactate Dehydrogenase 685 IU/L . [facility] Comment on above: : BODY [...] 2008. Ninth Edition (V9.1) [employer], [facility]; [place]: May 2009.Performed at: [facility] [address] [id number] Director: Oracio Ramirez PhD, Phone: [phone] Body Fluid Lining Cell 67 % Not Estab. [facility] Comment on above: Performed at: [facility] - [facility] [address] [id number] Director: Oracio Ramirez PhD, Phone: [phone] Body Fluid Macrophages (%) 16 % Not Estab. [facility] Body Fluid RBC 6000 /uL Not Estab. [facility] Body Fluid Total Nucleated Cells 7000 /mm3 Abnormal 0-499 [facility] Comment on above: Pleural Fluid, with <1000 Nucleated cells/uL has beenassociated with transudates while >1000 uL may be seenin exudates. Body Fluid Total Protein 4.4 g/dL . [facility] Comment on above: : BODY [...] 2007. Ninth Edition (V9.1) [employer], [facility]; [place]: May 2009. Eosinophils # (Auto) 0.0 10 3/uL 0.0-0.7 [facility] Immature Granulocyte # (Auto) 0.04 10 3/uL High 0.00-0.03 [facility] Platelet mean volume Auto (B ld) [Entitic vol]on 03-19-2024 Platelet mean volume (Bld) [Entitic vol] 9.4 fL Low 9.5-13.5 [facility] Platelets Auto (Bld) [#/Vol] on 03-19-2024 Platelets (Bld) [#/Vol] 501 10 3/uL High 150-450 [facility] RBC Auto (Bld) [#/Vol]on RBC (Bld) [#/Vol] 3.60 10 6/uL Low 4.20-5.40 [facility] Serum or plasma albumin/glob ulin mass ratioon 03-19-2024 Albumin/Globulin [Mass ratio] 0.8 {ratio} [facility] Serum or plasma anion gap de terminationon 03-19-2024 Anion gap [Moles/Vol] 13.5 mmol/L [facility] Basophils Auto (Bld) [#/Vol] on 03-18-2024 Basophils (Bld) [#/Vol] 0.1 10 3/uL 0.0-0.1 [facility] Basophils/100 WBC Auto (Bld) on 03-18-2024 Basophils/100 WBC (Bld) 0.4 % 0.2-2.0 [facility] Eosinophils/100 WBC Auto (Bl d)on 03-18-2024 Eosinophils/100 WBC (Bld) 1.0 % 0.9-7.0 [facility] Erythrocyte distribution wid th Auto (RBC) [Ratio]on 03-18-2024 Erythrocyte distribution width (RBC) [Ratio] 14.6 % 11.0-15.0 [facility] Estimated glomerular filtrat ion rate (GFR) non- Americanon 03-18-2024 GFR/1.73 sq M.predicted among non-blacks MDRD (S/P/Bld) [Vol rate/Area] 47 mL/min/{1.73_m2} Low >=60 [facility] Globulin Calc (S) [Mass/Vol] on 03-18-2024 Globulin (S) [Mass/Vol] 3.8 g/dL [facility] Hematocrit Auto (Bld) [Volum e fraction]on 03-18-2024 Hematocrit (Bld) [Volume fraction] 35.2 % Low 36.0-48.0 [facility] Hemoglobin [Mass/volume] in Bloodon 03-18-2024 Hemoglobin (Bld) [Mass/Vol] 11.6 g/dL Low 12.0-16.0 [facility] Laboratory - Chemistry and C hemistry - challengeon 03-18-2024 Albumin [Mass/Vol] 3.2 g/dL Low 3.4-5.0 [facility] ALP [Catalytic activity/Vol] 81 U/L 46-116 [facility] ALT [Catalytic activity/Vol] 16 U/L 14-59 [facility] AST [Catalytic activity/Vol] 20 U/L 15-37 [facility] Bilirubin [Mass/Vol] 0.5 mg/dL 0.2-1.0 [facility] Calcium [Mass/Vol] 9.7 mg/dL 8.5-10.1 [facility] Chloride [Moles/Vol] 99 mmol/L 98-107 [facility] CO2 [Moles/Vol] 25.1 mmol/L 21.0-32.0 [facility] Creatinine [Mass/Vol] 1.10 mg/dL High 0.55-1.02 [facility] GFR/1.73 sq M.predicted MDRD (S/P/Bld) [Vol rate/Area] 57 mL/min/{1.73_m2} Low >=60 [facility] Glucose [Mass/Vol] 182 mg/dL High 74-106 [facility] Lactate [Moles/Vol] 1.8 mmol/L 0.4-2.0 [facility] LDH [Catalytic activity/Vol] 192 U/L 81-234 [facility] Natriuretic peptide B (Bld) [Mass/Vol] 298.0 pg/mL <=1800.0 [facility] Potassium [Moles/Vol] 3.5 mmol/L 3.5-5.1 [facility] Protein [Mass/Vol] 7.0 g/dL 6.4-8.2 [facility] Sodium [Moles/Vol] 135 mmol/L Low 136-145 [facility] Urea nitrogen [Mass/Vol] 25.0 mg/dL High 7.0-18.0 [facility] Urea nitrogen/Creatinine [Mass ratio] 22.7 mg/mg [facility] HCO3 (Bld) [Moles/Vol] 25.6 mmol/L 22.0-26.0 [facility] Laboratory - Hematology and Cell countson 03-18-2024 Immature granulocytes/100 WBC (Bld) 0.3 % 0.0-0.5 [facility] Leukocytes [#/volume] correc medardo for nucleated erythrocytes in Blood by Automated counon 03-18-2024 WBC corrected for nucl RBC Auto (Bld) [#/Vol] 12.6 10 3/uL High 4.0-11.0 [facility] Lymphocytes Auto (Bld) [#/Vo l]on 03-18-2024 Lymphocytes (Bld) [#/Vol] 1.3 10 3/uL 1.2-3.8 [facility] Lymphocytes/100 WBC Auto (Bl d)on 03-18-2024 Lymphocytes/100 WBC (Bld) 10.5 % Low 20.5-60.0 [facility] MCH Auto (RBC) [Entitic mass ]on 03-18-2024 MCH (RBC) [Entitic mass] 33.0 pg 26.7-34.0 [facility] MCHC Auto (RBC) [Mass/Vol]on 03-18-2024 MCHC (RBC) [Mass/Vol] 33.0 g/dL 29.9-35.2 [facility] MCV Auto (RBC) [Entitic vol] on 03-18-2024 MCV (RBC) [Entitic vol] 100.0 fL High 81.0-99.0 [facility] Monocytes Auto (Bld) [#/Vol] on 03-18-2024 Monocytes (Bld) [#/Vol] 1.1 10 3/uL High 0.3-0.8 [facility] Monocytes/100 WBC Auto (Bld) on 03-18-2024 Monocytes/100 WBC (Bld) 9.0 % 1.7-12.0 [facility] Neutrophils Auto (Bld) [#/Vo l]on 03-18-2024 Neutrophils (Bld) [#/Vol] 9.9 10 3/uL High 1.4-6.5 [facility] Neutrophils/100 WBC Auto (Bl d)on 03-18-2024 Neutrophils/100 WBC (Bld) 78.8 % High 43.0-75.0 [facility] No Panel InformationOrdered By: Hanh Kuhn on 03-18-2024 Blood Culture 2 [facility] Blood Culture 1 [facility] No Panel Informationon 03-18 Eosinophils # (Auto) 0.1 10 3/uL 0.0-0.7 [facility] Immature Granulocyte # (Auto) 0.04 10 3/uL High 0.00-0.03 [facility] Troponin I High Sensitivity 11.2 pg/mL 4.0-51.3 [facility] Comment on above: CUT-OFF POINTS HAVE BEEN [...] AND CLINICAL INFORMATION. Vicente Test Positive POSITIVE [facility] Arterial Blood Base Excess -0.3 mmol/L <2.0-2.0 [facility] Arterial Blood Oxygen Saturation 94.1 % [facility] Arterial Blood Partial Pressure CO2 48.5 mm[Hg] High 35.0-45.0 [facility] Arterial Blood Partial Pressure O2 72.8 mm[Hg] Low 80.0-100.0 [facility] Arterial Blood pH 7.331 Low 7.350-7.45 0 [facility] Blood Gas Liter Flow 2 [facility] Blood Gas Sample Site R RADIAL [facility] Oxygen Delivery Device N/C [facility] Platelet mean volume Auto (B ld) [Entitic vol]on 03-18-2024 Platelet mean volume (Bld) [Entitic vol] 9.1 fL Low 9.5-13.5 [facility] Platelets Auto (Bld) [#/Vol] on 03-18-2024 Platelets (Bld) [#/Vol] 453 10 3/uL High 150-450 [facility] RBC Auto (Bld) [#/Vol]on RBC (Bld) [#/Vol] 3.52 10 6/uL Low 4.20-5.40 [facility] Serum or plasma albumin/glob ulin mass ratioon 03-18-2024 Albumin/Globulin [Mass ratio] 0.8 {ratio} [facility] Serum or plasma anion gap de terminationon 03-18-2024 Anion gap [Moles/Vol] 14.4 mmol/L [facility] Alanine aminotransferase [En zymatic activity/volume] in Serum or PlasmaOrdered By: Brandi Lopez on 09-03-2023 ALT [Catalytic activity/Vol] 10 U/L 7-52 [facility] Albumin [Mass/volume] in Ser um or Plasma by Bromocresol green (BCG) dye binding methoOrdered By: Brandi Lopez on 09-03-2023 Albumin BCG dye [Mass/Vol] 4.1 g/dL 3.5-5.7 [facility] Alkaline phosphatase [Enzyma tic activity/volume] in Serum or PlasmaOrdered By: Brandi Lopez on 09-03-2023 ALP [Catalytic activity/Vol] 44 U/L 34-104 [facility] Aspartate aminotransferase [ Enzymatic activity/volume] in Serum or PlasmaOrdered By: Brandi Lopez on 09-03-2023 AST [Catalytic activity/Vol] 10 U/L 13-39 [facility] Basophils Auto (Bld) [#/Vol] Ordered By: Brandi Lopez on 09-03-2023 Basophils (Bld) [#/Vol] 0.0 10*3/uL 0.0-0.2 [facility] Basophils/100 WBC Auto (Bld) Ordered By: Brandi Lopez on 09-03-2023 Basophils/100 WBC (Bld) 1.4 % . [facility] Bilirubin.total [Mass/volume ] in Serum or PlasmaOrdered By: Brandi Lopez on 09-03-2023 Bilirubin [Mass/Vol] 0.9 mg/dL 0.3-1.0 [facility] Calcium [Mass/volume] in Ser um or PlasmaOrdered By: Brandi Lopez on 09-03-2023 Calcium [Mass/Vol] 9.8 mg/dL 8.6-10.3 [facility] Carbon dioxide, total [Moles /volume] in Serum or PlasmaOrdered By: Brandi Lopez on 09-03-2023 CO2 [Moles/Vol] 32.2 mmol/L 21.0-31.0 [facility] Chloride [Moles/volume] in S rakan or PlasmaOrdered By: Brnadi Lopez on 09-03-2023 Chloride [Moles/Vol] 103 mmol/L 98-107 [facility] Creatinine [Mass/volume] in Serum or PlasmaOrdered By: Brandi Lopez on 09-03-2023 Creatinine [Mass/Vol] 1.13 mg/dL 0.60-1.20 [facility] Eosinophils Auto (Bld) [#/Vo l]Ordered By: Brandi Lopez on 09-03-2023 Eosinophils (Bld) [#/Vol] 0.0 10*3/uL 0.0-0.45 [facility] Eosinophils/100 WBC Auto (Bl d)Ordered By: Brandi Lopez on 09-03-2023 Eosinophils/100 WBC (Bld) 0.6 % . [facility] Erythrocyte distribution wid th Auto (RBC) [Ratio]Ordered By: Brandi Lopez on 09-03-2023 Erythrocyte distribution width (RBC) [Ratio] 21.7 % 11.9-15.3 [facility] Globulin Calc (S) [Mass/Vol] Ordered By: Brandi Lopez on 09-03-2023 Globulin (S) [Mass/Vol] 2.1 g/dL [facility] Glucose [Mass/volume] in Ser um or PlasmaOrdered By: Brandi Lopez on 09-03-2023 Glucose [Mass/Vol] 143 mg/dL 70-100 [facility] Comment on above: ADA recommended refe rence rangeRandom Glucose Reference Range is dependent on time and content of last meal. Glucose of more than 200 mg/dL in a nonstressed, ambulatory subject supports the diagnosis of Diabetes Mellitus. Hematocrit Auto (Bld) [Volum e fraction]Ordered By: Brandi Lopez on 09-03-2023 Hematocrit (Bld) [Volume fraction] 31.3 % 34.0-46.4 [facility] Hemoglobin [Mass/volume] in BloodOrdered By: Brandi Lopez on 09-03-2023 Hemoglobin (Bld) [Mass/Vol] 10.8 g/dL 11.8-15.4 [facility] Leukocytes [#/volume] correc medardo for nucleated erythrocytes in Blood by Automated counOrdered By: Brandi Lopez on 09-03-2023 WBC corrected for nucl RBC Auto (Bld) [#/Vol] 2.8 10*3/uL 3.8-11.6 [facility] Lymphocytes Auto (Bld) [#/Vo l]Ordered By: Brandi Lopez on 09-03-2023 Lymphocytes (Bld) [#/Vol] 1.3 10*3/uL 1.00-4.8 [facility] Lymphocytes/100 WBC Auto (Bl d)Ordered By: Brandi Lopez on 09-03-2023 Lymphocytes/100 WBC (Bld) 46.5 % . [facility] MCH Auto (RBC) [Entitic mass ]Ordered By: Brandi Lopez on 09-03-2023 MCH (RBC) [Entitic mass] 36.7 pg 24.7-34.3 [facility] MCHC Auto (RBC) [Mass/Vol]Or dered By: Brandi Lopez on 09-03-2023 MCHC (RBC) [Mass/Vol] 34.5 g/dL 32.0-35.0 [facility] MCV Auto (RBC) [Entitic vol] Ordered By: Brandi Lopez on 09-03-2023 MCV (RBC) [Entitic vol] 106.4 fL 80-100 [facility] Monocytes Auto (Bld) [#/Vol] Ordered By: Brandi Lopez on 09-03-2023 Monocytes (Bld) [#/Vol] 0.2 10*3/uL 0.0-0.8 [facility] Monocytes/100 WBC Auto (Bld) Ordered By: Brandi Lopez on 09-03-2023 Monocytes/100 WBC (Bld) 6.9 % . [facility] Neutrophils Auto (Bld) [#/Vo l]Ordered By: Brandi Lopez on 09-03-2023 Neutrophils (Bld) [#/Vol] 1.2 10*3/uL 1.8-7.7 [facility] Neutrophils/100 WBC Auto (Bl d)Ordered By: Brandi Lopez on 09-03-2023 Neutrophils/100 WBC (Bld) 44.6 % . [facility] No Panel InformationOrdered By: Brandi Lopez on 09-03-2023 Estimated GFR (CKD-EPI) 47.381 mL/Min [facility] Creatinine Clearance (Chem 33.46 [facility] Nucleated erythrocytes [Pres ence] in Blood by Automated countOrdered By: Brandi Lopez on 09-03-2023 Nucleated RBC Auto Ql (Bld) 0.1 /100{WBC} 0-0.5 [facility] Platelet mean volume Auto (B ld) [Entitic vol]Ordered By: Brandi Lopez on 09-03-2023 Platelet mean volume (Bld) [Entitic vol] 7.4 fL 6.3-10.7 [facility] Platelets Auto (Bld) [#/Vol] Ordered By: Brandi Lopez on 09-03-2023 Platelets (Bld) [#/Vol] 155 10*3/uL 150-450 [facility] Potassium [Moles/volume] in Serum or PlasmaOrdered By: Brandi Lopez on 09-03-2023 Potassium [Moles/Vol] 4.1 mmol/L 3.5-5.1 [facility] Protein [Mass/volume] in Ser um or PlasmaOrdered By: Brandi Lopez on 09-03-2023 Protein [Mass/Vol] 6.2 g/dL 6.4-8.9 [facility] RBC Auto (Bld) [#/Vol]Ordere d By: Brandi Lopez on 09-03-2023 RBC (Bld) [#/Vol] 2.94 10*6/uL 3.60-5.00 [facility] Serum or plasma albumin/glob ulin mass ratioOrdered By: Brandi Lopez on 09-03-2023 Albumin/Globulin [Mass ratio] 2.0 {ratio} [facility] Serum or plasma anion gap de terminationOrdered By: Brandi Lopez on 09-03-2023 Anion gap [Moles/Vol] 8.9 mmol/L 6.0-15.0 [facility] Sodium [Moles/volume] in Ser um or PlasmaOrdered By: Brandi Lopez on 09-03-2023 Sodium [Moles/Vol] 140 mmol/L 136-145 [facility] Urea nitrogen [Mass/volume] in Serum or PlasmaOrdered By: Brandi Lopez on 09-03-2023 Urea nitrogen [Mass/Vol] 19 mg/dL 7-25 [facility] WBC Auto (Bld) [#/Vol]Ordere d By: Brandi Lopez on 09-03-2023 WBC (Bld) [#/Vol] 2.8 10*3/uL 3.8-11.6 [facility] Alanine aminotransferase [En zymatic activity/volume] in Serum or PlasmaOrdered By: Brandi Lopez on 07-01-2023 ALT [Catalytic activity/Vol] 9 U/L 7-52 [facility] Albumin [Mass/volume] in Ser um or Plasma by Bromocresol green (BCG) dye binding methoOrdered By: Brandi Lopez on 07-01-2023 Albumin BCG dye [Mass/Vol] 4.2 g/dL 3.5-5.7 [facility] Alkaline phosphatase [Enzyma tic activity/volume] in Serum or PlasmaOrdered By: Brandi Lopez on 07-01-2023 ALP [Catalytic activity/Vol] 53 U/L 34-104 [facility] Aspartate aminotransferase [ Enzymatic activity/volume] in Serum or PlasmaOrdered By: Brandi Lopez on 07-01-2023 AST [Catalytic activity/Vol] 11 U/L 13-39 [facility] Basophils Auto (Bld) [#/Vol] Ordered By: Brandi Lopez on 07-01-2023 Basophils (Bld) [#/Vol] 0.1 10*3/uL 0.0-0.2 [facility] Basophils/100 WBC Auto (Bld) Ordered By: Brandi Lopez on 07-01-2023 Basophils/100 WBC (Bld) 2.0 % . [facility] Bilirubin.total [Mass/volume ] in Serum or PlasmaOrdered By: Brandi Lopez on 07-01-2023 Bilirubin [Mass/Vol] 0.4 mg/dL 0.3-1.0 [facility] Calcium [Mass/volume] in Ser um or PlasmaOrdered By: Brandi Lopez on 07-01-2023 Calcium [Mass/Vol] 9.8 mg/dL 8.6-10.3 [facility] Carbon dioxide, total [Moles /volume] in Serum or PlasmaOrdered By: Brandi Lopez on 07-01-2023 CO2 [Moles/Vol] 29.1 mmol/L 21.0-31.0 [facility] Chloride [Moles/volume] in S rakan or PlasmaOrdered By: Brandi Lopez on 07-01-2023 Chloride [Moles/Vol] 101 mmol/L 98-107 [facility] Creatinine [Mass/volume] in Serum or PlasmaOrdered By: Brandi Lopez on 07-01-2023 Creatinine [Mass/Vol] 1.42 mg/dL 0.60-1.20 [facility] Eosinophils Auto (Bld) [#/Vo l]Ordered By: Brandi Lopez on 07-01-2023 Eosinophils (Bld) [#/Vol] 0.0 10*3/uL 0.0-0.45 [facility] Eosinophils/100 WBC Auto (Bl d)Ordered By: Brandi Lopez on 07-01-2023 Eosinophils/100 WBC (Bld) 0.9 % . [facility] Erythrocyte distribution wid th Auto (RBC) [Ratio]Ordered By: Brandi Lopez on 07-01-2023 Erythrocyte distribution width (RBC) [Ratio] 23.6 % 11.9-15.3 [facility] Globulin Calc (S) [Mass/Vol] Ordered By: Brandi Lopez on 07-01-2023 Globulin (S) [Mass/Vol] 2.2 g/dL [facility] Glucose [Mass/volume] in Ser um or PlasmaOrdered By: Brandi Lopez on 07-01-2023 Glucose [Mass/Vol] 144 mg/dL 70-100 [facility] Comment on above: ADA recommended refe rence rangeRandom Glucose Reference Range is dependent on time and content of last meal. Glucose of more than 200 mg/dL in a nonstressed, ambulatory subject supports the diagnosis of Diabetes Mellitus. Hematocrit Auto (Bld) [Volum e fraction]Ordered By: Brandi Lopez on 07-01-2023 Hematocrit (Bld) [Volume fraction] 34.3 % 34.0-46.4 [facility] Hemoglobin [Mass/volume] in BloodOrdered By: Brandi Lopez on 07-01-2023 Hemoglobin (Bld) [Mass/Vol] 11.3 g/dL 11.8-15.4 [facility] Leukocytes [#/volume] correc medardo for nucleated erythrocytes in Blood by Automated counOrdered By: Brandi Lopez on 07-01-2023 WBC corrected for nucl RBC Auto (Bld) [#/Vol] 3.0 10*3/uL 3.8-11.6 [facility] Lymphocytes Auto (Bld) [#/Vo l]Ordered By: Brandi Lopez on 07-01-2023 Lymphocytes (Bld) [#/Vol] 1.4 10*3/uL 1.00-4.8 [facility] Lymphocytes/100 WBC Auto (Bl d)Ordered By: Brandi Lopez on 07-01-2023 Lymphocytes/100 WBC (Bld) 47.5 % . [facility] MCH Auto (RBC) [Entitic mass ]Ordered By: Brandi Lopez on 07-01-2023 MCH (RBC) [Entitic mass] 30.2 pg 24.7-34.3 [facility] MCHC Auto (RBC) [Mass/Vol]Or dered By: Brandi Lopez on 07-01-2023 MCHC (RBC) [Mass/Vol] 33.1 g/dL 32.0-35.0 [facility] MCV Auto (RBC) [Entitic vol] Ordered By: Brandi Lopez on 07-01-2023 MCV (RBC) [Entitic vol] 91.4 fL 80-100 [facility] Monocytes Auto (Bld) [#/Vol] Ordered By: Brandi Lopez on 07-01-2023 Monocytes (Bld) [#/Vol] 0.2 10*3/uL 0.0-0.8 [facility] Monocytes/100 WBC Auto (Bld) Ordered By: Brandi Lopez on 07-01-2023 Monocytes/100 WBC (Bld) 6.4 % . [facility] Neutrophils Auto (Bld) [#/Vo l]Ordered By: Brandi Lopez on 07-01-2023 Neutrophils (Bld) [#/Vol] 1.3 10*3/uL 1.8-7.7 [facility] Neutrophils/100 WBC Auto (Bl d)Ordered By: Brandi Lopez on 07-01-2023 Neutrophils/100 WBC (Bld) 43.2 % . [facility] No Panel InformationOrdered By: Brandi Lopez on 07-01-2023 Estimated GFR (CKD-EPI) 36.021 mL/Min [facility] Creatinine Clearance (Chem 24.56 [facility] Nucleated erythrocytes [Pres ence] in Blood by Automated countOrdered By: Brandi Lopez on 07-01-2023 Nucleated RBC Auto Ql (Bld) 0.4 /100{WBC} 0-0.5 [facility] Platelet mean volume Auto (B ld) [Entitic vol]Ordered By: Brandi Lopez on 07-01-2023 Platelet mean volume (Bld) [Entitic vol] 7.7 fL 6.3-10.7 [facility] Platelets Auto (Bld) [#/Vol] Ordered By: Brandi Lopez on 07-01-2023 Platelets (Bld) [#/Vol] 252 10*3/uL 150-450 [facility] Potassium [Moles/volume] in Serum or PlasmaOrdered By: Brandi Lopez on 07-01-2023 Potassium [Moles/Vol] 3.8 mmol/L 3.5-5.1 [facility] Protein [Mass/volume] in Ser um or PlasmaOrdered By: Brandi Lopez on 07-01-2023 Protein [Mass/Vol] 6.4 g/dL 6.4-8.9 [facility] RBC Auto (Bld) [#/Vol]Ordere d By: Brandi Lopez on 07-01-2023 RBC (Bld) [#/Vol] 3.75 10*6/uL 3.60-5.00 [facility] Serum or plasma albumin/glob ulin mass ratioOrdered By: Brandi Lopez on 07-01-2023 Albumin/Globulin [Mass ratio] 1.9 {ratio} [facility] Serum or plasma anion gap de terminationOrdered By: Brandi Lopez on 07-01-2023 Anion gap [Moles/Vol] 11.7 mmol/L 6.0-15.0 [facility] Sodium [Moles/volume] in Ser um or PlasmaOrdered By: Brandi Lopez on 07-01-2023 Sodium [Moles/Vol] 138 mmol/L 136-145 [facility] Urea nitrogen [Mass/volume] in Serum or PlasmaOrdered By: Brandi Lopez on 07-01-2023 Urea nitrogen [Mass/Vol] 25 mg/dL 7-25 [facility] WBC Auto (Bld) [#/Vol]Ordere d By: Brandi Lopez on 07-01-2023 WBC (Bld) [#/Vol] 3.0 10*3/uL 3.8-11.6 [facility] Alanine aminotransferase [En zymatic activity/volume] in Serum or PlasmaOrdered By: Brandi Lopez on 05-27-2023 ALT [Catalytic activity/Vol] 8 U/L 7-52 [facility] Albumin [Mass/volume] in Ser um or Plasma by Bromocresol green (BCG) dye binding methoOrdered By: Brandi Lopez on 05-27-2023 Albumin BCG dye [Mass/Vol] 4.3 g/dL 3.5-5.7 [facility] Alkaline phosphatase [Enzyma tic activity/volume] in Serum or PlasmaOrdered By: Brandi Lopez on 05-27-2023 ALP [Catalytic activity/Vol] 62 U/L 34-104 [facility] Aspartate aminotransferase [ Enzymatic activity/volume] in Serum or PlasmaOrdered By: Brandi Lopez on 05-27-2023 AST [Catalytic activity/Vol] 11 U/L 13-39 [facility] Basophils Auto (Bld) [#/Vol] Ordered By: Brandi Lopez on 05-27-2023 Basophils (Bld) [#/Vol] 0.0 10*3/uL 0.0-0.2 [facility] Basophils/100 WBC Auto (Bld) Ordered By: Brandi Lopez on 05-27-2023 Basophils/100 WBC (Bld) 0.6 % . [facility] Bilirubin.total [Mass/volume ] in Serum or PlasmaOrdered By: Brandi Lopez on 05-27-2023 Bilirubin [Mass/Vol] 0.5 mg/dL 0.3-1.0 [facility] Calcium [Mass/volume] in Ser um or PlasmaOrdered By: Brandi Lopez on 05-27-2023 Calcium [Mass/Vol] 9.9 mg/dL 8.6-10.3 [facility] Carbon dioxide, total [Moles /volume] in Serum or PlasmaOrdered By: Brandi Lopez on 05-27-2023 CO2 [Moles/Vol] 31.2 mmol/L 21.0-31.0 [facility] Chloride [Moles/volume] in S rakan or PlasmaOrdered By: Brandi Lopez on 05-27-2023 Chloride [Moles/Vol] 102 mmol/L 98-107 [facility] Creatinine [Mass/volume] in Serum or PlasmaOrdered By: Brandi Lopez on 05-27-2023 Creatinine [Mass/Vol] 1.15 mg/dL 0.60-1.20 [facility] Eosinophils Auto (Bld) [#/Vo l]Ordered By: Brandi Lopez on 05-27-2023 Eosinophils (Bld) [#/Vol] 0.1 10*3/uL 0.0-0.45 [facility] Eosinophils/100 WBC Auto (Bl d)Ordered By: Brandi Lopez on 05-27-2023 Eosinophils/100 WBC (Bld) 1.2 % . [facility] Erythrocyte distribution wid th Auto (RBC) [Ratio]Ordered By: Brandi Lopez on 05-27-2023 Erythrocyte distribution width (RBC) [Ratio] 15.3 % 11.9-15.3 [facility] Globulin Calc (S) [Mass/Vol] Ordered By: Brandi Lopez on 05-27-2023 Globulin (S) [Mass/Vol] 2.2 g/dL [facility] Glucose [Mass/volume] in Ser um or PlasmaOrdered By: Brandi Lopez on 05-27-2023 Glucose [Mass/Vol] 136 mg/dL 70-100 [facility] Comment on above: ADA recommended refe rence rangeRandom Glucose Reference Range is dependent on time and content of last meal. Glucose of more than 200 mg/dL in a nonstressed, ambulatory subject supports the diagnosis of Diabetes Mellitus. Hematocrit Auto (Bld) [Volum e fraction]Ordered By: Brandi Lopez on 05-27-2023 Hematocrit (Bld) [Volume fraction] 35.6 % 34.0-46.4 [facility] Hemoglobin [Mass/volume] in BloodOrdered By: Brandi Lopez on 05-27-2023 Hemoglobin (Bld) [Mass/Vol] 11.8 g/dL 11.8-15.4 [facility] Leukocytes [#/volume] correc medardo for nucleated erythrocytes in Blood by Automated counOrdered By: Brandi Lopez on 05-27-2023 WBC corrected for nucl RBC Auto (Bld) [#/Vol] 4.3 10*3/uL 3.8-11.6 [facility] Lymphocytes Auto (Bld) [#/Vo l]Ordered By: Brandi Lopez on 05-27-2023 Lymphocytes (Bld) [#/Vol] 1.3 10*3/uL 1.00-4.8 [facility] Lymphocytes/100 WBC Auto (Bl d)Ordered By: Brandi Lopez on 05-27-2023 Lymphocytes/100 WBC (Bld) 29.3 % . [facility] MCH Auto (RBC) [Entitic mass ]Ordered By: Brandi Lopez on 05-27-2023 MCH (RBC) [Entitic mass] 28.4 pg 24.7-34.3 [facility] MCHC Auto (RBC) [Mass/Vol]Or dered By: Brandi Lopez on 05-27-2023 MCHC (RBC) [Mass/Vol] 33.3 g/dL 32.0-35.0 [facility] MCV Auto (RBC) [Entitic vol] Ordered By: Brandi Lopez on 05-27-2023 MCV (RBC) [Entitic vol] 85.2 fL 80-100 [facility] Monocytes Auto (Bld) [#/Vol] Ordered By: Brandi Lopez on 05-27-2023 Monocytes (Bld) [#/Vol] 0.1 10*3/uL 0.0-0.8 [facility] Monocytes/100 WBC Auto (Bld) Ordered By: Brandi Lopez on 05-27-2023 Monocytes/100 WBC (Bld) 2.8 % . [facility] Neutrophils Auto (Bld) [#/Vo l]Ordered By: Brandi Lopez on 05-27-2023 Neutrophils (Bld) [#/Vol] 2.8 10*3/uL 1.8-7.7 [facility] Neutrophils/100 WBC Auto (Bl d)Ordered By: Brandi Lopez on 05-27-2023 Neutrophils/100 WBC (Bld) 66.1 % . [facility] No Panel InformationOrdered By: Brandi Lopez on 05-27-2023 Estimated GFR (CKD-EPI) 46.394 mL/Min [facility] Creatinine Clearance (Chem 32.78 [facility] Nucleated erythrocytes [Pres ence] in Blood by Automated countOrdered By: Brandi Lopez on 05-27-2023 Nucleated RBC Auto Ql (Bld) 0.2 /100{WBC} 0-0.5 [facility] Platelet mean volume Auto (B ld) [Entitic vol]Ordered By: Brandi Lopez on 05-27-2023 Platelet mean volume (Bld) [Entitic vol] 7.8 fL 6.3-10.7 [facility] Platelets Auto (Bld) [#/Vol] Ordered By: Brandi Lopez on 05-27-2023 Platelets (Bld) [#/Vol] 287 10*3/uL 150-450 [facility] Potassium [Moles/volume] in Serum or PlasmaOrdered By: Brandi Lopez on 05-27-2023 Potassium [Moles/Vol] 4.0 mmol/L 3.5-5.1 [facility] Protein [Mass/volume] in Ser um or PlasmaOrdered By: Brandi Lopez on 05-27-2023 Protein [Mass/Vol] 6.5 g/dL 6.4-8.9 [facility] RBC Auto (Bld) [#/Vol]Ordere d By: Brandi Lopez on 05-27-2023 RBC (Bld) [#/Vol] 4.18 10*6/uL 3.60-5.00 [facility] Serum or plasma albumin/glob ulin mass ratioOrdered By: Brandi Lopez on 05-27-2023 Albumin/Globulin [Mass ratio] 2.0 {ratio} [facility] Serum or plasma anion gap de terminationOrdered By: Brandi Lopez on 05-27-2023 Anion gap [Moles/Vol] 9.8 mmol/L 6.0-15.0 [facility] Sodium [Moles/volume] in Ser um or PlasmaOrdered By: Brandi Lopez on 05-27-2023 Sodium [Moles/Vol] 139 mmol/L 136-145 [facility] Urea nitrogen [Mass/volume] in Serum or PlasmaOrdered By: Brandi Lopez on 05-27-2023 Urea nitrogen [Mass/Vol] 23 mg/dL 7-25 [facility] WBC Auto (Bld) [#/Vol]Ordere d By: Brandi Lopez on 05-27-2023 WBC (Bld) [#/Vol] 4.3 10*3/uL 3.8-11.6 [facility] Albumin [Mass/volume] in Ser um or Plasma by Bromocresol green (BCG) dye binding methoOrdered By: Leonardo Herron on 05-16-2023 Albumin BCG dye [Mass/Vol] 4.2 g/dL 3.5-5.7 [facility] Cotinine [Mass/volume] in Se rum or PlasmaOrdered By: Leonardo Herron on 05-16-2023 Cotinine [Mass/Vol] <1.0 ng/mL . [facility] Comment on above: This test was develo ped and its performance characteristicsdetermined by [facility]. It has not been cleared orapproved by the Food and Drug Administration.Cotinine levels greater than 20.0 are consistent with theuse of tobacco or tobacco cessation products.Performed at: [address] [id number] Director: Milo Mcleod MD, Phone: [phone] Glucose mean value [Mass/vol ume] in Blood Estimated from glycated hemoglobinOrdered By: Leonardo Herron on 05-16-2023 Average glucose Estimated from glycated hemoglobin (Bld) [Mass/Vol] 154 mg/dL [facility] Hemoglobin A1c percentageOrd ered By: Leonardo Herron on 05-16-2023 HbA1c (Bld) [Mass fraction] 7.0 % 4.3-5.6 [facility] Comment on above: Increased risk for d iabetes: 5.7 - 6.4diabetes: >6.4glycemic control for adults with diabetes: <7.0 Hemoglobin [Mass/volume] in BloodOrdered By: Leonardo Herron on 05-16-2023 Hemoglobin (Bld) [Mass/Vol] 12.0 g/dL 11.8-15.4 [facility] Nicotine [Mass/volume] in Se rum or PlasmaOrdered By: Leonardo Herron on 05-16-2023 Nicotine [Mass/Vol] <1.0 ng/mL . [facility] Comment on above: This test was develo ped and its performance characteristicsdetermined by [employer]. It has not been cleared orapproved by the Food and Drug Administration.Nicotine levels greater than 2.0 are consistent with theuse of tobacco or tobacco cessation products. Vitamin D+Metabolites [Mass/ volume] in Serum or PlasmaOrdered By: Leonardo Herron on 05-16-2023 Vitamin D+Metabolites [Mass/Vol] 42.6 ng/mL 30-100 [facility] Comment on above: VITAMIN D STATUS 25( [place])VITAMIN D RANGE (ng/mL) Deficient <20 Insufficient 20 to <30Sufficient 30 to 100Reference: Alicia MF,Dieter NC, Isak MARTINEZ, et al. Evaluation,treatment, and prevention of vitamin D deficiency; an Endocrine Society clinical practice guideline. JCEM. 2010; 96(7):1911-30. Wound methicillin resistant Staphylococcus aureus (MRSA) cultureOrdered By: Leonardo Herron on 05-16-2023 MRSA isol Org specific cx Ql (Unsp spec) [facility] XR pelvis 1-2Von 05-16-2023 XR pelvis 1-2V [facility] [employer] Other XR pelvis 1-2V [facility] [employer] Other XR pelvis 1-2V [address] [place] [address] [employer] Other XR pelvis 1-[place] [address] No rt [employer] Other XR pelvis 1-2V XRay Report [employer] Other XR pelvis 1-2V Signed [employer] Other XR pelvis 1-2V Patient: Yolanda Fairbanks MR#: [id number] [employer] Other XR pelvis 1-2V 0 [employer] Other XR pelvis 1-2V : 1935 Acct:[id number] [employer] Other XR pelvis 1-2V Age/Sex: 88 / F ADM Date: 05/16/23 [employer] Other XR pelvis 1-2V Loc: SOX Room: Type : [facility] [employer] Other XR pelvis 1-2V Attending Dr: Leonardo Herron II, MD [employer] Other XR pelvis 1-2V Copies to: Leonardo Herron MD [employer] Other XR pelvis 1-2V Ordering Provider: Corona Herron MD [employer] Other XR pelvis 1-2V Date of Service: 05/16/23 [employer] Other XR pelvis 1-2V XR/XR knee BI 4V: Acute pain of right knee [employer] Other XR pelvis 1-2V ([id number]) XR/XR pelvis 1-2V: Acute pain of right knee [employer] Other XR pelvis 1-2V [address] ain film [employer] Other XR pelvis 1-2V COMPARISON: None Nort [employer] Other XR pelvis 1-2V HISTORY: Bilateral k nee pain greater on the right [employer] Other XR pelvis 1-2V ACUTE FINDINGS: None [employer] Other XR pelvis 1-2V DEGENERATIVE CHANGE: Extensive tkaq-[id number] contact the medial compartment degeneration seen [employer] Other XR pelvis 1-2V bilaterally. Mild patellofemoral and lateral compartment degenerative changes. Bilateral mild [employer] Other XR pelvis 1-2V degenerative subluxation. [employer] Other XR pelvis 1-2V SOFT TISSUE FINDINGS : Unremarkable [employer] Other XR pelvis 1-2V JOINT EFFUSION: None [employer] Other XR pelvis 1-2V POSTOP CHANGES: None [employer] Other XR pelvis 1-2V BONE MINERALIZATION: Adequate [employer] Other XR pelvis 1-2V X R/XR knee BI 4V [employer] Other XR pelvis 1-2V IMPRESSION: Extensiv e qmjo-xz-[id number] bilateral medial compartment degenerative changes. [employer] Other XR pelvis 1-2V Single view pelvis No rt [employer] Other XR pelvis 1-2V Mild bilateral hip a nd SI joint degenerative changes. Moderate lower lumbar degenerative change. No [employer] Other XR pelvis 1-2V fracture. Adequate b saritha alignment. Minimal atherosclerosis. [employer] Other XR pelvis 1-2V IMPRESSION: Mild bilateral hip degeneration. [employer] Other XR pelvis 1-2V Impression dictated by: Dane Tellez M.D.05/16/2023 4:32 PM [employer] Other XR pelvis 1-2V Dictation Location: [id number] [employer] Other XR pelvis 1-2V Transcribed By: PWS 05/16/23 1632 [employer] Other XR pelvis 1-2V Dictated By: Deven Tellez DO 05/16/23 1628 [employer] Other XR pelvis 1-2V Signed By: [employer] Other XR pelvis 1-2V 05/16/23 1632 [employer] Other Alanine aminotransferase [En zymatic activity/volume] in Serum or PlasmaOrdered By: Brnadi Lopez on 04-25-2023 ALT [Catalytic activity/Vol] 11 U/L 7-52 [facility] Albumin [Mass/volume] in Ser um or Plasma by Bromocresol green (BCG) dye binding methoOrdered By: Brandi Lopez on 04-25-2023 Albumin BCG dye [Mass/Vol] 4.4 g/dL 3.5-5.7 [facility] Alkaline phosphatase [Enzyma tic activity/volume] in Serum or PlasmaOrdered By: Brandi Lopez on 04-25-2023 ALP [Catalytic activity/Vol] 67 U/L 34-104 [facility] Aspartate aminotransferase [ Enzymatic activity/volume] in Serum or PlasmaOrdered By: Brandi Lopez on 04-25-2023 AST [Catalytic activity/Vol] 14 U/L 13-39 [facility] Basophils Auto (Bld) [#/Vol] Ordered By: Brandi Lopez on 04-25-2023 Basophils (Bld) [#/Vol] 0.1 10*3/uL 0.0-0.2 [facility] Basophils/100 WBC Auto (Bld) Ordered By: Brandi Lopez on 04-25-2023 Basophils/100 WBC (Bld) 0.7 % . [facility] Bilirubin.total [Mass/volume ] in Serum or PlasmaOrdered By: Brandi Lopez on 04-25-2023 Bilirubin [Mass/Vol] 0.5 mg/dL 0.3-1.0 [facility] Calcium [Mass/volume] in Ser um or PlasmaOrdered By: Brandi Lopez on 04-25-2023 Calcium [Mass/Vol] 10.1 mg/dL 8.6-10.3 [facility] Carbon dioxide, total [Moles /volume] in Serum or PlasmaOrdered By: Brandi Lopez on 04-25-2023 CO2 [Moles/Vol] 29.1 mmol/L 21.0-31.0 [facility] Chloride [Moles/volume] in S rakan or PlasmaOrdered By: Brandi Lopez on 04-25-2023 Chloride [Moles/Vol] 102 mmol/L 98-107 [facility] Creatinine [Mass/volume] in Serum or PlasmaOrdered By: Brandi Lopez on 04-25-2023 Creatinine [Mass/Vol] 0.89 mg/dL 0.60-1.20 [facility] Eosinophils Auto (Bld) [#/Vo l]Ordered By: Brandi Lopez on 04-25-2023 Eosinophils (Bld) [#/Vol] 0.1 10*3/uL 0.0-0.45 [facility] Eosinophils/100 WBC Auto (Bl d)Ordered By: Brandi Lopez on 04-25-2023 Eosinophils/100 WBC (Bld) 1.0 % . [facility] Erythrocyte distribution wid th Auto (RBC) [Ratio]Ordered By: Brandi Lopez on 04-25-2023 Erythrocyte distribution width (RBC) [Ratio] 14.4 % 11.9-15.3 [facility] Globulin Calc (S) [Mass/Vol] Ordered By: Brandi Lopez on 04-25-2023 Globulin (S) [Mass/Vol] 2.4 g/dL [facility] Glucose [Mass/volume] in Ser um or PlasmaOrdered By: Brandi Lopez on 04-25-2023 Glucose [Mass/Vol] 103 mg/dL 70-100 [facility] Comment on above: ADA recommended refe rence rangeRandom Glucose Reference Range is dependent on time and content of last meal. Glucose of more than 200 mg/dL in a nonstressed, ambulatory subject supports the diagnosis of Diabetes Mellitus. Hematocrit Auto (Bld) [Volum e fraction]Ordered By: Brandi Lopez on 04-25-2023 Hematocrit (Bld) [Volume fraction] 36.1 % 34.0-46.4 [facility] Hemoglobin [Mass/volume] in BloodOrdered By: Brandi Lopez on 04-25-2023 Hemoglobin (Bld) [Mass/Vol] 12.0 g/dL 11.8-15.4 [facility] Leukocytes [#/volume] correc medardo for nucleated erythrocytes in Blood by Automated counOrdered By: Brandi Lopez on 04-25-2023 WBC corrected for nucl RBC Auto (Bld) [#/Vol] 9.0 10*3/uL 3.8-11.6 [facility] Lymphocytes Auto (Bld) [#/Vo l]Ordered By: Brandi Lopez on 04-25-2023 Lymphocytes (Bld) [#/Vol] 2.1 10*3/uL 1.00-4.8 [facility] Lymphocytes/100 WBC Auto (Bl d)Ordered By: Brandi Lopez on 04-25-2023 Lymphocytes/100 WBC (Bld) 23.7 % . [facility] MCH Auto (RBC) [Entitic mass ]Ordered By: Brandi Lopez on 04-25-2023 MCH (RBC) [Entitic mass] 28.2 pg 24.7-34.3 [facility] MCHC Auto (RBC) [Mass/Vol]Or dered By: Brandi Lopez on 04-25-2023 MCHC (RBC) [Mass/Vol] 33.3 g/dL 32.0-35.0 [facility] MCV Auto (RBC) [Entitic vol] Ordered By: Barndi Lopez on 04-25-2023 MCV (RBC) [Entitic vol] 84.8 fL 80-100 [facility] Monocytes Auto (Bld) [#/Vol] Ordered By: Brandi Lopez on 04-25-2023 Monocytes (Bld) [#/Vol] 0.8 10*3/uL 0.0-0.8 [facility] Monocytes/100 WBC Auto (Bld) Ordered By: Brandi Lopez on 04-25-2023 Monocytes/100 WBC (Bld) 8.7 % . [facility] Neutrophils Auto (Bld) [#/Vo l]Ordered By: Brandi Lopez on 04-25-2023 Neutrophils (Bld) [#/Vol] 5.9 10*3/uL 1.8-7.7 [facility] Neutrophils/100 WBC Auto (Bl d)Ordered By: Brandi Lopez on 04-25-2023 Neutrophils/100 WBC (Bld) 65.9 % . [facility] No Panel InformationOrdered By: Brandi Lopez on 04-25-2023 Estimated GFR (CKD-EPI) > 60.0 mL/Min [facility] Creatinine Clearance (Chem 42.35 [facility] Nucleated erythrocytes [Pres ence] in Blood by Automated countOrdered By: Bradni Lopez on 04-25-2023 Nucleated RBC Auto Ql (Bld) 0.0 /100{WBC} 0-0.5 [facility] Platelet mean volume Auto (B ld) [Entitic vol]Ordered By: Brandi Lopez on 04-25-2023 Platelet mean volume (Bld) [Entitic vol] 7.5 fL 6.3-10.7 [facility] Platelets Auto (Bld) [#/Vol] Ordered By: Brandi Lopez on 04-25-2023 Platelets (Bld) [#/Vol] 346 10*3/uL 150-450 [facility] Potassium [Moles/volume] in Serum or PlasmaOrdered By: Brandi Lopez on 04-25-2023 Potassium [Moles/Vol] 3.7 mmol/L 3.5-5.1 [facility] Protein [Mass/volume] in Ser um or PlasmaOrdered By: Brandi Lopez on 04-25-2023 Protein [Mass/Vol] 6.8 g/dL 6.4-8.9 [facility] RBC Auto (Bld) [#/Vol]Ordere d By: Brandi Lopez on 04-25-2023 RBC (Bld) [#/Vol] 4.25 10*6/uL 3.60-5.00 [facility] Serum or plasma albumin/glob ulin mass ratioOrdered By: Brandi Lopez on 04-25-2023 Albumin/Globulin [Mass ratio] 1.8 {ratio} [facility] Serum or plasma anion gap de terminationOrdered By: Brandi Lopez on 04-25-2023 Anion gap [Moles/Vol] 12.6 mmol/L 6.0-15.0 [facility] Sodium [Moles/volume] in Ser um or PlasmaOrdered By: Brandi Lopez on 04-25-2023 Sodium [Moles/Vol] 140 mmol/L 136-145 [facility] Urea nitrogen [Mass/volume] in Serum or PlasmaOrdered By: Brandi Lopez on 04-25-2023 Urea nitrogen [Mass/Vol] 15 mg/dL 7-25 [facility] WBC Auto (Bld) [#/Vol]Ordere d By: Brandi Lopez on 04-25-2023 WBC (Bld) [#/Vol] 9.0 10*3/uL 3.8-11.6 [facility] CBC AUTO DIFFon 06-05-2022 BASO # 0.0 103/ul Normal 0.0-0.1 [facility] Comment on above: Performed By: #### C BC #### [facility] [address] [address] [address] Radha Vaelntine Basophils/100 WBC (Bld) 0.3 % Normal 0.2-2.0 [facility] Comment on above: Performed By: #### C BC #### [facility] [address] [address] [address] Radha Valentine EO # 0.2 103/ul Normal 0.0-0.7 [facility] Comment on above: Performed By: #### C BC #### [facility] [address] [address] [address] Radha Valentine Eosinophils/100 WBC (Bld) 1.9 % Normal 0.9-7.0 [facility] Comment on above: Performed By: #### C BC #### [facility] [address] [address] [address] Radha Valentine Erythrocyte distribution width (RBC) [Ratio] 15.3 % Critically high 11.0-15.0 [facility] Comment on above: Performed By: #### C BC #### [facility] [address] [address] [address] Radha Valentine Hematocrit (Bld) [Volume fraction] 40.5 % Normal 36.0-48.0 [facility] Comment on above: Performed By: #### C BC #### [facility] [address] [address] [address] Radha Valentine Hemoglobin (Bld) [Mass/Vol] 13.3 g/dL Normal 12.0-16.0 [facility] Comment on above: Performed By: #### C BC #### [facility] [address] [address] [address] Radha Valentine IG # 0.06 10e3/ul Critically high 0.00-0.03 [facility] Comment on above: Performed By: #### C BC #### [facility] [address] [address] [address] Radha Valentine IG % 0.7 % Critically high 0.0-0.5 [facility] Comment on above: Performed By: #### C BC #### [facility] [address] [place] [address] Dr. Radha Valentine LYMPH # 2.3 103/ul Normal 1.2-3.8 [facility] Comment on above: Performed By: #### C BC #### [facility] [address] [place] [address] Dr. Radha Valentine Lymphocytes/100 WBC (Bld) 24.9 % Normal 20.5-60.0 [facility] Comment on above: Performed By: #### C BC #### [facility] [address] [place] [address] Dr. Radha Valentine MANUAL DIFF REQ NO Normal [facility] Comment on above: Performed By: #### C BC #### [facility] [address] [place] [address] Dr. Radha Valentine MCH (RBC) [Entitic mass] 29.8 pg Normal 26.7-34.0 [facility] Comment on above: Performed By: #### C BC #### [facility] [address] [place] [address] Dr. Radha Valentine MCHC (RBC) [Mass/Vol] 32.8 g/dL Normal 29.9-35.2 [facility] Comment on above: Performed By: #### C BC #### [facility] [address] [address] [address] Radha Valentine MCV (RBC) [Entitic vol] 90.8 fL Normal 81.0-99.0 [facility] Comment on above: Performed By: #### C BC #### [facility] [address] [address] [address] Radha Valentine MONO # 0.8 103/ul Normal 0.3-0.8 [facility] Comment on above: Performed By: #### C BC #### [facility] [address] [place] [address] Dr. Radha Valentine Monocytes/100 WBC (Bld) 9.0 % Normal 1.7-12.0 [facility] Comment on above: Performed By: #### C BC #### [facility] [address] [place] [address] Dr. Radha Valentine NEUT # 5.8 103/ul Normal 1.4-6.5 [facility] Comment on above: Performed By: #### C BC #### [facility] [address] [place] [address] Dr. Radha Valentine Neutrophils/100 WBC (Bld) 63.2 % Normal 43.0-75.0 [facility] Comment on above: Performed By: #### C BC #### [facility] [address] [place] [address] Dr. Radha Valentine Platelet mean volume (Bld) [Entitic vol] 8.7 fL Critically low 9.5-13.5 [facility] Comment on above: Performed By: #### C BC #### [facility] [address] [place] [address] Dr. Radha Valentine PLT 336 103/ul Normal 150-450 [facility] Comment on above: Performed By: #### C BC #### [facility] [address] [place] [address] Dr. Radha Valentine RBC 4.46 106/ul Normal 4.20-5.40 [facility] Comment on above: Performed By: #### C BC #### [facility] [address] [address] [address] Radha Valentine WBC 9.1 103/ul Normal 4.0-11.0 [facility] Comment on above: Performed By: #### C BC #### [facility] [address] [address] [address] Radha Valentine GLYCOHEMOGLOBIN A1Con 2021 ADA RECOMMENDATION SEE BELOW Normal [facility] Comment on above: Result Comment: ADA RECOMMENDED LIMIT 4.0 - 6.0 ADA THERAPEUTIC TARGET < 7.0 ACTION SUGGESTED > 7.0 Performed By: #### A 1C #### [facility] [address] [address] [address] Radha Valentine Glucose [Mass/Vol] 171 mg/dL Normal [facility] Comment on above: Performed By: #### A 1C #### [facility] [address] [place] [address] Dr. Radha Valentine HbA1c (Bld) [Mass fraction] 7.6 % Critically high 4.5-6.2 [facility] Comment on above: Performed By: #### A 1C #### [facility] [address] [place] [address] Dr. Radha Valentine LIPID PROFILEon 06-05-2022 CHOL-HDL RATIO NORM SEE BELOW Normal [facility] Comment on above: Result Comment: 3.3 - 4.4 LOW RISK 4.4 - 7.1 AVERAGE RISK 7.1 - 11.0 MODERATE RISK >11.0 HIGH RISK Performed By: #### L IPID, CMP #### [facility] [address] [place] [address] Dr. Radha Valentine Cholesterol [Mass/Vol] 156 mg/dL Normal <=200 [facility] Comment on above: Performed By: #### L IPID, CMP #### [facility] [address] [address] [address] Radha Valentine Cholesterol in HDL [Mass/Vol] 54 mg/dL Normal 40-60 [facility] Comment on above: Performed By: #### L IPID, CMP #### [facility] [address] [address] [address] Radha Valentine Cholesterol in LDL [Mass/Vol] 77.0 mg/dL Normal [facility] Comment on above: Performed By: #### L IPID, CMP #### [facility] [address] [address] [address] Radha Valentine Cholesterol.total/Chol esterol in HDL [Mass ratio] 2.9 {ratio} Normal [facility] Comment on above: Performed By: #### L IPID, CMP #### [facility] [address] [address] [address] Radha Valentine HDL NORMAL > or = 60 mg/dl - LO W CARDIOVASCULAR RISK <40 mg/dl - HIGH CARDIOVASCULAR RISK Normal [facility] Comment on above: Performed By: #### L IPID, CMP #### [facility] [address] [place] [address] Dr. Radha Valentine LDL CALC NORMAL SEE BELOW Normal [facility] Comment on above: Result Comment: <100 mg/dl OPTIMAL 100 - 129 mg/dl NEAR OR ABOVE OPTIMAL 130 - 159 mg/dl BORDERLINE HIGH 160 - 189 mg/dl HIGH >190 mg/dl VERY HIGH Performed By: #### L IPID, CMP #### [facility] [address] [place] [address] Dr. Radha Valentine Triglyceride [Mass/Vol] 125 mg/dL Normal <=150 [facility] Comment on above: Performed By: #### L IPID, CMP #### [facility] [address] [place] [address] Dr. Radha Valentine VLDL CALC 25.0 mg/dL Normal [facility] Comment on above: Performed By: #### L IPID, CMP #### [facility] [address] [address] [address] Radha Valentine PROF 14(COMP METB)on 022 Albumin [Mass/Vol] 3.3 g/dL Critically low 3.4-5.0 Th e [facility] Comment on above: Performed By: #### L IPID, CMP #### [facility] [address] [place] [address] Dr. Radha Valentine Albumin/Globulin [Mass ratio] 1.0 {ratio} Normal [facility] Comment on above: Performed By: #### L IPID, CMP #### [facility] [address] [place] [address] Dr. Radha Valentine ALP [Catalytic activity/Vol] 59 U/L Normal 46-116 [facility] Comment on above: Performed By: #### L IPID, CMP #### [facility] [address] [place] [address] Dr. Radha Valentine ALT [Catalytic activity/Vol] 21 U/L Normal 14-59 [facility] Comment on above: Performed By: #### L IPID, CMP #### [facility] [address] [place] [address] Dr. Radha Valentine Anion gap [Moles/Vol] 11.0 mmol/L Normal [facility] Comment on above: Performed By: #### L IPID, CMP #### [facility] [address] [place] [address] Dr. Radha Valentine AST [Catalytic activity/Vol] 9 U/L Critically low 15-37 [facility] Comment on above: Performed By: #### L IPID, CMP #### [facility] [address] [place] [address] Dr. Radha Valentine Bilirubin [Mass/Vol] 0.4 mg/dL Normal 0.2-1.0 [facility] Comment on above: Performed By: #### L IPID, CMP #### [facility] [address] [place] [address] Dr. Radha Valentine Calcium [Mass/Vol] 9.5 mg/dL Normal 8.5-10.1 [facility] Comment on above: Performed By: #### L IPID, CMP #### [facility] [address] [place] [address] Dr. Radha Valentine Chloride [Moles/Vol] 104 mmol/L Normal 98-107 [facility] Comment on above: Performed By: #### L IPID, CMP #### [facility] [address] [place] [address] Dr. Radha Valentine CO2 [Moles/Vol] 29.8 mmol/L Normal 21.0-32.0 [facility] Comment on above: Performed By: #### L IPID, CMP #### [facility] [address] [address] [address] Radha Valentine Creatinine [Mass/Vol] 0.94 mg/dL Normal 0.55-1.02 [facility] Comment on above: Performed By: #### L IPID, CMP #### [facility] [address] [address] [address] Radha Valentine EGFR-AF FILIPINO >60 Normal >=60 [facility] Comment on above: Performed By: #### L IPID, CMP #### [facility] [address] [address] [address] Radha Valentine EGFR-NON AF FILIPINO 57 mL/min/1.73m2 Critically low >=60 [facility] Comment on above: Performed By: #### L IPID, CMP #### [facility] [address] [address] [address] Radha Valentine Globulin (S) [Mass/Vol] 3.2 g/dL Normal [facility] Comment on above: Performed By: #### L IPID, CMP #### [facility] [address] [address] [address] Radah Valentine Glucose [Mass/Vol] 162 mg/dL Critically high 74-106 [facility] Comment on above: Performed By: #### L IPID, CMP #### [facility] [address] [address] [address] Radha Valentine Potassium [Moles/Vol] 3.8 mmol/L Normal 3.5-5.1 [facility] Comment on above: Performed By: #### L IPID, CMP #### [facility] [address] [address] [address] Radha Valentine Protein [Mass/Vol] 6.5 g/dL Normal 6.4-8.2 [facility] Comment on above: Performed By: #### L IPID, CMP #### [facility] [address] [address] [address] Radha Valentine Sodium [Moles/Vol] 141 mmol/L Normal 136-145 [facility] Comment on above: Performed By: #### L IPID, CMP #### [facility] [address] [place] [address] Dr. Radha Valentine Urea nitrogen [Mass/Vol] 16.0 mg/dL Normal 7.0-18.0 [facility] Comment on above: Performed By: #### L IPID, CMP #### [facility] [address] [place] [address] Dr. Radha Valentine Urea nitrogen/Creatinine [Mass ratio] 17.0 mg/mg Normal [facility] Comment on above: Performed By: #### L IPID, CMP #### [facility] [address] [place] [address] Dr. Radha Valentine GLYCOHEMOGLOBIN A1Con 2020 ADA RECOMMENDATION ADA THERAPEUTIC TARG ET 6.0 - 7.0 ACTION SUGGESTED > 7.0 Normal [facility] Comment on above: Performed By: #### A 1C #### [facility] [address] [place] [address] Maira Karly Glucose [Mass/Vol] 154 mg/dL Normal [facility] Comment on above: Performed By: #### A 1C #### [facility] [address] [place] [address] Maira Karly HbA1c (Bld) [Mass fraction] 7.0 % Critically high <=6.0 [facility] Comment on above: Performed By: #### A 1C #### [facility] [address] [place] [address] Mairamitch Márquezen LIPID PROFILEon 06-26-2021 CHOL-HDL RATIO NORM SEE BELOW Normal [facility] Comment on above: Result Comment: 3.3 - 4.4 LOW RISK 4.4 - 7.1 AVERAGE RISK 7.1 - 11.0 MODERATE RISK >11.0 HIGH RISK Performed By: #### L IPID, CMP #### [facility] [address] [place] [address] Maira Karly Cholesterol [Mass/Vol] 141 mg/dL Normal <=200 [facility] Comment on above: Performed By: #### L IPID, CMP #### [facility] [address] [id number] Maira Karly Cholesterol in HDL [Mass/Vol] 64 mg/dL Normal [facility] Comment on above: Performed By: #### L IPID, CMP #### [facility] [address] [id number] Maira Karly Cholesterol in LDL [Mass/Vol] 68.8 mg/dL Normal [facility] Comment on above: Performed By: #### L IPID, CMP #### [facility] [address] [id number] Maira Karly Cholesterol.total/Chol esterol in HDL [Mass ratio] 2.2 {ratio} Normal [facility] Comment on above: Performed By: #### L IPID, CMP #### [facility] [address] [id number] Maira Karly HDL NORMAL > or = 60 mg/dl - LO W CARDIOVASCULAR RISK <40 mg/dl - HIGH CARDIOVASCULAR RISK Normal [facility] Comment on above: Performed By: #### L IPID, CMP #### [facility] [address] [place], [place] [id number] Maira Karly LDL CALC NORMAL SEE BELOW Normal [facility] Comment on above: Result Comment: <100 mg/dl OPTIMAL 100 - 129 mg/dl NEAR OR ABOVE OPTIMAL 130 - 159 mg/dl BORDERLINE HIGH 160 - 189 mg/dl HIGH >190 mg/dl VERY HIGH Performed By: #### L IPID, CMP #### [facility] [address] [id number] Maira Karly Triglyceride [Mass/Vol] 41 mg/dL Normal <=150 [facility] Comment on above: Performed By: #### L IPID, CMP #### [facility] [address] [id number] Maira Karly VLDL CALC 8.2 mg/dL Normal [facility] Comment on above: Performed By: #### L IPID, CMP #### [facility] [address] [id number] Maira Karly PROF 14(COMP METB)on 021 Albumin [Mass/Vol] 3.4 g/dL Critically low 3.5-5.0 [facility] Comment on above: Performed By: #### L IPID, CMP #### [facility] [address] [id number] Maira Karly Albumin/Globulin [Mass ratio] 1.1 {ratio} Normal [facility] Comment on above: Performed By: #### L IPID, CMP #### [facility] [address] [address] Maira Karly ALP [Catalytic activity/Vol] 60 U/L Normal 38-126 [facility] Comment on above: Performed By: #### L IPID, CMP #### [facility] [address] [address] Maira Karly ALT [Catalytic activity/Vol] 15 U/L Normal 9-52 [facility] Comment on above: Performed By: #### L IPID, CMP #### [facility] [address] [address] Maira Karly Anion gap [Moles/Vol] 10.8 mmol/L Normal [facility] Comment on above: Performed By: #### L IPID, CMP #### [facility] [address] [address] Maira Karly AST [Catalytic activity/Vol] 11 U/L Critically low 14-36 [facility] Comment on above: Performed By: #### L IPID, CMP #### [facility] [address] [address] Maira Karly Bilirubin [Mass/Vol] 0.4 mg/dL Normal 0.2-1.3 [facility] Comment on above: Performed By: #### L IPID, CMP #### [facility] [address] [id number] Maira Karly Calcium [Mass/Vol] 9.2 mg/dL Normal 8.4-10.2 [facility] Comment on above: Performed By: #### L IPID, CMP #### [facility] [address] [id number] Maira Karly Chloride [Moles/Vol] 105 mmol/L Normal 98-107 [facility] Comment on above: Performed By: #### L IPID, CMP #### [facility] [address] [id number] Maira Karly CO2 [Moles/Vol] 30.9 mmol/L Critically high 22.0-30.0 [facility] Comment on above: Performed By: #### L IPID, CMP #### [facility] [address] [address] Maira Karly Creatinine [Mass/Vol] 0.88 mg/dL Normal 0.52-1.04 [facility] Comment on above: Performed By: #### L IPID, CMP #### [facility] [address] [place], [place] [id number] Maira Karly EGFR-AF FILIPINO >60 Normal >=60 [facility] Comment on above: Performed By: #### L IPID, CMP #### [facility] [address] [id number] Maira Karly EGFR-NON AF FILIPINO >60 Normal >=60 [facility] Comment on above: Performed By: #### L IPID, CMP #### [facility] [address] [place], [place] [id number] Maira Karly Globulin (S) [Mass/Vol] 3.0 g/dL Normal [facility] Comment on above: Performed By: #### L IPID, CMP #### [facility] [address] [address] Maira Karly Glucose [Mass/Vol] 129 mg/dL Critically high 74-106 [facility] Comment on above: Performed By: #### L IPID, CMP #### [facility] [address] [address] Maira Karly Potassium [Moles/Vol] 3.7 mmol/L Normal 3.4-5.0 [facility] Comment on above: Performed By: #### L IPID, CMP #### [facility] [address] [place] [address] Maira Karly Protein [Mass/Vol] 6.4 g/dL Normal 6.1-8.2 [facility] Comment on above: Performed By: #### L IPID, CMP #### [facility] [address] [place], [place] [id number] Maira Karly Sodium [Moles/Vol] 143 mmol/L Normal 137-145 [facility] Comment on above: Performed By: #### L IPID, CMP #### [facility] [address] [place] [address] Maira Karly Urea nitrogen [Mass/Vol] 14.0 mg/dL Normal 7.0-17.0 [facility] Comment on above: Performed By: #### L IPID, CMP #### [facility] [address] [place], [place] [id number] Maira Karly Urea nitrogen/Creatinine [Mass ratio] 15.9 mg/mg Normal [facility] Comment on above: Performed By: #### L IPID, CMP #### [facility] [address] [place], [place] [id number] Maira Karly CBC AUTO DIFFon 06-25-2021 BASO # 0.1 103/ul Normal 0.0-0.1 [facility] Comment on above: Performed By: #### C BC #### [facility] [address] [place], [place] [id number] Maira Karly Basophils/100 WBC (Bld) 0.6 % Normal 0.2-2.0 [facility] Comment on above: Performed By: #### C BC #### [facility] [address] [place], [place] [id number] Maira Karly EO # 0.1 103/ul Normal 0.0-0.7 [facility] Comment on above: Performed By: #### C BC #### [facility] [address] [place], [place] [id number] Maira Karly Eosinophils/100 WBC (Bld) 1.6 % Normal 0.9-7.0 [facility] Comment on above: Performed By: #### C BC #### [facility] [address] [place] [address] Maira Karly Erythrocyte distribution width (RBC) [Ratio] 14.4 % Normal 11.0-15.0 [facility] Comment on above: Performed By: #### C BC #### [facility] [address] [place] [address] Maira Karly Hematocrit (Bld) [Volume fraction] 38.7 % Normal 36.0-48.0 [facility] Comment on above: Performed By: #### C BC #### [facility] [address] [place] [address] Maira Karly Hemoglobin (Bld) [Mass/Vol] 12.3 g/dL Normal 12.0-16.0 [facility] Comment on above: Performed By: #### C BC #### [facility] [address] [place] [address] Maira Karly IG # 0.02 10e3/ul Normal 0.00-0.03 [facility] Comment on above: Performed By: #### C BC #### [facility] [address] [place] [address] Maira Karly IG % 0.2 % Normal 0.0-0.5 [facility] Comment on above: Performed By: #### C BC #### [facility] [address] [place] [address] Maira Karly LYMPH # 2.0 103/ul Normal 1.2-3.8 [facility] Comment on above: Performed By: #### C BC #### [facility] [address] [place], [place] [id number] Maira Karly Lymphocytes/100 WBC (Bld) 24.4 % Normal 20.5-60.0 [facility] Comment on above: Performed By: #### C BC #### [facility] [address] [place], [place] [id number] Mairamitch Márquezen MANUAL DIFF REQ NO Normal [facility] Comment on above: Performed By: #### C BC #### [facility] [address] [place], [place] [id number] Maira Karly MCH (RBC) [Entitic mass] 28.9 pg Normal 26.7-34.0 [facility] Comment on above: Performed By: #### C BC #### [facility] [address] [place], [place] [id number] Maira Brandt MCHC (RBC) [Mass/Vol] 31.8 g/dL Normal 29.9-35.2 [facility] Comment on above: Performed By: #### C BC #### [facility] [address] [place], [place] [id number] Mairamitch Brandt MCV (RBC) [Entitic vol] 91.1 fL Normal 81.0-99.0 [facility] Comment on above: Performed By: #### C BC #### [facility] [address] [place] [address] Maira Brandt MONO # 0.6 103/ul Normal 0.3-0.8 [facility] Comment on above: Performed By: #### C BC #### [facility] [address] [place] [address] Mairamitch Márquezen Monocytes/100 WBC (Bld) 7.7 % Normal 1.7-12.0 [facility] Comment on above: Performed By: #### C BC #### [facility] [address] [place] [address] Maira Brandt NEUT # 5.3 103/ul Normal 1.4-6.5 [facility] Comment on above: Performed By: #### C BC #### [facility] [address] [place], [place] [id number] Maira Karly Neutrophils/100 WBC (Bld) 65.5 % Normal 43.0-75.0 [facility] Comment on above: Performed By: #### C BC #### [facility] [address] [place], [place] [id number] Maira Karly Platelet mean volume (Bld) [Entitic vol] 8.5 fL Critically low 9.5-13.5 [facility] Comment on above: Performed By: #### C BC #### [facility] [address] [place], [place] [id number] Maira Akrly PLT 318 103/ul Normal 150-450 [facility] Comment on above: Performed By: #### C BC #### [facility] [address] [place], [place] [address] Maira Karly RBC 4.25 106/ul Normal 4.20-5.40 [facility] Comment on above: Performed By: #### C BC #### [facility] [address] [place], [place] [address] Maira Karly WBC 8.2 103/ul Normal 4.0-11.0 [facility] Comment on above: Performed By: #### C BC #### [facility] [address] [place], [place] [address] Maira Brandt Vital Signs Date Time Vital Sign Value Performing Clinician Facility 07-30-2024 15:31-0400 Body temperature 97.3 [degF] MD Ethel Wakefield Work Phone: [facility] 07-30-2024 15:31-0400 Body weight 64.86 kg MD Ethel Wakefield Work Phone: [facility] 07-30-2024 15:31-0400 Diastolic blood pressure 66 mm[Hg] MD Ethel Wakefield Work Phone: [facility] 07-30-2024 15:31-0400 Heart rate 8 /min MD Ethel Wakefield Work Phone: [facility] 07-30-2024 15:31-0400 Respiratory rate 16 /min MD Ethel Wakefield Work Phone: [facility] 07-30-2024 15:31-0400 SaO2% (BldA) [Mass fraction] 95 % MD Ethel Wakefield Work Phone: [facility] 07-30-2024 15:31-0400 Systolic blood pressure 123 mm[Hg] MD Ethel Wakefield Work Phone: [facility] 07-28-2024 14:14-0400 Body height 154.94 cm MD Ethel Wakefield Work Phone: [facility] 07-28-2024 14:14-0400 Body mass index (BMI) [Ratio] 27.2 kg/m2 MD Ethel Wakefield Work Phone: [facility] 07-28-2024 14:14-0400 Body weight 65.37 kg MD Ethel Wakefield Work Phone: [facility] 07-28-2024 14:14-0400 Diastolic blood pressure 66 mm[Hg] MD Ethel Wakefield Work Phone: [facility] 07-28-2024 14:14-0400 Heart rate 96 /min MD Ethel Wakefield Work Phone: [facility] 07-28-2024 14:14-0400 Systolic blood pressure 129 mm[Hg] MD Ethel Wakefield Work Phone: [facility] 07-21-2024 14:00-0400 Body height 1554.48 cm MD Ethel Wakefield Work Phone: [facility] 07-21-2024 14:00-0400 Body mass index (BMI) [Ratio] 0.2 kg/m2 MD Ethel Wakefield Work Phone: [facility] 07-21-2024 14:00-0400 Body weight 60.78 kg MD Ethel Wakefield Work Phone: [facility] 07-21-2024 13:43-0400 Body temperature 97.3 [degF] MD Ethel Wakefield Work Phone: [facility] 07-21-2024 13:43-0400 Diastolic blood pressure 65 mm[Hg] MD Ethel Wakefield Work Phone: [facility] 07-21-2024 13:43-0400 Heart rate 92 /min MD Ethel Wakefield Work Phone: [facility] 07-21-2024 13:43-0400 Respiratory rate 16 /min MD Ethel Wakefield Work Phone: [facility] 07-21-2024 13:43-0400 Systolic blood pressure 112 mm[Hg] MD Ethel Wakefield Work Phone: [facility] 07-15-2024 14:01-0400 Body temperature 97.9 [degF] MD tEhel Wakefield Work Phone: [facility] 07-15-2024 14:01-0400 Body weight 65.31 kg MD Ethel Wakefield Work Phone: [facility] 07-15-2024 14:01-0400 Diastolic blood pressure 61 mm[Hg] MD Ethel Wakefield Work Phone: [facility] 07-15-2024 14:01-0400 Heart rate 88 /min MD Ethel Wakefield Work Phone: [facility] 07-15-2024 14:01-0400 Respiratory rate 16 /min MD Ethel Wakefield Work Phone: [facility] 07-15-2024 14:01-0400 SaO2% (BldA) [Mass fraction] 99 % MD Ethel Wakefield Work Phone: [facility] 07-15-2024 14:01-0400 Systolic blood pressure 114 mm[Hg] MD Ethel Wakefield Work Phone: [facility] 06-30-2024 14:19-0400 Body height 1554.48 cm MD Ethel Wakefield Work Phone: [facility] 06-30-2024 14:19-0400 Body mass index (BMI) [Ratio] 0.2 kg/m2 MD Ethel Wakefield Work Phone: [facility] 06-30-2024 14:19-0400 Body weight 60.78 kg MD Ethel Wakefield Work Phone: [facility] 06-30-2024 14:07-0400 Body temperature 98.2 [degF] MD Ethel Wakefield Work Phone: [facility] 06-30-2024 14:07-0400 Diastolic blood pressure 83 mm[Hg] MD Ethel Wakefield Work Phone: [facility] 06-30-2024 14:07-0400 Heart rate 84 /min MD Ethel Wakefield Work Phone: [facility] 06-30-2024 14:07-0400 Respiratory rate 20 /min MD Ethel Wakefield Work Phone: [facility] 06-30-2024 14:07-0400 Systolic blood pressure 132 mm[Hg] MD Ethel Wakefield Work Phone: [facility] 06-30-2024 13:26-0400 Body temperature 97.7 [degF] MD Ethel Wakefield Work Phone: [facility] 06-30-2024 13:26-0400 Body weight 65.31 kg MD Ethel Wakefield Work Phone: [facility] 06-30-2024 13:26-0400 Diastolic blood pressure 77 mm[Hg] MD Ethel Wakefield Work Phone: [facility] 06-30-2024 13:26-0400 Heart rate 86 /min MD Ethel Wakefield Work Phone: [facility] 06-30-2024 13:26-0400 Respiratory rate 16 /min MD Ethel Wakefield Work Phone: [facility] 06-30-2024 13:26-0400 SaO2% (BldA) [Mass fraction] 98 % MD Ethel Wakefield Work Phone: [facility] 06-30-2024 13:26-0400 Systolic blood pressure 127 mm[Hg] MD Ethel Wakefield Work Phone: [facility] 06-15-2024 13:49-0400 Body height 1554.48 cm MD Ethel Wakefield Work Phone: [facility] 06-15-2024 13:49-0400 Body mass index (BMI) [Ratio] 0.2 kg/m2 MD Ethel Wakefield Work Phone: [facility] 06-15-2024 13:49-0400 Body weight 60.78 kg MD Ethel Wakefield Work Phone: [facility] 06-15-2024 13:28-0400 Body temperature 98.8 [degF] MD Ethel Wakefield Work Phone: [facility] 06-15-2024 13:28-0400 Diastolic blood pressure 66 mm[Hg] MD Ethel Wakefield Work Phone: [facility] 06-15-2024 13:28-0400 Heart rate 88 /min MD Ethel Wakefield Work Phone: [facility] 06-15-2024 13:28-0400 Systolic blood pressure 135 mm[Hg] MD Ethel Wakefield Work Phone: [facility] 06-01-2024 14:44-0400 Respiratory rate 20 /min MD Ethel Wakefield Work Phone: [facility] 05-26-2024 12:58-0400 Body temperature 97 [degF] MD Ethel Wakefield Work Phone: [facility] 05-26-2024 12:58-0400 Body weight 61.23 kg MD Ethel Wakefield Work Phone: [facility] 05-26-2024 12:58-0400 Diastolic blood pressure 75 mm[Hg] MD Ethel Wakefield Work Phone: [facility] 05-26-2024 12:58-0400 Heart rate 85 /min MD Ethel Wakefield Work Phone: [facility] 05-26-2024 12:58-0400 Respiratory rate 16 /min MD Ethel Wakefield Work Phone: [facility] 05-26-2024 12:58-0400 SaO2% (BldA) [Mass fraction] 98 % MD Ethel Wakefield Work Phone: [facility] 05-26-2024 12:58-0400 Systolic blood pressure 123 mm[Hg] MD Ethel Wakefield Work Phone: [facility] 05-26-2024 11:29-0400 Body height 152.4 cm MD Ethel Wakefield Work Phone: [facility] 05-26-2024 11:29-0400 Body mass index (BMI) [Ratio] 26.4 kg/m2 MD Ethel Wakefield Work Phone: [facility] 05-26-2024 11:29-0400 Body weight 61.23 kg MD Ethel Wakefield Work Phone: [facility] 05-26-2024 11:29-0400 Diastolic blood pressure 73 mm[Hg] MD Ethel Wakefield Work Phone: [facility] 05-26-2024 11:29-0400 Heart rate 91 /min MD Ethel Wakefield Work Phone: [facility] 05-26-2024 11:29-0400 SaO2% (BldA) [Mass fraction] 96 % MD Ethel Wakefield Work Phone: [facility] 05-26-2024 11:29-0400 Systolic blood pressure 130 mm[Hg] MD Ethel Wakefield Work Phone: [facility] 05-13-2024 13:39-0400 Body height 152.4 cm MD Ethel Wakefield Work Phone: [facility] 05-13-2024 13:39-0400 Body mass index (BMI) [Ratio] 27.3 kg/m2 MD Ethel Wakefield Work Phone: [facility] 05-13-2024 13:39-0400 Body temperature 97.9 [degF] MD Ethel Wakefield Work Phone: [facility] 05-13-2024 13:39-0400 Body weight 63.5 kg MD Ethel Wakefield Work Phone: [facility] 05-13-2024 13:39-0400 Diastolic blood pressure 75 mm[Hg] MD Ethel Wakefield Work Phone: [facility] 05-13-2024 13:39-0400 Heart rate 94 /min MD Ethel Wakefield Work Phone: [facility] 05-13-2024 13:39-0400 Respiratory rate 16 /min MD Ethel Wakefield Work Phone: [facility] 05-13-2024 13:39-0400 SaO2% (BldA) [Mass fraction] 98 % MD Ethel Wakefield Work Phone: [facility] 05-13-2024 13:39-0400 Systolic blood pressure 127 mm[Hg] MD Ethel Wakefield Work Phone: [facility] 05-07-2024 11:57-0400 Body height 152.4 cm MD Ethel Wakefield Work Phone: [facility] 05-07-2024 11:57-0400 Body mass index (BMI) [Ratio] 28.1 kg/m2 MD Ethel Wakefield Work Phone: [facility] 05-07-2024 11:57-0400 Body weight 65.31 kg MD Ethel Wakefield Work Phone: [facility] 05-07-2024 11:57-0400 Diastolic blood pressure 67 mm[Hg] MD Ethel Wakefield Work Phone: [facility] 05-07-2024 11:57-0400 Heart rate 101 /min MD Ethel Wakefield Work Phone: [facility] 05-07-2024 11:57-0400 Systolic blood pressure 115 mm[Hg] MD Ethel Wakefield Work Phone: [facility] 04-29-2024 14:45-0400 Diastolic blood pressure 78 mm[Hg] MD Ethel Wakefield Work Phone: [facility] 04-29-2024 14:45-0400 Heart rate 90 /min MD Ethel Wakefield Work Phone: [facility] 04-29-2024 14:45-0400 Inhaled oxygen flow rate 3 L/min MD Ethel Wakefield Work Phone: [facility] 04-29-2024 14:45-0400 Respiratory rate 18 /min MD Ethel Wakefield Work Phone: [facility] 04-29-2024 14:45-0400 SaO2% (BldA) [Mass fraction] 98 % MD Ethel Wakefield Work Phone: [facility] 04-29-2024 14:45-0400 Systolic blood pressure 142 mm[Hg] MD Ethel Wakefield Work Phone: [facility] 04-29-2024 14:04-0400 Body height 152.4 cm MD Ethel Wakefield Work Phone: [facility] 04-29-2024 14:04-0400 Body weight 61.68 kg MD Ethel Wakefield Work Phone: [facility] 04-22-2024 13:50-0400 Body height 162.56 cm MD Ethel Wakefield Work Phone: [facility] 04-22-2024 13:50-0400 Body mass index (BMI) [Ratio] 23.8 kg/m2 MD Ethel Wakefield Work Phone: [facility] 04-22-2024 13:50-0400 Body temperature 97.8 [degF] MD Ethel Wakefield Work Phone: [facility] 04-22-2024 13:50-0400 Body weight 63.04 kg MD Ethel Wakefield Work Phone: [facility] 04-22-2024 13:50-0400 Diastolic blood pressure 80 mm[Hg] MD Ethel Wakefield Work Phone: [facility] 04-22-2024 13:50-0400 Heart rate 87 /min MD Ethel Wakefield Work Phone: [facility] 04-22-2024 13:50-0400 Respiratory rate 16 /min MD Ethel Wakefield Work Phone: [facility] 04-22-2024 13:50-0400 SaO2% (BldA) [Mass fraction] 99 % MD Ethel Wakefield Work Phone: [facility] 04-22-2024 13:50-0400 Systolic blood pressure 156 mm[Hg] MD Ethel Wakefield Work Phone: [facility] 03-27-2024 10:32-0400 Body temperature 97.9 [degF] MD Ethel Wakefield Work Phone: [facility] 03-27-2024 10:32-0400 Body weight 64.86 kg MD Ethel Wakefield Work Phone: [facility] 03-27-2024 10:32-0400 Diastolic blood pressure 78 mm[Hg] MD Ethel Wakefield Work Phone: [facility] 03-27-2024 10:32-0400 Heart rate 98 /min MD Ethel Wakefield Work Phone: [facility] 03-27-2024 10:32-0400 Inhaled oxygen flow rate 3.5 L/min MD Ethel Wakefield Work Phone: [facility] 03-27-2024 10:32-0400 Respiratory rate 16 /min MD Ethel Wakefield Work Phone: [facility] 03-27-2024 10:32-0400 SaO2% (BldA) [Mass fraction] 94 % MD Ethel Wakefield Work Phone: [facility] 03-27-2024 10:32-0400 Systolic blood pressure 139 mm[Hg] MD Ethel Wakefield Work Phone: [facility] 03-23-2024 14:08-0400 Body height 162.56 cm MD Ethel Wakefield Work Phone: [facility] 03-23-2024 14:08-0400 Body mass index (BMI) [Ratio] 23.8 kg/m2 MD Ethel Wakefield Work Phone: [facility] 03-23-2024 14:08-0400 Body weight 63.04 kg MD Ethel Wakefield Work Phone: [facility] 03-23-2024 14:08-0400 Diastolic blood pressure 73 mm[Hg] MD Ethel Wakefield Work Phone: [facility] 03-23-2024 14:08-0400 Heart rate 101 /min MD Ethel Wakefield Work Phone: [facility] 03-23-2024 14:08-0400 SaO2% (BldA) [Mass fraction] 94 % MD Ethel Wakefield Work Phone: [facility] 03-23-2024 14:08-0400 Systolic blood pressure 119 mm[Hg] MD Ethel Wakefield Work Phone: [facility] 09-05-2023 13:59-0400 Body temperature 97.8 [degF] MD Ethel Wakefield Work Phone: [facility] 09-05-2023 13:59-0400 Body weight 66.67 kg MD Ethel Wakefield Work Phone: [facility] 09-05-2023 13:59-0400 Diastolic blood pressure 69 mm[Hg] MD Ethel Wakefield Work Phone: [facility] 09-05-2023 13:59-0400 Heart rate 87 /min MD Ethel Wakefield Work Phone: [facility] 09-05-2023 13:59-0400 Respiratory rate 16 /min MD Ethel Wakefield Work Phone: [facility] 09-05-2023 13:59-0400 SaO2% (BldA) [Mass fraction] 98 % MD Ethel Wakefield Work Phone: [facility] 09-05-2023 13:59-0400 Systolic blood pressure 124 mm[Hg] MD Ethel Wakefield Work Phone: [facility] 07-03-2023 13:32-0400 Body temperature 97.9 [degF] MD Ethel Wakefield Work Phone: [facility] 07-03-2023 13:32-0400 Body weight 66.22 kg MD Ethel Wakefield Work Phone: [facility] 07-03-2023 13:32-0400 Diastolic blood pressure 82 mm[Hg] MD Ethel Wakefield Work Phone: [facility] 07-03-2023 13:32-0400 Heart rate 83 /min MD Ethel Wakefield Work Phone: [facility] 07-03-2023 13:32-0400 Respiratory rate 16 /min MD Ethel Wakefield Work Phone: [facility] 07-03-2023 13:32-0400 SaO2% (BldA) [Mass fraction] 99 % MD Ethel Wakefield Work Phone: [facility] 07-03-2023 13:32-0400 Systolic blood pressure 146 mm[Hg] MD Ethel Wakefield Work Phone: [facility] 05-29-2023 14:16-0400 Body temperature 97.8 [degF] MD Ethel Wakefield Work Phone: [facility] 05-29-2023 14:16-0400 Body weight 65.31 kg MD Ethel Wakefield Work Phone: [facility] 05-29-2023 14:16-0400 Diastolic blood pressure 71 mm[Hg] MD Ethel Wakefield Work Phone: [facility] 05-29-2023 14:16-0400 Heart rate 78 /min MD Ethel Wakefield Work Phone: [facility] 05-29-2023 14:16-0400 Respiratory rate 16 /min MD Ethel Wakefield Work Phone: [facility] 05-29-2023 14:16-0400 SaO2% (BldA) [Mass fraction] 98 % MD Ethel Wakefield Work Phone: [facility] 05-29-2023 14:16-0400 Systolic blood pressure 125 mm[Hg] MD Ethel Wakefield Work Phone: [facility] 05-16-2023 14:00-0400 Body height 162.56 cm Leonardo Herron II Other [employer] [facility] [employer] Other 05-16-2023 14:00-0400 Body mass index (BMI) [Ratio] 24.71 kg/m2 Leonardo Herron II Other [employer] Other 05-16-2023 14:00-0400 Body weight 65.32 kg Leonardo Herron II Other [facility] [employer] Other 04-25-2023 11:18-0400 Body temperature 97.8 [degF] MD Ethel Wakefield Work Phone: [facility] 04-25-2023 11:18-0400 Body weight 65.77 kg MD Ethel Wakefield Work Phone: [facility] 04-25-2023 11:18-0400 Diastolic blood pressure 85 mm[Hg] MD Ethel Wakefield Work Phone: [facility] 04-25-2023 11:18-0400 Heart rate 86 /min MD Ethel Wakefield Work Phone: [facility] 04-25-2023 11:18-0400 Respiratory rate 16 /min MD Ethel Wakefield Work Phone: [facility] 04-25-2023 11:18-0400 SaO2% (BldA) [Mass fraction] 98 % MD Ethel Wakefield Work Phone: [facility] 04-25-2023 11:18-0400 Systolic blood pressure 139 mm[Hg] MD Ethel Wakefield Work Phone: [facility] 04-25-2023 10:57-0400 Body height 162.56 cm MD Ethel Wakefield Work Phone: [facility] Encounters Encounter Date Encounter Type Care Provider Facility Start: 09-07-2024 ambulatory Taina Potter Facility:[facility] Start: 07-30-2024 End: 07-30-2024 ambulatory MD Ethel Wakefield Work Phone: [facility] Work Phone: Start: 07-30-2024 End: 07-30-2024 Patient encounter procedure MD Ethel Wakefield Work Phone: [facility] Work Phone: Start: 07-30-2024 End: 07-30-2024 ambulatory MD Ethel Wakefield Work Phone: [facility] Work Phone: Start: 07-30-2024 End: 07-30-2024 Patient encounter procedure MD Ethel Wakefield Work Phone: [facility] Work Phone: Start: 07-29-2024 Registered Recurring MD Ethel Wakefield Work Phone: [facility] Work Phone: Start: 07-29-2024 ambulatory Cristina Long Faci lity:[facility] Start: 07-29-2024 Encounter for other specified special examinations Cristina Long [facility] Start: 07-28-2024 End: 07-28-2024 ambulatory MD Ethel Wakefield Work Phone: [facility] Work Phone: Start: 07-28-2024 End: 07-28-2024 Patient encounter procedure MD Ethel Wakefield Work Phone: [facility] Work Phone: Start: 07-21-2024 Registered Recurring MD Ethel Wakefield Work Phone: [facility] [place] Work Phone: Start: 07-15-2024 End: 07-15-2024 ambulatory MD Ethel Wakefield Work Phone: [facility] Work Phone: Start: 07-15-2024 End: 07-15-2024 Patient encounter procedure MD Ethel Wakefield Work Phone: [facility] Work Phone: Start: 07-15-2024 Registered Recurring MD [facility]: Start: 06-30-2024 Registered Recurring MD Ethel Wakefield Work Phone: [facility] [place] Work Phone: Start: 06-30-2024 End: 06-30-2024 ambulatory MD Ethel Wakefield Work Phone: [facility] Work Phone: Start: 06-30-2024 End: 06-30-2024 Patient encounter procedure MD Ethel Wakefield Work Phone: [facility] Work Phone: Start: 06-30-2024 Registered Recurring MD Ethel Wakefield Work Phone: [facility] Work Phone: Start: 05-26-2024 End: 05-26-2024 Patient encounter procedure MD Ethel Wakefield Work Phone: [facility] Work Phone: Start: 05-26-2024 End: 05-26-2024 ambulatory MD Ethel Wakefield Work Phone: [facility] Work Phone: Start: 05-26-2024 End: 05-26-2024 Patient encounter procedure MD Ethel Wakefield Work Phone: [facility] Work Phone: Start: 05-26-2024 Registered Recurring MD Ethel Wake[facility] Work [facility]: Start: 05-13-2024 End: 05-13-2024 ambulatory MD Ethel Wakefield Work Phone: [facility] Work Phone: Start: 05-13-2024 End: 05-13-2024 Patient encounter procedure MD Ethel Wakefield Work Phone: [facility] Work Phone: Start: 05-13-2024 Registered Recurring MD Ethel Wake[facility] Work [facility]: Start: 05-11-2024 Non-patient / Non-visit MD Andree Wakefield Work Phone: [facility] Work Phone: Start: 05-07-2024 End: 05-07-2024 ambulatory MD Ethel Wakefield Work Phone: [facility] Work Phone: Start: 05-07-2024 End: 05-07-2024 Patient encounter procedure MD Ethel Wakefield Work Phone: [facility] Work Phone: Start: 05-04-2024 Registered Recurring MD Ethel Wake[facility] Work [facility]: Start: 04-29-2024 End: 04-29-2024 Admission to same day surgery center MD Ethel Wakefield Work Phone: [facility] [place] Work Phone: Start: 04-29-2024 End: 04-29-2024 ambulatory MD Ethel Wakefield Work Phone: [facility] Work Phone: Start: 04-29-2024 Non-patient / Non-visit MD Andree Wakefield Work Phone: [facility] Work Phone: Start: 04-24-2024 Registered Recurring MD Ethel Wakefield Work Phone: [facility] Work Phone: Start: 04-22-2024 Non-patient / Non-visit MD Andree Wakefield Work Phone: [facility] Work Phone: Start: 04-22-2024 End: 04-22-2024 ambulatory MD Ethel Wakefield Work Phone: [facility] Work Phone: Start: 04-22-2024 End: 04-22-2024 Patient encounter procedure MD Ethel Wakefield Work Phone: [facility] Work Phone: Start: 04-22-2024 Registered Recurring MD Ethel Wakefield Work Phone: [facility] Work Phone: Start: 04-20-2024 Non-patient / Non-visit MD Andree Wakefiled Work Phone: [facility] Work Phone: Start: 04-09-2024 Non-patient / Non-visit MD Andree Wakefield Work Phone: [facility] Work Phone: Start: 04-08-2024 Non-patient / Non-visit MD Andree Wakefield Work Phone: [facility] Work Phone: Start: 04-02-2024 End: 04-02-2024 ambulatory MD Ethel Wakefield Work Phone: [facility] Work Phone: Start: 04-02-2024 End: 04-02-2024 Patient encounter procedure MD Ethel Wakefield Work Phone: [facility] Work Phone: Start: 03-27-2024 End: 03-27-2024 ambulatory MD Ethel Wakefield Work Phone: [facility] Work Phone: Start: 03-27-2024 End: 03-27-2024 Patient encounter procedure MD Ethel Wakefield Work Phone: [facility] Work Phone: Start: 03-27-2024 Registered Recurring MD Ethel Wakefield Work Phone: [facility] Work Phone: Start: 03-23-2024 End: 03-23-2024 ambulatory MD Ethel Wakefield Work Phone: [facility] Work Phone: Start: 03-23-2024 End: 03-23-2024 Patient encounter procedure MD Ethel Wakefield Work Phone: [facility] Work Phone: Start: 03-20-2024 Non-patient / Non-visit MD Andree Wakefield Work Phone: [facility] Work Phone: Start: 03-19-2024 End: 03-19-2024 ambulatory MD Ethel Wakefield Work Phone: [facility] Work Phone: Start: 03-19-2024 End: 03-19-2024 Departed Referred MD Ethel Wakefield Work Phone: [facility] Start: 03-19-2024 Non-patient / Non-visit MD Andree Wakefield Work Phone: [facility] Work Phone: Start: 03-18-2024 Non-patient / Non-visit MD Andree Wakefield Work Phone: [facility] Work Phone: Start: 09-05-2023 End: 09-05-2023 ambulatory MD Ethel Wakefield Work Phone: [facility] Work Phone: Start: 09-05-2023 End: 09-05-2023 Registered Recurring MD Ethel Wakefield Work Phone: [facility] Work Phone: Start: 07-03-2023 End: 07-03-2023 ambulatory MD Ethel Wakefield Work Phone: [facility] Work Phone: Start: 07-03-2023 End: 07-03-2023 Registered Recurring MD Ethel Wakefield Work Phone: [facility] Work Phone: Start: 06-03-2023 End: 06-03-2023 ambulatory Leonardo Herron II Other [employer] Other Start: 06-03-2023 Telephone encounter Leonardo Herron II [facility] Start: 05-29-2023 End: 05-29-2023 ambulatory MD Ethel Wakefield Work Phone: [facility] Work Phone: Start: 05-29-2023 End: 05-29-2023 Registered Recurring MD Ethel Wakefield Work Phone: [facility] Work Phone: Start: 05-16-2023 Registered Recurring MD Ethel Wakefield Work Phone: [facility] Work Phone: Start: 05-16-2023 Office outpatient ne w 45 minutes Leonardo Herron II [facility] Start: 05-16-2023 End: 05-16-2023 ambulatory MD Ethel Wakefield Work Phone: [facility] Work Phone: Start: 05-16-2023 End: 05-16-2023 Patient encounter procedure MD Ethel Wakefield Work Phone: [facility] Start: 04-26-2023 ambulatory Facility:U Start: 04-25-2023 End: 04-25-2023 ambulatory MD Ethel Wakefield Work Phone: [facility] Work Phone: Start: 04-25-2023 End: 04-25-2023 Registered Recurring MD Ethel Wakefield Work Phone: [facility] Work Phone: Start: 04-16-2023 End: 04-16-2023 ambulatory Ethel Wakefield Other [facility] [employer] Other Start: 04-16-2023 Telephone encounter Ethel Wakefield [facility] Start: 06-08-2022 Encounter for genera l adult medical examination without abnormal findings DR ETHEL WAKEFIELD [facility] Start: 06-05-2022 End: 06-06-[address] ETHEL WAKEFIELD Facility: Start: 06-05-2022 End: 06-06-2022 Encounter for general adult medical examination without abnormal findings DR ETHEL WAKEFIELD Facility:H1 Start: 06-26-2021 End: 06-27-[address] ETHEL WAKEFIELD Facility: Procedures Date Procedure Procedure Detail Performing Clinician Start: 07-29-2024 Positron emission tomography with computed tomography MD Ethel Wakefield Work Phone: Start: 04-29-2024 Ultrasonic guidance for thoracentesis MD Ethel Wakefield Work Phone: Start: 03-19-2024 Microscopic observat ion [Identifier] in Unspecified specimen by Gram stain MD Ethel Wakefield Work Phone: Start: 03-18-2024 Blood Culture 1 MD Rafael Wakefield Work Phone: Start: 03-18-2024 Blood Culture 2 MD Rafael Wakefield Work Phone: Start: 05-16-2023 X-ray of [...] Treatment Date Care Activity Detail Author Start: 07-15-2024 Patient referral [facility] Work Phone: Start: 05-26-2024 Patient referral [facility] Work Phone: Start: 04-29-2024 [facility] Start: 04-29-2024 Ultrasonic guidance for thoracentesis [facility] Start: 03-27-2024 Patient referral [facility] Work Phone: Start: 03-18-2024 Blood Culture 1 Blood Culture 1 [facility] Start: 03-18-2024 Blood Culture 2 Blood Culture 2 [facility] Start: 05-16-2023 X-ray of both knees XR knee BI 4V [facility] Start: 05-16-2023 Pelvis X-ray XR pelvis 1-2V [facility] Start: 05-16-2023 MRSA Culture MRSA Culture [facility] Albumin/Globulin ratio [facility] Anion gap measurement [facility] Basophils [#/volume] in Blood by Automated count [facility] Basophils/100 leukoc ytes in Blood by Automated count [facility] Cancer Ag 15-3 [Units/volume] in Serum or Plasma [facility] Cancer Ag 15-3 [Units/volume] in Serum or Plasma [facility] Comprehensive metabo lic 1999 panel - Serum or Plasma [facility] Comprehensive metabo lic 1999 panel - Serum or Plasma [facility] Comprehensive metabo lic 1999 panel - Serum or Plasma [facility] Comprehensive metabo lic 1999 panel - Serum or Plasma [facility] Comprehensive metabo lic 1999 panel - Serum or Plasma [facility] Comprehensive metabo lic 2000 panel - Serum or Plasma [facility] Comprehensive metabo lic 1999 panel - Serum or Plasma [facility] Comprehensive metabo lic 1999 panel - Serum or Plasma [facility] Computed tomography for radiotherapy planning [facility] Cotinine [Mass/volum e] in Serum or Plasma [facility] Eosinophils [#/volum e] in Blood [facility] Eosinophils/100 leuk ocytes in Blood by Automated count [facility] Erythrocyte distribu tion width [Ratio] by Automated count [facility] Erythrocytes [#/volu me] in Blood [facility] Globulin [Mass/volum e] in Serum [facility] Glucose measurement estimated from glycated hemoglobin [facility] Hematocrit [Volume F raction] of Blood [facility] Hemoglobin [Mass/vol ume] in Blood [facility] Leukocytes [#/volume ] corrected for nucleated erythrocytes in Blood by Automated coun [facility] Leukocytes [#/volume ] in Blood [facility] Lymphocytes [#/volum e] in Blood by Automated count [facility] Lymphocytes/100 leuk ocytes in Blood by Automated count [facility] MCH [Entitic mass] b y Automated count [facility] MCHC [Mass/volume] b y Automated count [facility] MCV [Entitic volume] by Automated count [facility] Measurement of cance r antigen -29 [facility] Measurement of cance r antigen - [facility] Methicillin resistan t Staphylococcus aureus [Presence] in Unspecified specimen by Organism specific culture [facility] Monocytes [#/volume] in Blood by Automated count [facility] Monocytes/100 leukoc ytes in Blood by Automated count [facility] Neutrophils [#/volum e] in Blood by Automated count [facility] Neutrophils/100 leuk ocytes in Blood by Automated count [facility] Nicotine [Mass/volum e] in Serum or Plasma [facility] Nucleated erythrocyt es [Presence] in Blood by Automated count [facility] Patient Education [facility] Work Phone: Patient referral [facility] Work Phone: Platelet mean volume [Entitic volume] in Blood by Automated count [facility] Platelets [#/volume] in Blood [facility] Ultrasonic guidance for thoracentesis [facility] XR Chest 2 Views [facility] Immunizations Immunization Date Immunization Notes Care Provider Fa cility 07-20-2021 influenza virus vaccine, split virus (incl. purified surface antigen) Leonardo Herron II Other [facility] [employer] Other 07-20-2021 influenza virus vaccine, unspecified formulation MD Ethel Wakefield Work Phone: [facility] 07-08-2017 influenza virus vaccine, split virus (incl. purified surface antigen) Leonardo Herron II Other [employer] Other 07-08-2017 influenza virus vaccine, unspecified formulation MD Ethel Wakefield Work Phone: [facility] Payers Date Payer Category Payer Self-pay 1957 Medicare [id number] 1957 Unknown [id number] 1935 Unknown [id number] [id number] 1935 Unknown [id number] [id number] [id number] Unknown [id number] [id number] Unknown [id number] 2.16.8 [id number] Unknown [id number] 2.16.8 [id number] Unknown [id number] 2.16.8 [id number] Social History Date Type Detail Facility Unknown if ever smoked [employer] Other Sex Assigned At Sex Assigned At Bir th [employer] Other Start: 04-25-2023 End: 07-21-2024 Tobacco smoking status NHIS Never smoked tobacco (finding) [facility] Start: 1935 Sex Assigned At Female F [facility] Clinical Notes 04-16-2023 to 07-03-2023 Note Date & Type Note Facility 07-03-2023 Progress note Note Date/Time July 03, 2023 1:38pm [facility] at [address] [address] Hem/Onc Follow Up Note - OP Signed Patient: Yolanda Fairbanks MR#: [id number] : 1935 Acct:[id number] Age/Sex: 88 / F Type: REG RCR [...] to transfer of care back to her [place] physician Dr. Lozano. Moderate complexity 35 minute [...] lady who lives independently and resides in [facility] about half of the year returning to [place] in the summer and fall. Her primary [...] -Patient is planning to go back to [place] in February and is undergoing knee replacement surgery in summer 2022. The patient will make arrangements to seek surgical consultation in [place] and will decide if she wants to [...] lymph nodes negative for metastasis, ER 98%, ND 90%, HER2/dallin 1+, p53 8%, Ki-67 10%. [...] breast biopsy from 01/04/2022 shows ER +65%, ND -0%, HER2/dallin -0%. --PET/CT performed at [facility] 02/04/2023 with interpretation as follows: Impression: 1. [...] on systemic therapy until she returns to [place] in August and we will forward allof [...] a high complexity visit over 60 minutes [id number] for review of history and symptoms as [...] lymph nodes negative for metastasis, ER 98%, ND 90%, HER2/dallin 1+, p53 8%, Ki-67 10%. [...] PO BID 04/11/23 [History Confirmed 07/03/23] omega 4-axs-atj-fish oil 900 mg-1,400 mg capsule,delayed release 1 [...] % (Auto) 43.2, Lymph % (Auto) 47.5, Door % (Auto) 6.4, Eos % (Auto) 0.9, Baso % (Auto) 2.0, Nucleat RBC Rel Count 0.4, Neut # (Auto) 1.3 L, Lymph # (Auto) 1.4, Door # (Auto) 0.2, Eos # (Auto) 0.0, Baso # (Auto) 0.1 - Impressions Date of Service: 05/16/23 XR/XR knee BI 4V: Acute pain of right knee ([id number]) XR/XR pelvis 1-2V: Acute pain of right knee 4 views both knee plain film COMPARISON: None HISTORY: Bilateral knee pain greater on the right ACUTE FINDINGS: None DEGENERATIVE CHANGE: Extensive [id number]-[id number] contact the medial compartment degeneration seen bilaterally. Mild patellofemoral and lateral compartment degenerative changes. Bilateral mild degenerative subluxation. SOFT TISSUE FINDINGS: Unremarkable JOINT EFFUSION: None POSTOP CHANGES: None BONE MINERALIZATION: Adequate XR/XR knee BI 4V IMPRESSION: Extensive ogww-[id number] bilateral medial compartment degenerative changes. Single view [...] lymph nodes negative for metastasis, ER 98%, ND 90%, HER2/dallin 1+, p53 8%, Ki-67 10%. 2. 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 Estrogen receptor 70%, progesterone receptor 0%, HER2/dallin -0% onC and not amplified on FISH and Ki-67 37%. 3. 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 She has ER+, ND neg, Her2 neg disease from recent biopsy. [...] on systemic therapy until she returns to [place] in August and we will forward allof [...] of care back to Dr. Lozano in [place]. Moderate complexityvisit 35 minutes. (2) Osteoarthritis of [...] August prior to transfer of care to [place]). (4) Encounter for long-term current use of [...] for coordination of care (as documented) and jyrz-ji-geob counseling of patient and/or family. Dictated By: Brandi Lopez MD DD/ [id number] Signed By: <Electronically signed by MD Brandi Lopez> 07/03/231916 [facility] Work Phone: 1(731) 191-479307-19-2023 Progress note Author Brandi Lopez [facility] May 29, 2023 9:36pm Note Date/Time May 29, 2023 2:27 pm [facility] Center at [address] [address] Hem/Onc Follow Up Note - OP Signed Patient: Yolanda Fairbanks MR#: [id number] : 1935 Acct:[id number] Age/Sex: 88 / F Type: REG RCR [...] lady who lives independently and resides in [facility] about half of the year returning to [place] in the summer and fall. Her primary [...] -Patient is planning to go back to [place] in February and is undergoing knee replacement surgery in summer 2022. The patient will make arrangements to seek surgical consultation in [place] and will decide if she wants to [...] lymph nodes negative for metastasis, ER 98%, ND 90%, HER2/dallin 1+, p53 8%, Ki-67 10%. [...] breast biopsy from 01/04/2022 shows ER +65%, ND -0%, HER2/dallin -0%. --PET/CT performed at [facility] 02/04/2022 with interpretation as follows: Impression: 1. [...] on systemic therapy until she returns to [place] in August and we will forward allof [...] a high complexity visit over 60 minutes [id number] for review of history and symptoms as [...] lymph nodes negative for metastasis, ER 98%, ND 90%, HER2/dallin 1+, p53 8%, Ki-67 10%. [...] PO BID 04/11/23 [History Confirmed 05/29/23] omega 5-zyd-fyy-fish oil 900 mg-1,400 mg capsule,delayed release 1 [...] % (Auto) 66.1, Lymph % (Auto) 29.3, Door % (Auto) 2.8, Eos % (Auto) 1.2, Baso % (Auto) 0.6, Nucleat RBC Rel Count 0.2, Neut # (Auto) 2.8, Lymph # (Auto) 1.3, Door # (Auto) 0.1, Eos # (Auto) 0.1, [...] lymph nodes negative for metastasis, ER 98%, ND 90%, HER2/dallin 1+, p53 8%, Ki-67 10%. 2. Stage II right breast invasive ductal carcinoma status post right mastectomyDeceer 2019. Estrogen receptor 70%, progesterone receptor 0%, HER2/dallin [...] is transferring care from her primary oncologistin [place] after 12/2022 diagnosis of second breast cancer recurrence in subcutaneous tissue near right mastectomy site with no obvious systemic recurrence on recent PET/CT. She has ER+, ND neg, Her2 neg disease from recent biopsy. [...] on systemic therapy until she returns to [place] in August and we will forward allof [...] for coordination of care (as documented) and [id number]-zj-[id number] counseling of patient and/or family. Dictated By: Brandi Lopez MD DD/ [id number] Signed By: <Electronically signed by MD Brandi Lopez> 05/29/23 3775 [facility] Work Phone: 1(281) 876-550507-06-2023 Evaluation note* Encounter Date Diagnosis Assessment Notes Treatment Notes Treatment Clinical Notes May, Pain in right knee (ICD-10 - M25.561) May, Bilateral primary osteoarthritis of knee (ICD-10 - M17.0) May, Pain in left knee (ICD-10 - M25.562) May, Age-related osteoporosis without current pathological fracture (ICD-10 - M81.0) May, Other residential (current) drug therapy (ICD-10 - Z79.899) May, Other 1. We had a jr g discussion with the patient today concerning [...] replacement surgery she needs to stay in [place] for at least 3 months postoperatively and not go to [place] because I want to make sure that [...] moving forward if we do perform surgery. Gopal SAMANO Leonardo Jo 05/16/2023 03:46:04 PM > I spoke with [...] can get a more definitive surgical date. [employer] Other 06-15-2023 Progress note Author Brandi Lopez [facility] April 25, 2023 5:46pm Note Date/Time April 25, 2023 11:[address] [place] [address] [place] [address] Hem/Onc Follow Up Note - OP Signed Patient: Yolanda Fairbanks MR#: [id number] : 1935 Acct:[id number] Age/Sex: 88 / F Type: REG RCR Copies to: Ethel Wakefield MD~ Subjective Date/Time of Service: Date of Service: 04/25/2023 Time of Service: 11:23 Chief Complaint: Patient is here today to est. Care for breast cancer. [place] lives[place] and has a place here in [place] HPI: Dear Dr. Wakefield, I had the great pleasure of seeing your patient in consultation. Thank you verymuch for your referral. As you know this is an 88-year-old lady who lives independently and resides in [place] [place] of the [place]. Her primary [...] -Patient is planning to go back to [place] in February and is undergoing knee replacement surgery in summer 2022. The patient will make arrangements to seek surgical consultation in [place] and will decide if she wants to [...] lymph nodes negative for metastasis, ER 98%, ND 90%, HER2/dallin 1+, p53 8%, Ki-67 10%. [...] breast biopsy from 01/04/2022 shows ER +65%, ND -0%, HER2/dallin -0%. --PET/CT performed at [facility] 02/04/2022 with interpretation as follows: Impression: 1. [...] on systemic therapy until she returns to [place] in August and we will forward allof [...] a high complexity visit over 60 minutes [id number] for review of history and symptoms as [...] lymph nodes negative for metastasis, ER 98%, ND 90%, HER2/dallin 1+, p53 8%, Ki-67 10%. [...] Negative for environmental allergies and food allergies. [facility] - History Attestation statement: The following information [...] PO BID 04/11/23 [History Confirmed 04/25/23] omega 0-osg-lef-fish oil 900 mg-1,400 mg capsule,delayed release 1 [...] Alb 4.4 - Impressions PET/CT performed at [facility] 02/04/2022 with interpretation as follows: Impression: 1. [...] lymph nodes negative for metastasis, ER 98%, ND 90%, HER2/dallin 1+, p53 8%, Ki-67 10%. [...] is transferring care from her primary oncologistin [place] after 12/2022 diagnosis of second breast cancer recurrence in subcutaneous tissue near right mastectomy site with no obvious systemic recurrence on recent PET/CT. She has ER+, ND neg, Her2 neg disease from recent biopsy. [...] on systemic therapy until she returns to [place] in August and we will forward allof [...] for coordination of care (as documented) and [id number]-[id number] counseling of patient and/or family. 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 acute Encounter for long-term curr ent use of high risk medication acute Encounter for monitoring aromatase inhibitor therapy chronic Osteoarthritis of knees, bilateral chronic [facility] Work Phone: [facility] [employer] Other Evaluation note* Diagnosis Onset Date Resolution Status 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 Encounter for long-term curr ent use of high risk medication chronic Encounter for monitoring aromatase inhibitor therapy chronic Osteoarthritis of knees, bilateral chronic [facility] Work Phone: evaluation note* Diagnosis Onset Date Resolution Status 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 Encounter for long-term curr ent use of high risk medication chronic Encounter for monitoring aromatase inhibitor therapy chronic Osteoarthritis of knees, 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 [facility] Work Phone: evaluation note* Diagnosis Onset Date Resolution Status Pleural effusion, right acut e [facility] Work Phone: evaluation note* Diagnosis Onset Date Resolution Status Pleural effusion, right acut e 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 Encounter for long-term curr ent use of high risk medication chronic Encounter for monitoring aromatase inhibitor therapy chronic Osteoarthritis of knees, 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 [facility] Work Phone: evaluation note* Diagnosis Onset Date Resolution Status Pleural effusion, right acut e 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 Encounter for chemotherapy management acute Pleural effusion, right acut e 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, 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 Encounter for long-term curr ent use of high risk medication chronic Encounter for monitoring aromatase inhibitor therapy chronic Osteoarthritis of knees, 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 [facility] Work Phone: evaluation note* Diagnosis Onset Date Resolution Status Pleural effusion, right acut e 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 Encounter for chemotherapy management acute Pleural effusion, right acut e 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, 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 Encounter for long-term curr ent use of high risk medication chronic Encounter for monitoring aromatase inhibitor therapy chronic Osteoarthritis of knees, 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 Encounter for chemotherapy management acute Pleural effusion, right acut e 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, 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 [facility] Work Phone: evaluation note* Diagnosis Onset Date Resolution Status Pleural effusion, right acut e 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 Encounter for chemotherapy management acute Pleural effusion, right acut e 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, 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 Encounter for chemotherapy management acute Pleural effusion, right acut e 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, 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 Encounter for long-term curr ent use of high risk medication chronic Encounter for monitoring aromatase inhibitor therapy chronic Osteoarthritis of knees, 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 Pleural effusion, right acut e [facility] Work Phone: Evaluation note* Diagnosis Onset Date Resolution Status Pleural effusion, right acut e 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 Encounter for chemotherapy management acute Pleural effusion, right acut e 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, 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 Encounter for chemotherapy management acute Pleural effusion, right acut e 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, 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 Pleural effusion, right acut e 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 Encounter for long-term curr ent use of high risk medication chronic Encounter for monitoring aromatase inhibitor therapy chronic Osteoarthritis of knees, 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 [facility] Work Phone: evaluation note* Diagnosis Onset Date Resolution Status Pleural effusion, right acut e 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 Encounter for chemotherapy management acute Pleural effusion, right acut e 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, 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 Encounter for chemotherapy management acute Pleural effusion, right acut e 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, 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 Pleural effusion, right acut e Bilateral lower extremity edema acute 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, bilateral chronic 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 Encounter for long-term curr ent use of high risk medication chronic Encounter for monitoring aromatase inhibitor therapy chronic Osteoarthritis of knees, 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 Encounter for chemotherapy management acute Pleural effusion, right acut e 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, 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 [facility] Work Phone: Evaluation note* Diagnosis Onset Date Resolution Status Pleural effusion, right acut e 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 Encounter for chemotherapy management acute Pleural effusion, right acut e 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, 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 Encounter for chemotherapy management acute Pleural effusion, right acut e 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, 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 Pleural effusion, right acut e Bilateral lower extremity edema acute 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, bilateral chronic Encounter for chemotherapy management acute Pleural effusion, right acut e 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, 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 Encounter for long-term curr ent use of high risk medication chronic Encounter for monitoring aromatase inhibitor therapy chronic Osteoarthritis of knees, 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 [facility] Work Phone: evaluation note* Diagnosis Onset Date Resolution Status 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 Encounter for chemotherapy management acute Pleural effusion, right acut e 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, 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 Pleural effusion, right acut e Bilateral lower extremity edema acute 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, bilateral chronic Encounter for chemotherapy management acute Pleural effusion, right acut e 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, 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 Bilateral lower extremity edema acute 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 Encounter for long-term curr ent use of high risk medication chronic Encounter for monitoring aromatase inhibitor therapy chronic Osteoarthritis of knees, 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 Blister acute Candidiasis of breast acute Diabetes acute Radiation burn acute 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 [facility] Work Phone: Evaluation note* Diagnosis Onset Date Resolution Status Encounter for chemotherapy management acute Pleural effusion, right acut e 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, 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 Pleural effusion, right acut e Bilateral lower extremity edema acute 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, bilateral chronic Encounter for chemotherapy management acute Pleural effusion, right acut e 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, 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 Bilateral lower extremity edema acute 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 Blister acute Candidiasis of breast acute Diabetes acute Radiation burn acute Ulcer of left lower leg acut e Ulcer of right lower leg acu te 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 Encounter for long-term curr ent use of high risk medication chronic Encounter for monitoring aromatase inhibitor therapy chronic Osteoarthritis of knees, 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 Encounter for chemotherapy management acute Pleural effusion, right acut e 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, 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 [facility] Work Phone: Evaluation note* Diagnosis Onset Date Resolution Status Pleural effusion, right acut e Bilateral lower extremity edema acute 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, bilateral chronic Encounter for chemotherapy management acute Pleural effusion, right acut e 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, 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 Bilateral lower extremity edema acute 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 Encounter for long-term curr ent use of high risk medication chronic Encounter for monitoring aromatase inhibitor therapy chronic Osteoarthritis of knees, 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 Encounter for chemotherapy management acute Pleural effusion, right acut e 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, 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 Blister acute Candidiasis of breast acute Diabetes acute Hemosiderin pigmentation of lower extremity due to varicose veins acute Hyperkeratosis acute Lymphedema of both lower extremities acute Radiation burn acute Ulcer of left lower leg acut e Ulcer of right lower leg acu te Venous stasis dermatitis of both lower extremities acute 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 [facility] Work Phone: Evaluation note* Diagnosis Onset Date Resolution Status Bilateral lower extremity edema acute 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, bilateral chronic Encounter for chemotherapy management acute Pleural effusion, right acut e 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, 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 Bilateral lower extremity edema acute 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 Encounter for chemotherapy management acute Pleural effusion, right acut e 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, 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 Blister acute Candidiasis of breast acute Diabetes acute Hemosiderin pigmentation of lower extremity due to varicose veins acute Hyperkeratosis acute Lymphedema of both lower extremities acute Radiation burn acute Ulcer of left lower leg acut e Ulcer of right lower leg acu te Venous stasis dermatitis of both lower extremities acute 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 Bilateral lower extremity edema acute 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 Encounter for long-term curr ent use of high risk medication chronic Encounter for monitoring aromatase inhibitor therapy chronic Osteoarthritis of knees, 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 osteoarthritis of knee acute [facility] Work Phone: Evaluation note* Diagnosis Onset Date Resolution Status Bilateral lower extremity edema acute 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, bilateral chronic Encounter for chemotherapy management acute Pleural effusion, right acut e 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, 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 Bilateral lower extremity edema acute 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 Encounter for chemotherapy management acute Pleural effusion, right acut e 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, 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 Blister acute Candidiasis of breast acute Diabetes acute Hemosiderin pigmentation of lower extremity due to varicose veins acute Hyperkeratosis acute Lymphedema of both lower extremities acute Radiation burn acute Ulcer of left lower leg acut e Ulcer of right lower leg acu te Venous stasis dermatitis of both lower extremities acute 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 Bilateral lower extremity edema acute 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 Encounter for long-term curr ent use of high risk medication chronic Encounter for monitoring aromatase inhibitor therapy chronic Osteoarthritis of knees, 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 osteoarthritis of knee acute Encounter for chemotherapy management acute Pleural effusion, right acut e 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, 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 [facility] Work Phone: History general Narrative - Reported* [...] Mastectomy 10/2021 Hospitalization History SEE SURGICAL HX [employer] Other Hospital Discharge instructionsAmbulatory Orders* Toxicity Check Time Frame: 4 Weeks, Location: Determined By Patient [facility] Work Phone: Progress note Author Brandi Lopez [facility] May 29, 2023 9:36pm Note Date/Time May 29, 2023 2:27 pm [facility] [place] [address] Hem/Onc Follow Up Note - OP Signed Patient: Yolanda Fairbanks MR#: [id number] : 1935 Acct:[id number] Age/Sex: 88 / F Type: REG RCR [...] lady who lives independently and resides in [facility] about half of the year returning to [place] in the summer and fall. Her primary [...] -Patient is planning to go back to [place] in February and is undergoing knee replacement surgery in summer 2022. The patient will make arrangements to seek surgical consultation in [place] and will decide if she wants to [...] lymph nodes negative for metastasis, ER 98%, ND 90%, HER2/dallin 1+, p53 8%, Ki-67 10%. [...] breast biopsy from 01/04/2022 shows ER +65%, ND -0%, HER2/dallin -0%. --PET/CT performed at [facility] 02/04/2022 with interpretation as follows: Impression: 1. [...] on systemic therapy until she returns to [place] in August and we will forward allof [...] a high complexity visit over 60 minutes [id number] for review of history and symptoms as [...] lymph nodes negative for metastasis, ER 98%, ND 90%, HER2/dallin 1+, p53 8%, Ki-67 10%. [...] PO BID 04/11/23 [History Confirmed 05/29/23] omega 9-afn-kji-fish oil 900 mg-1,400 mg capsule,delayed release 1 [...] % (Auto) 66.1, Lymph % (Auto) 29.3, Door % (Auto) 2.8, Eos % (Auto) 1.2, Baso % (Auto) 0.6, Nucleat RBC Rel Count 0.2, Neut # (Auto) 2.8, Lymph # (Auto) 1.3, Door # (Auto) 0.1, Eos # (Auto) 0.1, [...] lymph nodes negative for metastasis, ER 98%, ND 90%, HER2/dallin 1+, p53 8%, Ki-67 10%. 2. 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 Estrogen receptor 70%, progesterone receptor 0%, [facility] and not amplified on FISH and Ki-67 37%. 3. 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 She has ER+, ND neg, Her2 neg disease from recent biopsy. [...] on systemic therapy until she returns to [place] in August and we will forward allof [...] for coordination of care (as documented) and [id number] counseling of patient and/or family. Dictated By: Brandi Lopez MD DD/ [id number] Signed By: <Electronically signed by MD Brandi Lopez> 05/29/23 [address] [facility] Work Phone: Progress note Author Brandi Lopez [facility] July 03, 2023 7:17pm Note Date/Time July 03, 2023 1: 38pm [facility] at [address] [address] Hem/Onc Follow Up Note - OP Signed Patient: Yolanda Fairbanks MR#: [id number] : 1935 Acct:[id number] Age/Sex: 88 / F Type: REG RCR [...] to transfer of care back to her [place] physician Dr. Lozano. Moderate complexity 35 minute [...] lady who lives independently and resides in [facility] about half of the year returning to [place] in the summer and fall. Her primary [...] progression to stage IV breast cancer in 2023. Patient has a history of recurrent stage [...] -Patient is planning to go back to [place] in February and is undergoing knee replacement surgery in summer 2022. The patient will make arrangements to seek surgical consultation in [place] and will decide if she wants to [...] lymph nodes negative for metastasis, ER 98%, ND 90%, HER2/dallin 1+, p53 8%, Ki-67 10%. [...] breast biopsy from 01/04/2022 shows ER +65%, ND -0%, HER2/dallin -0%. --PET/CT performed at [facility] 02/04/2023 with interpretation as follows: Impression: 1. [...] on systemic therapy until she returns to [place] in August and we will forward allof [...] a high complexity visit over 60 minutes [id number] for review of history and symptoms as [...] lymph nodes negative for metastasis, ER 98%, ND 90%, HER2/dallin 1+, p53 8%, Ki-67 10%. [...] PO BID 04/11/23 [History Confirmed 07/03/23] omega 1-uty-vex-fish oil 900 mg-1,400 mg capsule,delayed release 1 [...] % (Auto) 43.2, Lymph % (Auto) 47.5, Door % (Auto) 6.4, Eos % (Auto) 0.9, Baso % (Auto) 2.0, Nucleat RBC Rel Count 0.4, Neut # (Auto) 1.3 L, Lymph # (Auto) 1.4, Door # (Auto) 0.2, Eos # (Auto) 0.0, Baso # (Auto) 0.1 - Impressions Date of Service: 05/16/23 XR/XR knee BI 4V: Acute pain of right knee ([id number]) XR/XR pelvis 1-2V: Acute pain of right knee 4 views both knee plain film COMPARISON: None HISTORY: Bilateral knee pain greater on the right ACUTE FINDINGS: None DEGENERATIVE CHANGE: Extensive qtql-wu-wyup contact the medial compartment degeneration seen bilaterally. Mild patellofemoral and lateral compartment degenerative changes. Bilateral mild degenerative subluxation. SOFT TISSUE FINDINGS: Unremarkable JOINT EFFUSION: None POSTOP CHANGES: None BONE MINERALIZATION: Adequate XR/XR knee BI 4V IMPRESSION: Extensive qrhc-wz-wylh bilateral medial compartment degenerative changes. Single view [...] lymph nodes negative for metastasis, ER 98%, ND 90%, HER2/dallin 1+, p53 8%, Ki-67 10%. [...] is transferring care from her primary oncologistin [place] after 12/2022 diagnosis of second breast cancer recurrence in subcutaneous tissue near right mastectomy site with no obvious systemic recurrence on recent PET/CT. She has ER+, ND neg, Her2 neg disease from recent biopsy. [...] on systemic therapy until she returns to [place] in August and we will forward allof [...] of care back to Dr. Lozano in [place]. Moderate complexityvisit 35 minutes. (2) Osteoarthritis of [...] August prior to transfer of care to [place]). (4) Encounter for long-term current use of [...] for coordination of care (as documented) and lczt-vw-rtyi counseling of patient and/or family. 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 There were 2 out of 2 sentinel lymph nodes negative for metastasis, ER 98%, ND 90%, HER2/dallin 1+, p53 8%, Ki-67 10%. 2. Stage II right breast invasive ductal carcinoma status post right [id number]. Estrogen receptor 70%, progesterone receptor 0%, HER2/dallin -0% on[facility] and not amplified on FISH and Ki-67 37%. 3. 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 No non-skin/lisandra metastases (other than indeterminate rectal lesion) on PET/CT 4. 03/19/2024: Ultrasound guided thoracentesis of large right pleural effusion, +for metastatic breast cancer 04/25/2023 Consult: This is a now 89 year old lady who transferred care from her primary oncologist in [place] after 12/2022 diagnosis of second breast cancer recurrence in subcutaneous tissue near right mastectomy site with no obvious systemic recurrence on recent PET/CT. She has ER+, ND neg, Her2 neg disease from recent biopsy. [...] on systemic therapy until she returns to [place] in August and we will forward allof [...] more cycles of Ibrance) with CBC, CMP and to coordinate transfer of care back to Dr. Lozano in [place]. Moderate complexity visit 35 minutes. 09/05/2023: Yolanda has completed 2 further cycles of Ibrance/letrozole with absolute neutrophil count 1200 and no other side effects other than cytopenias. Her clinical right chest wall exam shows persistent pedunculated 2 cm skin lesion without ulceration or oozing showing partial response to therapy. No indication for reirradiation or further local management. She will continue Ibrance 125 mg day 1 through 25 each 28-day cycle with letrozole 2.5 mg daily. Since she will be transferring care back to her physician Dr. Lozano in [place] from September through March 2024, I will see her upon her return. I will defer restaging imaging to her [place] oncologist and we will determine whether she isdue for restaging at the time of her return. She may contact me if any new concerns arise that would affect potential change in therapy. Moderate complexity 30-minute follow-up for transfer of care back to [place]. 03/27/2024: As per HPI, patient had repeat CT in [place] around February 2024 and her [place] oncologist stopped her Ibrance/Letrozole and apparently prescribed Xeloda 2 weeks on, 1 week off schedule. She did not start medication due to fears of side effects from her pharmacist counseling. Today she agreed to Xeloda at dose 1500mg po bid x 1 week on, 1 week off (2 week cycles)--Alma regimen with better anticipated tolerance. -- She will have an oral chemotherapy visit today with pharmacy to review side effects. Followup in 4 weeks with CBC, CMP and to review toxicities--followup chest CT at that time, sooner if worsening symptoms. High complexity 45 minutesto followup recent hospital stay, review pathology, review chemo consent and change schedule/chemo education. Additional clinical complexity code G2211. (2) Pleural effusion, right: Plan: Admission to [facility] 03/18/2024 with shortness of breath, then underwentright thoracentesis of large right pleural effusion. Pathology consistent with metastatic breast cancer. Still requires supplemental O2. Agrees to lower intensity Xeloda as noted above with restaging CT in one month. She may return sooner for repeat thoracentesis if worsening dyspnea. (3) Osteoarthritis of knees, bilateral: Plan: Patient previously requested to orthopedic surgery by primary care. OK to hold Xeloda if surgery indicated in the future. She is deferring surgery until stable response of disease. (4) Osteoporosis due to aromatase inhibitor: Plan: We reviewed 2-year DEXA scan on AI therapy--consistent with osteoporosis. We may add Prolia 60mg sq every 6 months if stabilization on chemotherapy. AI therapy stopped for progression with symptomatic malignant effusion. (5) Encounter for chemotherapy management: Plan: 05/15/2023: C1D1 palbociclib 125 mg p.o. daily for 21 out of every 28-day cycle incombination with letrozole 2.5 mg daily. Stopped by [place] Oncologist in February 2024for presumed progression (we do not have records--this is per patient's reportedhistory). --February 2024: She was apparently prescribed Xeloda in [place] but she was reluctant to start this due to concern for side effects. 03/27/2024: Today she agreed to Xeloda at dose 1500mg po bid x 1 week on, 1 weekoff (2 week cycles)--Alma regimen with better anticipated tolerance. Orders: Orders Complete Blood Count Auto Diff 2 Weeks C50.911 - Malignant neoplasm of unspecified site of right female breast, C79.89 - Secondary malignant neoplasm of other specified sites Comprehensive Metabolic Panel 1 Month C50.911 - Malignant neoplasm of unspecified site of right female breast, C79.89 - Secondary malignant neoplasm of other specified sites Comprehensive Metabolic Panel 2 Weeks C50.911 - Malignant neoplasm of unspecified site of right female breast, C79.89 - Secondary malignant neoplasm of other specified sites Complete Blood Count Auto Diff 1 Month C50.911 - Malignant neoplasm of unspecified site of right female breast, C79.89 - Secondary malignant neoplasm of other specified sites Referrals Referral to Radiation Oncology C50.911 - Malignant neoplasm of unspecified siteof right female breast, C79.89 - Secondary malignant neoplasm of other specifiedsites Patient Instructions: Radiation consult CBC CMP 2wks Follow up April 23 with CBC CMP CHEMO PLAN No Active Chemotherapy History of Present Illness HPI 03/27/2024: This is my first followup with Yolanda since she transferred her care back to Dr. Lozano in [place] for the winter. We do not have her records, but she reports that she had CT CAP imaging in [place] about one month ago and was told that she had little response/stable disease but she was instructed to stop her Ibrance because it wasn't working fast enough . She cannot recall taking letrozole but notes she has not been on either medication for about a month and she was not placed on any new therapy. She was brought to [facility] 03/18/2024 for shortness of breath--CT imaging revealed large right and mild left pleural effusions. She underwent thoracentesis on 03/19/2024 with cytology showing metastatic adenocarcinoma. She noted mild improvement in dyspnea but presents today on oxygen therapy. No chest wall pain or other complaints. --Today she handed me a package containing Xeloda at dose 1500mg po bid x 2 weeks on, 1 week off prescribed by Dr. Lozano while in [place]. The patient met with the pharmacist and decided not to take her chemo because she thought it would make her hands red and blistered with touching the medication. Today we reeducated her to chemo side effects, reviewed local informed consent and changed to lower intensity dosing: Xeloda at dose 1500mg po bid x 1 week on, 1 week off (2 week cycles)--Alma regimen with better anticipated tolerance. Today we reviewed chemotherapy counseling for oral Xeloda. Goal of therapy is palliation of symptoms and extension of life but not curative. Common toxicities were reviewed to include allergic reactions, rashes, hand-foot syndrome, myelosuppression, fatigue, nausea, vomiting, dyspepsia, constipation, diarrhea, mouth sores, and a mild alopecia. Other toxicities may include uncommon pneumonitis, hepatic and renal toxicities. The patient signed informedconsent and will follow-up as directed. She will have an oral chemotherapy visit today with pharmacy to review side effects. Followup in 4 weeks with CBC,CMP and to review toxicities--followup chest CT at that time, sooner if worsening symptoms. High complexity 45 minutes to followup recent hospital stay, review pathology, review chemo consent and change schedule/chemo education. 09/05/2023: Yolanda is here for 2-month follow-up on Ibrance with letrozole therapy. She continues to have a pedunculated area about 2 cm with less erythematous appearance to surrounding irradiated skin. She no longer has oozing from the lesion but notes that she was concerned with appearance of the lesion. No other sites of pain. She is tolerating Ibrance with letrozole well without any recent infections, bleeding issues, fatigue, nausea, diarrhea, or any other adverse effects. She is planning to travel to [place] next week and has scheduled follow-up with her physician Dr. Lozano. She will be returning to [place] in about 8 months, March 2024 and we will continue follow-up at that time. No indication for restaging images at this time and we will defer imaging [place] as needed if she has signs of recurrence--if no imaging on herreturn we will restage at that time. She will see her [place] physician sooner if new concerning symptoms arise. Moderate complexity 30-minute follow- up. 07/03/2023: Yolanda is here for followup after [...] to transfer of care back to her [place] physician Dr. Lozano. Moderate complexity 35 minute [...] lady who lives independently and resides in [facility] about half of the year returning to [place] in the summer and fall. Her primary oncology care is by Dr. Jacquelin Lozano who has graciously provided notes for my evaluation of her recent recurrent right breast cancer. The patient is asomewhat challenging historian and I will summarize her recent issues and history from notes from her primary oncologist visit 01/17/2023. Mrs. Fairbanks is a now 89-year-old lady with further progression to stage IV breast cancer in 2022. 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 She has a history of stage II right breast [...] -Patient is planning to go back to [place] in February and is undergoing knee replacement surgery in summer 2022. The patient will make arrangements to seek surgical consultation in [place] and will decide if she wants to [...] lymph nodes negative for metastasis, ER 98%, ND 90%, HER2/dallin 1+, p53 8%, Ki-67 10%. [...] breast biopsy from 01/04/2022 shows ER +65%, ND -0%, HER2/dallin -0%. --PET/CT performed at [facility] 02/04/2023 with interpretation as follows: Impression: 1. [...] on systemic therapy until she returns to [place] in August and we will forward allof [...] a high complexity visit over 60 minutes [id number] for review of history and symptoms as well as chemotherapy counseling with an additional 30 minutes for review of extensive outside records. Summary of Therapies Summary of Therapies: 1. 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 There were 2 out of 2 sentinel lymph nodes negative for metastasis, ER 98%, ND 90%, HER2/dallin 1+, p53 8%, Ki-67 10%. [...] on hold then resume next cycle 07/14/2023. -- No concerns on follow-up 09/06/2023. Intake Vitals/Pain Assessment 03/27/24 10:32 Weight 64.864 kg BP 139/78 Blood Pressure Location Lt brachial Position Sitting Temp 97.9 F Temp Source Temporal Pulse 98 Pulse Source NIBP Respiration 16 Pulse Oximetry (%) 94 L Oxygen Delivery Method nasal canula Oxygen Flow Rate 3.5 Are you having pain? Yes: left shoulder Intake Visit Reasons: f/u @[facility] [place] for rt chest wall mass, follow up visit Accompanied by: Daughter Allergies No Known Allergies Allergy (Verified 03/23/24 14:19) - Last Reconciled 03/27/24 by Erika Pino aspirin 81 mg PO DAILY calcium carbonate-vitamin D3 600 mg-20 mcg (800 unit) (Caltrate 600 plus D) 1 tab PO BID cholecalciferol (vitamin D3) (Vitamin D3) 25 mcg PO DAILY cranberry 500 mg PO DAILY ibuprofen (Advil) 200 mg PO DIRECTED letrozole 2.5 mg PO DAILY levofloxacin 750 mg PO DAILY losartan-hydrochlorothiazide 100-12.5 mg 1 tab PO DAILY metformin 1,000 mg PO BID simvastatin 40 mg PO DAILY Gastrointestinal Is the patient taking opioids for pain control?: No [place] Precaution Measures Taken: Patient in chair Nurse's Note: Patient is here today for a follow up visit for abnormal CT angio of chest Patient consent signed today for Xeloda which was initiated in [place], patient did not start the medication as she was fearful of side effects. Dr Lopez is adjusting starting dose to 1500mg po BID take for one week on one week off and repeat. Instructions wrote down and given to patients daughter. [facility] Medical History Medical History Type 2 diabetes mellitus without complications Essential hypertension Hyperlipemia Breast cancer, right Adenocarcinoma of left breast Peripheral arterial disease Osteopenia Osteoarthritis Hyperlipidemia Essential hypertension Diabetes Malignant neoplasm of breast Surgical History Surgical History S/P lumpectomy, right breast H/O arthroscopic knee surgery H/O right mastectomy History of mastectomy October 2020 right breast History of lumpectomy of right breast 2012 History of breast biopsy left-benign 1999 Family History Family History Mother Malignant neoplasm of breast Cancer Legacy FamHx Problem: Diagnosed with Cancer Other No significant family history Social History Social History Smoking status: Never smoker Within the past year, how often did you have a drink containing alcohol: monthly or less Review of Systems CONSTITUTIONAL: Positive for recent worsening fatigue, negative for fever or night sweats. HEAD AND NECK: Negative for changes in hearing and vision. Negative for mouth ulcers, nasal congestion and nasal drainage. CHEST WALL: Right chest wall with raised nodular mass, largest superior to mastectomy scar with oozing after removing bandage--current mass about 4cm. Leftbreast without masses or skin changes. PULMONARY: Negative for chest pain, positive for cough and dyspnea. Recent right thoracentesis, requires supplemental oxygen since admission last week. CARDIOVASCULAR: Negative for claudication and irregular heartbeat/palpitations. GASTROINTESTINAL: Negative for abdominal pain, constipation, decreased appetite,diarrhea, nausea or vomiting. No weight loss. GENITOURINARY: Negative for dysuria and hematuria. ENDOCRINE: Negative for cold intolerance and heat intolerance. CENTRAL NERVOUS SYSTEM: Negative for gait disturbance and headache. Ambulates now in wheelchair due to large right pleural effusion, no focal deficits. PSYCHIATRIC: Negative for anxiety or depression. DERMATOLOGICAL: Negative for pruritus or pain. Positive for metastatic skin lesions over right chest wall with oozing as per HPI--now worsening 4cm pedunculated nodule, oozing with large wound. MUSCULOSKELETAL: Negative for back pain and bone/joint symptoms other than bilateral knee pain from osteoarthritis (wheelchair for ambulation--ortho has deferred knee replacement until assessment of treatment response). No myalgia/arthralgia on letrozole. HEMATOLOGICAL: Negative for bleeding and easy bruising. Negative for history of transfusion or thromboembolic disease ALLERGY: Negative for environmental allergies and food allergies. Physical Exam EXAM CONSTITUTIONAL: The patient is in no acute [...] CHEST WALL: Right chest wall with now metastatic skin lesions over right chest wall with oozing as per HPI--now worsening 4cm pedunculated nodule, oozing with large wound. No fluctuance or purulence. Flat firm shiny skin over right chestwall. Left breast without masses or skin changes. RESPIRATORY: Normal to inspection. Lungs bilateral decreased breath sounds, now 1/4 up dullness to percussion. No wheezing, rales, rhonchi or rubs. Normal effort. CARDIOVASCULAR: Regular rate and rhythm. No murmurs, gallops, or rubs. VASCULAR: Carotid, radial, femoral and pedal pulses present bilaterally. No bruits. ABDOMEN: Bowel sounds normoactive. Soft, nontender and non-distended. No hepatosplenomegaly. No masses. GENITOURINARY: No CVA tenderness. No suprapubic fullness or tenderness. No groinadenopathy. No evidence of hernias. INTEGUMENTARY: Metastatic skin lesions over right chest wall with oozing as per HPI--now worsening 4cm pedunculated nodule, oozing with large wound. No other skin lesions noted. BACK / SPINE: The back is nontender. No step off deformity. MUSCULOSKELETAL: Normal musculature, no joint deformities or abnormalities, limited range of motion bilateral knees. EXTREMITIES: No edema, cyanosis or clubbing. No Guicho sign. NEUROLOGICAL: Alert and oriented. Cranial nerves intact. No gross motor or sensory deficits. PSYCHIATRIC: No anxiety or evidence of depression. Results - [facility] ([facility]c) LAB RESULTS Corrected WBC 22.5 10 3/uL (4.0-11.0) H 03/20/24 04:35 Hgb 11.2 g/dL (12.0-16.0) L 03/20/24 04:35 Hct 33.4 % (36.0-48.0) L 03/20/24 04:35 MCV 96.8 fL (81.0-99.0) 03/20/24 04:35 RDW 14.2 % (11.0-15.0) 03/20/24 04:35 Plt Count 477 10 3/uL (150-450) H 03/20/24 04:35 Sodium 138 mmol/L (136-145) 03/20/24 04:35 Potassium 3.3 mmol/L (3.5-5.1) L 03/20/24 04:35 BUN 29.0 mg/dL (7.0-18.0) H 03/20/24 04:35 Creatinine 1.28 mg/dL (0.55-1.02) H 03/20/24 04:35 Glucose 166 mg/dL (74-106) H 03/20/24 04:35 Calcium 9.3 mg/dL (8.5-10.1) 03/20/24 04:35 Total Bilirubin 0.3 mg/dL (0.2-1.0) 03/20/24 04:35 AST 21 U/L (15-37) 03/20/24 04:35 ALT 19 U/L (14-59) 03/20/24 04:35 Alkaline Phosphatase 70 U/L (46-116) 03/20/24 04:35 Total Protein 6.3 g/dL (6.4-8.2) L 03/20/24 04:35 Albumin 3.0 g/dL (3.4-5.0) L 03/20/24 04:35 Lactate Dehydrogenase 192 U/L (81-234) 03/18/24 11:55 PATHOLOGY RESULTS Pathological Diagnosis Right thoracocentesis fluid, cytology: -Positive for metastatic carcinoma of the breast -The tumor cells positive for CAM 5.2, CK7, and GATA3; and are negative for calretinin, CK20, and CD45, supporting the above interpretation -The tumor cells are possibly positive for ER at 1-2% -The tumor cells are negative for ND -Immuno controls are appropriate -The mucicarmine stain showing at least rare faintly positive tumor cells -The tumor cells in ThinPrep and cell block section are mostly individual tumor cells -The tumor cells in the tissue fluid can lose antigenicity of the tumor markers including minimal ER positivity in this material -The HER2 and E-cadherin also will not be performed RADIOLOGY/IMAGING RESULTS CT scan at [facility] 03/18/2024: Findings: Lungs: Mild scattered groundglass attenuation throughout the lungs. Partial consolidation of the lower lobes right greater than left likely representing atelectasis. Pleura: Large right pleural effusion occupying approximately 80% of the right hemithorax. Small left pleural effusion measuring up to 2.7 cm Vasculature: Normal postcontrast opacification central pulmonary artery with no filling defect to suggest a pulmonary embolus. Nathalie: No mass or adenopathy Mediastinum: Soft tissue attenuation in the anterior mediastinum extending through the right-sided chest wall to a fungating right breast mass measuring 8.5 x 3.2 cm Cardiac: No enlargement of pericardial effusion. Moderate coronary atherosclerosis. Aorta: No aneurysm or dissection. Chest wall: Right breast mass. Additional areas of soft tissue attenuation in the right breast. Bones: No bone lesion or fracture. Limited abdomen: No suspicious findings. Limited images of upper abdomen. IMPRESSION: No central pulmonary thromboembolic disease Large right and small left pleural effusions with associated atelectasis Groundglass attenuation of the lungs suggesting pulmonary edema Fungating 8.5 cm right breast mass extending to the chest wall into the anteriormediastinum. 03/18/2024: Ultrasound-guided thoracentesis was performed by Dr. Camilla Blackman at the [facility]. 03/25/2024: Procedure: X-ray chest 2 view Findings: There is been some improvement of the infiltrate previously noted in the right lower lung although subtle infiltrate persists. This is accompanied by a small effusion. There is a small amount of atelectasis or apatite seen in the left lung base also accompanying . The heart is not grossly enlarged and vasculature is not distended. Degenerative changes are seen in the spine. 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 She declined chemotherapy. Her disease then recurred in the chest wall in Aprilt that time she declined surgical resection. She was initiated on Ibrance and letrozole. Systemic therapy has been comanaged with medical oncology here at [facility] and in [place]. Currently on Xeloda. May 04, 2024 patient completed palliative radiation to the fungating bleeding exophytic mass on the right chest wall to a dose of 30 Jolly in 5 fractions delivered every other day. Her exam shows a response to treatment however therecontinues to be palpable tumor. Is difficult for me to tell if the bleeding is due to the patient's ongoing removal of tape from the bandaging or if this is still active tumor. I do not recommend additional radiation currently. Ideally with time there will continue to be retraction. Patient will continue to follow with medical oncology for care. We are happy to see her back if thereis a role for additional radiation or radiation related concern. History of Present Illness HPI 89-year-old female who transferred care from her primary oncologist in [place] after 12/2022 diagnosis of second breast cancer recurrence in subcutaneous tissuenear right mastectomy site with no obvious systemic recurrence on recent PET/CT. 2013 originally diagnosed. 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 There were 2 out of 2 sentinel lymph nodes negative for metastasis, ER 98%, ND 90%, HER2/dallin 1+. 2019 recurrence of stage II right breast invasive ductal carcinoma status post right mastectomy. Estrogen receptor 70%, progesterone receptor 0%, HER2/dallin -0%on IHC. Patient declined chemo. Per the available records from her oncologist in [place] she had been on Femara since December 2020. 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 No non-skin/lisandra metastases (other than indeterminate rectal lesion) on PET/CT. Femara discontinued. April 2023 patient was evaluated by medical oncology. [facility] after she presented with a large mass encompassing the right chest wall with ulceration and bleeding superior to the mastectomy scar. She declined surgical resection. She was then placed on palbociclib. It appears she continued on Ibrance and letrozole with a decent response. She then went to [place] for the winter. March 2024 patient was again seen by medical oncology here. She was brought to [facility] 03/18/2024 for shortness of breath--CT imaging revealed large right and mild left pleural effusions. She underwent thoracentesis on 03/19/2024 with cytology showing metastatic adenocarcinoma. Right thoracentesis 04/29/2024--improved dyspnea and only uses oxygen qhs for sleep. May 04, 2024 patient completed palliative radiation to the fungating bleeding exophytic mass on the right chest wall to a dose of 30 Jolly in 5 fractions delivered every other day. Patient tolerated radiation therapy well. We did have issues towards the end of treatment as she was using Band-Aids which were causing tissue around the tumor to slough off. Taking Xeloda 1500mg po bid for one week on/one week off. Returns to clinic today and there has been some improvement. Daughter reports asmall area that still bleeds. Wound care is seeing the patient and the surrounding tissue is much improved. She continues however to have areas where she ripped off the tape resulting in superficial skin wounds. Intake Vitals/Pain Assessment 06/30/24 13:26 Weight 65.317 kg BP 127/77 Blood Pressure Location Lt brachial Position Sitting Temp 97.7 F Temp Source Temporal Pulse 86 Pulse Source NIBP Respiration 16 Pulse Oximetry (%) 98 Oxygen Delivery Method room air Are you having pain? Yes: knee pain both Intake Visit Reasons: Follow Up, follow up visit Accompanied by: Daughter Allergies No Known Allergies Allergy (Verified 06/30/24 13:30) - Last Reconciled 06/30/24 by Erika Pino aspirin 81 mg PO DAILY calcium carbonate-vitamin D3 600 mg-20 mcg (800 unit) (Caltrate 600 plus D) 1 tab PO BID capecitabine take 3 tablets orally twice daily for 7 days on then 7 days off and repeat must administer with water 30 minutes after a meal cholecalciferol (vitamin D3) (Vitamin D3) 25 mcg PO DAILY cranberry 500 mg PO DAILY furosemide 20 mg PO DAILY ibuprofen (Advil) 200 mg PO DIRECTED losartan-hydrochlorothiazide 100-12.5 mg 1 tab PO DAILY metformin TAKE 1 TABLET BY MOUTH TWICE DAILY nystatin 1 applic topical DAILY 2 weeks potassium chloride ER (Klor-Con) 10 mEq PO DAILY simvastatin 40 mg PO DAILY [place] Precaution Measures Taken: Patient in chair Nurse's Note: Patient is here today for a 5 week follow up visit [facility] Medical History Medical History (Updated 06/15/24 @ 13:49 by Taina Potter APRN) Radiation burn Type 2 diabetes mellitus without complications Essential hypertension Hyperlipemia Breast cancer, right Adenocarcinoma of left breast Peripheral arterial disease Osteopenia Osteoarthritis Hyperlipidemia Essential hypertension Diabetes Malignant neoplasm of breast Surgical History Surgical History S/P lumpectomy, right breast H/O arthroscopic knee surgery H/O right mastectomy History of mastectomy October 2020 right breast History of lumpectomy of right breast 2012 History of breast biopsy left-benign 1999 Family History Family History (Updated 06/01/24 @ 14:53 by Angie Arboleda RN) Mother Malignant neoplasm of breast Cancer Legacy FamHx Problem: Diagnosed with Cancer Social History Social History Smoking status: Never smoker Within the past year, how often did you have a drink containing alcohol: monthly or less In the past 12 months, have you used illegal drugs or prescription drugs for non-medical reasons?: No Physical Exam EXAM Physical exam: KPS 90 General: Alert and oriented elderly female, no acute distress. HEENT: Normocephalic, extraocular movements intact Chest: Normal work of breathing on room air Breast: Examination of the right chest wall now shows significant reduction in the exophytic tumor however there is a residual approximately 2 cm that persists. No bleeding on exam today. There is surrounding erythema and fibrosis from the prior radiation. Mild dry desquamation. 2 cm area superficial excoriation from removal of tape. Results - [facility] ([facility]c) LAB RESULTS Glucose 162 mg/dL (74-106) H 05/11/24 12:45 BUN 16.0 mg/dL (7.0-18.0) 05/11/24 12:45 Creatinine 0.95 mg/dL (0.55-1.02) 05/11/24 12:45 Est GFR (CKD-EPI) > 60.0 mL/Min 04/24/24 13:48 Sodium 139 mmol/L (136-145) 05/11/24 12:45 Potassium 3.7 mmol/L (3.5-5.1) 05/11/24 12:45 Chloride 100 mmol/L (98-107) 05/11/24 12:45 Carbon Dioxide 33.0 mmol/L (21.0-32.0) H 05/11/24 12:45 Anion Gap 9.7 05/11/24 12:45 Calcium 9.5 mg/dL (8.5-10.1) 05/11/24 12:45 Total Protein 6.4 g/dL (6.4-8.2) 05/11/24 12:45 Albumin 3.3 g/dL (3.4-5.0) L 05/11/24 12:45 Globulin 3.1 g/dL 05/11/24 12:45 Albumin/Globulin Ratio 1.1 05/11/24 12:45 Total Bilirubin 0.8 mg/dL (0.2-1.0) 05/11/24 12:45 AST 14 U/L (15-37) L 05/11/24 12:45 ALT 19 U/L (14-59) 05/11/24 12:45 Alkaline Phosphatase 96 U/L (46-116) 05/11/24 12:45 Dictated By: Cristina Long MD DD/ [id number] Signed By: <Electronically signed by Cristina Long MD> 06/30/24 [id number] [facility] Work Phone: Reason for referral (narrative)* Reason [place] surgeon ref erral placed - per note from Dr. Lopez's office. Diagnosis 1 Breast carcinoma, fe male, right (C50.911) Referral Organization [facility] Referring Provider First Name Ethel Referring Provider Last Name Ashu Referring Provider Specialty Family Medi cine Referred Organization Unknown Facility Referred Provider Blaine Burkett V Referred Provider Specialty Surgery Referral Priority Routine [facility] Other Summary Purpose Family History No Family History Records Found Relationship Condition Age at Onset Recorded Date/T sandor Not Specified No pertinent family history Unknown Relationship Condition Age at Onset Recorded Date/T sandor Not Specified No pertinent family history Unknown Not Specified Malignant neoplasm of breast Unknown Malignant neoplasm Unknown Relationship Condition Age at Onset Recorded Date/T sandor Not Specified No pertinent family history Unknown mother Malignant neoplasm of breast Unknown Malignant neoplasm Unknown Relationship Condition Age at Onset Recorded Date/T sandor mother Malignant neoplasm of breast Unknown Malignant neoplasm Unknown Advance Directives No Advanced Directives Records Found Advance Directive Response Recorded Date/ Time Advance Directives No April 25 1:05pm Advance Directive Response Recorded Date/ Time Advance Directives No May 05 24 12:13pm Chief Complaint and Reason for Visit Chief [...] Reason for Visit Pleural effusion, ri ght Chief Complaint Unknown Check up breast cancer open area mastectomy site f/u @[facility] [place] for rt chest wall mass Reason for Visit Pleural effusion, ri ght 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 Encounter for long-term current use of high risk medication Encounter for monitoring aromatase inhibitor therapy Osteoarthritis of knees, 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 Chief Complaint Unknown Check up f/u @[facility] [place] for rt chest wall mass New Patient Chest wall mass Reason for Visit Pleural effusion, ri ght 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 Encounter for chemotherapy management Pleural effusion, right 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, 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 Encounter for long-term current use of high risk medication Encounter for monitoring aromatase inhibitor therapy Osteoarthritis of knees, 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 Chief Complaint Unknown Check up f/u @[facility] [place] for rt chest wall mass New Patient Chest wall mass breast cancer open area mastectomy site breast cancer open area mastectomy site Reason for Visit Pleural effusion, ri ght 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 Encounter for chemotherapy management Pleural effusion, right 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, 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 Encounter for long-term current use of high risk medication Encounter for monitoring aromatase inhibitor therapy Osteoarthritis of knees, 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 Encounter for chemotherapy management Pleural effusion, right 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, 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 Chief Complaint Unknown Check up f/u @[facility] [place] for rt chest wall mass New Patient Chest wall mass breast cancer open area mastectomy site breast cancer open area mastectomy site breast cancer open area mastectomy site plural effusion Reason for Visit Pleural effusion, ri ght 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 Encounter for chemotherapy management Pleural effusion, right 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, 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 Encounter for chemotherapy management Pleural effusion, right 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, 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 Encounter for long-term current use of high risk medication Encounter for monitoring aromatase inhibitor therapy Osteoarthritis of knees, 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 Pleural effusion, right Chief Complaint Unknown Check up f/u @[facility] [place] for rt chest wall mass New Patient Chest wall mass breast cancer open area mastectomy site breast cancer open area mastectomy site breast cancer open area mastectomy site plural effusion breast cancer open area mastectomy site leg swelling Reason for Visit Pleural effusion, ri ght 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 Encounter for chemotherapy management Pleural effusion, right 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, 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 Encounter for chemotherapy management Pleural effusion, right 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, 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 Pleural effusion, right 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 Encounter for long-term current use of high risk medication Encounter for monitoring aromatase inhibitor therapy Osteoarthritis of knees, 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 Chief Complaint Unknown Check up f/u @[facility] [place] for rt chest wall mass New Patient Chest wall mass breast cancer open area mastectomy site breast cancer open area mastectomy site breast cancer open area mastectomy site plural effusion leg swelling breast cancer open area mastectomy site Follow Up Reason for Visit Pleural effusion, ri ght 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 Encounter for chemotherapy management Pleural effusion, right 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, 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 Encounter for chemotherapy management Pleural effusion, right 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, 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 Pleural effusion, right Bilateral lower extremity edema 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, 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 Encounter for long-term current use of high risk medication Encounter for monitoring aromatase inhibitor therapy Osteoarthritis of knees, 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 Encounter for chemotherapy management Pleural effusion, right 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, 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 Chief Complaint Unknown Check up f/u @[facility] [place] for rt chest wall mass New Patient Chest wall mass breast cancer open area mastectomy site breast cancer open area mastectomy site breast cancer open area mastectomy site plural effusion leg swelling Follow Up breast cancer open area mastectomy site check leg swelling, med refill Reason for Visit Pleural effusion, ri ght 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 Encounter for chemotherapy management Pleural effusion, right 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, 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 Encounter for chemotherapy management Pleural effusion, right 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, 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 Pleural effusion, right Bilateral lower extremity edema 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, bilateral Encounter for chemotherapy management Pleural effusion, right 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, 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 Encounter for long-term current use of high risk medication Encounter for monitoring aromatase inhibitor therapy Osteoarthritis of knees, 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 Chief Complaint New Patient Chest wa ll mass breast cancer open area mastectomy site breast cancer open area mastectomy site breast cancer open area mastectomy site plural effusion leg swelling Follow Up check leg swelling, med refill Follow Up 1 Month breast cancer open area mastectomy site Follow Up Open Wound (coming [facility]) Reason for Visit Chest wall recurrenc e of right breast cancer Encounter for chemotherapy management Pleural effusion, right 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, 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 Pleural effusion, right Bilateral lower extremity edema 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, bilateral Encounter for chemotherapy management Pleural effusion, right 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, 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 Bilateral lower extremity edema 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 Encounter for long-term current use of high risk medication Encounter for monitoring aromatase inhibitor therapy Osteoarthritis of knees, 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 Blister Candidiasis of breast Diabetes Radiation burn 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 Chief Complaint breast cancer open a shyam mastectomy site breast cancer open area mastectomy site plural effusion leg swelling Follow Up check leg swelling, med refill Follow Up 1 Month Follow Up Open Wound (coming [facility]) breast cancer open area mastectomy site Follow Up Reason for Visit Encounter for chemot herapy management Pleural effusion, right 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, 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 Pleural effusion, right Bilateral lower extremity edema 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, bilateral Encounter for chemotherapy management Pleural effusion, right 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, 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 Bilateral lower extremity edema 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 Blister Candidiasis of breast Diabetes Radiation burn Ulcer of left lower leg Ulcer of right lower leg 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 Encounter for long-term current use of high risk medication Encounter for monitoring aromatase inhibitor therapy Osteoarthritis of knees, 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 Encounter for chemotherapy management Pleural effusion, right 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, 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 Chief Complaint breast cancer open a shyam mastectomy site plural effusion leg swelling Follow Up check leg swelling, med refill Follow Up 1 Month Follow Up breast cancer open area mastectomy site Follow Up Open Wound (coming [facility]) medication question Reason for Visit Pleural effusion, ri ght Bilateral lower extremity edema 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, bilateral Encounter for chemotherapy management Pleural effusion, right 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, 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 Bilateral lower extremity edema 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 Encounter for long-term current use of high risk medication Encounter for monitoring aromatase inhibitor therapy Osteoarthritis of knees, 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 Encounter for chemotherapy management Pleural effusion, right 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, 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 Blister Candidiasis of breast Diabetes Hemosiderin pigmentation of lower extremity due to varicose veins Hyperkeratosis Lymphedema of both lower extremities Radiation burn Ulcer of left lower leg Ulcer of right lower leg Venous stasis dermatitis of both lower extremities 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 Chief Complaint leg swelling Follow Up check leg swelling, med refill Follow Up 1 Month Follow Up Follow Up Open Wound (coming from [facility]) medication question breast cancer open area mastectomy site OP SP CAROL ANN [facility]EE PAIN WOULD LIKE Reason for Visit Bilateral lower extr emity edema 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, bilateral Encounter for chemotherapy management Pleural effusion, right 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, 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 Bilateral lower extremity edema 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 Encounter for chemotherapy management Pleural effusion, right 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, 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 Blister Candidiasis of breast Diabetes Hemosiderin pigmentation of lower extremity due to varicose veins Hyperkeratosis Lymphedema of both lower extremities Radiation burn Ulcer of left lower leg Ulcer of right lower leg Venous stasis dermatitis of both lower extremities 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 Bilateral lower extremity edema 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 Encounter for long-term current use of high risk medication Encounter for monitoring aromatase inhibitor therapy Osteoarthritis of knees, 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 Bilateral primary osteoarthritis of knee Chief Complaint leg swelling Follow Up check leg swelling, med refill Follow Up 1 Month Follow Up Follow Up Open Wound (coming from [facility]) medication question breast cancer open area mastectomy site OP SP CAROL ANN [facility]NEE PAIN WOULD LIKE f/u after PET Reason for Visit Bilateral lower extr emity edema 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, bilateral Encounter for chemotherapy management Pleural effusion, right 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, 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 Bilateral lower extremity edema 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 Encounter for chemotherapy management Pleural effusion, right 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, 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 Blister Candidiasis of breast Diabetes Hemosiderin pigmentation of lower extremity due to varicose veins Hyperkeratosis Lymphedema of both lower extremities Radiation burn Ulcer of left lower leg Ulcer of right lower leg Venous stasis dermatitis of both lower extremities 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 Bilateral lower extremity edema 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 Encounter for long-term current use of high risk medication Encounter for monitoring aromatase inhibitor therapy Osteoarthritis of knees, 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 Bilateral primary osteoarthritis of knee Encounter for chemotherapy management Pleural effusion, right 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, 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 Additional Source Comments INFORMATION SOURCE (unrecogn ized section and content) DATE CREATED AUTHOR 06/09/2022 [facility] DATE CREATED AUTHOR AUTHOR'S ORGANIZ ATION 04/27/2023 [facility] DATE CREATED AUTHOR AUTHOR'S ORGANIZ ATION 09/16/2024 [facility] REASON FOR VISIT (unrecogniz ed section and content) referralCONSULT DR LUCY Fish RT KNEE PAIN NXNo Information Care Teams (unrecognized sec tion and content) Team Status: Active Member Role Status Dates Ethel Wakefield MD Primary Care Provider Active Team Status: Inactive Member Role Status Dates Ethel Wakefield MD Primary Care Provide r, Attending Provider Active Start: May 07, 2024 End: May 07, 2024 Team Status: Active Member Role Status Dates Ethel Wakefield MD Primary Care Provider Active Start: May 11, 2024 Brandi Lopez MD Attending Provider Active Start: May 11, 2024 Team Status: Inactive Member Role Status Dates Ethel Wakefield MD Primary Care Provider Active Start: May 13, 2024 End: May 13, 2024 Brandi Lopez MD Attending Provider Active Start: May 13, 2024 End: May 13, 2024 Team Status: Inactive Member Role Status Dates Ethel Wakefield MD Primary Care Provide r, Attending Provider Active Start: May 26, 2024 End: May 26, 2024 Team Status: Inactive Member Role Status Dates Ethel Wakefield MD Primary Care Provider Active Start: May 26, 2024 End: May 26, 2024 Cristina Long MD Attending Provider Active Start: May 26, 2024 End: May 26, 2024 Team Status: Inactive Member Role Status Dates Ethel Wakefield MD Primary Care Provider Active Start: June 30, 2024 End: June 30, 2024 Cristina Long MD Attending Provider Active Start: June 30, 2024 End: June 30, 2024 Team Status: Inactive Member Role Status Dates Ethel Wakefield MD Primary Care Provider Active Start: July 15, 2024 End: July 15, 2024 Brandi Lopez MD Attending Provider Active Start: July 15, 2024 End: July 15, 2024 Team Status: Active Member Role Status Verito Wakefield MD Primary Care Provider Active Start: July 21, 2024 Taina Potter APRN Attending Provider Active St art: July 21, 2024 Team Status: Inactive Member Role Status Dates Ethel Wakefield MD Primary Care Provide r, Attending Provider Active Start: July 28, 2024 End: July 28, 2024 Team Status: Active Member Role Status Dates Ethel Wakefield MD Primary Care Provide r, Referring Provider Active Start: July 29, 2024 Cristina Long MD Attending Provider Active Start: July 29, 2024 Team Status: Inactive Member Role Status Verito Wakefield MD Primary Care Provider Active Start: July 30, 2024 End: July 30, 2024 Leonardo Herron II, MD Attending Provider Active Start: July 30, 2024 End: July 30, 2024 Team Status: Active Member Role Status Verito Wakefield MD Primary Care Provide r, Attending Provider Active Start: April 20, 2024 Team Status: Inactive Member Role Status Verito Wakefield MD Primary Care Provider Active Start: April 22, 2024 End: April 22, 2024 Brandi Lopez MD Attending Provider Active Start: April 22, 2024 End: April 22, 2024 Team Status: Active Member Role Status Verito Wakefield MD Primary Care Provide r, Referring Provider Active Start: April 22, 2024 Cristina Long MD Attending Provid er, Other Provider Active Start: April 22, 2024 Team Status: Active Member Role Status Verito Wakefield MD Primary Care Provide r, Referring Provider Active Start: April 29, 2024 Cristina Long MD Attending Provid er, Other Provider Active Start: April 29, 2024 Team Status: Inactive Member Role Status Dates Ethel Wakefield MD Primary Care Provider Active Start: April 29, 2024 End: April 29, 2024 Brandi Lopez MD Attending Provider Active Start: April 29, 2024 End: April 29, 2024 Team Status: Active Member Role Status Dates Ethel Wakefield MD Primary Care Provider Active Start: June 30, 2024 Taina Potter APRN Attending Provider Active St art: June 30, 2024 Team Status: Active Member Role Status Dates Ethel Wakefield MD Primary Care Provide r, Referring Provider Active Start: July 15, 2024 Cristina Long MD Attending Provider Active Start: July 15, 2024 Team Status: Inactive Member Role Status Dates Ethel Wakefield MD Primary Care Provider Active Start: April 02, 2024 End: April 02, 2024 Cristina Long MD Attending Provider Active Start: April 02, 2024 End: April 02, 2024 Brandi Lopez MD Referring Provider Active Start: April 02, 2024 End: April 02, 2024 Team Status: Active Member Role Status Dates Ethel Wakefield MD Primary Care Provide r, Attending Provider Active Start: April 08, 2024 Team Status: Active Member Role Status Verito Wakefield MD Primary Care Provide r, Referring Provider Active Start: April 09, 2024 Cristina Long MD Attending Provid er, Other Provider Active Start: April 09, 2024 Team Status: Active Member Role Status Dates Ethel Wakefield MD Primary Care Provide r, Referring Provider Active Start: June 30, 2024 Cristina Long MD Attending Provider Active Start: June 30, 2024 Team Status: Active Member Role Status Verito Lopez MD Attending Provider Active Ethel Wakefield MD Primary Care Provider, Referring P francois Active Team Status: Inactive Member Role Status [...] March 23, 2024 End: March 23, 2024 Team Status: Active Member Role Status Dates Brandi Lopez MD Attending Provider Active Start: March 27, 2024 Ethel Wakefield MD Primary Care Provide r, Referring Provider Active Start: March 27, 2024 Team Status: Inactive Member Role Status Dates Ethel Wakefield MD Primary Care Provider Active Start: March 27, 2024 End: March 27, 2024 Brandi Lopez MD Attending Provider Active Start: March 27, 2024 End: March 27, 2024 Team Status: Active Member Role Status Dates Ethel Wakefield MD Primary Care Provide r, Referring Provider Active Start: April 22, 2024 Cristina Long MD Attending Provider Active Start: April 22, 2024 Team Status: Active Member Role Status Dates Ethel Wakefield MD Primary Care Provide r, Referring Provider Active Start: April 24, 2024 Cristina Long MD Attending Provider Active Start: April 24, 2024 Team Status: Active Member Role Status Dates Ethel Wakefield MD Primary Care Provide r, Referring Provider Active Start: May 04, 2024 Cristina Long MD Attending Provider Active Start: May 04, 2024 Team Status: Active Member Role Status Dates Ethel Wakefield MD Primary Care Provide r, Referring Provider Active Start: May 13, 2024 Cristina Long MD Attending Provider Active Start: May 13, 2024 Team Status: Active Member Role Status Dates Ethel Wakefield MD Primary Care Provide r, Referring Provider Active Start: May 26, 2024 Cristina Long MD Attending Provider Active Start: May 26, 2024 Team Status: Inactive Member Role Status Dates Ethel Wakefield MD Primary Care Provider Active Start: July 30, 2024 End: July 30, 2024 Brandi Lopez MD Attending Provider Active Start: July 30, 2024 End: July 30, 2024 Goals (unrecognized section and content) Goals [...] BE BASED ON THE PRIMARY CLINICAL RECORDS. [employer] provides no warranty or guarantee of the accuracy or completeness of information in this document.
[2024-09-18] MEDS: 0.9 % SODIUM CHLORIDE 500 ML IV (13:13)
[2024-09-18 13:33] LABS: Basophils Percent Auto 0.2 % (0.2-2.0); Eosinophils Absolute Auto 0.1 10^3/uL (0.0-0.7); Eosinophils Percent Auto 0.5 % (0.9-7.0); Hematocrit 28.8 % (36.0-48.0); Hemoglobin 9.5 g/dL (12.0-16.0); Immature Granulocytes Abs Auto 0.02 10^3/uL (0.00-0.03); Immature Granulocytes Pct Auto 0.2 % (0.0-0.5); Lymphocytes Absolute Auto 0.9 10^3/uL (1.2-3.8); Lymphocytes Percent Auto 8.9 % (20.5-60.0); Mean Corpuscular Hemoglobin 33.8 pg (26.7-34.0); Mean Corpuscular Volume 102.5 fL (81.0-99.0); Mean Platelet Volume 8.9 fL (9.5-13.5); Monocytes Absolute Auto 1.1 10^3/uL (0.3-0.8); Monocytes Percent Auto 11.4 % (1.7-12.0); Neutrophils Absolute Auto 7.6 10^3/uL (1.4-6.5); Neutrophils Percent Auto 78.8 % (43.0-75.0); Platelet Count 268 10^3/uL (150-450); Red Blood Count 2.81 10^6/uL (4.20-5.40); Red Cell Distribution Width 20.1 % (11.0-15.0); White Blood Count 9.7 10^3/uL (4.0-11.0)
[2024-09-18 13:45] LABS: Influenza Virus A Antigen Negative; Influenza Virus B Antigen Negative; Internal Control Within Normal Limits; SARS-CoV-2 Ag NEGATIVE (NEGATIVE)
[2024-09-18 13:57] LABS: BUN Creatinine Ratio 24.1; Calcium 9.2 mg/dL (8.5-10.1); Carbon Dioxide 21.8 mmol/L (21.0-32.0); Chloride 100 mmol/L (98-107); Estimated GFR (African America 19 (>=60 mL/min/1.73m^2); Estimated GFR (Non-African Ame 16 (>=60 mL/min/1.73m^2); Glucose 219 mg/dL (74-106); Potassium 3.8 mmol/L (3.5-5.1); Sodium 135 mmol/L (136-145)
--- NOTE | 2024-09-18 14:20 | CT_ITS ---
[address] [address] Patient Name: DEEP MAYA MRN: [id number] date: 1935 Sex: F Assigned Patient Location: ER Current Patient Location: ER Accession/Order Number: [id number] Exam Date: 09/18/2024 14:25 Report Date: 09/18/2024 14:54 At the request of: SHAIKH ROSALES Procedure: CT chest wo con EXAMINATION: CT chest wo con HISTORY: Pleural effusion/PNA COMPARISON: CTA chest 03/18/2024, chest x-ray 09/18/2024 TECHNIQUE: Axial, Coronal, and Sagittal images were created without the administration of IV contrast material. Dose reduction techniques were achieved by using automated exposure control and/or adjustment of mA and/or kV according to patient size and/or use of iterative reconstruction technique. FINDINGS: LUNGS: Mild passive atelectasis within dependent lung regions. Chronic partial collapse of right upper lobe anterior segment, likely due to mucous plugging. PLEURA: Bilateral pleural effusions, 6.2 cm in thickness on right, 1.4 cm on left. VASCULATURE: No abnormality. AGUEDA: No mass or pathologic adenopathy. MEDIASTINUM: No mass or pathologic adenopathy. CARDIAC: Large pericardial effusion, 2.7 cm in thickness. No significant cardiac enlargement. Coronary Artery calcifications: Coronary calcifications are moderate. AORTA: No aneurysm or dissection. CHEST WALL: No mass or axillary adenopathy BONES: No bone lesion or fracture. LIMITED ABDOMEN: 2.8 cm complex left renal cyst. Limited images of the upper abdomen. OTHER: Negative. CT/CT chest wo con IMPRESSION: 1. Bilateral pleural effusions; largest on right, moderate on left; slightly smaller than seen on prior study. 2. Large pericardial effusion, up to 2.7 cm in thickness. 3. Atelectasis/partial collapse of right upper lobe anterior segment. Electronically authenticated by: SAIRA GUTIERREZ Date: 09/18/2024 14:54
--- NOTE | 2024-09-18 14:44 | CA_ITS ---
Patient Name: DEEP MAYA MR#: [id number] : 1935 Exam Date: 09/18/2024 Ordering Doctor: SHAIKH Montez CABA . ECHOCARDIOGRAM REPORT PROCEDURE: CA ECHO DOPPLER COMPLETE INDICATIONS: CHF/Pleural effusion COMPARISON: None. DESCRIPTION: COMPLETE ECHOCARDIOGRAM Real-time transthoracic echocardiography with 2D, M-mode, spectral and color flow Doppler performed. QUALITY: Technical quality was good. LEFT VENTRICLE: Normal chamber size. Mild concentric left ventricular hypertrophy. LV EF: Normal left ventricular ejection fraction, (>55%). DIASTOLIC: ATRIAL SEPTUM: LEFT ATRIUM: Normal chamber size. RIGHT ATRIUM: Normal chamber size. RIGHT VENTRICLE: Normal chamber size. Normal right ventricular systolic function. TRICUSPID VALVE: Normal mobility and thickness. No stenosis with mild regurgitation. Doppler studies reveal mildly (35-45) elevated right sided pressures. RVSP 38 mmHg MITRAL VALVE: Normal mobility and thickness. No evidence of mitral valve stenosis. There is no mitral annular calcification. Trivial mitral regurgitation. AORTIC VALVE: Normal trileaflet appearance. Mildly calcified aortic valve. Normal leaflet mobility. No evidence of aortic valve stenosis. No aortic regurgitation. AORTIC ROOT: Normal diameter and appearance. PULMONIC VALVE: Normal thickness and mobility. No stenosis. Trivial regurgitation. PERICARDIUM: Large pericardial effusion. There are echocardiographic features of cardiac tamponade physiology. IVC: IVC is dilated (2.2 cm), does not collapse. PLEURA: CONCLUSION: 1. Normal ventricular size and function. LVEF is estimated at 55%. 2. Mild tricuspid regurgitation. 3. Large pericardial effusion with echocardiographic signs of cardiac tamponade. 4. Dr Caba was made aware of the findings. Adult Echocardiography Procedure Report Left Ventricle LVEDD (3.7 - 5.6 cm): 3.33 cm LVESD (2.2 - 4.0 cm): 3.02 cm LVIVS thickness (0.6 - 1.2 cm): 1.10 cm LVPW thickness (0.5 - 1.0 cm): 1.11 cm LVOT Max Gradient: 2.40 mm[Hg], 2.85 mm[Hg] LVOT Area (cm2): 0.81 m/s Peak Velocity (LVOT): 0.77 m/s, 0.84 m/s LVOT Diameter 2.21 cm Left Atrium LA Volume Index (2D A2C): 18.01 ml/m2 Left Atrium Systolic Dimension: 2.45 cm Mitral Valve Mitral Valve E-Wave Peak Velocity: 0.65 m/s Right Ventricle Aorta AO Root Diam: 3.28 cm Aortic Valve AoV Area (Peak Rodrigo): 2.43 cm2, 2.32 cm2 Peak Velocity(Antegrade Flow): 1.28 m/s Peak Gradient(Antegrade Flow): 6.53 mm[Hg] Tricuspid Valve Peak Velocity (Regurgitant Flow): 2.38 m/s, 2.41 m/s Pulmonic Valve Peak Velocity: 0.88 m/s Peak Gradient: 3.67 mm[Hg], 2.59 mm[Hg] Right Atrium Right Atrium Systolic Pressure: 22.58 ml, 22.58 ml Dictated by: Jake Johnson M.D. on 09/18/2024 at 17:40 Approved by: Jake Johnson M.D. on 09/18/2024 at 17:46
--- OUTSIDE RECORDS SUMMARY | 2024-09-18 17:01 | XMS_ITS | CCD ---
Author Organization [facility] Care Team Providers Care Sulky Driver Name Role Phone DR ETHEL WAKEFIELD Admitting Unavailable ASHU, DR ETHEL Quach Primary Care Unavailable ASHU, DR ETHEL Quach Consulting Unavailable ASHU, DR ETHEL Quach Attending Unavailable ASHU, DR ETHEL Quach Admitting Unavailable ASHU, DR ETHEL Quach Primary Care Unavailable ASHU, DR ETHEL Quach Consulting Unavailable ASHU, DR ETHEL Quach Attending Unavailable Ethel Wakefield Unavailable MD Brandi Lopez Attending Provider [phone] MD Ethel Wakefield Primary Care Provider MD Ethel Wakefield Referring Provider MD Ethel Wakefield Primary Care Provider MD Leonardo Herron II Attending Provider MD Brandi Lopez Other Provider MD Brandi Lopez Attending Provider MD Ethel Wakefield Referring Provider Leonardo Herron II Unavailable MD Brandi Lopez Attending Provider MD Ethel Wakefield Referring Provider MD Brandi Lopez Attending Provider MD Ethel Wakefield Referring Provider [phone] MD Brandi Lopez Attending Provider MD Ethel Wakefield Primary Care Provider [phone] MD Ethel Wakefield Referring Provider [phone] MD Ethel Wakefield Primary Care Provider MD Tab Wang Attending Provider MD Brandi Lopez Attending Provider [...] physicia Propensity to adverse reactions 3 Comment:Done [employer] Other (1 source) Allergies Reconciled Propensity to adverse reactions Unknown [employer] Other Medications Current Medications Medication Drug Class(es) [...] radiation injury site as per wound orders Effie 8-Jwe-Goz-Fish Oil (Effie 3 Fish Oil) 900-1,400 mg Capsule,Delayed Release(Dr/Ec) (19 sources) Start: 04-11-2023 End: 03-27-2024 Effie 9-Buq-Srl-Fish Oil (Effie 3 Fish Oil) 900-1,400 mg Capsule,Delayed Release(Dr/Ec) Discontinued 1 CAP PO Daily April 11, 2023 12:00am March 27, 2024 10:35am Start: 04-11-2023 Effie 3-Dha-Ep a-Fish Oil (Effie 3 Fish Oil) 900-1,400 mg Capsule,Delayed Release(Dr/Ec) [...] (11 sources) Patient encounter status; Translations: [Other watermelon inspector (current) drug therapy] 04-25-2023 Episodic Other aftercare (17 sources) Other watermelon inspector (current) drug therapy; Translations: [Long-term (current) use [...] 07-29-2024 Glucose [Mass/Vol] 140 mg/dL Normal [facility] Comment on above: Random Glucose Refer ence Range is dependent on time and content of last meal. Glucose of more than 200 mg/dL in a nonstressed, ambulatory subject supports the diagnosis of Diabetes Mellitus. Result Comment: [place] om Glucose Reference Range is dependent on time and content of last meal. Glucose of more than 200 mg/dL in a nonstressed, ambulatory subject supports the diagnosis of Diabetes Mellitus. PERFORMED BY: [facility] [place] [address] PATHOLOGIST SCHOOL TREASURER JASEN DIAZ M.D. Performed By: #### G LU #### Point of Care testing , PET tumor subq tx strat sb-m ton 07-29-2024 PET tumor subq tx strat sb-mt [facility] Main [place] [address] [place] [address] Nuclear Medicine Report Signed Patient: Yolanda Fairbanks MR#: [id number] 0 : 1935 Acct:[id number] Age/Sex: 89 / F ADM Date: 07/29/24 Loc: XT Room: Type: [facility] RCR Attending Dr: Cristina Long MD [...] Dane Tellez M.D.07/29/2024 2:51 PM Dictation Location: [place] [address] Transcribed By: [facility] 07/29/24 1451 Dictated By: Dane Tellez DO 07/29/24 1441 Signed By: 07/29/24 1451 Normal [facility] Alanine aminotransferase [En zymatic activity/volume] in Serum or PlasmaOrdered By: Brandi Lopez on 07-10-2024 ALT [Catalytic activity/Vol] 7 U/L Normal [facility] Comment on above: Performed By: #### C BC, CMP #### [facility] [address] [place] [address] #### [id number], CA15-3 #### [facility] , Albumin [Mass/volume] in Ser um or Plasma by Bromocresol green (BCG) dye binding methoOrdered By: Brandi John on 07-10-2024 Albumin BCG dye [Mass/Vol] 3.7 g/dL 3.5-5.7 [facility] Alkaline phosphatase [Enzyma tic activity/volume] in Serum or PlasmaOrdered By: Brandi Lopez on 07-10-2024 ALP [Catalytic activity/Vol] 94 U/L Normal 34-104 [facility] Comment on above: Performed By: #### C BC, CMP #### [address] #### [id number], CA15-3 #### [facility] , Aspartate aminotransferase [ Enzymatic activity/volume] in Serum or PlasmaOrdered By: Brandi Lopez on 07-10-2024 AST [Catalytic activity/Vol] 11 U/L Low 13-39 [facility] Comment on above: Performed By: #### C BC, CMP #### [facility] [address] [place] [address] #### [id number], CA15-3 #### [facility] , Automated basophil %Ordered By: Brandi Lopez on 07-10-2024 Basophils/100 WBC (Bld) 1.0 % Normal . [facility] Comment on above: Performed By: #### C BC, CMP #### [address] #### [id number], CA15-3 #### [facility] , Automated basophil countOrde red By: Brandi Lopez on 07-10-2024 Basophils (Bld) [#/Vol] 0.1 10*3/uL Normal 0.0-0.2 [facility] Comment on above: Result Comment: PERF ORMED BY: [place] [address] PATHOLOGIST SCHOOL TREASURER JASEN DIAZ M.D. Performed By: #### C BC, CMP #### [facility] [address] [place] [address] [place] #### [id number], CA15-3 #### [facility] , Automated blood monocyte cou ntOrdered By: Brandi John on 07-10-2024 Monocytes (Bld) [#/Vol] 0.8 10*3/uL Normal 0.0-0.8 [facility] Comment on above: Performed By: #### C BC, CMP #### [place] [address] [place] #### [id number], CA15-3 #### [facility] , Automated eosinophil %Ordere d By: Brandi Lopez on 07-10-2024 Eosinophils/100 WBC (Bld) 5.5 % Normal . [facility] Comment on above: Performed By: #### C BC, CMP #### [place] [address] [place] #### [id number], CA15-3 #### [facility] , Automated eosinophil countOr dered By: Brandi Lopez on 07-10-2024 Eosinophils (Bld) [#/Vol] 0.4 10*3/uL Normal 0.0-0.45 [facility] Comment on above: Performed By: #### C BC, CMP #### [place] [address] [place] #### [id number], CA15-3 #### [facility] , Automated monocyte %Ordered By: Brandi Lopez on 07-10-2024 Monocytes/100 WBC (Bld) 12.3 % Normal . [facility] Comment on above: Performed By: #### C BC, CMP #### [place] [address] [place] #### [id number], CA15-3 #### [facility] , Automated neutrophil %Ordere d By: Brandi Lopez on 07-10-2024 Neutrophils/100 WBC (Bld) 62.9 % Normal . [facility] Comment on above: Performed By: #### C BC, CMP #### [place] [address] [place] #### [id number], CA15-3 #### [facility] , Bilirubin.total [Mass/volume ] in Serum or PlasmaOrdered By: Brandi Lopez on 07-10-2024 Bilirubin [Mass/Vol] 0.9 mg/dL Normal 0.3-1.0 [facility] Comment on above: Performed By: #### C BC, CMP #### [address] #### [id number], CA15-3 #### [facility] , Ca 27.29on 07-10-2024 Ca 27.29 19.4 Normal 0.0-38.6 [facility] Comment on above: Result Comment: [facility] [employer] Immunochemiluminometric Methodology (ICMA) Values obtained with different assay methods or kits cannot be used interchangeably. Results cannot be interpreted as absolute evidence of the presence or absence of malignant disease. Performed at: [address] [id number] Senior Accountant Analyst: Oracio Ramirez PhD, Phone: [phone] Performed By: #### C BC, CMP #### [place] [address] [place] #### [id number], CA15-3 #### [facility] , Calcium [Mass/volume] in Ser um or PlasmaOrdered By: Brandi Lopez on 07-10-2024 Calcium [Mass/Vol] 9.1 mg/dL Normal 8.6-10.3 [facility] Comment on above: Performed By: #### C BC, CMP #### [place] [address] [place] #### [id number], CA15-3 #### [facility] , Cancer Antigen (Ca) 15-3on 0 07-10-2024 Cancer Antigen (Ca) 15-3 21.6 Normal 0.0-25.0 [facility] Comment on above: Result Comment: [employer] Electrochemiluminescence Immunoassay (ECLIA) Values obtained with different assay methods or kits cannot be used interchangeably. Results cannot be interpreted as absolute evidence of the presence or absence of malignant disease. Performed at: [address] [id number] Senior Accountant Analyst: Oracio Ramirez PhD, Phone: [phone] PERFORMED BY: [place] [address] PATHOLOGIST SCHOOL TREASURER JASEN DIAZ M.D. Performed By: #### C BC, CMP #### [address] #### [id number], CA15-3 #### [facility] , Carbon dioxide, total [Moles /volume] in Serum or PlasmaOrdered By: Brandi Lopez on 07-10-2024 CO2 [Moles/Vol] 29.0 mmol/L Normal 21.0-31.0 [facility] Comment on above: Performed By: #### C BC, CMP #### [address] #### [id number], CA15-3 #### [facility] , Chloride [Moles/volume] in S rakan or PlasmaOrdered By: Brandi Lopez on 07-10-2024 Chloride [Moles/Vol] 102 mmol/L Normal 98-107 [facility] Comment on above: Performed By: #### C BC, CMP #### [facility] [address] [place] [address] [place] #### [id number], CA15-3 #### [facility] , Complete Blood Count Auto Di ffon 07-10-2024 Mean Corpuscular HGB Conc 34.1 g/dL Normal 32.0-35.0 [facility] Comment on above: Performed By: #### C BC, CMP #### [place] [address] [place] #### [id number], CA15-3 #### [facility] , NRBC% 0.1 /100{WBC} Normal 0-0.5 [facility] Comment on above: Performed By: #### C BC, CMP #### [place] [address] [place] #### [id number], CA15-3 #### [facility] , Comprehensive Metabolic Pane jr 07-10-2024 Albumin [Mass/Vol] 3.7 g/dL Normal 3.5-5.7 [facility] Comment on above: Performed By: #### C BC, CMP #### [address] #### [id number], CA15-3 #### [facility] , Creatinine Clr Calc Pharmacy 31.54 Normal [facility] Comment on above: Result Comment: PERF ORMED BY: [place] [address] PATHOLOGIST SCHOOL TREASURER JASNE DIAZ M.D. Performed By: #### C BC, CMP #### [place] [address] [place] #### [id number], CA15-3 #### [facility] , GFR/1.73 sq M.predicted MDRD (S/P/Bld) [Vol rate/Area] 50.843 mL/min/{1.73_m2} Normal [facility] Comment on above: Performed By: #### C BC, CMP #### [place] [address] [place] #### [id number], CA15-3 #### [facility] , Creatinine [Mass/volume] in Serum or PlasmaOrdered By: Brandi Lopez on 07-10-2024 Creatinine [Mass/Vol] 1.06 mg/dL Normal 0.60-1.20 [facility] Comment on above: Performed By: #### C BC, CMP #### [facility] [address] [place] [address] [place] #### [id number], CA15-3 #### [facility] , Erythrocyte distribution wid th [Ratio] by Automated countOrdered By: Brandi Lopez on 07-10-2024 Erythrocyte distribution width (RBC) [Ratio] 23.6 % High 11.9-15.3 [facility] Comment on above: Performed By: #### C BC, CMP #### [place] [address] [place] #### [id number], CA15-3 #### [facility] , Erythrocytes [#/volume] in B lood by Automated countOrdered By: Brandi Lopez on 07-10-2024 RBC (Bld) [#/Vol] 2.80 10*6/uL Low 3.60-5.00 [facility] Comment on above: Performed By: #### C BC, CMP #### [place] [address] [place] #### [id number], CA15-3 #### [facility] , Glucose [Mass/volume] in Ser um or PlasmaOrdered By: Brandi Lopez on 07-10-2024 Glucose [Mass/Vol] 139 mg/dL High 70-100 [facility] Comment on above: ADA recommended refe rence rangeRandom Glucose Reference Range is dependent on time and content of last meal. Glucose of more than 200 mg/dL in a nonstressed, ambulatory subject supports the diagnosis of Diabetes Mellitus. Result Comment: [place] om Glucose Reference Range is dependent on time and content of last meal. Glucose of more than 200 mg/dL in a nonstressed, ambulatory subject supports the diagnosis of Diabetes Mellitus. ADA recommended reference range Performed By: #### C BC, CMP #### [facility] [address] [place] [address] [place] #### [id number], CA15-3 #### [facility] , Hematocrit [Volume Fraction] of Blood by Automated countOrdered By: Brandi Lopez on 07-10-2024 Hematocrit (Bld) [Volume fraction] 27.9 % Low 34.0-46.4 [facility] Comment on above: Performed By: #### C BC, CMP #### [place] [address] [place] #### [id number], CA15-3 #### [facility] , Hemoglobin [Mass/volume] in BloodOrdered By: Brandi Lopez on 07-10-2024 Hemoglobin (Bld) [Mass/Vol] 9.5 g/dL Low 11.8-15.4 [facility] Comment on above: Performed By: #### C BC, CMP #### [address] #### [id number], CA15-3 #### [facility] , Leukocytes [#/volume] correc medardo for nucleated erythrocytes in Blood by Automated counOrdered By: Brandi Lopez on 07-10-2024 WBC corrected for nucl RBC Auto (Bld) [#/Vol] 6.4 10*3/uL 3.8-11.6 [facility] Leukocytes [#/volume] in Blo od by Automated countOrdered By: Brandi Lopez on 07-10-2024 WBC (Bld) [#/Vol] 6.4 10*3/uL Normal 3.8-11.6 [facility] Comment on above: Performed By: #### C BC, CMP #### [place] [address] [place] #### [id number], CA15-3 #### [facility] , Lymphocytes [#/volume] in Bl ood by Automated countOrdered By: Brandi Lopez on 07-10-2024 Lymphocytes (Bld) [#/Vol] 1.2 10*3/uL Normal 1.00-4.8 [facility] Comment on above: Performed By: #### C BC, CMP #### [place] [address] [place] #### [id number], CA15-3 #### [facility] , Lymphocytes/100 leukocytes i n Blood by Automated countOrdered By: Brandi Sawyerse on 07-10-2024 Lymphocytes/100 WBC (Bld) 18.3 % Normal . [facility] Comment on above: Performed By: #### C BC, CMP #### [place] [address] [place] #### [id number], CA15-3 #### [facility] , MCH [Entitic mass] by Automa medardo countOrdered By: Brandi John on 07-10-2024 MCH (RBC) [Entitic mass] 33.9 pg Normal 24.7-34.3 [facility] Comment on above: Performed By: #### C BC, CMP #### [place] [address] [place] #### [id number], CA15-3 #### [facility] , MCHC Auto (RBC) [Mass/Vol]Or dered By: Brandi Lopez on 07-10-2024 MCHC (RBC) [Mass/Vol] 34.1 g/dL 32.0-35.0 [facility] MCV [Entitic volume] by Auto mated countOrdered By: Brandi Lopez on 07-10-2024 MCV (RBC) [Entitic vol] 99.6 fL Normal 80-100 [facility] Comment on above: Performed By: #### C BC, CMP #### [place] [address] [place] #### [id number], CA15-3 #### [facility] , Neutrophils [#/volume] in Bl ood by Automated countOrdered By: Brandi Lopez on 07-10-2024 Neutrophils (Bld) [#/Vol] 4.0 10*3/uL Normal 1.8-7.7 [facility] Comment on above: Performed By: #### C BC, CMP #### [facility] [address] [place] [address] [place] #### [id number], CA15-3 #### [facility] , No Panel InformationOrdered By: Brandi Lopez on 07-10-2024 CA 27.29 19.4 U/mL 0.0-38.6 [facility] Comment on above: [employer] Immu nochemiluminometric Methodology (ICMA)Values obtained with different assay methods or kits cannotbe used interchangeably. Results cannot be interpreted asabsolute evidence of the presence or absence of malignantdisease.Performed at: [facility] [place] [id number] Director: Oracio Ramirez PhD, Phone: [phone] Estimated GFR (CKD-EPI) 50.843 mL/Min [facility] Creatinine Clearance (Chem 31.54 [facility] Nucleated erythrocytes [Pres ence] in Blood by Automated countOrdered By: Brandi Lopez on 07-10-2024 Nucleated RBC Auto Ql (Bld) 0.1 /100{WBC} 0-0.5 [facility] Platelet mean volume [Entiti c volume] in Blood by Automated countOrdered By: Brandi Lopez on 07-10-2024 Platelet mean volume (Bld) [Entitic vol] 6.7 fL Normal 6.3-10.7 [facility] Comment on above: Performed By: #### C BC, CMP #### [facility] [address] [place] [address] [place] #### [id number], CA15-3 #### [facility] , Platelets [#/volume] in Bloo d by Automated countOrdered By: Brandi Lopez on 07-10-2024 Platelets (Bld) [#/Vol] 315 10*3/uL Normal 150-450 [facility] Comment on above: Performed By: #### C BC, CMP #### [facility] [address] [place] [address] [place] #### [id number], CA15-3 #### [facility] , Potassium [Moles/volume] in Serum or PlasmaOrdered By: Brandi John on 07-10-2024 Potassium [Moles/Vol] 3.5 mmol/L Normal 3.5-5.1 [facility] Comment on above: Performed By: #### C BC, CMP #### [address] #### [id number], CA15-3 #### [facility] , Protein [Mass/volume] in Ser um or PlasmaOrdered By: Brandi John on 07-10-2024 Protein [Mass/Vol] 5.6 g/dL Low 6.4-8.9 [facility] Comment on above: Performed By: #### C BC, CMP #### [address] #### [id number], CA15-3 #### [facility] , Serum globulin measurement b y calculation (mass/volume)Ordered By: Brandi Lopez on 07-10-2024 Globulin (S) [Mass/Vol] 1.9 g/dL [facility] Comment on above: Performed By: #### C BC, CMP #### [facility] [address] [place] [address] #### [id number], CA15-3 #### [facility] , Serum or plasma albumin/glob ulin mass ratioOrdered By: Brandi Lopez on 07-10-2024 Albumin/Globulin [Mass ratio] 1.9 {ratio} [facility] Comment on above: Performed By: #### C BC, CMP #### [facility] [address] [place] [address] [place] #### [id number], CA15-3 #### [facility] , Serum or plasma anion gap de terminationOrdered By: Brandi John on 07-10-2024 Anion gap [Moles/Vol] 10.5 mmol/L Normal 6.0-15.0 [facility] Comment on above: Performed By: #### C BC, CMP #### [facility] [address] [place] [address] [place] #### [id number], CA15-3 #### [facility] , Serum or plasma cancer antig en 15-3 measurement (units/volume)Ordered By: Brandi Lopez on 07-10-2024 Cancer Ag 15-3 Qn 21.6 U/mL 0.0-25.0 [facility] Comment on above: [facility] El ectrochemiluminescence Immunoassay(ECLIA)Values obtained with different assay methods or kits cannotbe used interchangeably. Results cannot be interpreted asabsolute evidence of the presence or absence of malignantdisease.Performed at: [facility] [employer] [id number] Director: Oracio Ramirez PhD, Phone: [phone] Sodium [Moles/volume] in Ser um or PlasmaOrdered By: Brandi Lopez on 07-10-2024 Sodium [Moles/Vol] 138 mmol/L Normal 136-145 [facility] Comment on above: Performed By: #### C BC, CMP #### [facility] [address] [place] [address] [place] #### [id number], CA15-3 #### [facility] , Urea nitrogen [Mass/volume] in Serum or PlasmaOrdered By: Brandi Lopez on 07-10-2024 Urea nitrogen [Mass/Vol] 16 mg/dL Normal 7-25 [facility] Comment on above: Performed By: #### C BC, CMP #### [facility] [address] [place] [address] [place] #### [id number], CA15-3 #### [facility] , Basophils Auto (Bld) [#/Vol] on 05-11-2024 Basophils (Bld) [#/Vol] 0.1 10 3/uL 0.0-0.1 [facility] Basophils/100 WBC Auto (Bld) on 05-11-2024 Basophils/100 WBC (Bld) 0.7 % 0.2-2.0 [facility] Eosinophils/100 WBC Auto (Bl d)on 05-11-2024 Eosinophils/100 WBC (Bld) 5.4 % 0.9-7.0 [facility] Erythrocyte distribution wid th Auto (RBC) [Ratio]on 05-11-2024 Erythrocyte distribution width (RBC) [Ratio] 17.4 % High 11.0-15.0 [facility] Estimated glomerular filtrat ion rate (GFR) non- Americanon 05-11-2024 GFR/1.73 sq M.predicted among non-blacks MDRD (S/P/Bld) [Vol rate/Area] 56 mL/min/{1.73_m2} Low >=60 [facility] Globulin Calc (S) [Mass/Vol] on 05-11-2024 Globulin (S) [Mass/Vol] 3.1 g/dL [facility] Hematocrit Auto (Bld) [Volum e fraction]on 05-11-2024 Hematocrit (Bld) [Volume fraction] 33.4 % Low 36.0-48.0 [facility] Hemoglobin [Mass/volume] in Bloodon 05-11-2024 Hemoglobin (Bld) [Mass/Vol] 10.7 g/dL Low 12.0-16.0 [facility] Laboratory - Chemistry and C hemistry - challengeon 05-11-2024 Albumin [Mass/Vol] 3.3 g/dL Low 3.4-5.0 [facility] ALP [Catalytic activity/Vol] 96 U/L 46-116 [facility] ALT [Catalytic activity/Vol] 19 U/L 14-59 [facility] AST [Catalytic activity/Vol] 14 U/L Low 15-37 [facility] Bilirubin [Mass/Vol] 0.8 mg/dL 0.2-1.0 [facility] Calcium [Mass/Vol] 9.5 mg/dL 8.5-10.1 [facility] Chloride [Moles/Vol] 100 mmol/L 98-107 [facility] CO2 [Moles/Vol] 33.0 mmol/L High 21.0-32.0 [facility] Creatinine [Mass/Vol] 0.95 mg/dL 0.55-1.02 [facility] GFR/1.73 sq M.predicted MDRD (S/P/Bld) [Vol rate/Area] mL/min/{1.73_m2} >=60 [facility] Glucose [Mass/Vol] 162 mg/dL High 74-106 [facility] Potassium [Moles/Vol] 3.7 mmol/L 3.5-5.1 [facility] Protein [Mass/Vol] 6.4 g/dL 6.4-8.2 [facility] Sodium [Moles/Vol] 139 mmol/L 136-145 [facility] TSH Qn 0.834 m[IU]/L 0.358-3.74 0 [facility] Urea nitrogen [Mass/Vol] 16.0 mg/dL 7.0-18.0 [facility] Urea nitrogen/Creatinine [Mass ratio] 16.8 mg/mg [facility] Laboratory - Hematology and Cell countson 05-11-2024 Immature granulocytes/100 WBC (Bld) 0.3 % 0.0-0.5 [facility] Leukocytes [#/volume] correc medardo for nucleated erythrocytes in Blood by Automated counon 05-11-2024 WBC corrected for nucl RBC Auto (Bld) [#/Vol] 7.1 10 3/uL 4.0-11.0 [facility] Lymphocytes Auto (Bld) [#/Vo l]on 05-11-2024 Lymphocytes (Bld) [#/Vol] 1.1 10 3/uL Low 1.2-3.8 [facility] Lymphocytes/100 WBC Auto (Bl d)on 05-11-2024 Lymphocytes/100 WBC (Bld) 14.8 % Low 20.5-60.0 [facility] MCH Auto (RBC) [Entitic mass ]on 05-11-2024 MCH (RBC) [Entitic mass] 31.2 pg 26.7-34.0 [facility] MCHC Auto (RBC) [Mass/Vol]on 05-11-2024 MCHC (RBC) [Mass/Vol] 32.0 g/dL 29.9-35.2 [facility] MCV Auto (RBC) [Entitic vol] on 05-11-2024 MCV (RBC) [Entitic vol] 97.4 fL 81.0-99.0 [facility] Monocytes Auto (Bld) [#/Vol] on 05-11-2024 Monocytes (Bld) [#/Vol] 0.8 10 3/uL 0.3-0.8 [facility] Monocytes/100 WBC Auto (Bld) on 05-11-2024 Monocytes/100 WBC (Bld) 10.6 % 1.7-12.0 [facility] Neutrophils Auto (Bld) [#/Vo l]on 05-11-2024 Neutrophils (Bld) [#/Vol] 4.8 10 3/uL 1.4-6.5 [facility] Neutrophils/100 WBC Auto (Bl d)on 05-11-2024 Neutrophils/100 WBC (Bld) 68.2 % 43.0-75.0 [facility] No Panel Informationon 05-11 Eosinophils # (Auto) 0.4 10 3/uL 0.0-0.7 [facility] Immature Granulocyte # (Auto) 0.02 10 3/uL 0.00-0.03 [facility] Miscellaneous Test COMMENT . [facility] Comment on above: Test Ordered: [id number] CA 27.29CA 27.29 53.7 [H ] U/mL CB Reference Range: 0.0-38.6[facility] Immunochemiluminometric Methodology (ICMA)Values obtained with different assay methods or kits cannotbe used interchangeably. Results cannot be interpreted asabsolute evidence of the presence or absence of malignantdisease.Performed at: - [facility] [id number] Director: Oracio Ramirez PhD, Phone: [phone] Platelet mean volume Auto (B ld) [Entitic vol]on 05-11-2024 Platelet mean volume (Bld) [Entitic vol] 8.9 fL Low 9.5-13.5 [facility] Platelets Auto (Bld) [#/Vol] on 05-11-2024 Platelets (Bld) [#/Vol] 305 10 3/uL 150-450 [facility] RBC Auto (Bld) [#/Vol]on RBC (Bld) [#/Vol] 3.43 10 6/uL Low 4.20-5.40 [facility] Serum or plasma albumin/glob ulin mass ratioon 05-11-2024 Albumin/Globulin [Mass ratio] 1.1 {ratio} [facility] Serum or plasma anion gap de terminationon 05-11-2024 Anion gap [Moles/Vol] 9.7 mmol/L [facility] US thoracentesison 4 US thoracentesis [facility] Main [place] [address] [place] [address] Ultrasound Report Signed Patient: Yolanda Fairbanks MR#: [id number] 0 : 1935 Acct:[id number] Age/Sex: 89 / F ADM Date: 04/29/24 Loc: Room: Type: [facility] Attending Dr: Brandi Lopez MD Ordering Provider: [...] and local anesthesia with lidocaine, a 4 Nepali Yueh sheath catheter was advanced into the pleural space with return of the tea colored fluid. Approximately 750 mL was aspirated. The catheter was removed. There were no immediate complications. No postprocedure pneumothorax was identified on chest x-ray. US/US thoracentesis IMPRESSION: STATUS POST RIGHT ULTRASOUND-GUIDED THORACENTESIS. Impression dictated by: Karly Subramanian M.D.04/29/2024 2:43 PM Dictation Location: [place] [address] Tech: Chiquinan Flynn Transcribed By: STERLING 04/29/24 1443 Dictated By: Karly Subramanian MD 04/29/24 1441 Signed By: 04/29/24 144 Normal [facility] XR chest 1Von 04-29-2024 XR chest 1V [facility] Main [place] [address] [place] [address] XRay Report Signed Patient: Yolanda Fairbanks MR#: [id number] 0 : 1935 Acct:[id number] Age/Sex: 89 / F ADM Date: 04/29/24 Loc: Room: Type: [facility] Attending Dr: Brandi Lopez MD Copies to: [...] Karly Subramanian M.D.04/29/2024 2:40 PM Dictation Location: [place] [address] Transcribed By: [facility] 04/29/24 1440 Dictated By: Karly Subramanian MD 04/29/24 1436 Signed By: 04/29/24 1440 Normal [facility] Activated partial thrombopla stin time (aPTT) in platelet poor plasma by coagulation aOrdered By: Brandi Lopez on 04-24-2024 aPTT Coag (PPP) [Time] 26.1 s 25.1-36.5 [facility] Comment on above: A hematocrit value g reater than 55% may lead to inaccurate results in coagulation testing. Patients having hematocrit values >55% require a special collection tube for coagulation studies. Please contact the laboratory at [phone] for redraw instructions. Alanine aminotransferase [En zymatic activity/volume] in Serum or PlasmaOrdered By: Brandi Lopez on 04-24-2024 ALT [Catalytic activity/Vol] 8 U/L Normal 7-52 [facility] Comment on above: Performed By: #### P T, CMP, PTT, CBC ####[facility] [id number] Albumin [Mass/volume] in Ser um or Plasma by Bromocresol green (BCG) dye binding methoOrdered By: Brandi Lopez on 04-24-2024 Albumin BCG dye [Mass/Vol] 3.6 g/dL 3.5-5.7 [facility] Alkaline phosphatase [Enzyma tic activity/volume] in Serum or PlasmaOrdered By: Brandi Lopez on 04-24-2024 ALP [Catalytic activity/Vol] 65 U/L Normal 34-104 [facility] Comment on above: Performed By: #### P T, CMP, PTT, CBC ####[facility] Aspartate aminotransferase [ Enzymatic activity/volume] in Serum or PlasmaOrdered By: Brandi Lopez on 04-24-2024 AST [Catalytic activity/Vol] 10 U/L Low 13-39 [facility] Comment on above: Performed By: #### P T, CMP, PTT, CBC ####[facility] [id number] Automated basophil %Ordered By: Brandi Lopez on 04-24-2024 Basophils/100 WBC (Bld) 0.8 % Normal . [facility] Comment on above: Performed By: #### P T, CMP, PTT, CBC #### [facility] [address] Automated basophil countOrde red By: Brandi Lopez on 04-24-2024 Basophils (Bld) [#/Vol] 0.0 10*3/uL Normal 0.0-0.2 [facility] Comment on above: Result Comment: PERF ORMED BY: [address] [place] [address] PATHOLOGIST [employer] JASEN DIAZ M.D. Performed By: #### P T, CMP, PTT, CBC #### [address] Automated blood monocyte cou ntOrdered By: Brandi Lopez on 04-24-2024 Monocytes (Bld) [#/Vol] 0.7 10*3/uL Normal 0.0-0.8 [facility] Comment on above: Performed By: #### P T, CMP, PTT, CBC #### [address] Automated eosinophil %Ordere d By: Brandi Lopez on 04-24-2024 Eosinophils/100 WBC (Bld) 4.1 % Normal . [facility] Comment on above: Performed By: #### P T, CMP, PTT, CBC #### [address] Automated eosinophil countOr dered By: Brandi Lopez on 04-24-2024 Eosinophils (Bld) [#/Vol] 0.2 10*3/uL Normal 0.0-0.45 [facility] Comment on above: Performed By: #### P T, CMP, PTT, CBC #### [address] Automated monocyte %Ordered By: Brandi Lopez on 04-24-2024 Monocytes/100 WBC (Bld) 12.2 % Normal . [facility] Comment on above: Performed By: #### P T, CMP, PTT, CBC #### [address] Automated neutrophil %Ordere d By: Brandi Lopez on 04-24-2024 Neutrophils/100 WBC (Bld) 62.9 % Normal . [facility] Comment on above: Performed By: #### P T, CMP, PTT, CBC #### [address] Bilirubin.total [Mass/volume ] in Serum or PlasmaOrdered By: Brandi Lopez on 04-24-2024 Bilirubin [Mass/Vol] 0.4 mg/dL Normal 0.3-1.0 [facility] Comment on above: Performed By: #### P T, CMP, PTT, CBC ####[address] Calcium [Mass/volume] in Ser um or PlasmaOrdered By: Brandi Lopez on 04-24-2024 Calcium [Mass/Vol] 9.4 mg/dL Normal 8.6-10.3 [facility] Comment on above: Performed By: #### P T, CMP, PTT, CBC ####[address] Carbon dioxide, total [Moles /volume] in Serum or PlasmaOrdered By: Brandi Lopez on 04-24-2024 CO2 [Moles/Vol] 33.5 mmol/L High 21.0-31.0 [facility] Comment on above: Performed By: #### P T, CMP, PTT, CBC ####[address] Chloride [Moles/volume] in S rakan or PlasmaOrdered By: Brandi Lopez on 04-24-2024 Chloride [Moles/Vol] 99 mmol/L Normal 98-107 [facility] Comment on above: Performed By: #### P T, CMP, PTT, CBC ####[address] Complete Blood Count Auto Di ffon 04-24-2024 Mean Corpuscular HGB Conc 34.2 g/dL Normal 32.0-35.0 [facility] Comment on above: Performed By: #### P T, CMP, PTT, CBC #### [facility] [address] NRBC% 0.2 /100{WBC} Normal 0-0.5 [facility] Comment on above: Performed By: #### P T, CMP, PTT, CBC #### [facility] [address] Comprehensive Metabolic Pane jr 04-24-2024 Albumin [Mass/Vol] 3.6 g/dL Normal 3.5-5.7 [facility] Comment on above: Performed By: #### P T, CMP, PTT, CBC ####[address] Creatinine Clr Calc Pharmacy 41.74 Normal [facility] Comment on above: Result Comment: PERF ORMED BY: [place] [address] PATHOLOGIST [employer] JASEN DIAZ M.D. Performed By: #### P T, CMP, PTT, CBC ####[address] GFR/1.73 sq M.predicted MDRD (S/P/Bld) [Vol rate/Area] mL/min/{1.73_m2} Normal [facility] Comment on above: Performed By: #### P T, CMP, PTT, CBC ####[address] Creatinine [Mass/volume] in Serum or PlasmaOrdered By: Brandi Lopez on 04-24-2024 Creatinine [Mass/Vol] 0.82 mg/dL Normal 0.60-1.20 [facility] Comment on above: Performed By: #### P T, CMP, PTT, CBC ####[address] Erythrocyte distribution wid th [Ratio] by Automated countOrdered By: Brandi Lopez on 04-24-2024 Erythrocyte distribution width (RBC) [Ratio] 17.3 % High 11.9-15.3 [facility] Comment on above: Performed By: #### P T, CMP, PTT, CBC #### [address] Erythrocytes [#/volume] in B lood by Automated countOrdered By: Brandi Lopez on 04-24-2024 RBC (Bld) [#/Vol] 2.98 10*6/uL Low 3.60-5.00 [facility] Comment on above: Performed By: #### P T, CMP, PTT, CBC #### [address] Glucose [Mass/volume] in Ser um or PlasmaOrdered By: Brandi Lopez on 04-24-2024 Glucose [Mass/Vol] 147 mg/dL High 70-100 [facility] Comment on above: ADA recommended refe rence rangeRandom Glucose Reference Range is dependent on time and content of last meal. Glucose of more than 200 mg/dL in a nonstressed, ambulatory subject supports the diagnosis of Diabetes Mellitus. Result Comment: [place] om Glucose Reference Range is dependent on time and content of last meal. Glucose of more than 200 mg/dL in a nonstressed, ambulatory subject supports the diagnosis of Diabetes Mellitus. ADA recommended reference range Performed By: #### P T, CMP, PTT, CBC ####[facility] Hematocrit [Volume Fraction] of Blood by Automated countOrdered By: Brandi Lopez on 04-24-2024 Hematocrit (Bld) [Volume fraction] 28.1 % Low 34.0-46.4 [facility] Comment on above: Performed By: #### P T, CMP, PTT, CBC #### [facility] [address] Hemoglobin [Mass/volume] in BloodOrdered By: Brandi Lopez on 04-24-2024 Hemoglobin (Bld) [Mass/Vol] 9.6 g/dL Low 11.8-15.4 [facility] Comment on above: Performed By: #### P T, CMP, PTT, CBC #### [facility] [address] INR in Platelet poor plasma by Coagulation assayOrdered By: Brandi Lopez on 04-24-2024 INR Coag (PPP) [Relative time] 1.0 {INR} Normal [facility] Comment on above: INR Therapeutic Rang e [...] #### P T, CMP, PTT, CBC #### [address] Leukocytes [#/volume] correc medardo for nucleated erythrocytes in Blood by Automated counOrdered By: Brandi Lopez on 04-24-2024 WBC corrected for nucl RBC Auto (Bld) [#/Vol] 5.8 10*3/uL 3.8-11.6 [facility] Leukocytes [#/volume] in Blo od by Automated countOrdered By: Brandi Lopez on 04-24-2024 WBC (Bld) [#/Vol] 5.8 10*3/uL Normal 3.8-11.6 [facility] Comment on above: Performed By: #### P T, CMP, PTT, CBC #### [place] [address] [place] Lymphocytes [#/volume] in Bl ood by Automated countOrdered By: Brandi Lopez on 04-24-2024 Lymphocytes (Bld) [#/Vol] 1.2 10*3/uL Normal 1.00-4.8 [facility] Comment on above: Performed By: #### P T, CMP, PTT, CBC #### [place] [address] [place] Lymphocytes/100 leukocytes i n Blood by Automated countOrdered By: Brandi Lopez on 04-24-2024 Lymphocytes/100 WBC (Bld) 20.0 % Normal . [facility] Comment on above: Performed By: #### P T, CMP, PTT, CBC #### [place] [address] [place] MCH [Entitic mass] by Automa medardo countOrdered By: Brandi Lopez on 04-24-2024 MCH (RBC) [Entitic mass] 32.2 pg Normal 24.7-34.3 [facility] Comment on above: Performed By: #### P T, CMP, PTT, CBC #### [facility] [address] [place] [address] MCHC Auto (RBC) [Mass/Vol]Or dered By: Brandi Lopez on 04-24-2024 MCHC (RBC) [Mass/Vol] 34.2 g/dL 32.0-35.0 [facility] MCV [Entitic volume] by Auto mated countOrdered By: Brandi Lopez on 04-24-2024 MCV (RBC) [Entitic vol] 94.2 fL Normal 80-100 [facility] Comment on above: Performed By: #### P T, CMP, PTT, CBC #### [facility] [address] [place] [address] Neutrophils [#/volume] in Bl ood by Automated countOrdered By: Brandi Lopez on 04-24-2024 Neutrophils (Bld) [#/Vol] 3.7 10*3/uL Normal 1.8-7.7 [facility] Comment on above: Performed By: #### P T, CMP, PTT, CBC #### [facility] [address] [place] [address] No Panel InformationOrdered By: Brandi Lopez on 04-24-2024 Estimated GFR (CKD-EPI) > 60.0 mL/Min [facility] Creatinine Clearance (Chem 41.74 [facility] Nucleated erythrocytes [Pres ence] in Blood by Automated countOrdered By: Brandi Lopez on 04-24-2024 Nucleated RBC Auto Ql (Bld) 0.2 /100{WBC} 0-0.5 [facility] Partial Thromboplastin Timeo n 04-24-2024 aPTT Coag (Bld) [Time] 26.1 s Normal 25.1-36.5 [facility] Comment on above: Result Comment: A he matocrit value greater than 55% may lead to inaccurate results in coagulation testing. Patients having hematocrit values >55% require a special collection tube for coagulation studies. Please contact the laboratory at [phone] for redraw instructions. PERFORMED BY: [address] [place] [address] PATHOLOGIST [employer] JASEN DIAZ M.D. Performed By: #### P T, CMP, PTT, CBC ####[place] [id number] [address] Platelet mean volume [Entiti c volume] in Blood by Automated countOrdered By: Brandi Lopez on 04-24-2024 Platelet mean volume (Bld) [Entitic vol] 6.2 fL Low 6.3-10.7 [facility] Comment on above: Performed By: #### P T, CMP, PTT, CBC #### [facility] [address] [place] [address] Platelets [#/volume] in Bloo d by Automated countOrdered By: Brandi Lopez on 04-24-2024 Platelets (Bld) [#/Vol] 333 10*3/uL Normal 150-450 [facility] Comment on above: Performed By: #### P T, CMP, PTT, CBC #### [facility] [address] [place] [address] Potassium [Moles/volume] in Serum or PlasmaOrdered By: Brandi Lopez on 04-24-2024 Potassium [Moles/Vol] 3.5 mmol/L Normal 3.5-5.1 [facility] Comment on above: Performed By: #### P T, CMP, PTT, CBC ####[address] Protein [Mass/volume] in Ser um or PlasmaOrdered By: Brandi Lopez on 04-24-2024 Protein [Mass/Vol] 5.6 g/dL Low 6.4-8.9 [facility] Comment on above: Performed By: #### P T, CMP, PTT, CBC ####[place] [id number] [address] Prothrombin time (PT)Ordered By: Brandi Lopez on 04-24-2024 PT Coag (PPP) [Time] 11.8 s Normal 9.0-12.9 [facility] Comment on above: A hematocrit value g reater than 55% may lead to inaccurate results in coagulation testing. Patients having hematocrit values >55% require a special collection tube for coagulation studies. Please contact the laboratory at [phone] for redraw instructions. Result Comment: A he matocrit value greater than 55% may lead to inaccurate results in coagulation testing. Patients having hematocrit values >55% require a special collection tube for coagulation studies. Please contact the laboratory at [phone] for redraw instructions. Performed By: #### P T, CMP, PTT, CBC #### [facility] [address] Serum globulin measurement b y calculation (mass/volume)Ordered By: Brandi Lopez on 04-24-2024 Globulin (S) [Mass/Vol] 2.0 g/dL [facility] Comment on above: Performed By: #### P T, CMP, PTT, CBC ####[address] Serum or plasma albumin/glob ulin mass ratioOrdered By: Brandi Lopez on 04-24-2024 Albumin/Globulin [Mass ratio] 1.8 {ratio} [facility] Comment on above: Performed By: #### P T, CMP, PTT, CBC ####[address] Serum or plasma anion gap de terminationOrdered By: Brandi Lopez on 04-24-2024 Anion gap [Moles/Vol] 9.0 mmol/L Normal 6.0-15.0 [facility] Comment on above: Performed By: #### P T, CMP, PTT, CBC ####[address] Sodium [Moles/volume] in Ser um or PlasmaOrdered By: Brandi Lopez on 04-24-2024 Sodium [Moles/Vol] 138 mmol/L Normal 136-145 [facility] Comment on above: Performed By: #### P T, CMP, PTT, CBC ####[address] Urea nitrogen [Mass/volume] in Serum or PlasmaOrdered By: Brandi Lopez on 04-24-2024 Urea nitrogen [Mass/Vol] 15 mg/dL Normal 7-25 [facility] Comment on above: Performed By: #### P T, CMP, PTT, CBC ####[facility] [address] [place] [address] [facility] Basophils Auto (Bld) [#/Vol] on 04-20-2024 Basophils (Bld) [#/Vol] 0.1 10 3/uL 0.0-0.1 [facility] Basophils/100 WBC Auto (Bld) on 04-20-2024 Basophils/100 WBC (Bld) 0.9 % 0.2-2.0 [facility] Eosinophils/100 WBC Auto (Bl d)on 04-20-2024 Eosinophils/100 WBC (Bld) 5.0 % 0.9-7.0 [facility] Erythrocyte distribution wid th Auto (RBC) [Ratio]on 04-20-2024 Erythrocyte distribution width (RBC) [Ratio] 15.8 % High 11.0-15.0 [facility] Estimated glomerular filtrat ion rate (GFR) non- Americanon 04-20-2024 GFR/1.73 sq M.predicted among non-blacks MDRD (S/P/Bld) [Vol rate/Area] mL/min/{1.73_m2} >=60 [facility] Hematocrit Auto (Bld) [Volum e fraction]on 04-20-2024 Hematocrit (Bld) [Volume fraction] 31.1 % Low 36.0-48.0 [facility] Hemoglobin [Mass/volume] in Bloodon 04-20-2024 Hemoglobin (Bld) [Mass/Vol] 10.0 g/dL Low 12.0-16.0 [facility] Laboratory - Chemistry and C hemistry - challengeon 04-20-2024 Calcium [Mass/Vol] 9.0 mg/dL 8.5-10.1 [facility] Chloride [Moles/Vol] 102 mmol/L 98-107 [facility] CO2 [Moles/Vol] 32.9 mmol/L High 21.0-32.0 [facility] Creatinine [Mass/Vol] 0.83 mg/dL 0.55-1.02 [facility] GFR/1.73 sq M.predicted MDRD (S/P/Bld) [Vol rate/Area] mL/min/{1.73_m2} >=60 [facility] Glucose [Mass/Vol] 204 mg/dL High 74-106 [facility] Potassium [Moles/Vol] 3.8 mmol/L 3.5-5.1 [facility] Sodium [Moles/Vol] 140 mmol/L 136-145 [facility] Urea nitrogen [Mass/Vol] 12.0 mg/dL 7.0-18.0 [facility] Urea nitrogen/Creatinine [Mass ratio] 14.5 mg/mg [facility] Laboratory - Hematology and Cell countson 04-20-2024 Immature granulocytes/100 WBC (Bld) 0.2 % 0.0-0.5 [facility] Leukocytes [#/volume] correc medardo for nucleated erythrocytes in Blood by Automated counon 04-20-2024 WBC corrected for nucl RBC Auto (Bld) [#/Vol] 6.3 10 3/uL 4.0-11.0 [facility] Lymphocytes Auto (Bld) [#/Vo l]on 04-20-2024 Lymphocytes (Bld) [#/Vol] 1.1 10 3/uL Low 1.2-3.8 [facility] Lymphocytes/100 WBC Auto (Bl d)on 04-20-2024 Lymphocytes/100 WBC (Bld) 17.5 % Low 20.5-60.0 [facility] MCH Auto (RBC) [Entitic mass ]on 04-20-2024 MCH (RBC) [Entitic mass] 31.0 pg 26.7-34.0 [facility] MCHC Auto (RBC) [Mass/Vol]on 04-20-2024 MCHC (RBC) [Mass/Vol] 32.2 g/dL 29.9-35.2 [facility] MCV Auto (RBC) [Entitic vol] on 04-20-2024 MCV (RBC) [Entitic vol] 96.3 fL 81.0-99.0 [facility] Monocytes Auto (Bld) [#/Vol] on 04-20-2024 Monocytes (Bld) [#/Vol] 0.4 10 3/uL 0.3-0.8 [facility] Monocytes/100 WBC Auto (Bld) on 04-20-2024 Monocytes/100 WBC (Bld) 6.9 % 1.7-12.0 [facility] Neutrophils Auto (Bld) [#/Vo l]on 04-20-2024 Neutrophils (Bld) [#/Vol] 4.4 10 3/uL 1.4-6.5 [facility] Neutrophils/100 WBC Auto (Bl d)on 04-20-2024 Neutrophils/100 WBC (Bld) 69.5 % 43.0-75.0 [facility] No Panel Informationon 04-20 Eosinophils # (Auto) 0.3 10 3/uL 0.0-0.7 [facility] Immature Granulocyte # (Auto) 0.01 10 3/uL 0.00-0.03 [facility] Platelet mean volume Auto (B ld) [Entitic vol]on 04-20-2024 Platelet mean volume (Bld) [Entitic vol] 9.0 fL Low 9.5-13.5 [facility] Platelets Auto (Bld) [#/Vol] on 04-20-2024 Platelets (Bld) [#/Vol] 307 10 3/uL 150-450 [facility] RBC Auto (Bld) [#/Vol]on RBC (Bld) [#/Vol] 3.23 10 6/uL Low 4.20-5.40 [facility] Serum or plasma anion gap de terminationon 04-20-2024 Anion gap [Moles/Vol] 8.9 mmol/L [facility] Basophils Auto (Bld) [#/Vol] on 04-08-2024 Basophils (Bld) [#/Vol] 0.1 10 3/uL 0.0-0.1 [facility] Basophils/100 WBC Auto (Bld) on 04-08-2024 Basophils/100 WBC (Bld) 0.6 % 0.2-2.0 [facility] Eosinophils/100 WBC Auto (Bl d)on 04-08-2024 Eosinophils/100 WBC (Bld) 2.0 % 0.9-7.0 [facility] Erythrocyte distribution wid th Auto (RBC) [Ratio]on 04-08-2024 Erythrocyte distribution width (RBC) [Ratio] 14.9 % 11.0-15.0 [facility] Estimated glomerular filtrat ion rate (GFR) non- Americanon 04-08-2024 GFR/1.73 sq M.predicted among non-blacks MDRD (S/P/Bld) [Vol rate/Area] 54 mL/min/{1.73_m2} Low >=60 [facility] Globulin Calc (S) [Mass/Vol] on 04-08-2024 Globulin (S) [Mass/Vol] 3.3 g/dL [facility] Hematocrit Auto (Bld) [Volum e fraction]on 04-08-2024 Hematocrit (Bld) [Volume fraction] 33.8 % Low 36.0-48.0 [facility] Hemoglobin [Mass/volume] in Bloodon 04-08-2024 Hemoglobin (Bld) [Mass/Vol] 11.1 g/dL Low 12.0-16.0 [facility] Laboratory - Chemistry and C hemistry - challengeon 04-08-2024 Albumin [Mass/Vol] 3.1 g/dL Low 3.4-5.0 [facility] ALP [Catalytic activity/Vol] 96 U/L 46-116 [facility] ALT [Catalytic activity/Vol] 17 U/L 14-59 [facility] AST [Catalytic activity/Vol] 17 U/L 15-37 [facility] Bilirubin [Mass/Vol] 0.5 mg/dL 0.2-1.0 [facility] Calcium [Mass/Vol] 9.5 mg/dL 8.5-10.1 [facility] Chloride [Moles/Vol] 100 mmol/L 98-107 [facility] CO2 [Moles/Vol] 33.7 mmol/L High 21.0-32.0 [facility] Creatinine [Mass/Vol] 0.97 mg/dL 0.55-1.02 [facility] GFR/1.73 sq M.predicted MDRD (S/P/Bld) [Vol rate/Area] mL/min/{1.73_m2} >=60 [facility] Glucose [Mass/Vol] 156 mg/dL High 74-106 [facility] Potassium [Moles/Vol] 3.7 mmol/L 3.5-5.1 [facility] Protein [Mass/Vol] 6.4 g/dL 6.4-8.2 [facility] Sodium [Moles/Vol] 138 mmol/L 136-145 [facility] Urea nitrogen [Mass/Vol] 14.0 mg/dL 7.0-18.0 [facility] Urea nitrogen/Creatinine [Mass ratio] 14.4 mg/mg [facility] Laboratory - Hematology and Cell countson 04-08-2024 Immature granulocytes/100 WBC (Bld) 0.4 % 0.0-0.5 [facility] Leukocytes [#/volume] correc medardo for nucleated erythrocytes in Blood by Automated counon 04-08-2024 WBC corrected for nucl RBC Auto (Bld) [#/Vol] 9.3 10 3/uL 4.0-11.0 [facility] Lymphocytes Auto (Bld) [#/Vo l]on 04-08-2024 Lymphocytes (Bld) [#/Vol] 1.7 10 3/uL 1.2-3.8 [facility] Lymphocytes/100 WBC Auto (Bl d)on 04-08-2024 Lymphocytes/100 WBC (Bld) 18.0 % Low 20.5-60.0 [facility] MCH Auto (RBC) [Entitic mass ]on 04-08-2024 MCH (RBC) [Entitic mass] 31.5 pg 26.7-34.0 [facility] MCHC Auto (RBC) [Mass/Vol]on 04-08-2024 MCHC (RBC) [Mass/Vol] 32.8 g/dL 29.9-35.2 [facility] MCV Auto (RBC) [Entitic vol] on 04-08-2024 MCV (RBC) [Entitic vol] 96.0 fL 81.0-99.0 [facility] Monocytes Auto (Bld) [#/Vol] on 04-08-2024 Monocytes (Bld) [#/Vol] 0.6 10 3/uL 0.3-0.8 [facility] Monocytes/100 WBC Auto (Bld) on 04-08-2024 Monocytes/100 WBC (Bld) 6.7 % 1.7-12.0 [facility] Neutrophils Auto (Bld) [#/Vo l]on 04-08-2024 Neutrophils (Bld) [#/Vol] 6.7 10 3/uL High 1.4-6.5 [facility] Neutrophils/100 WBC Auto (Bl d)on 04-08-2024 Neutrophils/100 WBC (Bld) 72.3 % 43.0-75.0 [facility] No Panel Informationon 04-08 Eosinophils # (Auto) 0.2 10 3/uL 0.0-0.7 [facility] Immature Granulocyte # (Auto) 0.04 10 3/uL High 0.00-0.03 [facility] Platelet mean volume Auto (B ld) [Entitic vol]on 04-08-2024 Platelet mean volume (Bld) [Entitic vol] 9.0 fL Low 9.5-13.5 [facility] [facility] Platelets Auto (Bld) [#/Vol] on 04-08-2024 Platelets (Bld) [#/Vol] 457 10 3/uL High 150-450 [facility] RBC Auto (Bld) [#/Vol]on RBC (Bld) [#/Vol] 3.52 10 6/uL Low 4.20-5.40 [facility] Serum or plasma albumin/glob ulin mass ratioon 04-08-2024 Albumin/Globulin [Mass ratio] 0.9 {ratio} [facility] Serum or plasma anion gap de terminationon 04-08-2024 Anion gap [Moles/Vol] 8.0 mmol/L [facility] Basophils/100 WBC Manual cnt (Bld)on 03-20-2024 Basophils/100 WBC (Bld) 0.0 % Low 0.2-2.0 [facility] Eosinophils/100 WBC Manual c nt (Bld)on 03-20-2024 Eosinophils/100 WBC (Bld) 0.0 % Low 0.9-7.0 [facility] Erythrocyte distribution wid th Auto (RBC) [Ratio]on 03-20-2024 Erythrocyte distribution width (RBC) [Ratio] 14.2 % 11.0-15.0 [facility] Estimated glomerular filtrat ion rate (GFR) non- Americanon 03-20-2024 GFR/1.73 sq M.predicted among non-blacks MDRD (S/P/Bld) [Vol rate/Area] 39 mL/min/{1.73_m2} Low >=60 [facility] Globulin Calc (S) [Mass/Vol] on 03-20-2024 Globulin (S) [Mass/Vol] 3.3 g/dL [facility] Hematocrit Auto (Bld) [Volum e fraction]on 03-20-2024 Hematocrit (Bld) [Volume fraction] 33.4 % Low 36.0-48.0 [facility] Hemoglobin [Mass/volume] in Bloodon 03-20-2024 Hemoglobin (Bld) [Mass/Vol] 11.2 g/dL Low 12.0-16.0 [facility] Laboratory - Chemistry and C hemistry - challengeon 03-20-2024 Albumin [Mass/Vol] 3.0 g/dL Low 3.4-5.0 [facility] ALP [Catalytic activity/Vol] 70 U/L 46-116 [facility] ALT [Catalytic activity/Vol] 19 U/L 14-59 [facility] AST [Catalytic activity/Vol] 21 U/L 15-37 [facility] Bilirubin [Mass/Vol] 0.3 mg/dL 0.2-1.0 [facility] Calcium [Mass/Vol] 9.3 mg/dL 8.5-10.1 [facility] Chloride [Moles/Vol] 100 mmol/L 98-107 [facility] CO2 [Moles/Vol] 29.0 mmol/L 21.0-32.0 [facility] Creatinine [Mass/Vol] 1.28 mg/dL High 0.55-1.02 [facility] GFR/1.73 sq M.predicted MDRD (S/P/Bld) [Vol rate/Area] 48 mL/min/{1.73_m2} Low >=60 [facility] Glucose [Mass/Vol] 166 mg/dL High 74-106 [facility] Potassium [Moles/Vol] 3.3 mmol/L Low 3.5-5.1 [facility] Protein [Mass/Vol] 6.3 g/dL Low 6.4-8.2 [facility] Sodium [Moles/Vol] 138 mmol/L 136-145 [facility] Urea nitrogen [Mass/Vol] 29.0 mg/dL High 7.0-18.0 [facility] Urea nitrogen/Creatinine [Mass ratio] 22.7 mg/mg [facility] Laboratory - Hematology and Cell countson 03-20-2024 Lymphocytes/100 WBC (Bld) 8.0 % Low 20.5-60.0 [facility] Monocytes/100 WBC (Bld) 6.0 % 1.7-12.0 [facility] Leukocytes [#/volume] correc medardo for nucleated erythrocytes in Blood by Automated counon 03-20-2024 WBC corrected for nucl RBC Auto (Bld) [#/Vol] 22.5 10 3/uL High 4.0-11.0 [facility] MCH Auto (RBC) [Entitic mass ]on 03-20-2024 MCH (RBC) [Entitic mass] 32.5 pg 26.7-34.0 [facility] MCHC Auto (RBC) [Mass/Vol]on 03-20-2024 MCHC (RBC) [Mass/Vol] 33.5 g/dL 29.9-35.2 [facility] MCV Auto (RBC) [Entitic vol] on 03-20-2024 MCV (RBC) [Entitic vol] 96.8 fL 81.0-99.0 [facility] No Panel Informationon 03-20 Absolute Basophils (Manual) 0.00 10 3/uL 0.00-0.10 [facility] Eosinophils # (Manual) 0.00 10 3/uL 0.00-0.70 [facility] Lymphocytes # (Manual) 1.80 10 3/uL 1.20-3.80 [facility] Monocytes # (Manual) 1.35 10 3/uL High 0.30-0.80 [facility] Segmented Neutrophils # (Manual) 19.35 10 3/uL High 1.4-6.5 [facility] Platelet mean volume Auto (B ld) [Entitic vol]on 03-20-2024 Platelet mean volume (Bld) [Entitic vol] 9.0 fL Low 9.5-13.5 [facility] Platelets Auto (Bld) [#/Vol] on 03-20-2024 Platelets (Bld) [#/Vol] 477 10 3/uL High 150-450 [facility] RBC Auto (Bld) [#/Vol]on RBC (Bld) [#/Vol] 3.45 10 6/uL Low 4.20-5.40 [facility] Segmented neutrophils/100 WB C Manual cnt (Bld)on 03-20-2024 Segmented neutrophils/100 WBC (Bld) 86.0 % [facility] Serum or plasma albumin/glob ulin mass ratioon 03-20-2024 Albumin/Globulin [Mass ratio] 0.9 {ratio} [facility] Serum or plasma anion gap de terminationon 03-20-2024 Anion gap [Moles/Vol] 12.3 mmol/L [facility] Whole blood hypersegmented n eutrophils detection by light microscopyon 03-20-2024 Neutrophils.hypersegme nted LM Ql (Bld) 3+ [facility] Basophils Auto (Bld) [#/Vol] on 03-19-2024 Basophils (Bld) [#/Vol] 0.0 10 3/uL 0.0-0.1 [facility] Basophils/100 WBC Auto (Bld) on 03-19-2024 Basophils/100 WBC (Bld) 0.1 % Low 0.2-2.0 [facility] Determination of appearance of body fluidon 03-19-2024 Appearance (Body fld) Hazy Abnormal [facility] Eosinophils/100 WBC Auto (Bl d)on 03-19-2024 Eosinophils/100 WBC (Bld) 0.0 % Low 0.9-7.0 [facility] Erythrocyte distribution wid th Auto (RBC) [Ratio]on 03-19-2024 Erythrocyte distribution width (RBC) [Ratio] 14.0 % 11.0-15.0 [facility] Estimated glomerular filtrat ion rate (GFR) non- Americanon 03-19-2024 GFR/1.73 sq M.predicted among non-blacks MDRD (S/P/Bld) [Vol rate/Area] 52 mL/min/{1.73_m2} Low >=60 [facility] Evaluation of color of body fluidon 03-19-2024 Color (Body fld) Straw . [facility] Comment on above: Colorless to Pale Ye llow/StrawDifferential to be reviewed by pathologist; report tofollow. Globulin Calc (S) [Mass/Vol] on 03-19-2024 Globulin (S) [Mass/Vol] 3.8 g/dL [facility] Hematocrit Auto (Bld) [Volum e fraction]on 03-19-2024 Hematocrit (Bld) [Volume fraction] 35.1 % Low 36.0-48.0 [facility] Hemoglobin [Mass/volume] in Bloodon 03-19-2024 Hemoglobin (Bld) [Mass/Vol] 11.7 g/dL Low 12.0-16.0 [facility] Jr 03-19-2024 L Specimen: BC Received: 03/23/24 Status: SOUT Req Num: [id number] Spec Type: Cytology Subm Dr: Tab Wang MD Tissues: A PLEURAL FLUID (RT PLEURAL EFF) Procedures: Mucicarmine, CD45, HE/2, Gross/Micro L4, CALRETININ, CAM5.2, CK20, CK 7, ER, OR, Cyto Prepstain, GATA3, PAPSTN Age/ Patient Sex Location Account Attending Physician Yolanda Fairbanks/F LABELL [id number] Tab Wang MD SPEC NUM: [id number] RECD: 03/23/24 STATUS: SOUT REQ NUM: [id number] JOSE DAVID: 03/19/24 DR: Tab Wang MD ENTERED: 03/23/[address] [facility] [address]: Da,Lab SPEC TYPE: Cytology DEPT: [facility] ENTERED BY: [id number] RECV BY: [id number] ORDERED: Mucicarmine, CD45, HE/2, Gross/Micro L4, CALRETININ, CAM5.2, CK20, CK 7, ER, OR, Cyto Prepstain, GATA3, PAPSTN ORDERED: Mucicarmine, CD45, HE/2, Gross/Micro L4, CALRETININ, CAM5.2, CK20, CK 7, ER, OR, Cyto Prepstain, GATA3, PAPSTN Pathological Diagnosis Right thoracocentesis fluid, cytology: -Positive for metastatic carcinoma of the breast -The tumor cells positive for CAM 5.2, CK7, and GATA3; and are negative for calretinin, CK20, and CD45, supporting the above interpretation -The tumor cells are possibly positive for ER at 1-2% -The tumor cells are negative for OR -Immuno controls are appropriate -The mucicarmine stain [...] [id number] Received: 03/23/24 Status: JASON Neely Num: [id number] Spec Type: Cytology Subm Dr: Tab Wang MD Tissues: A PLEURAL FLUID (RT PLEURAL EFF) Procedures: Mucicarmine, CD45, HE/2, Gross/Micro L4, CALRETININ, CAM5.2, CK20, CK 7, ER, OR, Cyto Prepstain, GATA3, PAPSTN Patient: Yolanda Fairbanks [id number] (Continued) Specimen: [id number] Received: 03/23/24 (Continued) Signed (signature on file) Michelle Valentine MD 03/25/24 1648 Specimen: [id number] Received: 03/23/244026 Status: JASON Neely Num: [id number] Spec Type: Cytology Subm Dr: Tab Wang MD Tissues: A PLEURAL FLUID (RT PLEURAL EFF) Procedures: Mucicarmine, CD45, HE/2, Gross/Micro L4, CALRETININ, CAM5.2, CK20, CK 7, ER, OR, Cyto Prepstain, GATA3, PAPSTN Patient: Yolanda Fairbanks [id number] (Continued) Specimen: [id number] Received: 03/23/24 (Continued) Gross Description Received fresh labeled with the patient's name, date of and Rt pleural fluid per requisition is 1000 ml red/orange cloudy mucinous unfixed fluid 1 Thin Prep slides are prepared. 1 cell blocks are prepared. (CC/la) CPT Codes 45930 [id number] x 5 [phone] x 2 [phone] Specimen: [id number] Received: 03/23/24 Status: JASON Neely Num: [id number] Spec Type: Cytology Subm Dr: Tab Wang MD Tissues: A PLEURAL FLUID (RT PLEURAL EFF) Procedures: Mucicarmine, CD45, HE/2, Gross/Micro L4, CALRETININ, CAM5.2, CK20, CK 7, ER, OR, Cyto Prepstain, GATA3, PAPSTN Patient: Yolanda Fairbanks [id number] (Continued) Signed (signature on file) Chin-Andres Valentine MD 03/25/24 3167 Normal [facility] Laboratory - Chemistry and C hemistry - challengeon 03-19-2024 Albumin [Mass/Vol] 3.1 g/dL Low 3.4-5.0 [facility] ALP [Catalytic activity/Vol] 74 U/L 46-116 [facility] ALT [Catalytic activity/Vol] 18 U/L 14-59 [facility] AST [Catalytic activity/Vol] 16 U/L 15-37 [facility] Bilirubin [Mass/Vol] 0.4 mg/dL 0.2-1.0 [facility] Calcium [Mass/Vol] 9.6 mg/dL 8.5-10.1 [facility] Chloride [Moles/Vol] 97 mmol/L Low 98-107 [facility] CO2 [Moles/Vol] 28.5 mmol/L 21.0-32.0 [facility] Creatinine [Mass/Vol] 1.00 mg/dL 0.55-1.02 [facility] GFR/1.73 sq M.predicted MDRD (S/P/Bld) [Vol rate/Area] mL/min/{1.73_m2} >=60 [facility] Glucose [Mass/Vol] 188 mg/dL High 74-106 [facility] Potassium [Moles/Vol] 3.0 mmol/L Low 3.5-5.1 [facility] Protein [Mass/Vol] 6.9 g/dL 6.4-8.2 [facility] Sodium [Moles/Vol] 136 mmol/L 136-145 [facility] Urea nitrogen [Mass/Vol] 24.0 mg/dL High 7.0-18.0 [facility] Urea nitrogen/Creatinine [Mass ratio] 24.0 mg/mg [facility] Laboratory - Hematology and Cell countson 03-19-2024 Immature granulocytes/100 WBC (Bld) 0.4 % 0.0-0.5 [facility] Laboratory - Microbiology an d Antimicrobial susceptibilityOrdered By: Shaikh Camilla on 03-19-2024 Microscopic observation Gram stain Nom (Unsp spec) [facility] Leukocytes [#/volume] correc medardo for nucleated erythrocytes in Blood by Automated counon 03-19-2024 WBC corrected for nucl RBC Auto (Bld) [#/Vol] 11.2 10 3/uL High 4.0-11.0 [facility] Lymphocytes Auto (Bld) [#/Vo l]on 03-19-2024 Lymphocytes (Bld) [#/Vol] 1.0 10 3/uL Low 1.2-3.8 [facility] Lymphocytes/100 WBC Auto (Bl d)on 03-19-2024 Lymphocytes/100 WBC (Bld) 9.1 % Low 20.5-60.0 [facility] MCH Auto (RBC) [Entitic mass ]on 03-19-2024 MCH (RBC) [Entitic mass] 32.5 pg 26.7-34.0 [facility] MCHC Auto (RBC) [Mass/Vol]on 03-19-2024 MCHC (RBC) [Mass/Vol] 33.3 g/dL 29.9-35.2 [facility] MCV Auto (RBC) [Entitic vol] on 03-19-2024 MCV (RBC) [Entitic vol] 97.5 fL 81.0-99.0 [facility] Manual body fluid eosinophil s/100 leukocyteson 03-19-2024 Eosinophils/100 WBC Manual cnt (Body fld) 0 % Not Estab. [facility] Manual body fluid lymphocyte s/100 leukocyteson 03-19-2024 Lymphocytes/100 WBC Manual cnt (Body fld) 11 % Not Estab. [facility] Monocytes Auto (Bld) [#/Vol] on 03-19-2024 Monocytes (Bld) [#/Vol] 0.7 10 3/uL 0.3-0.8 [facility] Monocytes/100 WBC Auto (Bld) on 03-19-2024 Monocytes/100 WBC (Bld) 6.3 % 1.7-12.0 [facility] Neutrophils Auto (Bld) [#/Vo l]on 03-19-2024 Neutrophils (Bld) [#/Vol] 9.5 10 3/uL High 1.4-6.5 [facility] Neutrophils/100 WBC Auto (Bl d)on 03-19-2024 Neutrophils/100 WBC (Bld) 84.1 % High 43.0-75.0 [facility] Neutrophils/100 WBC Manual c nt (Body fld)on 03-19-2024 Neutrophils/100 WBC (Body fld) 4 % 0-24 [facility] No Panel Informationon 03-19 Body Fluid Comment TNP . [facility] Body Fluid Glucose 133 mg/dL . [facility] Comment on above: : BODY FLUID TYPE [...] 2007. Ninth edition (V9.1) [employer], [facility]; [place]: May 2009. Body Fluid Lactate Dehydrogenase 685 IU/L . [facility] Comment on above: : BODY FLUID [...] 2008. Ninth Edition (V9.1) [employer], [facility]; [place]: May 2009.Performed at: [facility] - [facility] [address] [id number] Director: Oracio Ramirez PhD, Phone: [phone] Body Fluid Lining Cell 67 % Not Estab. [facility] Comment on above: Performed at: [facility] - [facility] [address] [id number] Director: Oracio Ramirez PhD, Phone: [phone] Body Fluid Macrophages (%) 16 % Not Estab. [facility] Body Fluid RBC 6000 /uL Not Estab. [facility] Body Fluid Total Nucleated Cells 7000 /mm3 Abnormal 0-499 [facility] Comment on above: Pleural Fluid, with <1000 Nucleated cells/uL has beenassociated with transudates while >1000 uL may be seenin exudates. Body Fluid Total Protein 4.4 g/dL . [facility] Comment on above: : BODY FLUID [...] 2007. Ninth Edition (V9.1) [employer], [facility]; [place]: May 2009. Eosinophils # (Auto) 0.0 10 3/uL 0.0-0.7 [facility] Immature Granulocyte # (Auto) 0.04 10 3/uL High 0.00-0.03 [facility] Platelet mean volume Auto (B ld) [Entitic vol]on 03-19-2024 Platelet mean volume (Bld) [Entitic vol] 9.4 fL Low 9.5-13.5 [facility] Platelets Auto (Bld) [#/Vol] on 03-19-2024 Platelets (Bld) [#/Vol] 501 10 3/uL High 150-450 [facility] RBC Auto (Bld) [#/Vol]on RBC (Bld) [#/Vol] 3.60 10 6/uL Low 4.20-5.40 [facility] Serum or plasma albumin/glob ulin mass ratioon 03-19-2024 Albumin/Globulin [Mass ratio] 0.8 {ratio} [facility] Serum or plasma anion gap de terminationon 03-19-2024 Anion gap [Moles/Vol] 13.5 mmol/L [facility] Basophils Auto (Bld) [#/Vol] on 03-18-2024 Basophils (Bld) [#/Vol] 0.1 10 3/uL 0.0-0.1 [facility] Basophils/100 WBC Auto (Bld) on 03-18-2024 Basophils/100 WBC (Bld) 0.4 % 0.2-2.0 [facility] Eosinophils/100 WBC Auto (Bl d)on 03-18-2024 Eosinophils/100 WBC (Bld) 1.0 % 0.9-7.0 [facility] Erythrocyte distribution wid th Auto (RBC) [Ratio]on 03-18-2024 Erythrocyte distribution width (RBC) [Ratio] 14.6 % 11.0-15.0 [facility] Estimated glomerular filtrat ion rate (GFR) non- Americanon 03-18-2024 GFR/1.73 sq M.predicted among non-blacks MDRD (S/P/Bld) [Vol rate/Area] 47 mL/min/{1.73_m2} Low >=60 [facility] Globulin Calc (S) [Mass/Vol] on 03-18-2024 Globulin (S) [Mass/Vol] 3.8 g/dL [facility] Hematocrit Auto (Bld) [Volum e fraction]on 03-18-2024 Hematocrit (Bld) [Volume fraction] 35.2 % Low 36.0-48.0 [facility] Hemoglobin [Mass/volume] in Bloodon 03-18-2024 Hemoglobin (Bld) [Mass/Vol] 11.6 g/dL Low 12.0-16.0 [facility] Laboratory - Chemistry and C hemistry - challengeon 03-18-2024 Albumin [Mass/Vol] 3.2 g/dL Low 3.4-5.0 [facility] ALP [Catalytic activity/Vol] 81 U/L 46-116 [facility] ALT [Catalytic activity/Vol] 16 U/L 14-59 [facility] AST [Catalytic activity/Vol] 20 U/L 15-37 [facility] Bilirubin [Mass/Vol] 0.5 mg/dL 0.2-1.0 [facility] Calcium [Mass/Vol] 9.7 mg/dL 8.5-10.1 [facility] Chloride [Moles/Vol] 99 mmol/L 98-107 [facility] CO2 [Moles/Vol] 25.1 mmol/L 21.0-32.0 [facility] Creatinine [Mass/Vol] 1.10 mg/dL High 0.55-1.02 [facility] GFR/1.73 sq M.predicted MDRD (S/P/Bld) [Vol rate/Area] 57 mL/min/{1.73_m2} Low >=60 [facility] Glucose [Mass/Vol] 182 mg/dL High 74-106 [facility] Lactate [Moles/Vol] 1.8 mmol/L 0.4-2.0 [facility] LDH [Catalytic activity/Vol] 192 U/L 81-234 [facility] Natriuretic peptide B (Bld) [Mass/Vol] 298.0 pg/mL <=1800.0 [facility] Potassium [Moles/Vol] 3.5 mmol/L 3.5-5.1 [facility] Protein [Mass/Vol] 7.0 g/dL 6.4-8.2 [facility] Sodium [Moles/Vol] 135 mmol/L Low 136-145 [facility] Urea nitrogen [Mass/Vol] 25.0 mg/dL High 7.0-18.0 [facility] Urea nitrogen/Creatinine [Mass ratio] 22.7 mg/mg [facility] HCO3 (Bld) [Moles/Vol] 25.6 mmol/L 22.0-26.0 [facility] Laboratory - Hematology and Cell countson 03-18-2024 Immature granulocytes/100 WBC (Bld) 0.3 % 0.0-0.5 [facility] Leukocytes [#/volume] correc medardo for nucleated erythrocytes in Blood by Automated counon 03-18-2024 WBC corrected for nucl RBC Auto (Bld) [#/Vol] 12.6 10 3/uL High 4.0-11.0 [facility] Lymphocytes Auto (Bld) [#/Vo l]on 03-18-2024 Lymphocytes (Bld) [#/Vol] 1.3 10 3/uL 1.2-3.8 [facility] Lymphocytes/100 WBC Auto (Bl d)on 03-18-2024 Lymphocytes/100 WBC (Bld) 10.5 % Low 20.5-60.0 [facility] MCH Auto (RBC) [Entitic mass ]on 03-18-2024 MCH (RBC) [Entitic mass] 33.0 pg 26.7-34.0 [facility] MCHC Auto (RBC) [Mass/Vol]on 03-18-2024 MCHC (RBC) [Mass/Vol] 33.0 g/dL 29.9-35.2 [facility] MCV Auto (RBC) [Entitic vol] on 03-18-2024 MCV (RBC) [Entitic vol] 100.0 fL High 81.0-99.0 [facility] Monocytes Auto (Bld) [#/Vol] on 03-18-2024 Monocytes (Bld) [#/Vol] 1.1 10 3/uL High 0.3-0.8 [facility] Monocytes/100 WBC Auto (Bld) on 03-18-2024 Monocytes/100 WBC (Bld) 9.0 % 1.7-12.0 [facility] Neutrophils Auto (Bld) [#/Vo l]on 03-18-2024 Neutrophils (Bld) [#/Vol] 9.9 10 3/uL High 1.4-6.5 [facility] Neutrophils/100 WBC Auto (Bl d)on 03-18-2024 Neutrophils/100 WBC (Bld) 78.8 % High 43.0-75.0 [facility] No Panel InformationOrdered By: Hanh Kuhn on 03-18-2024 Blood Culture 2 [facility] Blood Culture 1 [facility] No Panel Informationon 03-18 Eosinophils # (Auto) 0.1 10 3/uL 0.0-0.7 [facility] Immature Granulocyte # (Auto) 0.04 10 3/uL High 0.00-0.03 [facility] Troponin I High Sensitivity 11.2 pg/mL 4.0-51.3 [facility] Comment on above: CUT-OFF POINTS HAVE [...] INFORMATION. Vicente Test Positive POSITIVE [facility] Arterial Blood Base Excess -0.3 mmol/L <2.0-2.0 [facility] Arterial Blood Oxygen Saturation 94.1 % [facility] Arterial Blood Partial Pressure CO2 48.5 mm[Hg] High 35.0-45.0 [facility] Arterial Blood Partial Pressure O2 72.8 mm[Hg] Low 80.0-100.0 [facility] Arterial Blood pH 7.331 Low 7.350-7.45 0 [facility] Blood Gas Liter Flow 2 [facility] Blood Gas Sample Site R RADIAL [facility] Oxygen Delivery Device N/C [facility] Platelet mean volume Auto (B ld) [Entitic vol]on 03-18-2024 Platelet mean volume (Bld) [Entitic vol] 9.1 fL Low 9.5-13.5 [facility] Platelets Auto (Bld) [#/Vol] on 03-18-2024 Platelets (Bld) [#/Vol] 453 10 3/uL High 150-450 [facility] RBC Auto (Bld) [#/Vol]on RBC (Bld) [#/Vol] 3.52 10 6/uL Low 4.20-5.40 [facility] Serum or plasma albumin/glob ulin mass ratioon 03-18-2024 Albumin/Globulin [Mass ratio] 0.8 {ratio} [facility] Serum or plasma anion gap de terminationon 03-18-2024 Anion gap [Moles/Vol] 14.4 mmol/L Fi [facility] Alanine aminotransferase [En zymatic activity/volume] in Serum or PlasmaOrdered By: Brandi Lopez on 09-03-2023 ALT [Catalytic activity/Vol] 10 U/L 7-52 [facility] Albumin [Mass/volume] in Ser um or Plasma by Bromocresol green (BCG) dye binding methoOrdered By: Brandi Lopez on 09-03-2023 Albumin BCG dye [Mass/Vol] 4.1 g/dL 3.5-5.7 [facility] Alkaline phosphatase [Enzyma tic activity/volume] in Serum or PlasmaOrdered By: Brandi Lopez on 09-03-2023 ALP [Catalytic activity/Vol] 44 U/L 34-104 [facility] Aspartate aminotransferase [ Enzymatic activity/volume] in Serum or PlasmaOrdered By: Brandi Lopez on 09-03-2023 AST [Catalytic activity/Vol] 10 U/L 13-39 [facility] Basophils Auto (Bld) [#/Vol] Ordered By: Brandi Lopez on 09-03-2023 Basophils (Bld) [#/Vol] 0.0 10*3/uL 0.0-0.2 [facility] Basophils/100 WBC Auto (Bld) Ordered By: Brandi Lopez on 09-03-2023 Basophils/100 WBC (Bld) 1.4 % . [facility] Bilirubin.total [Mass/volume ] in Serum or PlasmaOrdered By: Brandi Lopez on 09-03-2023 Bilirubin [Mass/Vol] 0.9 mg/dL 0.3-1.0 [facility] Calcium [Mass/volume] in Ser um or PlasmaOrdered By: Brandi Lopez on 09-03-2023 Calcium [Mass/Vol] 9.8 mg/dL 8.6-10.3 [facility] Carbon dioxide, total [Moles /volume] in Serum or PlasmaOrdered By: Brandi Lopez on 09-03-2023 CO2 [Moles/Vol] 32.2 mmol/L 21.0-31.0 [facility] Chloride [Moles/volume] in S rakan or PlasmaOrdered By: Brandi Lopez on 09-03-2023 Chloride [Moles/Vol] 103 mmol/L 98-107 [facility] Creatinine [Mass/volume] in Serum or PlasmaOrdered By: Brandi Lopez on 09-03-2023 Creatinine [Mass/Vol] 1.13 mg/dL 0.60-1.20 [facility] Eosinophils Auto (Bld) [#/Vo l]Ordered By: Brandi Lopez on 09-03-2023 Eosinophils (Bld) [#/Vol] 0.0 10*3/uL 0.0-0.45 [facility] Eosinophils/100 WBC Auto (Bl d)Ordered By: Brandi Lopez on 09-03-2023 Eosinophils/100 WBC (Bld) 0.6 % . [facility] Erythrocyte distribution wid th Auto (RBC) [Ratio]Ordered By: Brandi Lopez on 09-03-2023 Erythrocyte distribution width (RBC) [Ratio] 21.7 % 11.9-15.3 [facility] Globulin Calc (S) [Mass/Vol] Ordered By: Brandi Lopez on 09-03-2023 Globulin (S) [Mass/Vol] 2.1 g/dL [facility] Glucose [Mass/volume] in Ser um or PlasmaOrdered By: Brandi Lopez on 09-03-2023 Glucose [Mass/Vol] 143 mg/dL 70-100 [facility] Comment on above: ADA recommended refe rence rangeRandom Glucose Reference Range is dependent on time and content of last meal. Glucose of more than 200 mg/dL in a nonstressed, ambulatory subject supports the diagnosis of Diabetes Mellitus. Hematocrit Auto (Bld) [Volum e fraction]Ordered By: Brandi Lopez on 09-03-2023 Hematocrit (Bld) [Volume fraction] 31.3 % 34.0-46.4 [facility] Hemoglobin [Mass/volume] in BloodOrdered By: Brandi Lopez on 09-03-2023 Hemoglobin (Bld) [Mass/Vol] 10.8 g/dL 11.8-15.4 [facility] Leukocytes [#/volume] correc medardo for nucleated erythrocytes in Blood by Automated counOrdered By: Brandi Lopez on 09-03-2023 WBC corrected for nucl RBC Auto (Bld) [#/Vol] 2.8 10*3/uL 3.8-11.6 [facility] Lymphocytes Auto (Bld) [#/Vo l]Ordered By: Brandi Lopez on 09-03-2023 Lymphocytes (Bld) [#/Vol] 1.3 10*3/uL 1.00-4.8 [facility] Lymphocytes/100 WBC Auto (Bl d)Ordered By: Brandi Lopez on 09-03-2023 Lymphocytes/100 WBC (Bld) 46.5 % . [facility] MCH Auto (RBC) [Entitic mass ]Ordered By: Brandi Lopez on 09-03-2023 MCH (RBC) [Entitic mass] 36.7 pg 24.7-34.3 [facility] MCHC Auto (RBC) [Mass/Vol]Or dered By: Brandi Lopez on 09-03-2023 MCHC (RBC) [Mass/Vol] 34.5 g/dL 32.0-35.0 [facility] MCV Auto (RBC) [Entitic vol] Ordered By: Brandi Lopez on 09-03-2023 MCV (RBC) [Entitic vol] 106.4 fL 80-100 [facility] Monocytes Auto (Bld) [#/Vol] Ordered By: Brandi Lopez on 09-03-2023 Monocytes (Bld) [#/Vol] 0.2 10*3/uL 0.0-0.8 [facility] Monocytes/100 WBC Auto (Bld) Ordered By: Brandi Lopez on 09-03-2023 Monocytes/100 WBC (Bld) 6.9 % . [facility] Neutrophils Auto (Bld) [#/Vo l]Ordered By: Brandi Lopez on 09-03-2023 Neutrophils (Bld) [#/Vol] 1.2 10*3/uL 1.8-7.7 [facility] Neutrophils/100 WBC Auto (Bl d)Ordered By: Brandi Lopez on 09-03-2023 Neutrophils/100 WBC (Bld) 44.6 % . [facility] No Panel InformationOrdered By: Brandi Lopez on 09-03-2023 Estimated GFR (CKD-EPI) 47.381 mL/Min [facility] Creatinine Clearance (Chem 33.46 [facility] Nucleated erythrocytes [Pres ence] in Blood by Automated countOrdered By: Brandi Lopez on 09-03-2023 Nucleated RBC Auto Ql (Bld) 0.1 /100{WBC} 0-0.5 [facility] Platelet mean volume Auto (B ld) [Entitic vol]Ordered By: Brandi Lopez on 09-03-2023 Platelet mean volume (Bld) [Entitic vol] 7.4 fL 6.3-10.7 [facility] Platelets Auto (Bld) [#/Vol] Ordered By: Brandi Lopez on 09-03-2023 Platelets (Bld) [#/Vol] 155 10*3/uL 150-450 [facility] Potassium [Moles/volume] in Serum or PlasmaOrdered By: Brandi Lopez on 09-03-2023 Potassium [Moles/Vol] 4.1 mmol/L 3.5-5.1 [facility] Protein [Mass/volume] in Ser um or PlasmaOrdered By: Brandi Lopez on 09-03-2023 Protein [Mass/Vol] 6.2 g/dL 6.4-8.9 [facility] RBC Auto (Bld) [#/Vol]Ordere d By: Brandi Lopez on 09-03-2023 RBC (Bld) [#/Vol] 2.94 10*6/uL 3.60-5.00 [facility] Serum or plasma albumin/glob ulin mass ratioOrdered By: Brandi Lopez on 09-03-2023 Albumin/Globulin [Mass ratio] 2.0 {ratio} [facility] Serum or plasma anion gap de terminationOrdered By: Brandi Lopez on 09-03-2023 Anion gap [Moles/Vol] 8.9 mmol/L 6.0-15.0 [facility] Sodium [Moles/volume] in Ser um or PlasmaOrdered By: Brandi Lopez on 09-03-2023 Sodium [Moles/Vol] 140 mmol/L 136-145 [facility] Urea nitrogen [Mass/volume] in Serum or PlasmaOrdered By: Brandi Lopez on 09-03-2023 Urea nitrogen [Mass/Vol] 19 mg/dL 7-25 [facility] WBC Auto (Bld) [#/Vol]Ordere d By: Brandi Lopez on 09-03-2023 WBC (Bld) [#/Vol] 2.8 10*3/uL 3.8-11.6 [facility] Alanine aminotransferase [En zymatic activity/volume] in Serum or PlasmaOrdered By: Brandi Lopez on 07-01-2023 ALT [Catalytic activity/Vol] 9 U/L 7-52 [facility] Albumin [Mass/volume] in Ser um or Plasma by Bromocresol green (BCG) dye binding methoOrdered By: Brandi Lopez on 07-01-2023 Albumin BCG dye [Mass/Vol] 4.2 g/dL 3.5-5.7 [facility] Alkaline phosphatase [Enzyma tic activity/volume] in Serum or PlasmaOrdered By: Brandi Lopez on 07-01-2023 ALP [Catalytic activity/Vol] 53 U/L 34-104 [facility] Aspartate aminotransferase [ Enzymatic activity/volume] in Serum or PlasmaOrdered By: Brandi Lopez on 07-01-2023 AST [Catalytic activity/Vol] 11 U/L 13-39 [facility] Basophils Auto (Bld) [#/Vol] Ordered By: Brandi Lopez on 07-01-2023 Basophils (Bld) [#/Vol] 0.1 10*3/uL 0.0-0.2 [facility] Basophils/100 WBC Auto (Bld) Ordered By: Brandi Lopez on 07-01-2023 Basophils/100 WBC (Bld) 2.0 % . [facility] Bilirubin.total [Mass/volume ] in Serum or PlasmaOrdered By: Brandi Lopez on 07-01-2023 Bilirubin [Mass/Vol] 0.4 mg/dL 0.3-1.0 [facility] Calcium [Mass/volume] in Ser um or PlasmaOrdered By: Brandi Lopez on 07-01-2023 Calcium [Mass/Vol] 9.8 mg/dL 8.6-10.3 [facility] Carbon dioxide, total [Moles /volume] in Serum or PlasmaOrdered By: Brandi Lopez on 07-01-2023 CO2 [Moles/Vol] 29.1 mmol/L 21.0-31.0 [facility] Chloride [Moles/volume] in S rakan or PlasmaOrdered By: Brandi Lopez on 07-01-2023 Chloride [Moles/Vol] 101 mmol/L 98-107 [facility] Creatinine [Mass/volume] in Serum or PlasmaOrdered By: Brandi Lopez on 07-01-2023 Creatinine [Mass/Vol] 1.42 mg/dL 0.60-1.20 [facility] Eosinophils Auto (Bld) [#/Vo l]Ordered By: Brandi Lopez on 07-01-2023 Eosinophils (Bld) [#/Vol] 0.0 10*3/uL 0.0-0.45 [facility] Eosinophils/100 WBC Auto (Bl d)Ordered By: Brandi Lopez on 07-01-2023 Eosinophils/100 WBC (Bld) 0.9 % . [facility] Erythrocyte distribution wid th Auto (RBC) [Ratio]Ordered By: Brandi Lopez on 07-01-2023 Erythrocyte distribution width (RBC) [Ratio] 23.6 % 11.9-15.3 [facility] Globulin Calc (S) [Mass/Vol] Ordered By: Brandi Lopez on 07-01-2023 Globulin (S) [Mass/Vol] 2.2 g/dL [facility] Glucose [Mass/volume] in Ser um or PlasmaOrdered By: Brandi Lopez on 07-01-2023 Glucose [Mass/Vol] 144 mg/dL 70-100 [facility] Comment on above: ADA recommended refe rence rangeRandom Glucose Reference Range is dependent on time and content of last meal. Glucose of more than 200 mg/dL in a nonstressed, ambulatory subject supports the diagnosis of Diabetes Mellitus. Hematocrit Auto (Bld) [Volum e fraction]Ordered By: Brandi Lopez on 07-01-2023 Hematocrit (Bld) [Volume fraction] 34.3 % 34.0-46.4 [facility] Hemoglobin [Mass/volume] in BloodOrdered By: Brandi Lopez on 07-01-2023 Hemoglobin (Bld) [Mass/Vol] 11.3 g/dL 11.8-15.4 [facility] Leukocytes [#/volume] correc medardo for nucleated erythrocytes in Blood by Automated counOrdered By: Brandi Lopez on 07-01-2023 WBC corrected for nucl RBC Auto (Bld) [#/Vol] 3.0 10*3/uL 3.8-11.6 [facility] Lymphocytes Auto (Bld) [#/Vo l]Ordered By: Brandi Lopez on 07-01-2023 Lymphocytes (Bld) [#/Vol] 1.4 10*3/uL 1.00-4.8 [facility] Lymphocytes/100 WBC Auto (Bl d)Ordered By: Brandi Lopez on 07-01-2023 Lymphocytes/100 WBC (Bld) 47.5 % . [facility] MCH Auto (RBC) [Entitic mass ]Ordered By: Brandi Lopez on 07-01-2023 MCH (RBC) [Entitic mass] 30.2 pg 24.7-34.3 [facility] MCHC Auto (RBC) [Mass/Vol]Or dered By: Brandi Lopez on 07-01-2023 MCHC (RBC) [Mass/Vol] 33.1 g/dL 32.0-35.0 [facility] MCV Auto (RBC) [Entitic vol] Ordered By: Brandi Lopez on 07-01-2023 MCV (RBC) [Entitic vol] 91.4 fL 80-100 [facility] Monocytes Auto (Bld) [#/Vol] Ordered By: Brandi Lopez on 07-01-2023 Monocytes (Bld) [#/Vol] 0.2 10*3/uL 0.0-0.8 [facility] Monocytes/100 WBC Auto (Bld) Ordered By: Brandi Lopez on 07-01-2023 Monocytes/100 WBC (Bld) 6.4 % . [facility] Neutrophils Auto (Bld) [#/Vo l]Ordered By: Brandi Lopez on 07-01-2023 Neutrophils (Bld) [#/Vol] 1.3 10*3/uL 1.8-7.7 [facility] Neutrophils/100 WBC Auto (Bl d)Ordered By: Brandi Lopez on 07-01-2023 Neutrophils/100 WBC (Bld) 43.2 % . [facility] No Panel InformationOrdered By: Brandi Lopez on 07-01-2023 Estimated GFR (CKD-EPI) 36.021 mL/Min [facility] Creatinine Clearance (Chem 24.56 [facility] Nucleated erythrocytes [Pres ence] in Blood by Automated countOrdered By: Brandi Lopez on 07-01-2023 Nucleated RBC Auto Ql (Bld) 0.4 /100{WBC} 0-0.5 [facility] Platelet mean volume Auto (B ld) [Entitic vol]Ordered By: Brandi Lopez on 07-01-2023 Platelet mean volume (Bld) [Entitic vol] 7.7 fL 6.3-10.7 [facility] Platelets Auto (Bld) [#/Vol] Ordered By: Brandi Lopez on 07-01-2023 Platelets (Bld) [#/Vol] 252 10*3/uL 150-450 [facility] Potassium [Moles/volume] in Serum or PlasmaOrdered By: Brandi Lopez on 07-01-2023 Potassium [Moles/Vol] 3.8 mmol/L 3.5-5.1 [facility] Protein [Mass/volume] in Ser um or PlasmaOrdered By: Brandi Lopez on 07-01-2023 Protein [Mass/Vol] 6.4 g/dL 6.4-8.9 [facility] RBC Auto (Bld) [#/Vol]Ordere d By: Brandi Lopez on 07-01-2023 RBC (Bld) [#/Vol] 3.75 10*6/uL 3.60-5.00 [facility] Serum or plasma albumin/glob ulin mass ratioOrdered By: Brandi Lopez on 07-01-2023 Albumin/Globulin [Mass ratio] 1.9 {ratio} [facility] Serum or plasma anion gap de terminationOrdered By: Brandi Lopez on 07-01-2023 Anion gap [Moles/Vol] 11.7 mmol/L 6.0-15.0 [facility] Sodium [Moles/volume] in Ser um or PlasmaOrdered By: Brandi Lopez on 07-01-2023 Sodium [Moles/Vol] 138 mmol/L 136-145 [facility] Urea nitrogen [Mass/volume] in Serum or PlasmaOrdered By: Brandi Lopez on 07-01-2023 Urea nitrogen [Mass/Vol] 25 mg/dL 7-25 [facility] WBC Auto (Bld) [#/Vol]Ordere d By: Brandi Lopez on 07-01-2023 WBC (Bld) [#/Vol] 3.0 10*3/uL 3.8-11.6 [facility] Alanine aminotransferase [En zymatic activity/volume] in Serum or PlasmaOrdered By: Brandi Lopez on 05-27-2023 ALT [Catalytic activity/Vol] 8 U/L 7-52 [facility] Albumin [Mass/volume] in Ser um or Plasma by Bromocresol green (BCG) dye binding methoOrdered By: Brandi Lopez on 05-27-2023 Albumin BCG dye [Mass/Vol] 4.3 g/dL 3.5-5.7 [facility] Alkaline phosphatase [Enzyma tic activity/volume] in Serum or PlasmaOrdered By: Brandi Lopez on 05-27-2023 ALP [Catalytic activity/Vol] 62 U/L 34-104 [facility] Aspartate aminotransferase [ Enzymatic activity/volume] in Serum or PlasmaOrdered By: Brandi Lopez on 05-27-2023 AST [Catalytic activity/Vol] 11 U/L 13-39 [facility] Basophils Auto (Bld) [#/Vol] Ordered By: Brandi Lopez on 05-27-2023 Basophils (Bld) [#/Vol] 0.0 10*3/uL 0.0-0.2 [facility] Basophils/100 WBC Auto (Bld) Ordered By: Brandi Lopez on 05-27-2023 Basophils/100 WBC (Bld) 0.6 % . [facility] Bilirubin.total [Mass/volume ] in Serum or PlasmaOrdered By: Brandi Lopez on 05-27-2023 Bilirubin [Mass/Vol] 0.5 mg/dL 0.3-1.0 [facility] Calcium [Mass/volume] in Ser um or PlasmaOrdered By: Brandi Lopez on 05-27-2023 Calcium [Mass/Vol] 9.9 mg/dL 8.6-10.3 [facility] Carbon dioxide, total [Moles /volume] in Serum or PlasmaOrdered By: Brandi Lopez on 05-27-2023 CO2 [Moles/Vol] 31.2 mmol/L 21.0-31.0 [facility] Chloride [Moles/volume] in S rakan or PlasmaOrdered By: Brandi Lopez on 05-27-2023 Chloride [Moles/Vol] 102 mmol/L 98-107 [facility] Creatinine [Mass/volume] in Serum or PlasmaOrdered By: Brandi Lopez on 05-27-2023 Creatinine [Mass/Vol] 1.15 mg/dL 0.60-1.20 [facility] Eosinophils Auto (Bld) [#/Vo l]Ordered By: Brandi Lopez on 05-27-2023 Eosinophils (Bld) [#/Vol] 0.1 10*3/uL 0.0-0.45 [facility] Eosinophils/100 WBC Auto (Bl d)Ordered By: Brandi Lopez on 05-27-2023 Eosinophils/100 WBC (Bld) 1.2 % . [facility] Erythrocyte distribution wid th Auto (RBC) [Ratio]Ordered By: Brandi Lopez on 05-27-2023 Erythrocyte distribution width (RBC) [Ratio] 15.3 % 11.9-15.3 [facility] Globulin Calc (S) [Mass/Vol] Ordered By: Brandi Lopez on 05-27-2023 Globulin (S) [Mass/Vol] 2.2 g/dL [facility] Glucose [Mass/volume] in Ser um or PlasmaOrdered By: Brandi Lopez on 05-27-2023 Glucose [Mass/Vol] 136 mg/dL 70-100 [facility] Comment on above: ADA recommended refe rence rangeRandom Glucose Reference Range is dependent on time and content of last meal. Glucose of more than 200 mg/dL in a nonstressed, ambulatory subject supports the diagnosis of Diabetes Mellitus. Hematocrit Auto (Bld) [Volum e fraction]Ordered By: Brandi Lopez on 05-27-2023 Hematocrit (Bld) [Volume fraction] 35.6 % 34.0-46.4 [facility] Hemoglobin [Mass/volume] in BloodOrdered By: Brandi Lopez on 05-27-2023 Hemoglobin (Bld) [Mass/Vol] 11.8 g/dL 11.8-15.4 [facility] Leukocytes [#/volume] correc medardo for nucleated erythrocytes in Blood by Automated counOrdered By: Brandi Lopez on 05-27-2023 WBC corrected for nucl RBC Auto (Bld) [#/Vol] 4.3 10*3/uL 3.8-11.6 [facility] Lymphocytes Auto (Bld) [#/Vo l]Ordered By: Brandi Lopez on 05-27-2023 Lymphocytes (Bld) [#/Vol] 1.3 10*3/uL 1.00-4.8 [facility] Lymphocytes/100 WBC Auto (Bl d)Ordered By: Brandi Lopez on 05-27-2023 Lymphocytes/100 WBC (Bld) 29.3 % . [facility] MCH Auto (RBC) [Entitic mass ]Ordered By: Brandi Lopez on 05-27-2023 MCH (RBC) [Entitic mass] 28.4 pg 24.7-34.3 [facility] MCHC Auto (RBC) [Mass/Vol]Or dered By: Brandi Lopez on 05-27-2023 MCHC (RBC) [Mass/Vol] 33.3 g/dL 32.0-35.0 [facility] MCV Auto (RBC) [Entitic vol] Ordered By: Brandi Lopez on 05-27-2023 MCV (RBC) [Entitic vol] 85.2 fL 80-100 [facility] Monocytes Auto (Bld) [#/Vol] Ordered By: Brandi Lopez on 05-27-2023 Monocytes (Bld) [#/Vol] 0.1 10*3/uL 0.0-0.8 [facility] Monocytes/100 WBC Auto (Bld) Ordered By: Brandi Lopez on 05-27-2023 Monocytes/100 WBC (Bld) 2.8 % . [facility] Neutrophils Auto (Bld) [#/Vo l]Ordered By: Brandi Lopez on 05-27-2023 Neutrophils (Bld) [#/Vol] 2.8 10*3/uL 1.8-7.7 [facility] Neutrophils/100 WBC Auto (Bl d)Ordered By: Brandi Loepz on 05-27-2023 Neutrophils/100 WBC (Bld) 66.1 % . [facility] No Panel InformationOrdered By: Brandi Lopez on 05-27-2023 Estimated GFR (CKD-EPI) 46.394 mL/Min [facility] Creatinine Clearance (Chem 32.78 [facility] Nucleated erythrocytes [Pres ence] in Blood by Automated countOrdered By: Brandi Lopez on 05-27-2023 Nucleated RBC Auto Ql (Bld) 0.2 /100{WBC} 0-0.5 [facility] Platelet mean volume Auto (B ld) [Entitic vol]Ordered By: Brandi Lopez on 05-27-2023 Platelet mean volume (Bld) [Entitic vol] 7.8 fL 6.3-10.7 [facility] Platelets Auto (Bld) [#/Vol] Ordered By: Brandi Lopez on 05-27-2023 Platelets (Bld) [#/Vol] 287 10*3/uL 150-450 [facility] Potassium [Moles/volume] in Serum or PlasmaOrdered By: Brandi Lopez on 05-27-2023 Potassium [Moles/Vol] 4.0 mmol/L 3.5-5.1 [facility] Protein [Mass/volume] in Ser um or PlasmaOrdered By: Brandi Lopez on 05-27-2023 Protein [Mass/Vol] 6.5 g/dL 6.4-8.9 [facility] RBC Auto (Bld) [#/Vol]Ordere d By: Brandi Lopez on 05-27-2023 RBC (Bld) [#/Vol] 4.18 10*6/uL 3.60-5.00 [facility] Serum or plasma albumin/glob ulin mass ratioOrdered By: Brandi Lopez on 05-27-2023 Albumin/Globulin [Mass ratio] 2.0 {ratio} [facility] Serum or plasma anion gap de terminationOrdered By: Brandi Lopez on 05-27-2023 Anion gap [Moles/Vol] 9.8 mmol/L 6.0-15.0 [facility] Sodium [Moles/volume] in Ser um or PlasmaOrdered By: Brandi Lopez on 05-27-2023 Sodium [Moles/Vol] 139 mmol/L 136-145 [facility] Urea nitrogen [Mass/volume] in Serum or PlasmaOrdered By: Brandi Lopez on 05-27-2023 Urea nitrogen [Mass/Vol] 23 mg/dL 7-25 [facility] WBC Auto (Bld) [#/Vol]Ordere d By: Brandi Lopez on 05-27-2023 WBC (Bld) [#/Vol] 4.3 10*3/uL 3.8-11.6 [facility] Albumin [Mass/volume] in Ser um or Plasma by Bromocresol green (BCG) dye binding methoOrdered By: Leonardo Herron on 05-16-2023 Albumin BCG dye [Mass/Vol] 4.2 g/dL 3.5-5.7 [facility] Cotinine [Mass/volume] in Se rum or PlasmaOrdered By: Leonardo Herron on 05-16-2023 Cotinine [Mass/Vol] <1.0 ng/mL . [facility] Comment on above: This test was develo ped and its performance characteristicsdetermined by [facility] [employer]. It has not been cleared orapproved by the Food and Drug Administration.Cotinine levels greater than 20.0 are consistent with theuse of tobacco or tobacco cessation products.Performed at: [address] [id number] Director: Milo Mcleod MD, Phone: [phone] Glucose mean value [Mass/vol ume] in Blood Estimated from glycated hemoglobinOrdered By: Leonardo Herron on 05-16-2023 Average glucose Estimated from glycated hemoglobin (Bld) [Mass/Vol] 154 mg/dL [facility] Hemoglobin A1c percentageOrd ered By: Leonardo Herron on 05-16-2023 HbA1c (Bld) [Mass fraction] 7.0 % 4.3-5.6 [facility] Comment on above: Increased risk for d iabetes: 5.7 - 6.4diabetes: >6.4glycemic control for adults with diabetes: <7.0 Hemoglobin [Mass/volume] in BloodOrdered By: Leonardo Herron on 05-16-2023 Hemoglobin (Bld) [Mass/Vol] 12.0 g/dL 11.8-15.4 [facility] Nicotine [Mass/volume] in Se rum or PlasmaOrdered By: Leonardo Herron on 05-16-2023 Nicotine [Mass/Vol] <1.0 ng/mL . [facility] Comment on above: This test was develo ped and its performance characteristicsdetermined by [employer]. It has not been cleared orapproved by the Food and Drug Administration.Nicotine levels greater than 2.0 are consistent with theuse of tobacco or tobacco cessation products. Vitamin D+Metabolites [Mass/ volume] in Serum or PlasmaOrdered By: Leonardo Herron on 05-16-2023 Vitamin D+Metabolites [Mass/Vol] 42.6 ng/mL 30-100 [facility] Comment on above: VITAMIN D STATUS [...] specific cx Ql (Unsp spec) [facility] XR pelvis 1-2Von 05-16-2023 XR pelvis 1-2V [facility] [employer] Other XR pelvis 1-2V [facility] [employer] Other XR pelvis 1-2V [address] [place] [address] [employer] Other XR pelvis 1-[place] [id number] No rt [facility] EHR Other XR pelvis 1-2V XRay Report [employer] Other XR pelvis 1-2V Signed [employer] Other XR pelvis 1-2V Patient: Yolanda Fairbanks MR#: [id number] [employer] Other XR pelvis 1-2V 0 [employer] Other XR pelvis 1-2V : 1935 Acct:[id number] [employer] Other XR pelvis 1-2V Age/Sex: 88 / F ADM Date: 05/16/23 [employer] Other XR pelvis 1-2V Loc: SOX Room: Type : [facility] [employer] Other XR pelvis 1-2V Attending Dr: Leonardo Herron II, MD [employer] Other XR pelvis 1-2V Copies to: Leonardo Herron MD [employer] Other XR pelvis 1-2V Ordering Provider: Corona Herron MD [employer] Other XR pelvis 1-2V Date of Service: 05/16/23 [employer] Other XR pelvis 1-2V XR/XR knee BI 4V: Acute pain of right knee [employer] Other XR pelvis 1-2V ([id number]) XR/XR pelvis 1-2V: Acute pain of right knee [employer] Other XR pelvis 1-2V [address] ain film [employer] Other XR pelvis 1-2V COMPARISON: None [facility] E[facility] Other XR pelvis 1-2V HISTORY: Bilateral k nee pain greater on the right [employer] Other XR pelvis 1-2V ACUTE FINDINGS: None [employer] Other XR pelvis 1-2V DEGENERATIVE CHANGE: Extensive [id number] contact the medial compartment degeneration seen [employer] Other XR pelvis 1-2V bilaterally. Mild patellofemoral and lateral compartment degenerative changes. Bilateral mild [employer] Other XR pelvis 1-2V degenerative subluxation. [employer] Other XR pelvis 1-2V SOFT TISSUE FINDINGS : Unremarkable [employer] Other XR pelvis 1-2V JOINT EFFUSION: None [employer] Other XR pelvis 1-2V POSTOP CHANGES: None [employer] Other XR pelvis 1-2V BONE MINERALIZATION: Adequate [employer] Other XR pelvis 1-2V X R/XR knee BI 4V [employer] Other XR pelvis 1-2V IMPRESSION: Extensiv e [id number]-ptxv bilateral medial compartment degenerative changes. [employer] Other XR pelvis 1-2V Single view pelvis No rt [facility] EHR Other XR pelvis 1-2V Mild bilateral hip a nd SI joint degenerative changes. Moderate lower lumbar degenerative change. No [employer] Other XR pelvis 1-2V fracture. Adequate b saritha alignment. Minimal atherosclerosis. [employer] Other XR pelvis 1-2V IMPRESSION: Mild bilateral hip degeneration. [employer] Other XR pelvis 1-2V Impression dictated by: Dane Tellez M.D.05/16/2023 4:32 PM [employer] Other XR pelvis 1-2V Dictation Location: [facility] [employer] Other XR pelvis 1-2V Transcribed By: PWS 05/16/23 1632 [employer] Other XR pelvis 1-2V Dictated By: Deven Tellez DO 05/16/23 1628 [employer] Other XR pelvis 1-2V Signed By: [employer] Other XR pelvis 1-2V 05/16/23 1632 [employer] Other Alanine aminotransferase [En zymatic activity/volume] in Serum or PlasmaOrdered By: Brandi Lopez on 04-25-2023 ALT [Catalytic activity/Vol] 11 U/L 7-52 [facility] Albumin [Mass/volume] in Ser um or Plasma by Bromocresol green (BCG) dye binding methoOrdered By: Brandi Lopez on 04-25-2023 Albumin BCG dye [Mass/Vol] 4.4 g/dL 3.5-5.7 [facility] Alkaline phosphatase [Enzyma tic activity/volume] in Serum or PlasmaOrdered By: Brandi Lopez on 04-25-2023 ALP [Catalytic activity/Vol] 67 U/L 34-104 [facility] Aspartate aminotransferase [ Enzymatic activity/volume] in Serum or PlasmaOrdered By: Brandi Lopez on 04-25-2023 AST [Catalytic activity/Vol] 14 U/L 13-39 [facility] Basophils Auto (Bld) [#/Vol] Ordered By: Brandi Lopez on 04-25-2023 Basophils (Bld) [#/Vol] 0.1 10*3/uL 0.0-0.2 [facility] Basophils/100 WBC Auto (Bld) Ordered By: Brandi Lopez on 04-25-2023 Basophils/100 WBC (Bld) 0.7 % . [facility] Bilirubin.total [Mass/volume ] in Serum or PlasmaOrdered By: Brandi Lopez on 04-25-2023 Bilirubin [Mass/Vol] 0.5 mg/dL 0.3-1.0 [facility] Calcium [Mass/volume] in Ser um or PlasmaOrdered By: Brandi Lopez on 04-25-2023 Calcium [Mass/Vol] 10.1 mg/dL 8.6-10.3 [facility] Carbon dioxide, total [Moles /volume] in Serum or PlasmaOrdered By: Brandi Lopez on 04-25-2023 CO2 [Moles/Vol] 29.1 mmol/L 21.0-31.0 [facility] Chloride [Moles/volume] in S rakan or PlasmaOrdered By: Brandi Lopez on 04-25-2023 Chloride [Moles/Vol] 102 mmol/L 98-107 [facility] Creatinine [Mass/volume] in Serum or PlasmaOrdered By: Brandi Lopez on 04-25-2023 Creatinine [Mass/Vol] 0.89 mg/dL 0.60-1.20 [facility] Eosinophils Auto (Bld) [#/Vo l]Ordered By: Brandi Lopez on 04-25-2023 Eosinophils (Bld) [#/Vol] 0.1 10*3/uL 0.0-0.45 [facility] Eosinophils/100 WBC Auto (Bl d)Ordered By: Brandi Lopez on 04-25-2023 Eosinophils/100 WBC (Bld) 1.0 % . [facility] Erythrocyte distribution wid th Auto (RBC) [Ratio]Ordered By: Brandi Lopez on 04-25-2023 Erythrocyte distribution width (RBC) [Ratio] 14.4 % 11.9-15.3 [facility] Globulin Calc (S) [Mass/Vol] Ordered By: Brandi Lopez on 04-25-2023 Globulin (S) [Mass/Vol] 2.4 g/dL [facility] Glucose [Mass/volume] in Ser um or PlasmaOrdered By: Brandi Lopez on 04-25-2023 Glucose [Mass/Vol] 103 mg/dL 70-100 [facility] Comment on above: ADA recommended refe rence rangeRandom Glucose Reference Range is dependent on time and content of last meal. Glucose of more than 200 mg/dL in a nonstressed, ambulatory subject supports the diagnosis of Diabetes Mellitus. Hematocrit Auto (Bld) [Volum e fraction]Ordered By: Brandi Lopez on 04-25-2023 Hematocrit (Bld) [Volume fraction] 36.1 % 34.0-46.4 [facility] Hemoglobin [Mass/volume] in BloodOrdered By: Brandi Lopez on 04-25-2023 Hemoglobin (Bld) [Mass/Vol] 12.0 g/dL 11.8-15.4 [facility] Leukocytes [#/volume] correc medardo for nucleated erythrocytes in Blood by Automated counOrdered By: Brandi Lopez on 04-25-2023 WBC corrected for nucl RBC Auto (Bld) [#/Vol] 9.0 10*3/uL 3.8-11.6 [facility] Lymphocytes Auto (Bld) [#/Vo l]Ordered By: Brandi Lopez on 04-25-2023 Lymphocytes (Bld) [#/Vol] 2.1 10*3/uL 1.00-4.8 [facility] Lymphocytes/100 WBC Auto (Bl d)Ordered By: Brandi Lopez on 04-25-2023 Lymphocytes/100 WBC (Bld) 23.7 % . [facility] MCH Auto (RBC) [Entitic mass ]Ordered By: Brandi Lopez on 04-25-2023 MCH (RBC) [Entitic mass] 28.2 pg 24.7-34.3 [facility] MCHC Auto (RBC) [Mass/Vol]Or dered By: Brandi Lopez on 04-25-2023 MCHC (RBC) [Mass/Vol] 33.3 g/dL 32.0-35.0 [facility] MCV Auto (RBC) [Entitic vol] Ordered By: Brandi Lopez on 04-25-2023 MCV (RBC) [Entitic vol] 84.8 fL 80-100 [facility] Monocytes Auto (Bld) [#/Vol] Ordered By: Brandi Lopez on 04-25-2023 Monocytes (Bld) [#/Vol] 0.8 10*3/uL 0.0-0.8 [facility] Monocytes/100 WBC Auto (Bld) Ordered By: Brandi Lopez on 04-25-2023 Monocytes/100 WBC (Bld) 8.7 % . [facility] Neutrophils Auto (Bld) [#/Vo l]Ordered By: Brandi Lopez on 04-25-2023 Neutrophils (Bld) [#/Vol] 5.9 10*3/uL 1.8-7.7 [facility] Neutrophils/100 WBC Auto (Bl d)Ordered By: Brandi Lopez on 04-25-2023 Neutrophils/100 WBC (Bld) 65.9 % . [facility] No Panel InformationOrdered By: Brandi Lopez on 04-25-2023 Estimated GFR (CKD-EPI) > 60.0 mL/Min [facility] Creatinine Clearance (Chem 42.35 [facility] Nucleated erythrocytes [Pres ence] in Blood by Automated countOrdered By: Brandi Lopez on 04-25-2023 Nucleated RBC Auto Ql (Bld) 0.0 /100{WBC} 0-0.5 [facility] Platelet mean volume Auto (B ld) [Entitic vol]Ordered By: Brandi Lopez on 04-25-2023 Platelet mean volume (Bld) [Entitic vol] 7.5 fL 6.3-10.7 [facility] Platelets Auto (Bld) [#/Vol] Ordered By: Brandi Lopez on 04-25-2023 Platelets (Bld) [#/Vol] 346 10*3/uL 150-450 [facility] Potassium [Moles/volume] in Serum or PlasmaOrdered By: Brandi Lopez on 04-25-2023 Potassium [Moles/Vol] 3.7 mmol/L 3.5-5.1 [facility] Protein [Mass/volume] in Ser um or PlasmaOrdered By: Brandi Lopez on 04-25-2023 Protein [Mass/Vol] 6.8 g/dL 6.4-8.9 [facility] RBC Auto (Bld) [#/Vol]Ordere d By: Brandi Lopez on 04-25-2023 RBC (Bld) [#/Vol] 4.25 10*6/uL 3.60-5.00 [facility] Serum or plasma albumin/glob ulin mass ratioOrdered By: Brandi Lopez on 04-25-2023 Albumin/Globulin [Mass ratio] 1.8 {ratio} [facility] Serum or plasma anion gap de terminationOrdered By: Brandi Lopez on 04-25-2023 Anion gap [Moles/Vol] 12.6 mmol/L 6.0-15.0 [facility] Sodium [Moles/volume] in Ser um or PlasmaOrdered By: Brandi Lopez on 04-25-2023 Sodium [Moles/Vol] 140 mmol/L 136-145 [facility] Urea nitrogen [Mass/volume] in Serum or PlasmaOrdered By: Brandi Lopez on 04-25-2023 Urea nitrogen [Mass/Vol] 15 mg/dL 7-25 [facility] WBC Auto (Bld) [#/Vol]Ordere d By: Brandi Lopez on 04-25-2023 WBC (Bld) [#/Vol] 9.0 10*3/uL 3.8-11.6 [facility] CBC AUTO DIFFon 06-05-2022 BASO # 0.0 103/ul Normal 0.0-0.1 [facility] Comment on above: Performed By: #### C BC #### [facility] [address] [address] [address] Radha Valentine Basophils/100 WBC (Bld) 0.3 % Normal 0.2-2.0 [facility] Comment on above: Performed By: #### C BC #### [facility] [address] [address] [address] Radha Valentine EO # 0.2 103/ul Normal 0.0-0.7 [facility] Comment on above: Performed By: #### C BC #### [facility] [address] [address] [address] Radha Valentine Eosinophils/100 WBC (Bld) 1.9 % Normal 0.9-7.0 [facility] Comment on above: Performed By: #### C BC #### [facility] [address] [address] [address] Radha Valentine Erythrocyte distribution width (RBC) [Ratio] 15.3 % Critically high 11.0-15.0 [facility] Comment on above: Performed By: #### C BC #### [facility] [address] [address] [address] Radha Valentine Hematocrit (Bld) [Volume fraction] 40.5 % Normal 36.0-48.0 [facility] Comment on above: Performed By: #### C BC #### [facility] [address] [address] [address] Radha Valentine Hemoglobin (Bld) [Mass/Vol] 13.3 g/dL Normal 12.0-16.0 [facility] Comment on above: Performed By: #### C BC #### [facility] [address] [address] [address] Radha Valentine IG # 0.06 10e3/ul Critically high 0.00-0.03 [facility] Comment on above: Performed By: #### C BC #### [facility] [address] [address] [address] Radha Valentine IG % 0.7 % Critically high 0.0-0.5 [facility] Comment on above: Performed By: #### C BC #### [facility] [address] [place] [address] Dr. Radha Valentine LYMPH # 2.3 103/ul Normal 1.2-3.8 [facility] Comment on above: Performed By: #### C BC #### [facility] [address] [place] [address] Dr. Radha Valentine Lymphocytes/100 WBC (Bld) 24.9 % Normal 20.5-60.0 [facility] Comment on above: Performed By: #### C BC #### [facility] [address] [place] [address] Dr. Radha Valentine MANUAL DIFF REQ NO Normal [facility] Comment on above: Performed By: #### C BC #### [facility] [address] [place] [address] Dr. Radha Valentine MCH (RBC) [Entitic mass] 29.8 pg Normal 26.7-34.0 [facility] Comment on above: Performed By: #### C BC #### [facility] [address] [place] [address] Dr. Radha Valentine MCHC (RBC) [Mass/Vol] 32.8 g/dL Normal 29.9-35.2 [facility] Comment on above: Performed By: #### C BC #### [facility] [address] [address] [address] Radha Valentine MCV (RBC) [Entitic vol] 90.8 fL Normal 81.0-99.0 [facility] Comment on above: Performed By: #### C BC #### [facility] [address] [address] [address] Radha Valentine MONO # 0.8 103/ul Normal 0.3-0.8 [facility] Comment on above: Performed By: #### C BC #### [facility] [address] [place] [address] Dr. Radha Valentine Monocytes/100 WBC (Bld) 9.0 % Normal 1.7-12.0 [facility] Comment on above: Performed By: #### C BC #### [facility] [address] [place] [address] Dr. Radha Valentine NEUT # 5.8 103/ul Normal 1.4-6.5 [facility] Comment on above: Performed By: #### C BC #### [facility] [address] [place] [address] Dr. Radha Valentine Neutrophils/100 WBC (Bld) 63.2 % Normal 43.0-75.0 [facility] Comment on above: Performed By: #### C BC #### [facility] [address] [place] [address] Dr. Radha Valentine Platelet mean volume (Bld) [Entitic vol] 8.7 fL Critically low 9.5-13.5 [facility] Comment on above: Performed By: #### C BC #### [facility] [address] [place] [address] Dr. Radha Valentine PLT 336 103/ul Normal 150-450 [facility] Comment on above: Performed By: #### C BC #### [facility] [address] [place] [address] Dr. Radha Valentine RBC 4.46 106/ul Normal 4.20-5.40 [facility] Comment on above: Performed By: #### C BC #### [facility] [address] [address] [address] Radha Valentine WBC 9.1 103/ul Normal 4.0-11.0 [facility] Comment on above: Performed By: #### C BC #### [facility] [address] [address] [address] Radha Valentine GLYCOHEMOGLOBIN A1Con 2021 ADA RECOMMENDATION SEE BELOW Normal [facility] Comment on above: Result Comment: ADA RECOMMENDED LIMIT 4.0 - 6.0 ADA THERAPEUTIC TARGET < 7.0 ACTION SUGGESTED > 7.0 Performed By: #### A 1C #### [facility] [address] [address] [address] Radha Valentine Glucose [Mass/Vol] 171 mg/dL Normal [facility] Comment on above: Performed By: #### A 1C #### [facility] [address] [place] [address] Dr. Radha Valentine HbA1c (Bld) [Mass fraction] 7.6 % Critically high 4.5-6.2 [facility] Comment on above: Performed By: #### A 1C #### [facility] [address] [place] [address] Dr. Radha Valentine LIPID PROFILEon 06-05-2022 CHOL-HDL RATIO NORM SEE BELOW Normal [facility] Comment on above: Result Comment: 3.3 - 4.4 LOW RISK 4.4 - 7.1 AVERAGE RISK 7.1 - 11.0 MODERATE RISK >11.0 HIGH RISK Performed By: #### L IPID, CMP #### [facility] [address] [place] [address] Dr. Radha Valentine Cholesterol [Mass/Vol] 156 mg/dL Normal <=200 [facility] Comment on above: Performed By: #### L IPID, CMP #### [facility] [address] [address] [address] Radha Valentine Cholesterol in HDL [Mass/Vol] 54 mg/dL Normal 40-60 [facility] Comment on above: Performed By: #### L IPID, CMP #### [facility] [address] [address] [address] Radha Valentine Cholesterol in LDL [Mass/Vol] 77.0 mg/dL Normal [facility] Comment on above: Performed By: #### L IPID, CMP #### [facility] [address] [address] [address] Radha Valentine Cholesterol.total/Chol esterol in HDL [Mass ratio] 2.9 {ratio} Normal [facility] Comment on above: Performed By: #### L IPID, CMP #### [facility] [address] [address] [address] Radha Valentine HDL NORMAL > or = 60 mg/dl - LO W CARDIOVASCULAR RISK <40 mg/dl - HIGH CARDIOVASCULAR RISK Normal [facility] Comment on above: Performed By: #### L IPID, CMP #### [facility] [address] [place] [address] Dr. Radha Valentine LDL CALC NORMAL SEE BELOW Normal [facility] Comment on above: Result Comment: <100 mg/dl OPTIMAL 100 - 129 mg/dl NEAR OR ABOVE OPTIMAL 130 - 159 mg/dl BORDERLINE HIGH 160 - 189 mg/dl HIGH >190 mg/dl VERY HIGH Performed By: #### L IPID, CMP #### [facility] [address] [place] [address] Dr. Radha Valentine Triglyceride [Mass/Vol] 125 mg/dL Normal <=150 [facility] Comment on above: Performed By: #### L IPID, CMP #### [facility] [address] [place] [address] Dr. Radha Valentine VLDL CALC 25.0 mg/dL Normal [facility] Comment on above: Performed By: #### L IPID, CMP #### [facility] [address] [address] [address] Radha Valentine PROF 14(COMP METB)on 022 Albumin [Mass/Vol] 3.3 g/dL Critically low 3.4-5.0 Th e [facility] Comment on above: Performed By: #### L IPID, CMP #### [facility] [address] [place] [address] Dr. Radha Valentine Albumin/Globulin [Mass ratio] 1.0 {ratio} Normal [facility] Comment on above: Performed By: #### L IPID, CMP #### [facility] [address] [place] [address] Dr. Radha Valentine ALP [Catalytic activity/Vol] 59 U/L Normal 46-116 [facility] Comment on above: Performed By: #### L IPID, CMP #### [facility] [address] [place] [address] Dr. Radha Valentine ALT [Catalytic activity/Vol] 21 U/L Normal 14-59 [facility] Comment on above: Performed By: #### L IPID, CMP #### [facility] [address] [place] [address] Dr. Radha Valentine Anion gap [Moles/Vol] 11.0 mmol/L Normal [facility] Comment on above: Performed By: #### L IPID, CMP #### [facility] [address] [place] [address] Dr. Radha Valentine AST [Catalytic activity/Vol] 9 U/L Critically low 15-37 [facility] Comment on above: Performed By: #### L IPID, CMP #### [facility] [address] [place] [address] Dr. Radha Valentine Bilirubin [Mass/Vol] 0.4 mg/dL Normal 0.2-1.0 [facility] Comment on above: Performed By: #### L IPID, CMP #### [facility] [address] [place] [address] Dr. Radha Valentine Calcium [Mass/Vol] 9.5 mg/dL Normal 8.5-10.1 [facility] Comment on above: Performed By: #### L IPID, CMP #### [facility] [address] [place] [address] Dr. Radha Valentine Chloride [Moles/Vol] 104 mmol/L Normal 98-107 [facility] Comment on above: Performed By: #### L IPID, CMP #### [facility] [address] [place] [address] Dr. Radha Valentine CO2 [Moles/Vol] 29.8 mmol/L Normal 21.0-32.0 [facility] Comment on above: Performed By: #### L IPID, CMP #### [facility] [address] [address] [address] Radha Valentine Creatinine [Mass/Vol] 0.94 mg/dL Normal 0.55-1.02 [facility] Comment on above: Performed By: #### L IPID, CMP #### [facility] [address] [address] [address] Radha Valentine EGFR-AF [place] >60 Normal >=60 [facility] Comment on above: Performed By: #### L IPID, CMP #### [facility] [address] [address] [address] Radha Valentine EGFR-NON AF [place] 57 mL/min/1.73m2 Critically low >=60 [facility] Comment on above: Performed By: #### L IPID, CMP #### [facility] [address] [address] [address] Radha Valentine Globulin (S) [Mass/Vol] 3.2 g/dL Normal [facility] Comment on above: Performed By: #### L IPID, CMP #### [facility] [address] [address] [address] Radha Valentine Glucose [Mass/Vol] 162 mg/dL Critically high 74-106 [facility] Comment on above: Performed By: #### L IPID, CMP #### [facility] [address] [address] [address] Radha Valentine Potassium [Moles/Vol] 3.8 mmol/L Normal 3.5-5.1 [facility] Comment on above: Performed By: #### L IPID, CMP #### [facility] [address] [address] [address] Radha Valentine Protein [Mass/Vol] 6.5 g/dL Normal 6.4-8.2 [facility] Comment on above: Performed By: #### L IPID, CMP #### [facility] [address] [address] [address] Radha Valentine Sodium [Moles/Vol] 141 mmol/L Normal 136-145 [facility] Comment on above: Performed By: #### L IPID, CMP #### [facility] [address] [place] [address] Dr. Radha Valentine Urea nitrogen [Mass/Vol] 16.0 mg/dL Normal 7.0-18.0 [facility] Comment on above: Performed By: #### L IPID, CMP #### [facility] [address] [place] [address] Dr. Radha Valentine Urea nitrogen/Creatinine [Mass ratio] 17.0 mg/mg Normal [facility] Comment on above: Performed By: #### L IPID, CMP #### [facility] [address] [place] [address] Dr. Radha Valentine GLYCOHEMOGLOBIN A1Con 2020 ADA RECOMMENDATION ADA THERAPEUTIC TARG ET 6.0 - 7.0 ACTION SUGGESTED > 7.0 Normal [facility] Comment on above: Performed By: #### A 1C #### [facility] [address] [place] [address] Maira Karly Glucose [Mass/Vol] 154 mg/dL Normal [facility] Comment on above: Performed By: #### A 1C #### [facility] [address] [place] [address] Maira Karly HbA1c (Bld) [Mass fraction] 7.0 % Critically high <=6.0 [facility] Comment on above: Performed By: #### A 1C #### [facility] [address] [place] [address] Mairamitch Márquezen LIPID PROFILEon 06-26-2021 CHOL-HDL RATIO NORM SEE BELOW Normal [facility] Comment on above: Result Comment: 3.3 - 4.4 LOW RISK 4.4 - 7.1 AVERAGE RISK 7.1 - 11.0 MODERATE RISK >11.0 HIGH RISK Performed By: #### L IPID, CMP #### [facility] [address] [place] [address] Maira Karly Cholesterol [Mass/Vol] 141 mg/dL Normal <=200 [facility] Comment on above: Performed By: #### L IPID, CMP #### [facility] [address] [id number] Maira Karly Cholesterol in HDL [Mass/Vol] 64 mg/dL Normal [facility] Comment on above: Performed By: #### L IPID, CMP #### [facility] [address] [id number] Maira Karly Cholesterol in LDL [Mass/Vol] 68.8 mg/dL Normal [facility] Comment on above: Performed By: #### L IPID, CMP #### [facility] [address] [id number] Maira Karly Cholesterol.total/Chol esterol in HDL [Mass ratio] 2.2 {ratio} Normal [facility] Comment on above: Performed By: #### L IPID, CMP #### [facility] [address] [id number] Maira Karly HDL NORMAL > or = 60 mg/dl - LO W CARDIOVASCULAR RISK <40 mg/dl - HIGH CARDIOVASCULAR RISK Normal [facility] Comment on above: Performed By: #### L IPID, CMP #### [facility] [address] [place], [place] [id number] Maira Karly LDL CALC NORMAL SEE BELOW Normal [facility] Comment on above: Result Comment: <100 mg/dl OPTIMAL 100 - 129 mg/dl NEAR OR ABOVE OPTIMAL 130 - 159 mg/dl BORDERLINE HIGH 160 - 189 mg/dl HIGH >190 mg/dl VERY HIGH Performed By: #### L IPID, CMP #### [facility] [address] [id number] Maira Karly Triglyceride [Mass/Vol] 41 mg/dL Normal <=150 [facility] Comment on above: Performed By: #### L IPID, CMP #### [facility] [address] [id number] Maira Karly VLDL CALC 8.2 mg/dL Normal [facility] Comment on above: Performed By: #### L IPID, CMP #### [facility] [address] [id number] Maira Karly PROF 14(COMP METB)on 021 Albumin [Mass/Vol] 3.4 g/dL Critically low 3.5-5.0 [facility] Comment on above: Performed By: #### L IPID, CMP #### [facility] [address] [id number] Maira Karly Albumin/Globulin [Mass ratio] 1.1 {ratio} Normal [facility] Comment on above: Performed By: #### L IPID, CMP #### [facility] [address] [address] Maira Karly ALP [Catalytic activity/Vol] 60 U/L Normal 38-126 [facility] Comment on above: Performed By: #### L IPID, CMP #### [facility] [address] [address] Maira Karly ALT [Catalytic activity/Vol] 15 U/L Normal 9-52 [facility] Comment on above: Performed By: #### L IPID, CMP #### [facility] [address] [address] Maira Karly Anion gap [Moles/Vol] 10.8 mmol/L Normal [facility] Comment on above: Performed By: #### L IPID, CMP #### [facility] [address] [address] Maira Karly AST [Catalytic activity/Vol] 11 U/L Critically low 14-36 [facility] Comment on above: Performed By: #### L IPID, CMP #### [facility] [address] [address] Maira Karly Bilirubin [Mass/Vol] 0.4 mg/dL Normal 0.2-1.3 [facility] Comment on above: Performed By: #### L IPID, CMP #### [facility] [address] [id number] Maira Karly Calcium [Mass/Vol] 9.2 mg/dL Normal 8.4-10.2 [facility] Comment on above: Performed By: #### L IPID, CMP #### [facility] [address] [id number] Maira Karly Chloride [Moles/Vol] 105 mmol/L Normal 98-107 [facility] Comment on above: Performed By: #### L IPID, CMP #### [facility] [address] [id number] Maira Karly CO2 [Moles/Vol] 30.9 mmol/L Critically high 22.0-30.0 [facility] Comment on above: Performed By: #### L IPID, CMP #### [facility] [address] [address] Maira Karly Creatinine [Mass/Vol] 0.88 mg/dL Normal 0.52-1.04 [facility] Comment on above: Performed By: #### L IPID, CMP #### [facility] [address] [place], [place] [id number] Maira Karly EGFR-AF [place] >60 Normal >=60 [facility] Comment on above: Performed By: #### L IPID, CMP #### [facility] [address] [id number] Maira Karly EGFR-NON AF [place] >60 Normal >=60 [facility] Comment on above: Performed By: #### L IPID, CMP #### [facility] [address] [place], [place] [id number] Maira Karly Globulin (S) [Mass/Vol] 3.0 g/dL Normal [facility] Comment on above: Performed By: #### L IPID, CMP #### [facility] [address] [address] Maira Karly Glucose [Mass/Vol] 129 mg/dL Critically high 74-106 [facility] Comment on above: Performed By: #### L IPID, CMP #### [facility] [address] [address] Maira Karly Potassium [Moles/Vol] 3.7 mmol/L Normal 3.4-5.0 [facility] Comment on above: Performed By: #### L IPID, CMP #### [facility] [address] [place] [address] Maira Karly Protein [Mass/Vol] 6.4 g/dL Normal 6.1-8.2 [facility] Comment on above: Performed By: #### L IPID, CMP #### [facility] [address] [place], [place] [id number] Maira Karly Sodium [Moles/Vol] 143 mmol/L Normal 137-145 [facility] Comment on above: Performed By: #### L IPID, CMP #### [facility] [address] [place] [address] Maira Karly Urea nitrogen [Mass/Vol] 14.0 mg/dL Normal 7.0-17.0 [facility] Comment on above: Performed By: #### L IPID, CMP #### [facility] [address] [place], [place] [id number] Maira Karly Urea nitrogen/Creatinine [Mass ratio] 15.9 mg/mg Normal [facility] Comment on above: Performed By: #### L IPID, CMP #### [facility] [address] [place], [place] [id number] Maira Karly CBC AUTO DIFFon 06-25-2021 BASO # 0.1 103/ul Normal 0.0-0.1 [facility] Comment on above: Performed By: #### C BC #### [facility] [address] [place], [place] [id number] Maira Karly Basophils/100 WBC (Bld) 0.6 % Normal 0.2-2.0 [facility] Comment on above: Performed By: #### C BC #### [facility] [address] [place], [place] [id number] Maira Karly EO # 0.1 103/ul Normal 0.0-0.7 [facility] Comment on above: Performed By: #### C BC #### [facility] [address] [place], [place] [id number] Maira Karly Eosinophils/100 WBC (Bld) 1.6 % Normal 0.9-7.0 The [facility] Comment on above: Performed By: #### C BC #### [facility] [address] [place] [address] Maira Karly Erythrocyte distribution width (RBC) [Ratio] 14.4 % Normal 11.0-15.0 [facility] Comment on above: Performed By: #### C BC #### [facility] [address] [place] [address] Maira Karly Hematocrit (Bld) [Volume fraction] 38.7 % Normal 36.0-48.0 [facility] Comment on above: Performed By: #### C BC #### [facility] [address] [place] [address] Maira Karly Hemoglobin (Bld) [Mass/Vol] 12.3 g/dL Normal 12.0-16.0 [facility] Comment on above: Performed By: #### C BC #### [facility] [address] [place] [address] Maira Karly IG # 0.02 10e3/ul Normal 0.00-0.03 [facility] Comment on above: Performed By: #### C BC #### [facility] [address] [place] [address] Maira Karly IG % 0.2 % Normal 0.0-0.5 [facility] Comment on above: Performed By: #### C BC #### [facility] [address] [place] [address] Maira Karly LYMPH # 2.0 103/ul Normal 1.2-3.8 The [facility] Comment on above: Performed By: #### C BC #### [facility] [address] [place], [place] [id number] Maira Karly Lymphocytes/100 WBC (Bld) 24.4 % Normal 20.5-60.0 [facility] Comment on above: Performed By: #### C BC #### [facility] [address] [place], [place] [id number] Mairamitch Márquezen MANUAL DIFF REQ NO Normal [facility] Comment on above: Performed By: #### C BC #### [facility] [address] [place], [place] [id number] Maira Karly MCH (RBC) [Entitic mass] 28.9 pg Normal 26.7-34.0 [facility] Comment on above: Performed By: #### C BC #### [facility] [address] [place], [place] [id number] Maira Brandt MCHC (RBC) [Mass/Vol] 31.8 g/dL Normal 29.9-35.2 [facility] Comment on above: Performed By: #### C BC #### [facility] [address] [place], [place] [id number] Mairamitch Brandt MCV (RBC) [Entitic vol] 91.1 fL Normal 81.0-99.0 [facility] Comment on above: Performed By: #### C BC #### [facility] [address] [place] [address] Maira Brandt MONO # 0.6 103/ul Normal 0.3-0.8 The [facility] Comment on above: Performed By: #### C BC #### [facility] [address] [place] [address] Mairamitch Márquezen Monocytes/100 WBC (Bld) 7.7 % Normal 1.7-12.0 The [facility] Comment on above: Performed By: #### C BC #### [facility] [address] [place] [address] Maira Brandt NEUT # 5.3 103/ul Normal 1.4-6.5 The [facility] Comment on above: Performed By: #### C BC #### [facility] [address] [place], [place] [id number] Maira Karly Neutrophils/100 WBC (Bld) 65.5 % Normal 43.0-75.0 [facility] Comment on above: Performed By: #### C BC #### [facility] [address] [place], [place] [id number] Maira Karly Platelet mean volume (Bld) [Entitic vol] 8.5 fL Critically low 9.5-13.5 The [facility] Comment on above: Performed By: #### C BC #### [facility] [address] [place], [place] [id number] Maira Karly PLT 318 103/ul Normal 150-450 [facility] Comment on above: Performed By: #### C BC #### [facility] [address] [place], [place] [address] Maira Karly RBC 4.25 106/ul Normal 4.20-5.40 [facility] Comment on above: Performed By: #### C BC #### [facility] [address] [place], [place] [address] Maira Karly WBC 8.2 103/ul Normal 4.0-11.0 [facility] Comment on above: Performed By: #### C BC #### [facility] [address] [place], [place] [address] Maira Brandt Vital Signs Date Time Vital Sign Value Performing Clinician Facility 07-30-2024 15:31-0400 Body temperature 97.3 [degF] MD Ethel Wakefield Work Phone: [facility] 07-30-2024 15:31-0400 Body weight 64.86 kg MD Ethel Wakefield Work Phone: [facility] 07-30-2024 15:31-0400 Diastolic blood pressure 66 mm[Hg] MD Ethel Wakefield Work Phone: [facility] 07-30-2024 15:31-0400 Heart rate 8 /min MD Ethel Wakefield Work Phone: [facility] 07-30-2024 15:31-0400 Respiratory rate 16 /min MD Ethel Wakefield Work Phone: [facility] 07-30-2024 15:31-0400 SaO2% (BldA) [Mass fraction] 95 % MD Ethel Wakefield Work Phone: [facility] 07-30-2024 15:31-0400 Systolic blood pressure 123 mm[Hg] MD Ethel Wakefield Work Phone: [facility] 07-28-2024 14:14-0400 Body height 154.94 cm MD Ethel Wakefield Work Phone: [facility] 07-28-2024 14:14-0400 Body mass index (BMI) [Ratio] 27.2 kg/m2 MD Ethel Wakefield Work Phone: [facility] 07-28-2024 14:14-0400 Body weight 65.37 kg MD Ethel Wakefield Work Phone: [facility] 07-28-2024 14:14-0400 Diastolic blood pressure 66 mm[Hg] MD Ethel Wakefield Work Phone: [facility] 07-28-2024 14:14-0400 Heart rate 96 /min MD Ethel Wakefield Work Phone: [facility] 07-28-2024 14:14-0400 Systolic blood pressure 129 mm[Hg] MD Ethel Wakefield Work Phone: [facility] 07-21-2024 14:00-0400 Body height 1554.48 cm MD Ethel Wakefield Work Phone: [facility] 07-21-2024 14:00-0400 Body mass index (BMI) [Ratio] 0.2 kg/m2 MD Ethel Wakefield Work Phone: [facility] 07-21-2024 14:00-0400 Body weight 60.78 kg MD Ethel Wakefield Work Phone: [facility] 07-21-2024 13:43-0400 Body temperature 97.3 [degF] MD Ethel Wakefield Work Phone: [facility] 07-21-2024 13:43-0400 Diastolic blood pressure 65 mm[Hg] MD Ethel Wakefield Work Phone: [facility] 07-21-2024 13:43-0400 Heart rate 92 /min MD Ethel Wakefield Work Phone: [facility] 07-21-2024 13:43-0400 Respiratory rate 16 /min MD Ethel Wakefield Work Phone: [facility] 07-21-2024 13:43-0400 Systolic blood pressure 112 mm[Hg] MD Ethel Wakefield Work Phone: [facility] 07-15-2024 14:01-0400 Body temperature 97.9 [degF] MD Ethel Wakefield Work Phone: [facility] 07-15-2024 14:01-0400 Body weight 65.31 kg MD Ethel Wakefield Work Phone: [facility] 07-15-2024 14:01-0400 Diastolic blood pressure 61 mm[Hg] MD Ethel Wakefield Work Phone: [facility] 07-15-2024 14:01-0400 Heart rate 88 /min MD Ethel Wakefield Work Phone: [facility] 07-15-2024 14:01-0400 Respiratory rate 16 /min MD Ethle Wakefield Work Phone: [facility] 07-15-2024 14:01-0400 SaO2% (BldA) [Mass fraction] 99 % MD Ethel Wakefield Work Phone: [facility] 07-15-2024 14:01-0400 Systolic blood pressure 114 mm[Hg] MD Ethel Wakefield Work Phone: [facility] 06-30-2024 14:19-0400 Body height 1554.48 cm MD Ethel Wakefield Work Phone: [facility] 06-30-2024 14:19-0400 Body mass index (BMI) [Ratio] 0.2 kg/m2 MD Ehtel Wakefield Work Phone: [facility] 06-30-2024 14:19-0400 Body weight 60.78 kg MD Ethel Wakefield Work Phone: [facility] 06-30-2024 14:07-0400 Body temperature 98.2 [degF] MD Ethel Wakefield Work Phone: [facility] 06-30-2024 14:07-0400 Diastolic blood pressure 83 mm[Hg] MD Ethel Wakefield Work Phone: [facility] 06-30-2024 14:07-0400 Heart rate 84 /min MD Ethel Wakefield Work Phone: [facility] 06-30-2024 14:07-0400 Respiratory rate 20 /min MD Ethel Wakefield Work Phone: [facility] 06-30-2024 14:07-0400 Systolic blood pressure 132 mm[Hg] MD Ethel Wakefield Work Phone: [facility] 06-30-2024 13:26-0400 Body temperature 97.7 [degF] MD Ethel Wakefield Work Phone: [facility] 06-30-2024 13:26-0400 Body weight 65.31 kg MD Ethel Wakefield Work Phone: [facility] 06-30-2024 13:26-0400 Diastolic blood pressure 77 mm[Hg] MD Ethel Wakefield Work Phone: [facility] 06-30-2024 13:26-0400 Heart rate 86 /min MD Ethel Wakefield Work Phone: [facility] 06-30-2024 13:26-0400 Respiratory rate 16 /min MD Ethel Wakefield Work Phone: [facility] 06-30-2024 13:26-0400 SaO2% (BldA) [Mass fraction] 98 % MD Ethel Wakefield Work Phone: [facility] 06-30-2024 13:26-0400 Systolic blood pressure 127 mm[Hg] MD Ethel Wakefield Work Phone: [facility] 06-15-2024 13:49-0400 Body height 1554.48 cm MD Ethel Wakefield Work Phone: [facility] 06-15-2024 13:49-0400 Body mass index (BMI) [Ratio] 0.2 kg/m2 MD Ethel Wakefield Work Phone: [facility] 06-15-2024 13:49-0400 Body weight 60.78 kg MD Ethel Wakefield Work Phone: [facility] 06-15-2024 13:28-0400 Body temperature 98.8 [degF] MD Ethel Wakefield Work Phone: [facility] 06-15-2024 13:28-0400 Diastolic blood pressure 66 mm[Hg] MD Ethel Wakefield Work Phone: [facility] 06-15-2024 13:28-0400 Heart rate 88 /min MD Ethel Wakefield Work Phone: [facility] 06-15-2024 13:28-0400 Systolic blood pressure 135 mm[Hg] MD Ethel Wakefield Work Phone: [facility] 06-01-2024 14:44-0400 Respiratory rate 20 /min MD Ethel Wakefield Work Phone: [facility] 05-26-2024 12:58-0400 Body temperature 97 [degF] MD Ethel Wakefield Work Phone: [facility] 05-26-2024 12:58-0400 Body weight 61.23 kg MD Ethel Wakefield Work Phone: [facility] 05-26-2024 12:58-0400 Diastolic blood pressure 75 mm[Hg] MD Ethel Wakefield Work Phone: [facility] 05-26-2024 12:58-0400 Heart rate 85 /min MD Ethel Wakefield Work Phone: [facility] 05-26-2024 12:58-0400 Respiratory rate 16 /min MD Ethel Wakefield Work Phone: [facility] 05-26-2024 12:58-0400 SaO2% (BldA) [Mass fraction] 98 % MD Ethel Wakefield Work Phone: [facility] 05-26-2024 12:58-0400 Systolic blood pressure 123 mm[Hg] MD Ethel Wakefield Work Phone: [facility] 05-26-2024 11:29-0400 Body height 152.4 cm MD Ethel Wakefield Work Phone: [facility] 05-26-2024 11:29-0400 Body mass index (BMI) [Ratio] 26.4 kg/m2 MD Ethel Wakefield Work Phone: [facility] 05-26-2024 11:29-0400 Body weight 61.23 kg MD Ethel Wakefield Work Phone: [facility] 05-26-2024 11:29-0400 Diastolic blood pressure 73 mm[Hg] MD Ethel Wakefield Work Phone: [facility] 05-26-2024 11:29-0400 Heart rate 91 /min MD Ethel Wakefield Work Phone: [facility] 05-26-2024 11:29-0400 SaO2% (BldA) [Mass fraction] 96 % MD Ethel Wakefield Work Phone: [facility] 05-26-2024 11:29-0400 Systolic blood pressure 130 mm[Hg] MD Ethel Wakefield Work Phone: [facility] 05-13-2024 13:39-0400 Body height 152.4 cm MD Ethel Wakefield Work Phone: [facility] 05-13-2024 13:39-0400 Body mass index (BMI) [Ratio] 27.3 kg/m2 MD Ethel Wakefield Work Phone: [facility] 05-13-2024 13:39-0400 Body temperature 97.9 [degF] MD Ethel Wakefield Work Phone: [facility] 05-13-2024 13:39-0400 Body weight 63.5 kg MD Ethel Wakefield Work Phone: [facility] 05-13-2024 13:39-0400 Diastolic blood pressure 75 mm[Hg] MD Ethel Wakefield Work Phone: [facility] 05-13-2024 13:39-0400 Heart rate 94 /min MD Ethel Wakefield Work Phone: [facility] 05-13-2024 13:39-0400 Respiratory rate 16 /min MD Ethel Wakefield Work Phone: [facility] 05-13-2024 13:39-0400 SaO2% (BldA) [Mass fraction] 98 % MD Ethel Wakefield Work Phone: [facility] 05-13-2024 13:39-0400 Systolic blood pressure 127 mm[Hg] MD Ethel Wakefield Work Phone: [facility] 05-07-2024 11:57-0400 Body height 152.4 cm MD Ethel Wakefield Work Phone: [facility] 05-07-2024 11:57-0400 Body mass index (BMI) [Ratio] 28.1 kg/m2 MD Ethel Wakefield Work Phone: [facility] 05-07-2024 11:57-0400 Body weight 65.31 kg MD Ethel Wakefield Work Phone: [facility] 05-07-2024 11:57-0400 Diastolic blood pressure 67 mm[Hg] MD Ethel Wakefield Work Phone: [facility] 05-07-2024 11:57-0400 Heart rate 101 /min MD Ethel Wakefield Work Phone: [facility] 05-07-2024 11:57-0400 Systolic blood pressure 115 mm[Hg] MD Ethel Wakefield Work Phone: [facility] 04-29-2024 14:45-0400 Diastolic blood pressure 78 mm[Hg] MD Ethel Wakefield Work Phone: [facility] 04-29-2024 14:45-0400 Heart rate 90 /min MD Ethel Wakefield Work Phone: [facility] 04-29-2024 14:45-0400 Inhaled oxygen flow rate 3 L/min MD Ethel Wakefield Work Phone: [facility] 04-29-2024 14:45-0400 Respiratory rate 18 /min MD Ethel Wakefield Work Phone: [facility] 04-29-2024 14:45-0400 SaO2% (BldA) [Mass fraction] 98 % MD Ethel Wakefield Work Phone: [facility] 04-29-2024 14:45-0400 Systolic blood pressure 142 mm[Hg] MD Ethel Wakefield Work Phone: [facility] 04-29-2024 14:04-0400 Body height 152.4 cm MD Ethel Wakefield Work Phone: [facility] 04-29-2024 14:04-0400 Body weight 61.68 kg MD Ethel Wakefield Work Phone: [facility] 04-22-2024 13:50-0400 Body height 162.56 cm MD Ethel Wakefield Work Phone: [facility] 04-22-2024 13:50-0400 Body mass index (BMI) [Ratio] 23.8 kg/m2 MD Ethel Wakefiedl Work Phone: [facility] 04-22-2024 13:50-0400 Body temperature 97.8 [degF] MD Ethel Wakefield Work Phone: [facility] 04-22-2024 13:50-0400 Body weight 63.04 kg MD Ethel Wakefield Work Phone: [facility] 04-22-2024 13:50-0400 Diastolic blood pressure 80 mm[Hg] MD Ethel Wakefield Work Phone: [facility] 04-22-2024 13:50-0400 Heart rate 87 /min MD Ethel Wakefield Work Phone: [facility] 04-22-2024 13:50-0400 Respiratory rate 16 /min MD Ethel Wakefield Work Phone: [facility] 04-22-2024 13:50-0400 SaO2% (BldA) [Mass fraction] 99 % MD Ethel Wakefield Work Phone: [facility] 04-22-2024 13:50-0400 Systolic blood pressure 156 mm[Hg] MD Ethel Wakefield Work Phone: [facility] 03-27-2024 10:32-0400 Body temperature 97.9 [degF] MD Ethel Wakefield Work Phone: [facility] 03-27-2024 10:32-0400 Body weight 64.86 kg MD Ethel Wakefield Work Phone: [facility] 03-27-2024 10:32-0400 Diastolic blood pressure 78 mm[Hg] MD Ethel Wakefield Work Phone: [facility] 03-27-2024 10:32-0400 Heart rate 98 /min MD Ethel Wakefield Work Phone: [facility] 03-27-2024 10:32-0400 Inhaled oxygen flow rate 3.5 L/min MD Ethel Wakefield Work Phone: [facility] 03-27-2024 10:32-0400 Respiratory rate 16 /min MD Ethel Wakefield Work Phone: [facility] 03-27-2024 10:32-0400 SaO2% (BldA) [Mass fraction] 94 % MD Ethel Wakefield Work Phone: [facility] 03-27-2024 10:32-0400 Systolic blood pressure 139 mm[Hg] MD Ethel Wakefield Work Phone: [facility] 03-23-2024 14:08-0400 Body height 162.56 cm MD Ethel Wakefield Work Phone: [facility] 03-23-2024 14:08-0400 Body mass index (BMI) [Ratio] 23.8 kg/m2 MD Ethel Wakefield Work Phone: [facility] 03-23-2024 14:08-0400 Body weight 63.04 kg MD Ethel Wakefield Work Phone: [facility] 03-23-2024 14:08-0400 Diastolic blood pressure 73 mm[Hg] MD Ethel Wakefield Work Phone: [facility] 03-23-2024 14:08-0400 Heart rate 101 /min MD Ethel Wakefield Work Phone: [facility] 03-23-2024 14:08-0400 SaO2% (BldA) [Mass fraction] 94 % MD Ethel Wakefield Work Phone: [facility] 03-23-2024 14:08-0400 Systolic blood pressure 119 mm[Hg] MD Ethel Wakefield Work Phone: [facility] 09-05-2023 13:59-0400 Body temperature 97.8 [degF] MD Ethel Wakefield Work Phone: [facility] 09-05-2023 13:59-0400 Body weight 66.67 kg MD Ethel Wakefield Work Phone: [facility] 09-05-2023 13:59-0400 Diastolic blood pressure 69 mm[Hg] MD Ethel Wakefield Work Phone: [facility] 09-05-2023 13:59-0400 Heart rate 87 /min MD Ethel Wakefield Work Phone: [facility] 09-05-2023 13:59-0400 Respiratory rate 16 /min MD Ethel Wakefield Work Phone: [facility] 09-05-2023 13:59-0400 SaO2% (BldA) [Mass fraction] 98 % MD Ethel Wakefield Work Phone: [facility] 09-05-2023 13:59-0400 Systolic blood pressure 124 mm[Hg] MD Ethel Wakefield Work Phone: [facility] 07-03-2023 13:32-0400 Body temperature 97.9 [degF] MD Ethel Wakefield Work Phone: [facility] 07-03-2023 13:32-0400 Body weight 66.22 kg MD Ethel Wakefield Work Phone: [facility] 07-03-2023 13:32-0400 Diastolic blood pressure 82 mm[Hg] MD Ethel Wakefield Work Phone: [facility] 07-03-2023 13:32-0400 Heart rate 83 /min MD Ethel Wakefield Work Phone: [facility] 07-03-2023 13:32-0400 Respiratory rate 16 /min MD Ethel Wakefield Work Phone: [facility] 07-03-2023 13:32-0400 SaO2% (BldA) [Mass fraction] 99 % MD Ethel Wakefield Work Phone: [facility] 07-03-2023 13:32-0400 Systolic blood pressure 146 mm[Hg] MD Ethel Wakefield Work Phone: [facility] 05-29-2023 14:16-0400 Body temperature 97.8 [degF] MD Ethel Wakefield Work Phone: [facility] 05-29-2023 14:16-0400 Body weight 65.31 kg MD Ethel Wakefield Work Phone: [facility] 05-29-2023 14:16-0400 Diastolic blood pressure 71 mm[Hg] MD Ethel Wakefiedl Work Phone: [facility] 05-29-2023 14:16-0400 Heart rate 78 /min MD Ethel Wakefield Work Phone: [facility] 05-29-2023 14:16-0400 Respiratory rate 16 /min MD Ethel Wakefield Work Phone: [facility] 05-29-2023 14:16-0400 SaO2% (BldA) [Mass fraction] 98 % MD Ethel Wakefield Work Phone: [facility] 05-29-2023 14:16-0400 Systolic blood pressure 125 mm[Hg] MD Ethel Wakefield Work Phone: [facility] 05-16-2023 14:00-0400 Body height 162.56 cm Leonardo Herron II Other [facility] [employer] Other 05-16-2023 14:00-0400 Body mass index (BMI) [Ratio] 24.71 kg/m2 Leonardo Herron II Other [employer] Other 05-16-2023 14:00-0400 Body weight 65.32 kg Leonardo Herron II Other [facility] [employer] Other 04-25-2023 11:18-0400 Body temperature 97.8 [degF] MD Ethel Wakefield Work Phone: [facility] 04-25-2023 11:18-0400 Body weight 65.77 kg MD Ethel Wakefield Work Phone: [facility] 04-25-2023 11:18-0400 Diastolic blood pressure 85 mm[Hg] MD Ethel Wakefield Work Phone: [facility] 04-25-2023 11:18-0400 Heart rate 86 /min MD Ethel Wakefield Work Phone: [facility] 04-25-2023 11:18-0400 Respiratory rate 16 /min MD Ethel Wakefield Work Phone: [facility] 04-25-2023 11:18-0400 SaO2% (BldA) [Mass fraction] 98 % MD Ethel Wakefield Work Phone: [facility] 04-25-2023 11:18-0400 Systolic blood pressure 139 mm[Hg] MD Ethel Wakefield Work Phone: [facility] 04-25-2023 10:57-0400 Body height 162.56 cm MD Ethel Wakefield Work Phone: [facility] Encounters Encounter Date Encounter Type Care Provider Facility Start: 09-07-2024 ambulatory Taina Potter Facility:[facility] Start: 07-30-2024 End: 07-30-2024 ambulatory MD Ethel Wakefield Work Phone: [facility] Work Phone: Start: 07-30-2024 End: 07-30-2024 Patient encounter procedure MD Ethel Wakefield Work Phone: [facility] Work Phone: Start: 07-30-2024 End: 07-30-2024 ambulatory MD Ethel Wakefield Work Phone: [facility] Work Phone: Start: 07-30-2024 End: 07-30-2024 Patient encounter procedure MD Ethel Wakefield Work Phone: [facility] Work Phone: Start: 07-29-2024 Registered Recurring MD Ethel Wakefield Work Phone: [facility] Work Phone: Start: 07-29-2024 ambulatory Cristina Long Faci lity:[facility] Start: 07-29-2024 Encounter for other specified special examinations Cristina Long [facility] Start: 07-28-2024 End: 07-28-2024 ambulatory MD Ethel Wakefield Work Phone: [facility] Work Phone: Start: 07-28-2024 End: 07-28-2024 Patient encounter procedure MD Ethel Wakefield Work Phone: [facility] Work Phone: Start: 07-21-2024 Registered Recurring MD Ethel Wakefield Work Phone: [facility] Work Phone: Start: 07-15-2024 End: 07-15-2024 ambulatory MD Ethel Wakefield Work Phone: [facility] Work Phone: Start: 07-15-2024 End: 07-15-2024 Patient encounter procedure MD Ethel Wakefield Work Phone: [facility] Work Phone: Start: 07-15-2024 Registered Recurring MD Ethel Wakefield Work Phone: [facility] Work Phone: Start: 06-30-2024 Registered Recurring MD Ethel Wakefield Work Phone: [facility] Work Phone: Start: 06-30-2024 End: 06-30-2024 ambulatory MD Ethel Wakefield Work Phone: [facility] Work Phone: Start: 06-30-2024 End: 06-30-2024 Patient encounter procedure MD Ethel Wakefield Work Phone: [facility] Work Phone: Start: 06-30-2024 Registered Recurring MD Ethel Wakefield Work Phone: [facility] Work Phone: Start: 05-26-2024 End: 05-26-2024 Patient encounter procedure MD Ethel Wakefield Work Phone: [facility] Work Phone: Start: 05-26-2024 End: 05-26-2024 ambulatory MD Ethel Wakefield Work Phone: [facility] Work Phone: Start: 05-26-2024 End: 05-26-2024 Patient encounter procedure MD Ethel Wakefield Work Phone: [facility] Work Phone: Start: 05-26-2024 Registered Recurring MD Ethel Wakefield Work Phone: [facility] Work Phone: Start: 05-13-2024 End: 05-13-2024 ambulatory MD Ethel Wakefield Work Phone: [facility] Work Phone: Start: 05-13-2024 End: 05-13-2024 Patient encounter procedure MD Ethel Wakefield Work Phone: [facility] Work Phone: Start: 05-13-2024 Registered Recurring MD Ethel Wakefield Work Phone: [facility] Work Phone: Start: 05-11-2024 Non-patient / Non-visit MD Andree Wakefield Work Phone: [facility] Work Phone: Start: 05-07-2024 End: 05-07-2024 ambulatory MD tEhel Wakefield Work Phone: [facility] Work Phone: Start: 05-07-2024 End: 05-07-2024 Patient encounter procedure MD Ethel Wakefield Work Phone: [facility] Work Phone: Start: 05-04-2024 Registered Recurring MD Ethel Wakefield Work Phone: [facility] Work Phone: Start: 04-29-2024 End: 04-29-2024 Admission to same day surgery center MD Ethel Wakefield Work Phone: [facility] Work Phone: Start: 04-29-2024 End: 04-29-2024 ambulatory MD Ethel Wakefield Work Phone: [facility] Work Phone: Start: 04-29-2024 Non-patient / Non-visit MD Andree Wakefield Work Phone: [facility] Work Phone: Start: 04-24-2024 Registered Recurring MD Ethel Wakefield Work Phone: [facility] Work Phone: Start: 04-22-2024 Non-patient / Non-visit MD Andree Wakefield Work Phone: [facility] Work Phone: Start: 04-22-2024 End: 04-22-2024 ambulatory MD Ethel Wakefield Work Phone: [facility] Work Phone: Start: 04-22-2024 End: 04-22-2024 Patient encounter procedure MD Ethel Wakefield Work Phone: [facility] Work Phone: Start: 04-22-2024 Registered Recurring MD Ethel Wakefield Work Phone: [facility] Work Phone: Start: 04-20-2024 Non-patient / Non-visit MD Andree Wakefield Work Phone: [facility] Work Phone: Start: 04-09-2024 Non-patient / Non-visit MD Andree Wakefield Work Phone: [facility] Work Phone: Start: 04-08-2024 Non-patient / Non-visit MD Andree Wakefield Work Phone: [facility] Work Phone: Start: 04-02-2024 End: 04-02-2024 ambulatory MD Ethel Wakefield Work Phone: [facility] Work Phone: Start: 04-02-2024 End: 04-02-2024 Patient encounter procedure MD Ethel Wakefield Work Phone: [facility] Work Phone: Start: 03-27-2024 End: 03-27-2024 ambulatory MD Ethel Wakefield Work Phone: [facility] Work Phone: Start: 03-27-2024 End: 03-27-2024 Patient encounter procedure MD Ethel Wakefield Work Phone: [facility] Work Phone: Start: 03-27-2024 Registered Recurring MD Ethel Wakefield Work Phone: [facility] Work Phone: Start: 03-23-2024 End: 03-23-2024 ambulatory MD Ethel Wakefield Work Phone: [facility] Work Phone: Start: 03-23-2024 End: 03-23-2024 Patient encounter procedure MD Ethel Wakefield Work Phone: [facility] Work Phone: Start: 03-20-2024 Non-patient / Non-visit MD Andree Wakefield Work Phone: [facility] Work Phone: Start: 03-19-2024 End: 03-19-2024 ambulatory MD Ethel Wakefield Work Phone: [facility] Work Phone: Start: 03-19-2024 End: 03-19-2024 Departed Referred MD Ethel Wakefield Work Phone: [facility] Start: 03-19-2024 Non-patient / Non-visit MD Andree Wakefield Work Phone: [facility] Work Phone: Start: 03-18-2024 Non-patient / Non-visit MD Andree Wakefield Work Phone: [facility] Work Phone: Start: 09-05-2023 End: 09-05-2023 ambulatory MD Ethel Wakefield Work Phone: [facility] Work Phone: Start: 09-05-2023 End: 09-05-2023 Registered Recurring MD Ethel Wakefield Work Phone: [facility] Work Phone: Start: 07-03-2023 End: 07-03-2023 ambulatory MD Ethel Wakefield Work Phone: [facility] Work Phone: Start: 07-03-2023 End: 07-03-2023 Registered Recurring MD Ethel Wakefield Work Phone: [facility] Work Phone: Start: 06-03-2023 End: 06-03-2023 ambulatory Leonardo Herron II Other [employer] Other Start: 06-03-2023 Telephone encounter Leonardo Herron II [facility] Start: 05-29-2023 End: 05-29-2023 ambulatory MD Ethel Wakefield Work Phone: [facility] Work Phone: Start: 05-29-2023 End: 05-29-2023 Registered Recurring MD Ethel Wakefield Work Phone: [facility] Work Phone: Start: 05-16-2023 Registered Recurring MD Ethel Wakefield Work Phone: [facility] Work Phone: Start: 05-16-2023 Office outpatient ne w 45 minutes Leonardo Herron II [facility] Start: 05-16-2023 End: 05-16-2023 ambulatory MD Ethel Wakefield Work Phone: [facility] Work Phone: Start: 05-16-2023 End: 05-16-2023 Patient encounter procedure MD Ethel Wakefield Work Phone: [facility] Start: 04-26-2023 ambulatory Facility:U Start: 04-25-2023 End: 04-25-2023 ambulatory MD Ethel Wakefield Work Phone: [facility] Work Phone: Start: 04-25-2023 End: 04-25-2023 Registered Recurring MD Ethel Wakefield Work Phone: [facility] Work Phone: Start: 04-16-2023 End: 04-16-2023 ambulatory Ethel Wakefield Other [facility] Other Start: 04-16-2023 Telephone encounter Ethel Wakefield [facility] Start: 06-08-2022 Encounter for genera l adult medical examination without abnormal findings DR ETHEL WAKEFIELD [facility] Start: 06-05-2022 End: 06-06-[address] ETHEL [...] Activity Detail Author Start: 07-15-20[address] [facility] Work Phone: Start: 05-26-[address] [facility] Work Phone: Start: 04-29-2024 [facility] Start: 04-29-2024 Ultrasonic guidance for thoracentesis [facility] Start: 03-27-2024 Patient referral [facility] Work Phone: Start: 03-18-2024 Blood Culture 1 Blood Culture 1 [facility] Start: 03-18-2024 Blood Culture 2 Blood Culture 2 [facility] Start: 05-16-2023 X-ray of both knees XR knee BI 4V [facility] Start: 05-16-2023 Pelvis X-ray XR pelvis 1-2V [facility] Start: 05-16-2023 MRSA Culture MRSA Culture [facility] Albumin/Globulin ratio [facility] Anion gap measurement [facility] Basophils [#/volume] in Blood by Automated count [facility] Basophils/100 leukoc ytes in Blood by Automated count [facility] Cancer Ag 15-3 [Units/volume] in Serum or Plasma [facility] Cancer Ag 15-3 [Units/volume] in Serum or Plasma [facility] Comprehensive metabo lic 1999 panel - Serum or Plasma [facility] Comprehensive metabo lic 1999 panel - Serum or Plasma [facility] Comprehensive metabo lic 1999 panel - Serum or Plasma [facility] Comprehensive metabo lic 1999 panel - Serum or Plasma [facility] Comprehensive metabo lic 1999 panel - Serum or Plasma [facility] Comprehensive metabo lic 2000 panel - Serum or Plasma [facility] Comprehensive metabo lic 1999 panel - Serum or Plasma [facility] Comprehensive metabo lic 1999 panel - Serum or Plasma [facility] Computed tomography for radiotherapy planning [facility] Cotinine [Mass/volum e] in Serum or Plasma [facility] Eosinophils [#/volum e] in Blood [facility] Eosinophils/100 leuk ocytes in Blood by Automated count [facility] Erythrocyte distribu tion width [Ratio] by Automated count [facility] Erythrocytes [#/volu me] in Blood [facility] Globulin [Mass/volum e] in Serum [facility] Glucose measurement estimated from glycated hemoglobin [facility] Hematocrit [Volume F raction] of Blood [facility] Hemoglobin [Mass/vol ume] in Blood [facility] Leukocytes [#/volume ] corrected for nucleated erythrocytes in Blood by Automated coun [facility] Leukocytes [#/volume ] in Blood [facility] Lymphocytes [#/volum e] in Blood by Automated count [facility] Lymphocytes/100 leuk ocytes in Blood by Automated count [facility] MCH [Entitic mass] b y Automated count [facility] MCHC [Mass/volume] b y Automated count [facility] MCV [Entitic volume] by Automated count [facility] Measurement of cance r antigen -29 [facility] Measurement of cance r antigen - [facility] Methicillin resistan t Staphylococcus aureus [Presence] in Unspecified specimen by Organism specific culture [facility] Monocytes [#/volume] in Blood by Automated count [facility] Monocytes/100 leukoc ytes in Blood by Automated count [facility] Neutrophils [#/volum e] in Blood by Automated count [facility] Neutrophils/100 leuk ocytes in Blood by Automated count [facility] Nicotine [Mass/volum e] in Serum or Plasma [facility] Nucleated erythrocyt es [Presence] in Blood by Automated count [facility] Patient Education [facility] Work Phone: Patient referral [facility] Work Phone: Platelet mean volume [Entitic volume] in Blood by Automated count [facility] Platelets [#/volume] in Blood [facility] Ultrasonic guidance for thoracentesis [facility] XR Chest 2 Views [facility] Immunizations Immunization Date Immunization Notes Care Provider Fa cility 07-20-2021 influenza virus vaccine, split virus (incl. purified surface antigen) Leonardo Herron II Other [facility] Other 07-20-2021 influenza virus vaccine, unspecified formulation MD Ethel Wakefield Work Phone: [facility] 07-08-2017 influenza virus vaccine, split virus (incl. purified surface antigen) Leonardo Herron II Other [employer] Other 07-08-2017 influenza virus vaccine, unspecified formulation MD Ethel Wakefield Work Phone: [facility] Payers Date Payer Category Payer Self-pay 1957 Medicare [id number] 1957 Unknown [id number] 1935 Unknown [id number] [id number] 1935 Unknown [id number] [id number] Unknown [id number] 2.16.8 [id number] Unknown [id number] 2.16.8 [id number] Unknown [id number] [id number] [id number] Unknown [id number] 2.16.8 [id number] Social History Date Type Detail Facility Unknown if ever smoked [employer] Other Sex Assigned At Sex Assigned At Bir th [employer] Other Start: 04-25-2023 End: 07-21-2024 Tobacco smoking status NHIS Never smoked tobacco (finding) [facility] Start: 1935 Sex Assigned At Female F [facility] Clinical Notes 04-16-2023 to 07-03-2023 Note Date & Type Note Facility 07-03-2023 Progress note Note Date/Time July 03, 2023 1:38pm [facility] at [address] [address] Hem/Onc Follow Up Note - OP Signed Patient: Yolanda Fairbanks MR#: [id number] : 1935 Acct:[id number] Age/Sex: 88 / F Type: REG RCR [...] to transfer of care back to her [place] physician Dr. Lozano. Moderate complexity 35 minute [...] lady who lives independently and resides in [facility] about half of the year returning to [place] in the summer and fall. Her primary [...] -Patient is planning to go back to [place] in February and is undergoing knee replacement surgery in summer 2022. The patient will make arrangements to seek surgical consultation in [place] and will decide if she wants to [...] lymph nodes negative for metastasis, ER 98%, OR 90%, HER2/dallin 1+, p53 8%, Ki-67 10%. [...] breast biopsy from 01/04/2022 shows ER +65%, OR -0%, HER2/dallin -0%. --PET/CT performed at [facility] 02/04/2023 with interpretation as follows: Impression: 1. [...] on systemic therapy until she returns to [place] in August and we will forward allof [...] a high complexity visit over 60 minutes yizt-do-vock for review of history and symptoms as [...] lymph nodes negative for metastasis, ER 98%, OR 90%, HER2/dallin 1+, p53 8%, Ki-67 10%. [...] PO BID 04/11/23 [History Confirmed 07/03/23] omega 7-wbc-vbt-fish oil 900 mg-1,400 mg capsule,delayed release 1 [...] % (Auto) 43.2, Lymph % (Auto) 47.5, [facility] % (Auto) 6.4, Eos % (Auto) 0.9, Baso % (Auto) 2.0, Nucleat RBC Rel Count 0.4, Neut # (Auto) 1.3 L, Lymph # (Auto) 1.4, [facility] # (Auto) 0.2, Eos # (Auto) 0.0, Baso # (Auto) 0.1 - Impressions Date of Service: 05/16/23 XR/XR knee BI 4V: Acute pain of right knee ([id number]) XR/XR pelvis 1-2V: Acute pain of right knee 4 views both knee plain film COMPARISON: None HISTORY: Bilateral knee pain greater on the right ACUTE FINDINGS: None DEGENERATIVE CHANGE: Extensive dkqy-rk-akme contact the medial compartment degeneration seen bilaterally. Mild patellofemoral and lateral compartment degenerative changes. Bilateral mild degenerative subluxation. SOFT TISSUE FINDINGS: Unremarkable JOINT EFFUSION: None POSTOP CHANGES: None BONE MINERALIZATION: Adequate XR/XR knee BI 4V IMPRESSION: Extensive llhu-ns-jiwc bilateral medial compartment degenerative changes. Single view [...] lymph nodes negative for metastasis, ER 98%, OR 90%, HER2/dallin 1+, p53 8%, Ki-67 10%. [...] is transferring care from her primary oncologistin [place] after 12/2022 diagnosis of second breast cancer recurrence in subcutaneous tissue near right mastectomy site with no obvious systemic recurrence on recent PET/CT. She has ER+, OR neg, Her2 neg disease from recent biopsy. [...] on systemic therapy until she returns to [place] in August and we will forward allof [...] of care back to Dr. Lozano in [place]. Moderate complexityvisit 35 minutes. (2) Osteoarthritis of [...] August prior to transfer of care to [place]). (4) Encounter for long-term current use of [...] for coordination of care (as documented) and namf-wl-nnuv counseling of patient and/or family. Dictated By: Brandi Lopez MD DD/ [id number] Signed By: <Electronically signed by MD Brandi Lopez> 07/03/231916 [facility] Work Phone: 1([phone]) 153-283907-19-2023 Progress note Author Brandi Lopez [facility] May 29, 2023 9:36pm Note Date/Time May 29, 2023 2:27 pm [facility] at [address] [address] Hem/Onc Follow Up Note - OP Signed Patient: Yolanda Fairbanks MR#: [id number] : 1935 Acct:[id number] Age/Sex: 88 / F Type: REG RCR [...] lady who lives independently and resides in [facility] about half of the year returning to [place] in the summer and fall. Her primary [...] -Patient is planning to go back to [place] in February and is undergoing knee replacement surgery in summer 2022. The patient will make arrangements to seek surgical consultation in [place] and will decide if she wants to [...] lymph nodes negative for metastasis, ER 98%, OR 90%, HER2/dallin 1+, p53 8%, Ki-67 10%. [...] breast biopsy from 01/04/2022 shows ER +65%, OR -0%, HER2/dallin -0%. --PET/CT performed at [facility] 02/04/2022 with interpretation as follows: Impression: 1. [...] on systemic therapy until she returns to [place] in August and we will forward allof [...] a high complexity visit over 60 minutes vwka-ky-cdut for review of history and symptoms as [...] lymph nodes negative for metastasis, ER 98%, OR 90%, HER2/dallin 1+, p53 8%, Ki-67 10%. [...] PO BID 04/11/23 [History Confirmed 05/29/23] omega 0-zac-xyj-fish oil 900 mg-1,400 mg capsule,delayed release 1 [...] % (Auto) 66.1, Lymph % (Auto) 29.3, [facility] % (Auto) 2.8, Eos % (Auto) 1.2, Baso % (Auto) 0.6, Nucleat RBC Rel Count 0.2, Neut # (Auto) 2.8, Lymph # (Auto) 1.3, [facility] # (Auto) 0.1, Eos # (Auto) 0.1, [...] lymph nodes negative for metastasis, ER 98%, OR 90%, HER2/dallin 1+, p53 8%, Ki-67 10%. [...] is transferring care from her primary oncologistin [place] after 12/2022 diagnosis of second breast cancer recurrence in subcutaneous tissue near right mastectomy site with no obvious systemic recurrence on recent PET/CT. She has ER+, OR neg, Her2 neg disease from recent biopsy. [...] on systemic therapy until she returns to [place] in August and we will forward allof [...] for coordination of care (as documented) and qpaf-cn-yqqp counseling of patient and/or family. 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 [employer] Other 06-15-2023 Progress note Author Brandi Lopez [facility] April 25, 2023 5:46pm Note Date/Time April 25, 2023 11:[address] [place] [address] [place] [address] Hem/Onc Follow Up Note - OP Signed Patient: Yolanda Fairbanks MR#: [id number] : 1935 Acct:[id number] Age/Sex: 88 / F Type: REG RCR Copies to: Ethel Wakefield MD~ Subjective Date/Time of Service: Date of Service: 04/25/2023 Time of Service: 11:23 Chief Complaint: Patient is here today to est. Care for breast cancer. [place] and [place] a place here in [place] HPI: Dear Dr. Wakefield, I had the great pleasure of seeing your patient in consultation. Thank you verymuch for your referral. As you know this is an 88-year-old lady who lives independently and resides in [facility] [place] of [place]. Her primary [...] -Patient is planning to go back to [place] in February and is undergoing knee replacement surgery in summer 2022. The patient will make arrangements to seek surgical consultation in [place] and will decide if she wants to [...] lymph nodes negative for metastasis, ER 98%, OR 90%, HER2/dallin 1+, p53 8%, Ki-67 10%. [...] breast biopsy from 01/04/2022 shows ER +65%, OR -0%, HER2/dallin -0%. --PET/CT performed at [facility] 02/04/2022 with interpretation as follows: Impression: 1. [...] on systemic therapy until she returns to [place] in August and we will forward allof [...] a high complexity visit over 60 minutes qwrn-of-gpvz for review of history and symptoms as [...] lymph nodes negative for metastasis, ER 98%, OR 90%, HER2/dallin 1+, p53 8%, Ki-67 10%. [...] Negative for environmental allergies and food allergies. [facility] - History Attestation statement: The following information [...] PO BID 04/11/23 [History Confirmed 04/25/23] omega 6-xpy-nsp-fish oil 900 mg-1,400 mg capsule,delayed release 1 [...] Alb 4.4 - Impressions PET/CT performed at [facility] 02/04/2022 with interpretation as follows: Impression: 1. [...] lymph nodes negative for metastasis, ER 98%, OR 90%, HER2/dallin 1+, p53 8%, Ki-67 10%. [...] is transferring care from her primary oncologistin [place] after 12/2022 diagnosis of second breast cancer recurrence in subcutaneous tissue near right mastectomy site with no obvious systemic recurrence on recent PET/CT. She has ER+, OR neg, Her2 neg disease from recent biopsy. [...] on systemic therapy until she returns to [place] in August and we will forward allof [...] for coordination of care (as documented) and wbwu-qh-ebgn counseling of patient and/or family. 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 Encounter for long-term curr ent use of high risk medication acute Encounter for monitoring aromatase inhibitor therapy chronic Osteoarthritis of knees, bilateral chronic [facility] Work Phone: [facility] Other Evaluation note* Diagnosis Onset Date Resolution Status 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 Encounter for long-term curr ent use of high risk medication chronic Encounter for monitoring aromatase inhibitor therapy chronic Osteoarthritis of knees, bilateral chronic [facility] Work Phone: evaluation note* Diagnosis Onset Date Resolution Status 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 Work Phone: evaluation note* Diagnosis Onset [...] wall recurrence of right breast cancer chronic 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 Work Phone: evaluation note* Diagnosis Onset [...] wall recurrence of right breast cancer chronic 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 Work Phone: Evaluation note* Diagnosis Onset [...] wall recurrence of right breast cancer chronic [facility] Work Phone: Evaluation note* Diagnosis Onset [...] chronic Bilateral primary osteoarthritis of knee acute 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 Work Phone: History general Narrative - [...] Mastectomy 10/2021 Hospitalization History SEE SURGICAL HX [employer] Other Hospital Discharge instructionsAmbulatory Orders* Toxicity Check Time Frame: 4 Weeks, Location: Determined By Patient [facility] Work Phone: Progress note Author Brandi Lopez [facility] May 29, 2023 9:36pm Note Date/Time May 29, 2023 2:27 pm [facility] [place] [address] Hem/Onc Follow Up Note - OP Signed Patient: Yolanda Fairbanks MR#: [id number] : 1935 Acct:[id number] Age/Sex: 88 / F Type: REG RCR [...] lady who lives independently and resides in [facility] about half of the year returning to [place] in the summer and fall. Her primary [...] -Patient is planning to go back to [place] in February and is undergoing knee replacement surgery in summer 2022. The patient will make arrangements to seek surgical consultation in [place] and will decide if she wants to [...] lymph nodes negative for metastasis, ER 98%, OR 90%, HER2/dallin 1+, p53 8%, Ki-67 10%. [...] breast biopsy from 01/04/2022 shows ER +65%, OR -0%, HER2/dallin -0%. --PET/CT performed at [facility] 02/04/2022 with interpretation as follows: Impression: 1. [...] on systemic therapy until she returns to [place] in August and we will forward allof [...] a high complexity visit over 60 minutes [id number] for review of history and symptoms as [...] lymph nodes negative for metastasis, ER 98%, OR 90%, HER2/dallin 1+, p53 8%, Ki-67 10%. [...] PO BID 04/11/23 [History Confirmed 05/29/23] omega 4-njn-swq-fish oil 900 mg-1,400 mg capsule,delayed release 1 [...] % (Auto) 66.1, Lymph % (Auto) 29.3, [facility] % (Auto) 2.8, Eos % (Auto) 1.2, Baso % (Auto) 0.6, Nucleat RBC Rel Count 0.2, Neut # (Auto) 2.8, Lymph # (Auto) 1.3, [facility] # (Auto) 0.1, Eos # (Auto) 0.1, [...] lymph nodes negative for metastasis, ER 98%, OR 90%, HER2/dallin 1+, p53 8%, Ki-67 10%. 2. 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 Estrogen receptor 70%, progesterone receptor 0%, [facility] and not amplified on FISH and Ki-67 37%. 3. 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 She has ER+, OR neg, Her2 neg disease from recent biopsy. [...] on systemic therapy until she returns to [place] in August and we will forward allof [...] for coordination of care (as documented) and yxlz-gw-nzya counseling of patient and/or family. Dictated By: Brandi Lopez MD DD/ [id number] Signed By: <Electronically signed by MD Brandi Lopez> 05/29/23 2136 [facility] Work Phone: Progress note Author Brandi Lopez [facility] July 03, 2023 7:17pm Note Date/Time July 03, 2023 1: 38pm [facility] at [address] [address] Hem/Onc Follow Up Note - OP Signed Patient: Yolanda Fairbanks MR#: [id number] : 1935 Acct:[id number] Age/Sex: 88 / F Type: REG RCR [...] to transfer of care back to her [place] physician Dr. Lozano. Moderate complexity 35 minute [...] lady who lives independently and resides in [facility] about half of the year returning to [place] in the summer and fall. Her primary [...] -Patient is planning to go back to [place] in February and is undergoing knee replacement surgery in summer 2022. The patient will make arrangements to seek surgical consultation in [place] and will decide if she wants to [...] lymph nodes negative for metastasis, ER 98%, OR 90%, HER2/dallin 1+, p53 8%, Ki-67 10%. [...] breast biopsy from 01/04/2022 shows ER +65%, OR -0%, HER2/dallin -0%. --PET/CT performed at [facility] 02/04/2023 with interpretation as follows: Impression: 1. [...] on systemic therapy until she returns to [place] in August and we will forward allof [...] a high complexity visit over 60 minutes [id number] for review of history and symptoms as [...] lymph nodes negative for metastasis, ER 98%, OR 90%, HER2/dallin 1+, p53 8%, Ki-67 10%. [...] PO BID 04/11/23 [History Confirmed 07/03/23] omega 6-sxk-sbz-fish oil 900 mg-1,400 mg capsule,delayed release 1 [...] % (Auto) 43.2, Lymph % (Auto) 47.5, [facility] % (Auto) 6.4, Eos % (Auto) 0.9, Baso % (Auto) 2.0, Nucleat RBC Rel Count 0.4, Neut # (Auto) 1.3 L, Lymph # (Auto) 1.4, [facility] # (Auto) 0.2, Eos # (Auto) 0.0, Baso # (Auto) 0.1 - Impressions Date of Service: 05/16/23 XR/XR knee BI 4V: Acute pain of right knee ([id number]) XR/XR pelvis 1-2V: Acute pain of right knee 4 views both knee plain film COMPARISON: None HISTORY: Bilateral knee pain greater on the right ACUTE FINDINGS: None DEGENERATIVE CHANGE: Extensive dhke-tu-sdme contact the medial compartment degeneration seen bilaterally. Mild patellofemoral and lateral compartment degenerative changes. Bilateral mild degenerative subluxation. SOFT TISSUE FINDINGS: Unremarkable JOINT EFFUSION: None POSTOP CHANGES: None BONE MINERALIZATION: Adequate XR/XR knee BI 4V IMPRESSION: Extensive jzvz-bp-llqz bilateral medial compartment degenerative changes. Single view [...] lymph nodes negative for metastasis, ER 98%, OR 90%, HER2/dallin 1+, p53 8%, Ki-67 10%. [...] is transferring care from her primary oncologistin [place] after 12/2022 diagnosis of second breast cancer recurrence in subcutaneous tissue near right mastectomy site with no obvious systemic recurrence on recent PET/CT. She has ER+, OR neg, Her2 neg disease from recent biopsy. [...] on systemic therapy until she returns to [place] in August and we will forward allof [...] of care back to Dr. Lozano in [place]. Moderate complexityvisit 35 minutes. (2) Osteoarthritis of [...] August prior to transfer of care to [place]). (4) Encounter for long-term current use of [...] for coordination of care (as documented) and zlxa-dz-bbny counseling of patient and/or family. 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 There were 2 out of 2 sentinel lymph nodes negative for metastasis, ER 98%, OR 90%, HER2/dallin 1+, p53 8%, Ki-67 10%. [...] transferred care from her primary oncologist in [place] after 12/2022 diagnosis of second breast cancer recurrence in subcutaneous tissue near right mastectomy site with no obvious systemic recurrence on recent PET/CT. She has ER+, OR neg, Her2 neg disease from recent biopsy. [...] on systemic therapy until she returns to [place] in August and we will forward allof [...] of care back to Dr. Lozano in [place]. Moderate complexity visit 35 minutes. 09/05/2023: Yolanda [...] back to her physician Dr. Lozano in [place] from September through March 2024, I will see her upon her return. I will defer restaging imaging to her [place] oncologist and we will determine whether she isdue for restaging at the time of her return. She may contact me if any new concerns arise that would affect potential change in therapy. Moderate complexity 30-minute follow-up for transfer of care back to [place]. 03/27/2024: As per HPI, patient had repeat CT in [place] around February 2024 and her [place] oncologist stopped her Ibrance/Letrozole and apparently prescribed Xeloda 2 weeks on, 1 week off schedule. She did not start medication due to fears of side effects from her pharmacist counseling. Today she agreed to Xeloda at dose 1500mg po bid x 1 week on, 1 week off (2 week cycles)--[place] regimen with better anticipated tolerance. -- She [...] (2) Pleural effusion, right: Plan: Admission to [facility] 03/18/2024 with shortness of breath, then underwentright [...] with letrozole 2.5 mg daily. Stopped by [place] Oncologist in February 2024for presumed progression (we do not have records--this is per patient's reportedhistory). --February 2024: She was apparently prescribed Xeloda in [place] but she was reluctant to start this due to concern for side effects. 03/27/2024: Today she agreed to Xeloda at dose 1500mg po bid x 1 week on, 1 weekoff (2 week cycles)--[place] regimen with better anticipated tolerance. Orders: Orders [...] her care back to Dr. Lozano in [place] for the winter. We do not have her records, but she reports that she had CT CAP imaging in [place] about one month ago and was told that she had little response/stable disease but she was instructed to stop her Ibrance because it wasn't working fast enough . She cannot recall taking letrozole but notes she has not been on either medication for about a month and she was not placed on any new therapy. She was brought to [facility] 03/18/2024 for shortness of breath--CT imaging revealed [...] off prescribed by Dr. Lozano while in [place]. The patient met with the pharmacist and decided not to take her chemo because she thought it would make her hands red and blistered with touching the medication. Today we reeducated her to chemo side effects, reviewed local informed consent and changed to lower intensity dosing: Xeloda at dose 1500mg po bid x 1 week on, 1 week off (2 week cycles)--[place]on regimen with better anticipated tolerance. Today we [...] effects. She is planning to travel to [place] next week and has scheduled follow-up with her physician Dr. Lozano. She will be returning to [place] in about 8 months, March 2024 and we will continue follow-up at that time. No indication for restaging images at this time and we will [place] as needed if she has signs of recurrence--if no imaging on herreturn we will restage at that time. She will see her [place] physician sooner if new concerning symptoms arise. [...] to transfer of care back to her [place] physician Dr. Lozano. Moderate complexity 35 minute [...] lady who lives independently and resides in [facility] about half of the year returning to [place] in the summer and fall. Her primary [...] -Patient is planning to go back to [place] in February and is undergoing knee replacement surgery in summer 2022. The patient will make arrangements to seek surgical consultation in [place] and will decide if she wants to [...] lymph nodes negative for metastasis, ER 98%, OR 90%, HER2/dallin 1+, p53 8%, Ki-67 10%. [...] breast biopsy from 01/04/2022 shows ER +65%, OR -0%, HER2/dallin -0%. --PET/CT performed at [facility] 02/04/2023 with interpretation as follows: Impression: 1. [...] on systemic therapy until she returns to [place] in August and we will forward allof [...] a high complexity visit over 60 minutes gihv-[id number] for review of history and symptoms as [...] lymph nodes negative for metastasis, ER 98%, OR 90%, HER2/dallin 1+, p53 8%, Ki-67 10%. [...] left shoulder Intake Visit Reasons: f/u @[facility] for rt chest wall mass, follow up [...] today for Xeloda which was initiated in [place], patient did not start the medication as she was fearful of side effects. Dr Lopez is adjusting starting dose to 1500mg po BID take for one week on one week off and repeat. Instructions wrote down and given to patients daughter. [facility] Medical History Medical History Type 2 diabetes [...] 1-2% -The tumor cells are negative for OR -Immuno controls are appropriate -The mucicarmine stain [...] be performed RADIOLOGY/IMAGING RESULTS CT scan at [facility] 03/18/2024: Findings: Lungs: Mild scattered groundglass attenuation [...] performed by Dr. Camilla Blackman at the [facility]. 03/25/2024: Procedure: X-ray chest 2 view Findings: [...] <Electronically signed by MD Brandi Lopez> 03/28/[address] [facility] Work Phone: Progress note Author Cristina Long [facility] June 30, 2024 1:50pm Note Date/Time June 30, 2024 1: 30pm [facility] [place] [address] Cancer Center Note Signed Patient: Yolanda Fairbanks MR#: [id number] : 1935 Acct:[id number] Age/Sex: 89 / F Type: REG AMB [...] been comanaged with medical oncology here at [facility] and in [place]. Currently on Xeloda. May 04, 2024 patient [...] transferred care from her primary oncologist in [place] after 12/2022 diagnosis of second breast cancer recurrence in subcutaneous tissuenear right mastectomy site with no obvious systemic recurrence on recent PET/CT. 2013 originally diagnosed. 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 There were 2 out of 2 sentinel lymph nodes negative for metastasis, ER 98%, OR 90%, HER2/dallin 1+. 2019 recurrence of stage II right breast invasive ductal carcinoma status post right mastectomy. Estrogen receptor 70%, progesterone receptor 0%, HER2/dallin -0%on IHC. Patient declined chemo. Per the available records from her oncologist in [place] she had been on Femara since December 2020. 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 No non-skin/lisandra metastases (other than indeterminate rectal lesion) on PET/CT. Femara discontinued. April 2023 patient was evaluated by medical oncology. [facility] after she presented with a large mass encompassing the right chest wall with ulceration and bleeding superior to the mastectomy scar. She declined surgical resection. She was then placed on palbociclib. It appears she continued on Ibrance and letrozole with a decent response. She then went to [place] for the winter. March 2024 patient was again seen by medical oncology here. She was brought to [facility] 03/18/2024 for shortness of breath--CT imaging revealed [...] for a 5 week follow up visit [facility] Medical History Medical History (Updated 06/15/24 @ [...] <Electronically signed by Cristina Long MD> 06/30/[address] [facility] Work Phone: Reason for referral (narrative)* Reason [facility] surgeon ref erral placed - per note from Dr. Lopez's office. Diagnosis 1 Breast carcinoma, fe male, right (C50.911) Referral Organization [facility] Referring Provider First Name Ethel Referring Provider Last Name Ashu Referring Provider Specialty Family Medi cine Referred Organization Unknown Facility Referred Provider Blaine Burkett V Referred Provider Specialty Surgery Referral Priority Routine [employer] Other Summary Purpose Family History No Family [...] Chief Complaint Unknown Check up f/u @[facility] for rt chest wall mass New Patient [...] Chief Complaint Unknown Check up f/u @[facility] for rt chest wall mass New Patient [...] Chief Complaint Unknown Check up f/u @[facility] for rt chest wall mass New Patient [...] content) DATE CREATED AUTHOR 06/09/2022 [facility] DATE CREATED AUTHOR AUTHOR'S ORGANIZ ATION 04/27/2023 [facility] DATE CREATED AUTHOR AUTHOR'S ORGANIZ ATION 09/16/2024 [facility] REASON FOR VISIT [...] BE BASED ON THE PRIMARY CLINICAL RECORDS. [facility] [employer] provides no warranty or guarantee of the accuracy or completeness of information in this document.
== END 2024-09-18 19:11 | disposition short-term general hospital (02) ==
PROVIDERS: Emergency Provider Emergency Medicine; PCP Family Medicine
DX: I31.39 Other pericardial effusion (noninflammatory) (principal); J90 Pleural effusion, not elsewhere classified; N17.9 Acute kidney failure, unspecified
CPT/HCPCS: 36415; 71045; 71250; 80048; 81001; 83880; 85025; 87070; 87205; 87804; 87811; 93005; 93306; 99285